=== PATIENT | female | born 1970 | race Caucasian/White ===

== ENCOUNTER 2022-06-01 17:34 | Emergency (ER) | payer MEDICAID, SELFPAY ==
[2022-06-01 17:45] VITALS: BP 130/87; PULSE 84; RESP 14; TEMP 36.8; O2SAT 98
--- NOTE | 2022-06-01 18:09 | ED.GENADUL_ITS ---
Discharge Plan Disposition Patient Disposition: HOME Condition: Stable Discharge Details Chief Complaint: RashLesion Clinical Impression: Hand, foot and mouth disease Primary Care Provider: Adriana Velazquez ED Provider: Dung Marley Home Meds and New Rx's Prescriptions: No Action venlafaxine [Effexor XR] 37.5 mg Capsule,Extended Release 24hr 37.5 mg PO DAILY venlafaxine 75 mg Capsule,Extended Release 24hr 75 mg PO DAILY aspirin 81 mg Tablet 81 mg PO DAILY lisinopril 5 mg Tablet 5 mg PO DAILY Discharge Instructions Instructions: Hand, Foot, and Mouth Disease (ED) Additional Instructions: Please follow-up with your primary care physician. Please return to the emergency department for any worsening symptoms. Medical Decision Making 52-year-old female presents with papules to palms and soles as well as white papules to bucca mucosa over the past day, afebrile nontoxic tolerating secretions, hemodynamically stable, of note lzfb-wjju-csi-mouth has been going around her children school. High clinical suspicion for coxsackie viral infection resulting in enpd-zrie-mzn-mouth disease. Low suspicion for measles given localized skin involvement no systemic illness. Unlikely drug reaction, and no evidence of Morgan-Riccardo's or TEN; reassurance, viscous lidocaine for irritation of bucca mucosa, Home care instructions and return precautions given HPI General Date/Time Provider Initiated Documentation: 06/01/22 17:55 . HPI Narrative: 52-year-old female presents with rash to palms soles and oral mucosa that she has noticed over the past day, white bumps on the inside of her mouth that are irritating and small bumps on her palms and soles. Denies fevers chills nausea vomiting denies trouble breathing or speaking. Of note mvcl-hjgy-tms-mouth has been going around her children school Related Data Home Medications Medication Instructions Recorded Confirmed aspirin 81 mg tablet 81 mg PO DAILY 06/01/22 06/01/22 lisinopril 5 mg tablet 5 mg PO DAILY 06/01/22 06/01/22 venlafaxine 37.5 mg 37.5 mg PO DAILY 06/01/22 06/01/22 capsule,extended release 24 hr (Effexor XR) venlafaxine 75 mg capsule,extended 75 mg PO DAILY 06/01/22 06/01/22 release 24 hr Allergies Allergy/AdvReac Type Severity Reaction Status Date / Time prednisone AdvReac Intermediate Unverified 06/01/22 17:54 General Stated Complaint: RashLesion ROSA: 4 Review of Systems Narrative: Review of Systems Constitutional: negative Eyes: negative ENT: negative Cardiovascular: negative Respiratory: negative Gastrointestinal: negative : negative Musculoskeletal: negative Skin: Rash on palms soles and oral mucosa Neurologic: negative Psych: negative PFSH All Active Problems (Updated 06/01/22 @ 18:14 by Dung Marley MD) Hand, foot and mouth disease (Acute) Social History Smoking risk assessment performed?: No Exam Narrative Exam Narrative: Physical Examination General: alert, awake, cooperative, resting comfortably, no acute distress HEENT: normocephalic, atraumatic; PERRL, EOM intact, conjunctiva normal; no nasal discharge; moist mucous membranes, white papules to buccal mucosa, tolerating secretions, normal voice normal lips and gingiva, no ocular involvement Neck: supple, trachea midline; full ROM Chest: normal to inspection Respiratory: normal respiratory effort, speaking in full sentences, clear to auscultation, no wheezing, rales or rhonchi Cardiac: regular rate, regular rhythm, S1S2 intact, no murmurs rubs or gallops GI: abdomen soft, non-tender, non-distended; no palpable mass or hepatosplenomegaly Skin: Scattered papules to palms of bilateral hands, white papules to buccal mucosa; no skin sloughing, bulla, petechia or purpura Neuro: AAOx3, normal speech, moving all extremities Extremities: See skin Psych: Appropriate mood and affect Course Vital Signs Vital signs: Vital Signs Temperature 36.8 C 06/01/22 17:45 Pulse 84 06/01/22 17:45 Respiratory Rate 14 06/01/22 17:45 Blood Pressure 130/87 06/01/22 17:45 Pulse Oximetry 98 06/01/22 17:45 Temperature 36.8 C 06/01/22 17:45 Temperature Source Temporal Artery Scan 06/01/22 17:45 Pulse 84 06/01/22 17:45 Respiratory Rate 14 06/01/22 17:45 Respiratory Effort Non-Labored 06/01/22 17:57 Blood Pressure 130/87 06/01/22 17:45 Blood Pressure Position Sitting 06/01/22 17:45 Pulse Oximetry 98 06/01/22 17:45 Oxygen Delivery Method Room Air 06/01/22 17:45 Oxygen Flow Rate 0 06/01/22 17:45
[2022-06-01] MEDS: Lidocaine 2% Viscous 15 ML CUP PO (18:15)
[2022-06-01 18:24] VITALS: BP 130/87; PULSE 84; RESP 14; TEMP 36.8; O2SAT 98
== END 2022-06-01 18:27 | disposition home or self-care (01) ==
PROVIDERS: Emergency Provider Emergency Medicine; PCP Internal Medicine
DX: B08.4 Enteroviral vesicular stomatitis with exanthem (principal)
CPT/HCPCS: 99283; 99284

== ENCOUNTER 2022-10-11 11:44 | Emergency (ER) | payer MEDICAID, SELFPAY ==
[2022-10-11 11:47] VITALS: BP 113/74; PULSE 92; RESP 18; TEMP 36.8; O2SAT 97
[2022-10-11 11:56] VITALS: RESP 18
[2022-10-11] MEDS: Ibuprofen 600 MG TAB PO (12:58)
--- NOTE | 2022-10-11 13:15 | ED.GENADUL_ITS ---
Discharge Plan Disposition Patient Disposition: Home Condition: Stable Discharge Details Clinical Impression: Acute otalgia, URI (upper respiratory infection) Primary Care Provider: Adriana Velazquez ED Provider: Bhupinder Salazar Home Meds and New Rx's Prescriptions: New amoxicillin 875 mg tablet 875 mg PO BID Qty: 20 0RF Continued venlafaxine [Effexor XR] 37.5 mg Capsule,Extended Release 24hr 37.5 mg PO DAILY venlafaxine 75 mg Capsule,Extended Release 24hr 75 mg PO DAILY aspirin 81 mg Tablet 81 mg PO DAILY lisinopril 5 mg Tablet 5 mg PO DAILY Discharge Instructions Instructions: Upper Respiratory Infection (ED) Additional Instructions: At this time your testing was negative for COVID, flu, and strep throat. Please continue to take vblg-krc-nufwvaq medications as needed for discomfort. I do recommend 600 mg of ibuprofen/Motrin every 6 hours as needed for pain. Stay well-hydrated and get plenty of rest. It is possible that you have early signs of your infection that are not obvious today. I have given you a prescription for antibiotic but it is recommended that you utilize maxc-mnc-cvnptjj pain medication for the next 24 to 48 hours and if your symptoms resolve you do not need the antibiotic but if you worsen feel free to start the antibiotic and take full course of medication. Follow-up with your primary care provider if not improving in the next week Referrals: Adriana Velazquez [Primary Care Provider] - 1 week Discharge Data Discharge Date/Time-TO BE ENTERED AT DEPARTURE: 10/11/22 13:24 Medical Decision Making Patient presenting to the emergency department for chief complaint of right ear pain. Patient reports that she has had upper respiratory symptoms for the past week but over the past couple days started having significant right ear pain. States subjective chills and fever, and some radiation of pain into right side of neck underneath the jawline. Exam shows clear lung sounds, no cardiac findings, no lymphadenopathy, mild erythema to the tonsils and posterior pharynx with slight exudate, right ear is bulging with clear effusion but no erythema no loss of landmarks. COVID antigen testing was performed and was negative. After my examination I also requested a strep test which also was negative and sent for culture. At this time I do not feel that patient has obvious otitis media but there is potential this could be early in her presentation. Will give pocket prescription for antibiotics in case she worsens but otherwise will recommend that she takes Motrin for the next 24 to 48 hours and monitor symptoms. After discussion of diagnosis and plan of care patient has no further needs, questions, or concerns and states clear understanding to return to the emergency department for any worsening symptoms. This documentation was generated using [employer] dictation system, please disregard any oddities of phrase or misspellings. Lab Data Lab results reviewed: Yes I reviewed the patient's lab results. HPI General Mode of arrival: ambulatory . Date/Time Provider Initiated Documentation: 10/11/22 12:10 . Limitations to Documentation: no limitations . Information obtained by: patient and RN notes reviewed . History of Present Illness 52 year old F presents to the emergency department with the chief complaint of Right ear pain, described as moderate, Quality is described as sharp, and is localized to the right (ear). Patient started experiencing this day(s) (2) and it has been constant. No relieving factors improve symptom(s), No exacerbating factors reported . Patient notes no other symptoms.. Patient did receive the following treatments prior to arrival, none Related Data Home Medications Medication Instructions Recorded Confirmed aspirin 81 mg tablet 81 mg PO DAILY 06/01/22 10/11/22 lisinopril 5 mg tablet 5 mg PO DAILY 06/01/22 10/11/22 venlafaxine 37.5 mg 37.5 mg PO DAILY 06/01/22 10/11/22 capsule,extended release 24 hr (Effexor XR) venlafaxine 75 mg capsule,extended 75 mg PO DAILY 06/01/22 10/11/22 release 24 hr amoxicillin 875 mg tablet 875 mg PO BID #20 tabs 10/11/22 Previous Rx's Medication Instructions Recorded amoxicillin 875 mg tablet 875 mg PO BID #20 tabs 10/11/22 Allergies Allergy/AdvReac Type Severity Reaction Status Date / Time prednisone AdvReac Intermediate Unverified 10/11/22 11:51 General Stated Complaint: GenMedical ROSA: 4 Review of Systems Constitutional Constitutional: Reports body ache(s), Reports chills, Denies fever(s), Reports headache(s) and Reports malaise Eyes Eyes: Denies eye discharge ENT Ears, Nose, Mouth, and Throat: Reports as per HPI, Denies ear discharge, Reports otalgia, Reports headache(s), Reports nasal congestion, Reports nasal discharge, Denies neck pain, Reports sore throat and Denies throat swelling Cardiovascular Cardiovascular: Denies chest pain and Denies dyspnea Respiratory Respiratory: Reports cough and Denies dyspnea Musculoskeletal Musculoskeletal: Denies joint swelling and Denies neck pain Integumentary/Breasts Skin/Breast: Denies rash Neurologic Neurologic: Reports headache(s) Allergic/Immunologic Allergic/Immunologic: Denies throat swelling PFSH All Active Problems (Updated 10/11/22 @ 13:18 by Bhupinder Salazar NP) Acute otalgia (Acute) URI (upper respiratory infection) (Acute) Social History Smoking/Tobacco Use Status: Current every day Tobacco Type: cigarettes Smoking risk assessment performed?: Yes Alcohol Intake: never Drug use: Never Substance use type: does not use Do you feel safe at home: Yes Do you feel safe in your relationship?: Yes Exam Const General: cooperative, comfortable and no acute distress Orientation: alert and awake HENWA Head: normal to inspection, normocephalic and atraumatic Ears: hearing grossly normal bilaterally, TM normal on the left and TM abnormal bulging on the right and wth effusion serous on the right; with no loss of landmarks General nose exam: external nose normal Face and sinus: no erythema Mouth: oral mucosae normal, no drooling, no muffled voice and no trismus Throat: posterior oropharynx normal Neck Neck: normal visual inspection, full ROM, no lymphadenopathy, no meningeal signs, trachea midline and supple Resp Effort & Inspection: normal respiratory effort, able to speak in complete sentences and cough Quality of cough: dry Auscultation: clear to auscultation bilaterally Cardio Rate: regular rate Rhythm: regular rhythm Heart Sounds: S1 normal, S2 normal, normal S1 and S2, no click, no gallops, no murmurs and no rubs Skin General skin exam: no rashes or lesions noted and dry skin (warm) Neuro General: patient alert, patient awake, patient oriented x3, gait normal and moves all extremities Cognition: normal cognition Speech: speech normal Course Vital Signs Vital signs: Vital Signs Temperature 36.8 C 10/11/22 11:47 Pulse 92 H 10/11/22 11:47 Respiratory Rate 18 10/11/22 11:47 Blood Pressure 113/74 10/11/22 11:47 Pulse Oximetry 97 10/11/22 11:47 Temperature 36.8 C 10/11/22 11:47 Temperature Source Temporal Artery Scan 10/11/22 11:47 Pulse 92 H 10/11/22 11:47 Respiratory Rate 18 10/11/22 11:56 Respiratory Effort Normal, Non-Labored 10/11/22 11:56 Respiratory Depth Normal 10/11/22 11:56 Respiratory Pattern Normal 10/11/22 11:56 Blood Pressure 113/74 10/11/22 11:47 Blood Pressure Position Sitting 10/11/22 11:47 Pulse Oximetry 97 10/11/22 11:47 Oxygen Delivery Method Room Air 10/11/22 11:47 Oxygen Flow Rate 0 10/11/22 11:47 Lab/Test Results Lab/Test Results: 10/11/22 13:00 Tonsil - Not Specified Group A Streptococcus Culture - Pending POC Strep Test-BLAYNE(Rapid) Start: 10/11/22 12:52 Freq: .Rapid Strep Test Status: Active Protocol: Document 10/11/22 13:06 PS (Rec: 10/11/22 13:06 PS [id number]) Strep test-BLAYNE(Rapid)-POC POC-Strep test-BLAYNE (Rapid) Negative POC-Strep test-BLAYNE (Rapid) Negative
== END 2022-10-11 13:24 | disposition home or self-care (01) ==
PROVIDERS: Emergency Provider Nurse Practitioner Family; PCP Internal Medicine
DX: J06.9 Acute upper respiratory infection, unspecified (principal); H92.01 Otalgia, right ear; F17.210 Nicotine dependence, cigarettes, uncomplicated; Z79.82 Long term (current) use of aspirin; Z20.822 Contact with and (suspected) exposure to COVID-19
CPT/HCPCS: 87880; 99282; 87081

== ENCOUNTER 2022-11-26 09:32 | Emergency (ER) | payer MEDICAID, SELFPAY ==
[2022-11-26] VITALS (36 sets, daily range): BP systolic 97–157; BP diastolic 56–91; PULSE 64–83; RESP 8–28; O2SAT 94–100
--- NOTE | 2022-11-26 09:30 | DI.CT_ITS ---
Exam(s) CT HEAD WO EXAM: CT HEAD WO CLINICAL HISTORY: Syncope. TECHNIQUE: Imaging Protocol: Axial computed tomography images with coronal and sagittal reformatted images were created and reviewed COMPARISON: No exams were available for comparison FINDINGS: There are no skull fractures. There is no fluid in the visualized paranasal sinuses. There is no evidence of intracranial hemorrhage, mass effect, or shift of midline structures. There are no extra-axial fluid collections. The ventricles are not enlarged or shifted and there is no blo od within the ventricular system nor within the basal cisterns. IMPRESSION: No acute intracranial findings on this noninfused CT scan of the brain. Called to ER 11/26/2022 11 14 a.m.. RADIATION DOSE DELIVERED: 643.84mGy.cm Total DLP DATA REPOSITORY: All CT scans at this facility are submitted to the National Radiology Data Registry (NRDR) Dose Index Registry (DIR) with the [employer] (ACR). RADIATION OPTIMIZATION: All CT scans at this facility use at least one of these dose optimization te chniques: automated exposure control; mA and/or kV adjustment per patient size (includes targeted exa ms where dose is matched to clinical indication); or iterative reconstruction.
--- NOTE | 2022-11-26 09:30 | RT.EKG_ITS ---
APPROVED REPORT Exam: Resting ECG Reason for Exam: Chest Pain Patient Location: E HR:67 bpm ECG Measurements Heart Rate 67 AXIS NH 158 P 77 QRSd 71 QRS 55 QT 384 T 50 QTc 407 Conclusion Sinus rhythm...normal P axis, V-rate 60- 99. Sinus. Normal axis. No STEMI. I have reviewed and interpreted ECG and agree with software generated interpretation.
--- OUTSIDE RECORDS SUMMARY | 2022-11-26 09:41 | XMS_ITS | Continuity of Care Document ---
Author Name Unknown Organization [facility] Address [address] [place] [address] Care Team Providers Care Central Sterile Technician Name Role Phone Adriana Velazquez Primary Care Physician Encounter [facility] Date(s): 11/20/22 - 11/20/[address] [address] Discharge Disposition: Home Allergies, Adverse Reactions, Alerts Substance Reaction Severity Status predniSONE Unknown Active Assessment and Plan Future Scheduled Tests Radiology* MG Mammo Screening Bilateral w/ Kaden 11/19/22 * CT Low Dose Lung Screening 02/11/22 Immunizations Given and Recorded Vaccine Date Status Refusal Reason zoster vaccine, inactivated 1 07/29/21 Recorded influenza virus vaccine, live 2 07/29/21 Recorded influenza virus vaccine, live 05/28/20 Recorded influenza virus vaccine, live 06/23/19 Recorded influenza virus vaccine, live 06/13/18 Recorded SARS-CoV-2 (COVID-19) mRNA BNT-162b2 vax 10/10/20 Recorded SARS-CoV-2 (COVID-19) mRNA BNT-162b2 vax 09/19/20 Recorded pneumococcal 23-polyvalent vaccine 3 09/12/19 Bob rded tetanus/diphth/pertuss (Tdap) adult/adol 05/04/19 Recorded tetanus/diphth/pertuss (Tdap) adult/adol 02/04/11 Recorded 1Result Comment: Tolerated well 2Result Comment: Tolerated well 3Result Comment: Educational information provided. Pt tolerated well Medications aspirin 81 mg oral delayed release tablet 1 tab, Oral, Daily, 0 Refill(s) Start Date: 02/10/22 Status: Ordered lisinopril 5 mg oral tablet 5 mg = 1 tab, Oral, Daily, # 90 tab, 3 Refill(s), Pharmacy: [facility][id number] Start Date: 03/04/22 Status: Ordered LORazepam 0.5 mg oral tablet 0.5 mg = 1 tab, Oral, Daily, PRN as needed for anxiety, # 28 tab, 0 Refill(s), Pharmacy: [facility] #[id number] Start Date: 11/03/22 Stop Date: 12/01/22 Status: Ordered venlafaxine 37.5 mg oral capsule, extended release 37.5 mg = 1 cap, Oral, Daily, # 90 cap, 3 Refill(s), Pharmacy: [id number] Start Date: 08/31/22 Status: Ordered venlafaxine 75 mg oral capsule, extended release 1 cap, Oral, Daily, 0 Refill(s) Start Date: 02/10/22 Status: Ordered Problem List Condition Confirmation Course Effective Dates Status H ealth Status Informant Adenocarcinoma of endometrium Confirmed 07/25/20 Active Depressive disorder Confirmed Active Family problems Confirmed 01/01/21 Active Generalized anxiety disorder Confirmed 07/24/20 Active Hyperlipidemia Confirmed 02/06/20 Active Hypertensive disorder Confirmed 06/28/18 Active Liver function tests abnormal Confirmed 06/28/18 Active Lumbar radiculopathy Confirmed 06/28/18 Active Palpitations Confirmed 06/28/18 Active Panic disorder Confirmed 07/24/20 Active Posttraumatic stress disorder Confirmed 07/24/20 Active Smoker Confirmed 06/28/18 Active Procedures Procedure Date Related Diagnosis Body Site Status Laparoscopic total abdominal hysterectomy and bilateral salpingo-oophorectomy 1 08/28/20 Complete d Colonoscopy 2 02/15/20 Completed Carpal tunnel release 08/22/13 Com pleted Procedure on back 08/22/07 Complet ed Procedure on ankle 08/22/99 Comple [place] Tubal ligation 08/22/92 Completed 1total laparoscopic/robotic hysterectomy, BSO, sentinel lymph node mapping and biopsy for dx of endometrial adenocarcinoma 2rectal polyp, internal hemorrhoids grade 1 Social History Social History Type Response Tobacco Current everyday tob acco user Tobacco Use:. 1ppd per day. 30 year(s). Sex Female Patient Care team information Care Team Personnel Name: Adriana Velazquez Position: Physician Member Role: Primary Care Physician Address: Address: [facility] [place] [phone] Care Team Related Persons Name: KYE JESUS Address: Home [address] [place] [phone] Name: SANTO VAELNTINO Address: [address] [phone]
--- OUTSIDE RECORDS SUMMARY | 2022-11-26 09:41 | XMS_ITS | Continuity of Care Document ---
Author Name Unknown Organization [facility] Address [address] [place] [address] Care Team Providers Care Hire Car Driver Name Role Phone Adriana Velazquez Primary Care Physician [phone] Encounter [facility] Date(s): 07/13/22 - 07/13/[address] [address] Discharge Disposition: Home or Self Care Attending Physician: Austin Dahl NP Admitting Physician: Austin Dahl NP Referring Physician: Austin Dahl SR. OPERATIONS MANAGER Allergies, Adverse Reactions, Alerts Substance Reaction Severity Status predniSONE Unknown Active Assessment and Plan Diagnostic Tests Pending * Generic Orderable [facility] 07/13/22 Future Scheduled Tests Radiology* CT Low Dose Lung Screening 02/11/22 Immunizations [...] Daily, # 90 tab, 3 Refill(s), Pharmacy: [facility] #[id number] Start Date: 03/04/22 Status: Ordered LORazepam 0.5 mg oral tablet 0.5 mg = 1 tab, Oral, Daily, PRN as needed for anxiety, # 28 tab, 0 Refill(s), Pharmacy: [facility] #[id number] Start Date: 07/09/22 Stop Date: 08/06/22 Status: Ordered venlafaxine 37.5 mg oral capsule, extended release 1 cap, Oral, Daily, 0 Refill(s) Start Date: 02/10/22 Status: Ordered venlafaxine 75 mg oral capsule, [...] adenocarcinoma 2rectal polyp, internal hemorrhoids grade 1 Results Laboratory List Name Date Automated Diff 07/13/22 CBC w/ Diff 07/13/22 Comprehensive Metabolic Panel (CMP) 06/24 09/13 HIV 1/2 Ag and Ab, 4th Generation [facility] Most recent to oldest [Reference Range]: 1 WBC [5.0-10.0 x10^3/mcL] 8.5 x10^3/mcL (07/13/22 9:30 AM) RBC [4.1-5.3 x10^6/mcL] 4.6 x10^6/mcL (07/13/22 9:30 AM) Neutro Auto [40.0-75.0 %] 59.6 % (07/13/22 9:30 AM) Lymph Auto [20.0-50.0 %] 32.6 % (07/13/22 9:30 AM) Williams Auto [2.0-15.0 %] 5.7 % (07/13/22 9:30 AM) Basophil Auto [0.0-1.0 %] 0.8 % (07/13/22 9:30 AM) BUN [7-18 mg/dL] 19 mg/dL *HI* (07/13/22 9:30 AM) Glucose Level [74-106 mg/dL] 93 mg/dL (07/13/22 9:30 AM) Potassium Level [3.5-5.1 mmol/L] 4.7 mmo l/L (07/13/22 9:30 AM) MCV [80.0-96.0] 93.1 (07/13/22 9:30 AM) AST [15-37 unit/L] 19 unit/L (07/13/22 9:30 AM) ALT [14-59 unit/L] 29 unit/L (07/13/22 9:30 AM) MCHC [31.0-35.0 g/dL] 34.0 g/dL (07/13/22 9:30 AM) Sodium Level [136-145 mmol/L] 137 mmol/L (07/13/22 9:30 AM) Hct [37.0-47.0 %] 43.2 % (07/13/22 9:30 AM) Calcium Level [8.5-10.1 mg/dL] 9.3 mg/dL (07/13/22 9:30 AM) Albumin Level [3.4-5.0 g/dL] 3.9 g/dL (07/13/22 9:30 AM) Protein Total [6.4-8.2 g/dL] 7.1 g/dL (07/13/22 9:30 AM) MCH [26.0-32.0 pg] 31.7 pg (07/13/22 9:30 AM) Neutro Absolute 5.0 x10^3/mcL *NA* (07/13/22 9:30 AM) Bilirubin Total [0.2-1.0 mg/dL] 0.2 mg/d L (07/13/22 9:30 AM) Hgb [12.0-16.0 g/dL] 14.7 g/dL (07/13/22 9:30 AM) Alk Phos [46-146 unit/L] 64 unit/L (07/13/22 9:30 AM) Platelets [130-450 x10^3/mcL] 342 x10^3/ mcL (07/13/22 9:30 AM) CO2 [21-32 mmol/L] 27 mmol/L (07/13/22 9:30 AM) eGFR Non-AA [>=60] 84 (07/13/22 9:30 AM) eGFR AA [>=60] 84 (07/13/22 9:30 AM) Chloride Level [98-107 mmol/L] 103 mmol/ L (07/13/22 9:30 AM) RDW-CV [11.7-17.0 %] 13.0 % (07/13/22 9:30 AM) Imm Gran Auto [0.0-0.9 %] 0.2 % (07/13/22 9:30 AM) Creatinine Level [0.55-1.02 mg/dL] 0.83 mg/dL (07/13/22 9:30 AM) HIV 1 and 2 Ab/p24 Ag, 4th Gen [facility] [Nega tive] Negative 1 *NA* (07/13/22 9:30 AM) Eos, Auto [1.0-6.0 %] 1.1 % (07/13/22 9:30 AM) 1Result Comment: If acute HIV-1 infection is suspected in a high risk patient, submit plasma specimen for HIV-1 RNA quantitation test. ENTP: ENTP Enterovirus Molecular detection [facility]: ENTP Fourth Generation assay performed on the [employer] XPT. Test performed [place] [address] Social History Social History Type Response Tobacco Current everyday tob acco user Tobacco Use:. 1ppd per day. 30 year(s). Sex Female Patient Care team information Personnel Name: Adriana Velazquez Address: Address: [facility] [id number] [place] [address]
--- NOTE | 2022-11-26 09:44 | DI.CT_ITS ---
Exam(s) CT THORAX ABD/PEL CTA EXAM: CT THORAX ABD/PEL CTA CLINICAL HISTORY: Chest Pain, Syncope. TECHNIQUE: Imaging Protocol: Axial computed tomography images with coronal and sagittal reformatted images were created and reviewed CONTRAST MATERIAL: Intravenous: Omnipaque 350 Contrast volume:100 ml Oral: None COMPARISON: No exams were available for comparison FINDINGS: CHEST: AORTA: The ascending thoracic aorta diameter is normal and there is no evidence of aortic dissection. Diameter of the aortic arch and descending thoracic aorta are also within normal limits. No eviden ce of dissection. No pericardial effusion. Upper normal heart size. Abdominal aorta exhibits some atherosclerotic disease distally at and below the inferior mesenteric a rtery takeoff point with some mild partially calcified peripheral plaque no significant aneurysmal di latation nor tight stenosis. Also no significant tight stenosis at the aortic bifurcation. Common i liac arteries are patent and nonaneurysmal. External iliac arteries appear unremarkable as do the co mmon femoral arteries and there is no evidence of aneurysm of the common femoral arteries. The proxi mal SFA is are patent. Both internal iliac arteries are patent and nonaneurysmal. LUNGS: Both lungs are clear. No infiltrates nor pleural effusions. No pulmonary edema. No pneumoth orax. No significant focal findings in the trachea and mainstem bronchi. There is no bronchiectasis .. MEDIASTINUM: There is no hilar nor mediastinal adenopathy. Visualized thyroid unremarkable. CARDIAC: Heart size is normal. There is no pericardial effusion. AORTA: As above.There is no evidence of aortic dissection. ABDOMEN: There is no evidence of abdominal aortic aneurysm nor dissection.No significant stenosis at the origi n of the celiac and superior mesenteric arteries nor renal arteries.Inferior mesenteric artery is pat ent. There is no ascites. LIVER: There are no focal hepatic lesions nor dilatation of intrahepatic ducts. GALLBLADDER/BILIARY: There is a density in the wall of the fundus of the gallbladder which measures a pproximately 1.0 x 0.7 cm. CBD is not dilated. PANCREAS: No evidence of pancreatic mass nor dilatation of the pancreatic duct. SPLEEN: Spleen is not enlarged. There are no intrasplenic lesions. ADRENALS: There are no significant adrenal masses. KIDNEYS: No cysts evident. No calculi nor hydronephrosis. No solid renal masses. ABDOMINAL AORTA: The abdominal aorta is not enlarged. LYMPH NODES: There is no retroperitoneal nor para-aortic adenopathy. No obvious mesenteric masses. ABDOMINAL WALL: No evidence of significant anterior abdominal wall hernia. GI: Abundant fecal material in the colon. No bowel obstruction. No free air. No abscess. PELVIS: LYMPH NODES: There is no intrapelvic nor inguinal adenopathy. GI: No evidence of appendicitis.No evidence of sigmoid diverticulitis. URINARY BLADDER: No calculi nor masses evident REPRODUCTIVE: Uterus surgically absent. No abnormal adnexal masses. No free fluid in the pelvis. OSSEOUS: No significant osseous lesions. No fractures. Chronic disc space narrowing at L5-S1 noted. IMPRESSION: 1. No evidence of aortic aneurysm nor aortic dissection. No pericardial effusion. Heart size upper normal. 2. No pulmonary findings. 3. Incidentally noted in the abdomen is a 1 cm density which is either in the tip of the gallbladder fundus or adjacent liver parenchyma-right hepatic lobe. Recommend follow-up gallbladder ultrasound. 4. No compression fractures in the spinal column. Chronic disc space narrowing L5-S1 noted. Called by myself to ER. RADIATION DOSE DELIVERED: 846.9mGy.cm Total DLP DATA REPOSITORY: All CT scans at this facility are submitted to the National Radiology Data Registry (NRDR) Dose Index Registry (DIR) with the [employer] [place] [employer] [employer] (ACR). RADIATION OPTIMIZATION: All CT scans at this facility use at least one of these dose optimization te chniques: automated exposure control; mA and/or kV adjustment per patient size (includes targeted exa ms where dose is matched to clinical indication); or iterative reconstruction.
--- NOTE | 2022-11-26 09:46 | ED.GENADUL_ITS ---
Discharge Plan Disposition Patient Disposition: Home Discharge Details Clinical Impression: Syncope, Chest pain Primary Care Provider: Adriana Velazquez ED Provider: Ariana Burger Home Meds and New Rx's Prescriptions: Continued amoxicillin 875 mg tablet 875 mg PO BID Qty: 20 0RF venlafaxine [Effexor XR] 37.5 mg Capsule,Extended Release 24hr 37.5 mg PO DAILY venlafaxine 75 mg Capsule,Extended Release 24hr 75 mg PO DAILY aspirin 81 mg Tablet 81 mg PO DAILY lisinopril 5 mg Tablet 5 mg PO DAILY Discharge Instructions Instructions: Chest Pain (ED), Syncope (ED) Additional Instructions: No evidence of acute heart attack, no pneumonia. Please follow-up with your primary care provider within the next 2 to 3 days. Your sodium was just a tad low. Normal is 136 your level was 135 Follow up with primary care provider in 3-5 days. Return to ED sooner if any worsening or concerns. Increase oral fluids. Please take Tylenol or Ibuprofen with food every 4-6 hours as needed for pain and swelling. Referrals: Adriana Velazquez [Primary Care Provider] - 3 days Medical Decision Making 52-year-old female presents to the ER with a chief complaint of sudden onset of chest pain and syncope just prior to arrival. Patient reports that she was presenting here for a counseling appointment got out of the car stood up stretched felt a sudden onset of left-sided chest pain and her reports she then collapsed and fell to the ground. He picked her up and put her in the car and she woke up approximately 30 seconds afterwards. She is still complaining of some left sided chest pain. EKG was reviewed by Dr. Andujar ER attending, no old EKG available for review. Please see official report. Cardiac work-up ordered including serial troponins, D-dimer CT head without contrast CTA thorax and abdomen to rule out dissection. CBC shows no leukocytosis D-dimer 402 sodium 135 which is slightly low, troponins are negative, urinalysis within normal limits. CT head within normal limits CT chest abdomen pelvis shows no aortic dissection. Discussed results with patient and family who verbalized understanding. Discussed return instructions. I did strongly encourage follow-up with PCP within the next 2 to 3 days. Patient was hemodynamically stable throughout her stay tolerating p.o. intake well alert and oriented. This text was generated using [employer] system, please disregard any oddities of phrase or misspellings. Medical Records Medical records reviewed: Yes I reviewed the patient's medical records. Imaging Data Radiologic Study: Imaging: CT Scan Radiologist's impression: IMPRESSION: 1. No evidence of aortic aneurysm nor aortic dissection. No pericardial effusion. Heart size upper normal. 2. No pulmonary findings. 3. Incidentally noted in the abdomen is a 1 cm density which is either in the tip of the gallbladder fundus or adjacent liver parenchyma-right hepatic lobe. Recommend follow-up gallbladder ultrasound. 4. No compression fractures in the spinal column. Chronic disc space narrowing L5-S1 noted. Lab Data Lab results reviewed: Yes I reviewed the patient's lab results. Labs: Laboratory Tests Range/Units 11/26/22 11/26/22 11/26/22 09:59 09:59 09:59 WBC (4.4-10.8) 10^3/uL 7.93 RBC (3.93-5.22) 10^6/uL 4.42 Hgb (11.2-15.7) g/dL 14.1 Hct (36.0-46.0) % 39.7 MCV (80-95) fL 90 MCH (27.0-33.0) pg 31.9 MCHC (32.0-36.0) % 35.5 RDW (11.7-14.6) % 12.9 Plt Count (130-400) 10^3/uL 305 MPV (8.0-11.0) fL 10.2 Immature Gran % 0.3 Neutrophils % 63.7 Lymphocytes % 29.3 Monocytes % 5.4 Eosinophils % 0.5 Basophils % 0.8 Nucleated RBC % (0.0-0.3) % 0.0 Absolute Neutrophils (1.2-6.7) 10^3/uL 5.06 Absolute Lymphocytes (1.2-3.4) 10^3/uL 2.32 Absolute Monocytes (0.1-0.8) 10^3/uL 0.43 Absolute Eosinophils (0.0-0.7) 10^3/uL 0.04 Absolute Basophils (0.0-0.2) 10^3/uL 0.06 D-Dimer (<500) ng/mlFEU 402 Sodium (136-145) mmol/L 135 L Potassium (3.5-5.1) mmol/L 4.1 Chloride (98-107) mmol/L 100 Carbon Dioxide (21.0-32.0) mmol/L 28.2 Anion Gap (3-11) mmol/L 6.8 BUN (7-18) mg/dL 15 Creatinine (0.55-1.02) mg/dL 0.8 Est GFR (CKD-EPI 2020) (mL/min/1.73m2) 87.50 Glucose (74-106) mg/dL 100 Calcium (8.5-10.1) mg/dL 10.0 Magnesium (1.8-2.4) mg/dL 2.0 Total Bilirubin (0.2-1.0) mg/dL 0.3 AST (15-37) U/L 26 ALT (14-59) U/L 42 Alkaline Phosphatase (46-116) U/L 62 Troponin I (<or=60) ng/L < 50 Total Protein (6.4-8.2) g/dL 7.5 Albumin (3.4-5.0) g/dL 3.9 Urine Color (Yellow) Urine Clarity (Clear) Urine pH (5-8) Ur Specific [place] (1.005-1.025) Urine Protein (Negative) mg/dL Urine Ketones (Negative) mg/dL Urine Blood (Negative) Urine Nitrite (Negative) Urine Bilirubin (Negative) Urine Urobilinogen (Up to 0.2) mg/dL Ur Leukocyte Esterase (Negative) Urine Glucose (Negative) mg/dL Range/Units 11/26/22 11/26/22 11:30 13:19 WBC (4.4-10.8) 10^3/uL RBC (3.93-5.22) 10^6/uL Hgb (11.2-15.7) g/dL Hct (36.0-46.0) % MCV (80-95) fL MCH (27.0-33.0) pg MCHC (32.0-36.0) % RDW (11.7-14.6) % Plt Count (130-400) 10^3/uL MPV (8.0-11.0) fL Immature Gran % Neutrophils % Lymphocytes % Monocytes % Eosinophils % Basophils % Nucleated RBC % (0.0-0.3) % Absolute Neutrophils (1.2-6.7) 10^3/uL Absolute Lymphocytes (1.2-3.4) 10^3/uL Absolute Monocytes (0.1-0.8) 10^3/uL Absolute Eosinophils (0.0-0.7) 10^3/uL Absolute Basophils (0.0-0.2) 10^3/uL D-Dimer (<500) ng/mlFEU Sodium (136-145) mmol/L Potassium (3.5-5.1) mmol/L Chloride (98-107) mmol/L Carbon Dioxide (21.0-32.0) mmol/L Anion Gap (3-11) mmol/L BUN (7-18) mg/dL Creatinine (0.55-1.02) mg/dL Est GFR (CKD-EPI 2020) (mL/min/1.73m2) Glucose (74-106) mg/dL Calcium (8.5-10.1) mg/dL Magnesium (1.8-2.4) mg/dL Total Bilirubin (0.2-1.0) mg/dL AST (15-37) U/L ALT (14-59) U/L Alkaline Phosphatase (46-116) U/L Troponin I (<or=60) ng/L < 50 Total Protein (6.4-8.2) g/dL Albumin (3.4-5.0) g/dL Urine Color (Yellow) Yellow Urine Clarity (Clear) Clear Urine pH (5-8) 5.5 Ur Specific [place] (1.005-1.025) <= 1.005 Urine Protein (Negative) mg/dL Negative Urine Ketones (Negative) mg/dL Negative Urine Blood (Negative) Negative Urine Nitrite (Negative) Negative Urine Bilirubin (Negative) Negative Urine Urobilinogen (Up to 0.2) mg/dL 0.2 Ur Leukocyte Esterase (Negative) Negative Urine Glucose (Negative) mg/dL Negative HPI General Mode of arrival: ambulatory . Date/Time Provider Initiated Documentation: 11/26/22 09:33 . Limitations to Documentation: no limitations . Information obtained by: patient, RN notes reviewed and old records reviewed . HPI Narrative: 52-year-old female presents to the ER with a chief complaint of sudden onset of chest pain and syncope just prior to arrival. Patient reports that she was presenting here for a counseling appointment got out of the car stood up stretched felt a sudden onset of left-sided chest pain and her reports she then collapsed and fell to the ground. He picked her up and put her in the car and she woke up approximately 30 seconds afterwards. She is still complaining of some left sided chest pain. Nonreproducible with palpation. She also reports feeling out of it and dizzy. She does take aspirin daily and is a daily smoker. She also has a history of hypertension. Related Data Home Medications Medication Instructions Recorded Confirmed aspirin 81 mg tablet 81 mg PO DAILY 06/01/22 10/11/22 lisinopril 5 mg tablet 5 mg PO DAILY 06/01/22 10/11/22 venlafaxine 37.5 mg 37.5 mg PO DAILY 06/01/22 10/11/22 capsule,extended release 24 hr (Effexor XR) venlafaxine 75 mg capsule,extended 75 mg PO DAILY 06/01/22 10/11/22 release 24 hr amoxicillin 875 mg tablet 875 mg PO BID #20 tabs 10/11/22 Previous Rx's Medication Instructions Recorded amoxicillin 875 mg tablet 875 mg PO BID #20 tabs 10/11/22 Allergies Allergy/AdvReac Type Severity Reaction Status Date / Time prednisone AdvReac Intermediate Unverified 10/11/22 11:51 General ROSA: 2 Review of Systems All systems reviewed & are unremarkable except as noted in HPI and below Constitutional Constitutional: Denies fever(s) ENT Ears, Nose, Mouth, and Throat: Reports dizziness Cardiovascular Cardiovascular: Reports chest pain and Reports syncope Neurologic Neurologic: Reports as per HPI, Reports dizziness and Reports syncope PFSH All Active Problems (Updated 11/26/22 @ 14:07 by Ariana Burger NP) Syncope (Chronic) Chest pain (Acute) Social History Smoking/Tobacco Use Status: Current every day Tobacco Type: cigarettes Smoking risk assessment performed?: Yes Alcohol Intake: never Drug use: Never Substance use type: does not use Do you feel safe at home: Yes Do you feel safe in your relationship?: Yes Exam Narrative Exam Narrative: Constitutional: Alert and oriented x3. Appears stated age. Normal body habitus. Head: Normocephalic, no trauma. Eyes: Pupils PERRL, Red reflex noted, EOM's intact. Eyelids symmetrical without lesions, discharge, or swelling. ENT: Bilateral TM's WNL, External ear normal to inspection, no mastoid TTP, swelling, or erythema, Nasal turbinates WNL, no nasal discharge. Normal dentition, Posterior pharynx WNL, no exudate. Chest: RRR, Normal S1, S2, distal pulses intact. Resp: Lungs clear to auscultation bilaterally, no wheezes, rales, or rhonchi. Abdomen: Soft, non-distended, Normoactive bowel sounds all 4 quads. Musculoskeletal: Normal gait, 5/5 strength to all four extremities. Skin: No suspicious rashes or lesions. Capillary refill less than 2 sec. Neurologic: Cranial nerves II-XII intact. Alert and oriented x 3. Motor: No deficits noted. Sensory: Intact bilaterally all 4 extremities. Reflexes: DTR's intact bilaterally.. Hematologic/Lymphatic: No ecchymosis, no lymphadenopathy.
[2022-11-26 10:10] LABS: Abs Immature Grans 0.02 10^3/uL (0.0-0.06); Absolute Basophil Count 0.06 10^3/uL (0.0-0.2); Absolute Eosinophil Count 0.04 10^3/uL (0.0-0.7); Absolute Lymphocyte Count 2.32 10^3/uL (1.2-3.4); Absolute Monocyte Count 0.43 10^3/uL (0.1-0.8); Absolute Neutrophil Count 5.06 10^3/uL (1.2-6.7); Basophils % 0.8; Eosinophils % 0.5; HCT 39.7 % (36.0-46.0); HGB 14.1 g/dL (11.2-15.7); Immature Grans % 0.3; Lymphocytes % 29.3; MCH 31.9 pg (27.0-33.0); MCHC 35.5 % (32.0-36.0); MCV 90 fL (80-95); MPV 10.2 fL (8.0-11.0); Monocytes % 5.4; Neutrophils % 63.7; Platelet Count 305 10^3/uL (130-400); RBC 4.42 10^6/uL (3.93-5.22); RDW 12.9 % (11.7-14.6); RDW-SD 42.8 fL; WBC 7.93 10^3/uL (4.4-10.8)
[2022-11-26 10:31] LABS: ALT 42 U/L (14-59); AST 26 U/L (15-37); Albumin 3.9 g/dL (3.4-5.0); Alkaline Phosphatase 62 U/L (46-116); Anion Gap 6.8 mmol/L (3-11); BUN 15 mg/dL (7-18); Bilirubin, Total 0.3 mg/dL (0.2-1.0); CO2 28.2 mmol/L (21.0-32.0); CREATININE 0.8 mg/dL (0.55-1.02); Chloride 100 mmol/L (98-107); Glucose 100 mg/dL (74-106); Potassium 4.1 mmol/L (3.5-5.1); Sodium 135 mmol/L (136-145); Total Protein 7.5 g/dL (6.4-8.2); Troponin I < 50 ng/L (<or=60)
[2022-11-26 10:45] LABS: D-Dimer 402 ng/mlFEU (<500)
[2022-11-26] MEDS: Omnipaque 350 MG/ML 500 ML BTL-Imaging package IJ (10:54)
[2022-11-26] MEDS: Normal Saline 1,000 ML 1000 ML IV (11:29)
[2022-11-26 12:38] LABS: Bilirubin Negative (Negative); Blood Negative (Negative); Clarity Clear (Clear); Glucose Negative (Negative); Ketones Negative (Negative); Leukocyte Esterase Negative (Negative); Nitrite Negative (Negative); Specific Gravity <= 1.005 (1.005-1.025); Urobilinogen 0.2 mg/dL (Up to 0.2); pH 5.5 (5-8)
[2022-11-26 13:51] LABS: Troponin I < 50 ng/L (<or=60)
== END 2022-11-26 14:26 | disposition home or self-care (01) ==
PROVIDERS: Emergency Provider Registered Nurse Emergency; PCP Internal Medicine
DX: R55 Syncope and collapse (principal); R07.9 Chest pain, unspecified; E87.1 Hypo-osmolality and hyponatremia
CPT/HCPCS: 36415; 71275; 80053; 93005; 96360; 99285; 70450; 74174; 81003; 83735; 84484; 85025; 85379; 93010; 99284

== ENCOUNTER 2022-11-29 18:59 | Emergency (ER) | payer MEDICAID, SELFPAY ==
[2022-11-29 19:02] VITALS: BP 130/88; PULSE 103; RESP 18; TEMP 37.1; O2SAT 100
[2022-11-29] MEDS: oxyCODONE 5 MG TAB PO (19:23)
[2022-11-29] MEDS: Acetaminophen 325 MG TAB 650 MG PO ×2 (19:23→22:40)
[2022-11-29] MEDS: Ibuprofen 600 MG TAB PO (19:23)
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
--- NOTE | 2022-11-29 22:53 | NUR.NOTE ---
Nursing Note:Cream applied to area of franz, hands dressed/wrapped, pt provided with instructions about follow up care.
== END 2022-11-29 22:50 | disposition home or self-care (01) ==
PROVIDERS: Emergency Provider Student in an Organized Health Care Education/Training Program; PCP Internal Medicine
DX: T23.201A Burn of second degree of right hand, unspecified site, initial encounter (principal); T20.20XA Burn of second degree of head, face, and neck, unspecified site, initial encounter; I10 Essential (primary) hypertension; F41.9 Anxiety disorder, unspecified; F17.200 Nicotine dependence, unspecified, uncomplicated; T23.202A Burn of second degree of left hand, unspecified site, initial encounter; Z23 Encounter for immunization; T31.0 Burns involving less than 10% of body surface
CPT/HCPCS: 90471; 99283

== ENCOUNTER 2024-04-07 14:52 | Outpatient (CLI) | payer OTHER, SELFPAY ==
[2024-04-07 14:27] LABS: ALT 32 U/L (14-59); AST 22 U/L (15-37); Alkaline Phosphatase 59 U/L (46-116); Anion Gap 10.7 mmol/L (3-11); BUN 15 mg/dL (7-18); Bilirubin, Total 0.34 mg/dL (0.2-1.0); CO2 26.3 mmol/L (21.0-32.0); CREATININE 0.8 mg/dL (0.55-1.02); Calcium 9.2 mg/dL (8.5-10.1); Calculated LDL 170 mg/dL (<100); Chloride 101 mmol/L (98-107); Cholesterol 259 mg/dL (<200); Estimated GFR 86.96 (mL/min/1.73m2); Glucose 85 mg/dL (74-106); HDL Cholesterol 74 mg/dL (40-60); Potassium 4.1 mmol/L (3.5-5.1); Sodium 138 mmol/L (136-145); Total Protein 7.6 g/dL (6.4-8.2); Triglyceride 79 mg/dL (<150)
== END 2024-04-07 14:53 | disposition home or self-care (01) ==
LOC: LBO 14:53
PROVIDERS: PCP Internal Medicine; Visit Provider Internal Medicine
DX: E78.5 Hyperlipidemia, unspecified (principal)
CPT/HCPCS: 36415; 80053; 80061

== ENCOUNTER 2024-06-24 12:56 | Emergency (ER) | payer OTHER, SELFPAY ==
[2024-06-24] VITALS (24 sets, daily range): BP systolic 117–169; BP diastolic 68–105; PULSE 66–86; RESP 11–20; TEMP 36.4–36.8; O2SAT 94–98
--- OUTSIDE RECORDS SUMMARY | 2024-06-24 13:00 | XMS_ITS | Encounter Summary ---
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 Name Role Phone Adriana Velazquez Primary Care Provider + Encounter Details Date Type Department Care Team (Latest Contact Info) Description 10/29/2023 Travel Social History Tobacco Use Types Packs/Day Years Used Date Smoking Tobacco: Every Day Cigarettes 0 Smokeless Tobacco: Never Alcohol Use Standard Drinks/Week Comments Not Currently 1 (1 standard drink = 0.6 oz pur e alcohol) Sex and Gender Information Value Date Recorded Sex Assigned at Not on file Gender Identity Not on file Sexual Orientation Not on file documented as of this encounter Plan of Treatment Not on file documented as of this encounter Visit Diagnoses Not on filedocumented in this encounter Care Teams Hydraulic Rubbish Compactor Mechanic Relationship Specialty Start Date End Date Adriana Velazquez PA [address] [place] [address] [place] [address] PCP - General Internal Medicine 08/06/20 documented as of this encounter
--- OUTSIDE RECORDS SUMMARY | 2024-06-24 13:00 | XMS_ITS | Encounter Summary ---
Author Organization [facility] Address [facility] [place] [address] Care Team Providers Care Chip Tester Name Role Phone Adriana Velazquez Primary Care Provider + Reason for Visit * Reason Comments Follow-up Encounter Details Date Type Department Care Team ([facility] Contact Info) Description 10/29/2023 2:40 PM EST Office Visit [place] [address] Ernesto Jackman MD [facility] [place] [address] Endometrial cancer Social History Tobacco Use Types Packs/Day Years Used Date Smoking Tobacco: Every Day Cigarettes 0 Smokeless Tobacco: Never Alcohol Use Standard Drinks/Week Comments Not Currently 1 (1 standard drink = 0.6 oz pur e alcohol) Sex and Gender Information Value Date Recorded Sex Assigned at Not on file Gender Identity Not on file Sexual Orientation Not on file documented as of this encounter Last Filed Vital Signs Vital Sign Reading Time Taken Comments Blood Pressure 127/90 10/29/2023 2:34 PM EST Pulse 84 10/29/2023 2:34 PM EST Temperature 36.8 ??C (98.2 ??F) 10/29/2023 2:34 PM ES T Respiratory Rate 12 10/29/2023 2:34 PM EST Oxygen Saturation 98% 10/29/2023 2:34 PM EST Inhaled Oxygen Concentration - - Weight 69.1 kg (152 lb 6.4 oz) 10/29/2023 2:34 P M EST Height - - Body Mass Index 28.8 11/20/2021 11:28 AM EDT documented in this encounter Progress Notes * Ernesto Jackman MD - 10/29/2023 2:40 PM EST Division [place] [address] Gynecologic Oncology Clinic Follow Up Visit Oncologic History: - Primary: Endometrial - Histology: Grade 1 endometrioid - Stage: IA - Treatment: * RATLHBSO, SLN mapping and sampling (08/29/2020) Genetic/Molecular Testing [place]: Positive [place]: Positive MMR: Proficient Subjective: Juana Silva returns to the office today for cancer surveillance. Today, she feels well overall and offers no complaints. She reports a normal appetite without nausea, vomiting, or early satiety. She denies vaginal bleeding or discharge, pelvic pain or pressure, changes to her bowel or bladder habits. Review of Systems All other systems reviewed and are negative. Objective: BP 127/90 (Patient Position: Sitting) Pulse 84 Temp 36.8 ??C (98.2 ??F) (Tympanic) Resp 12 Wt 69.1 kg (152 lb 6.4 oz) SpO2 98% BMI 28.80 kg/m?? Physical Exam Constitutional: General: She is not in acute distress. Appearance: Normal appearance. Genitourinary: Vulva, bladder and urethral meatus normal. No lesions in the vagina. Vaginal cuff intact. Right Adnexa: absent. Left Adnexa: absent. Cervix is absent. Uterus is absent. HENT: Head: Normocephalic and atraumatic. Cardiovascular: Rate and Rhythm: Normal rate and regular rhythm. Heart sounds: Normal heart sounds. Pulmonary: Effort: Pulmonary effort is normal. Breath sounds: Normal breath sounds. Abdominal: General: There is no distension. Palpations: Abdomen is soft. There is no mass. Tenderness: There is no abdominal tenderness. There is no guarding or rebound. Hernia: No hernia is present. Neurological: General: No focal deficit present. Mental Status: She is alert and oriented to person, place, and time. Psychiatric: Mood and Affect: Mood normal. Behavior: Behavior normal. Vitals reviewed. Exam conducted with a line cleaner present. Performance status: ECOG- (0) Fully active, able to carry on all predisease performance without restriction. Assessment/Plan: Juana Silva is a 53 y.o. diagnosed with Stage IA, grade 1 endometrial adenocarcinoma in August 2020 who was triaged to active surveillance. On exam, she is clinically without evidence of disease. She will follow up in 1 year. Ernesto Jackman MD * Rhina Martell LNA - 10/29/2023 2:40 PM EST Examination chaperoned by DANA Fowler. documented in this encounter Plan of Treatment Not on file documented as of this encounter Visit Diagnoses Diagnosis Endometrial cancer Malignant neoplasm of corpus uteri, except isthmus documented in this encounter Care Teams Chip Tester Relationship Specialty Start Date End Date Adriana Velazquez PA [address] [place] [address] [place] [address] PCP - General Internal Medicine 08/06/20 documented as of this encounter
--- OUTSIDE RECORDS SUMMARY | 2024-06-24 13:00 | XMS_ITS | Continuity of Care Document ---
Author Organization [facility] Address [address] [place] [address] Care Team Providers Care Guest Services Agent Name Role Phone Adriana Velazquez Primary Care Physician [phone] Encounter [facility] Date(s): 03/08/24 - 03/08/[address] [address] Discharge Disposition: Home or Self Care Attending Physician: Adriana Velazquez Admitting Physician: Adriana Velazquez Allergies, Adverse Reactions, Alerts Substance Reaction Severity Status predniSONE Unknown Active Assessment and Plan Future Appointments Future Scheduled Tests Laboratory* CBC w/ Diff 06/16/23 * Comprehensive Metabolic Panel 03/08/24 * Comprehensive Metabolic Panel 06/16/23 * Lipid Panel 03/08/24 * Lipid Panel 06/16/23 Radiology* MG Mammo Screening Bilateral w/ Kaden 02/16/24 * CT Low Dose Lung Screening 03/08/24 * CT Low Dose Lung Screening 06/16/23 Immunizations Given and Recorded Vaccine Date Status [...] 3 09/12/19 Bob rded tetanus/diphth/pertuss (Tdap) adult/adol 9/12/19 Recorded tetanus/diphth/pertuss (Tdap) adult/adol 02/04/11 Recorded 1Result Comment: Tolerated well 2Result Comment: Tolerated well 3Result Comment: Educational information provided. Pt tolerated well Medications aspirin 81 mg oral delayed release tablet 1 tab, Oral, Daily, 0 Refill(s) Start Date: 02/10/22 Status: Ordered lisinopril 5 mg oral tablet 5 mg = 1 tab, Oral, Daily, # 90 tab, 3 Refill(s), Pharmacy: [id number], 156.5, cm, 03/08/24 15:43:00 EDT, Height, 66.65, kg, 03/08/24 15:51:00 EDT, Weight Dosing Start Date: 03/08/24 Stop Date: 03/03/25 Status: Ordered LORazepam 0.5 mg oral tablet 0.5 mg = 1 tab, Oral, Daily, PRN as needed for anxiety, # 28 tab, 0 Refill(s), Pharmacy: [id number], 156.5, cm, 03/08/24 15:43:00 EDT, Height, 66.65, kg, 03/08/24 15:51:00 EDT, Weight Dosing Start Date: 03/08/24 Stop Date: 04/05/24 Status: Ordered venlafaxine 37.5 mg oral capsule, extended release 37.5 mg = 1 cap, Oral, Daily, # 90 cap, 3 Refill(s), Pharmacy: [id number], 156.5, cm, 03/08/24 15:43:00 EDT, Height, 66.65, kg, 03/08/24 15:51:00 EDT, Weight Dosing Start Date: 03/08/24 Status: Ordered venlafaxine 75 mg oral capsule, extended release 75 mg = 1 cap, Oral, Daily, # 90 cap, 3 Refill(s), Pharmacy: [id number], 156.5, cm, 03/08/24 15:43:00 EDT, Height, 66.65, kg, 03/08/24 15:51:00 EDT, Weight Dosing Start Date: 03/08/24 Status: Ordered Problem List Condition Confirmation Course [...] grade 1 Results Laboratory List Name Date Drug Screen Urine (Drug Screen Urine w/ Opiate Conf) 03/08/24 Most recent to oldest [Reference Range]: 1 U Amph Scrn [Negative] Negative 1 (03/08/24 3:57 PM) U Benzodia Scrn [Negative] Positive *ABN* (03/08/24 3:57 PM) U Cocaine Scrn [Negative] Negative (03/08/24 3:57 PM) U Nury Scrn [Negative] Negative (03/08/24 3:57 PM) U Opiate Scrn [Negative] Negative (03/08/24 3:57 PM) U Oxy Scrn [Negative] Negative (03/08/24 3:57 PM) U PCP Scrn [Negative] Negative (03/08/24 3:57 PM) U THC Scr [Negative] Negative (03/08/24 3:57 PM) U Methadone Scr [Negative] Negative (03/08/24 3:57 PM) U Buprenorph Scr [Negative] Negative (03/08/24 3:57 PM) U mAMP Scr [Negative] Negative (03/08/24 3:57 PM) U TCA Scr [Negative] Negative (03/08/24 3:57 PM) 1Interpretive Data: These are unconfirmed screening results, to be used only for medical (i.e. treatment) purposes. These screening results must not be used for non-medical purposes (e.g. employment or legal testing). New method started 02/26/11 Test Name Reference Range (Cut-off) THC Neg (50 ng/mL) PCP Neg (25 ng/mL) ZACK Neg (150 ng/mL) MET Neg (500 ng/mL OPI Neg (100 ng/mL) AMP Neg (500 ng/mL BZO Neg (150 ng/mL) TCA Neg (300 ng/mL) MTD Neg (200 ng/mL) BAR Neg (200 ng/mL) OXY Neg (100 ng/mL) PPX Neg (300 ng/mL) BUP Neg (10 ng/mL) Social History Social History Type Response Tobacco Current everyday tob acco user Tobacco Use:. Sex Female Patient Care team information Care Team Personnel Name: Adriana Velazquez Position: Physician Member Role: Primary Care Physician Address: Address: Pending Sale To [facility] [address] [address]- Care Team Related Persons Name: SANTO VALENTINO Address: [address] [id number]
--- OUTSIDE RECORDS SUMMARY | 2024-06-24 13:00 | XMS_ITS | Encounter Summary ---
Author Organization [facility] [place] [address] Care Team Providers Care Production Control Manager Name Role Phone Adriana Velazquez Primary Care Provider + Reason for Visit * Reason Comments Established 6mth Encounter Details Date Type Department Care Team ([facility] Contact Info) Description 04/09/2021 3:00 PM EDT Office Visit [place] [address] Popeye Leigh MD [facility] [place]EC[place] [address] Endometrial cancer Social History Tobacco Use Types [...] Sign Reading Time Taken Comments Blood Pressure 124/87 04/09/2021 3:11 PM EDT Pulse 71 04/09/2021 3:11 PM EDT Temperature 37.1 ??C (98.8 ??F) 04/09/2021 3:11 PM ED T Respiratory Rate 12 04/09/2021 3:11 PM EDT Oxygen Saturation 98% 04/09/2021 3:11 PM EDT Inhaled Oxygen Concentration - - Weight 68 kg (149 lb 14.6 oz) 04/09/2021 3:11 PM EDT Height 155 cm (5' 1.02) 04/09/2021 3:11 PM EDT Body Mass Index 28.3 04/09/2021 3:11 PM EDT documented in this encounter Progress Notes * Popeye Leigh MD - 04/09/2021 3:00 PM EDT Division [place] [address] Gynecologic Oncology-Clinic Note Reason for visit: Surveillance exam, history of low risk endometrial cancer. Patient Active Problem List Diagnosis Code ??? Endometrial cancer C54.1 ??? 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 Cigarette smoker F17.210 ??? Hypokalemia E87.6 ??? Essential hypertension I10 Prior to Admission medications Medication Sig Start Date End Date Taking? Authorizing Provider fluticasone propionate (FLONASE) 50 mcg/actuation [place], Suspension SHAKE LIQUID AND USE 1 SPRAY INEACH NOSTRIL TWICE DAILY 08/28/20 Yes PROVIDER, HISTORICAL HYDROmorphone (Dilaudid) 2 mg Tablet Take 1 tablet by mouth every 3 hours as needed for Pain. 08/30/20 Yes Anastasiia Matias MD ibuprofen (Advil;Motrin) 800 mg Tablet Take 1 tablet by mouth every 6 hours as needed for Pain. 08/29/20 Yes Roosevelt Mandujano MD acetaminophen (Tylenol) 500 mg Tablet Take 2 tablets by mouth every 6 hours as needed for Pain. 08/29/20 Yes Roosevelt Mandujano MD hydroCHLOROthiazide (Hydrodiuril) 25 mg Tablet Take 25 mg by mouth every morning. Yes PROVIDER, HISTORICAL rosuvastatin (Crestor) 20 mg Tablet Take 20 mg by mouth daily. Yes PROVIDER, HISTORICAL potassium citrate SR (Urocit) 10 mEq (1,080 mg) Tablet Sustained Release Take 10 mEq by mouth daily. Yes PROVIDER, HISTORICAL venlafaxine (EFFEXOR) 37.5 mg Tablet Take 37.5 mg by mouth daily. Yes PROVIDER, HISTORICAL venlafaxine (EFFEXOR) 75 mg Tablet Take 75 mg by mouth daily. Yes PROVIDER, HISTORICAL aspirin EC 81 mg Tablet, Delayed Release (E.C.) Take 81 mg by mouth daily. Yes PROVIDER, HISTORICAL LORazepam (Ativan) 0.5 mg Tablet Take 0.5 mg by mouth as needed for Anxiety. Yes PROVIDER, HISTORICAL HYDROmorphone (Dilaudid) 2 mg Tablet Take 1 tablet by mouth every 4 hours as needed for Pain. Patient not taking: Reported on 09/20/2020 08/30/20 Popeye Leigh MD History of present illness: Juana is a 50 y.o. who is referred for management of grade 1 endometrial cancer. For definitive evaluation and management, as well as surgical staging, on 08/29/2020, she underwent a total laparoscopic/robotic hysterectomy, BSO, sentinel lymph node mapping and biopsy. Herpostoperative course was complicated by vulvitis/vaginitis, and we provided empiric oral fluconazole. Given her low risk disease, she was dispositioned to active surveillance, with no adjuvant therapy. Today, Juana said that she has recovered essentially completely from the surgery. She does have anarea of slight discomfort on her right proximal gracilis area. There is no associated paresthesias or weakness. She says it typically stays at a 1/10, occasionally elevates to 4/10. She is taking no t herapy for this, including no exercise, stretches, or pharmacotherapy. She says it does not bother her too much. She reports that her appetite, bowel, and bladder function are normal. She denies vaginal bleeding or discharge, denies lower extremity edema. She continues to smoke cigarettes. Other intercurrent events include neck pain, for which she presented to the emergency room. She wasgiven physical therapy, and says this is improving. Review of systems: 5 systems in total reviewed, otherwise negative. Vital signs: BP 124/87 (Patient Position: Sitting) Pulse 71 Temp 37.1 ??C (98.8 ??F) (Temporal) Resp 12 Ht 155 cm (5' 1.02) Wt 68 kg (149 lb 14.6 oz) SpO2 98% BMI 28.30 kg/m?? Physical examination: General: Well-groomed, well-dressed, no obvious distress. Some tobacco smoke odor noted. HEENT: Normal hair distribution, pupils are equal, extraocular movements intact, no icterus. The oropharynx is moist with good dentition, neck is supple without thyromegaly or lymphadenopathy. Heart: Regular rate, normal rhythm, no obvious murmurs detected. Lungs: Clear to auscultation bilaterally, without adventitious sounds Abdomen: Flat, soft, nontender, well approximated incision sites, without hernia, ascites, mass, ortenderness. There is no palpable inguinal lymphadenopathy. Pelvic exam: Normal external genitalia, no lesions of the vulva, perineal body, or perianal area. Speculum examination demonstrates a slightly atrophic vagina, surgically absent cervix. On bimanual examination, there is no obvious mass, nodularity, or tenderness. Rectovaginal exam confirms the above. (The pelvic examination does not reproduce/exacerbate her right proximal leg pain). Extremities: Symmetric, no edema. No palpable mass in the right gracilis area. Pathology: DIAGNOSIS A - Right pelvic node, sentinel lymph node, excision: - Two lymph nodes negative for malignancy (0/2). B - Left pelvic node, sentinel node, excision: - One lymph node negative for malignancy (0/1). C - Uterus, cervix, fallopian tubes and ovaries, hysterectomy and bilateral salpingo-oophorectomy: - Endometrial adenocarcinoma, endometrioid type, FIGO grade 1 arising in a background of complex atypical hyperplasia (see Synoptic Report and Discussion for additional details and staging). - Tumor hormone receptors: Estrogen receptor (ER): Positive Progesterone receptor (SC): Positive - Benign cervix with Nabothian cysts. - Adenomyosis. - Multiple uterine leiomyomas. - Benign bilateral fallopian tubes and ovaries. Electronically signed by: Desi Adams DO Verified: 09/05/2020 Pathologist Performed at: -[facility] [place] Dept. [place]ology, [place], [place] SYNOPTIC Specimen Parts: A-C Specimen Procedure: Total hysterectomy and bilateral salpingo-oophorectomy Tumor Tumor Site: Endometrium Histologic Type: Endometrioid carcinoma, NOS Histologic Grade: FIGO grade 1 Tumor Size: Cannot be determined - There are multiple discontinuous microscopic foci of invasion arising in CAH. The largest microscopic focus of invasion is 4 mm. Myometrial Invasion: Not identified Adenomyosis: Present, uninvolved by carcinoma Uterine Serosa Involvement: Not identified Lower Uterine Segment Involvement: Not identified Cervical Stromal Involvement: Not identified Other Tissue / Organ Involvement: Not applicable Lymphovascular Invasion: Not identified Lymph Nodes Lymph Node Status: All lymph nodes negative for tumor cells Number of Pelvic [place] Nodes Examined: 3 Pathologic Stage Classification (pTNM, AJCC 8th Edition) Primary Tumor (pT): pT1a Regional Lymph Nodes (pN): pN0 FIGO Stage FIGO Stage: IA Additional Findings Additional Findings: Atypical hyperplasia / endometrial intraepithelial neoplasia (EIN) Tumor Block(s): C22 CAP eCC September 2019 Annual Release DISCUSSION Block Antibody Result (Positive/Negative) MLH1 Positive, intact nuclear staining MSH2 Positive, intact nuclear staining MSH6 Positive, intact nuclear staining PMS2 Positive, intact nuclear staining Impression/plan: Juana is a very nice 50 y.o. with a history of a low risk endometrial cancer, FIGO stage IA, grade 1 endometrioid adenocarcinoma the endometrium. Due to the small tumor size, patient's age, she has minimal risk factors for recurrence. I estimated her recurrence risk is approximately 2-5%. She needed no adjuvant therapy. The patient was previously given a copy of her operative and pathology reports. Today, she is clinically free of recurrent disease, based upon the lack of any concerning symptoms or findings. She has discomfort in the right proximal gracilis area, and I suggested she consider stretching exercises or discussed this with her physical therapist, whom she sees currently for her neck pain. I will see her back in 6 months for her next plan visit. The surveillance plan for low risk endometrial adenocarcinoma is described and reviewed today with the patient, and is based upon current Society of Gynecologic Oncologists (SGO) Surveillance Guidelines: 1. Posttreatment surveillance and diagnosis of recurrence in women with gynecologic malignancies: Society of Gynecologic Oncologists recommendations (Lucy et al., Am J Obstet Gynecol. 2010; 204(6):466-78.) 2. An update on post-treatment surveillance and diagnosis of recurrence in women with gynecologic malignancies: Society of Gynecologic Oncology (SGO) recommendations. (Lucy et. Al., Gynecologic Oncology February 2017 Volume 146, Issue 1, Pages 3-10. 3. Choosing Wisely: Society of Gynecologic Oncologists: Five Things Physicians and Patients Should Question http://www.choosingwisely.org/societies/gwlklrz-lv-aqlmzxxjjhg-oncology/ In the interval between visits, she has been counseled to report any symptoms typical of recurrent disease, which were reviewed with her today, and she voices an understanding the above. Based upon these guidelines, the specific recommendations include the following: Year 1 - Patient to be seen every 6 months. (by a Gynecologic Oncologist) - At each visit: review symptoms, provide education of symptoms typical of recurrent endometrial cancer. - Perform a physical exam and a pelvic exam. - Unless symptoms and exam are concerning for recurrent cancer, routine studies such as Pap testing, laboratory testing, or imaging studies are NOT indicated. Years 2-5 - Patient to be seen every 12 months. (in years 2-5, she may alternate visits between a review scheduling coordinator and a gynecologic oncologist.) - At each visit: review symptoms, provide education of symptoms typical of recurrent endometrial cancer. - Perform a physical exam and a pelvic exam. - Unless symptoms and exam are concerning for recurrent cancer, routine studies such as Pap testing, laboratory testing, or imaging studies are NOT indicated. In accordance with current SGO surveillance guidelines, we will see her back in 6 months. She has been made aware that she may be seen by myself or my nurse practitioner. She voiced understanding of the above documented in this encounter Plan of Treatment Not on file documented as of this encounter Visit Diagnoses Diagnosis Endometrial cancer Malignant neoplasm of corpus uteri, except isthmus documented in this encounter Care Teams Production Control Manager Relationship Specialty Start Date End Date Adriana Velazquez PA [address] [place] [address] [place] [address] PCP - General Internal Medicine 08/06/20 documented as of this encounter
--- OUTSIDE RECORDS SUMMARY | 2024-06-24 13:00 | XMS_ITS | Encounter Summary ---
Author Organization [facility] [place] [address] Care Team Providers Care Solar Installation Crew Supervisor Name Role Phone Adriana Velazquez Primary Care Provider + Reason for Visit * Consultation (Routine) - Closed Specialty Diagnoses / Procedures Referred By Contdebbie t Referred To Contact Gastroenterology Diagnoses elevated LFTs Procedures Adriana Velazquez PA [address] [place] [address] [place] [address] [facility] [address] [address] Referral ID Status Reason Start Date Expiration Date Visits Re quested Visits Authorized [id number] Closed 08/29/2021 08/29/2022 1 1 Encounter Details Date Type Department Care Team ([facility] Contact Info) Description 11/20/2021 11:30 AM EDT Office [place] [address] Maria Elena Riley APRN [facility] [place] [address] Elevated liver enzymes Social History Tobacco Use Types Packs/Day Years [...] Sign Reading Time Taken Comments Blood Pressure 138/80 11/20/2021 11:28 AM EDT Pulse 69 11/20/2021 11:28 AM EDT Temperature - - Respiratory Rate - - Oxygen Saturation - - Inhaled Oxygen Concentration - - Weight 62.2 kg (137 lb 3.2 oz) 11/20/2021 11:28 AM EDT Height 154.9 cm (5' 1) 11/20/2021 11:28 AM EDT Body Mass Index 25.92 11/20/2021 11:28 AM EDT documented in this encounter Progress Notes * Maria Elena Riley APRN - 11/20/2021 11:30 AM EDT Images from the original note were not included. HEPATOLOGY NEW PATIENT CONSULTATION Juana Silva 1970 [employer] SPECIALIST: MARIA ELENA RILEY APRN PCP: ELAINE Perez Requesting Provider: REASON FOR CONSULTATION Elevated liver enzymes HISTORY OF PRESENT ILLNESS Juana Silva is a 51 y.o. year old female with history of endometrial cancer who presents for evaluation of elevated liver enzymes. She has had elevated liver enzymes fluctuating over the past year, with recent blodo work 07/2021 showing ALT of 297, AST in the 100s. She has had her liver enzymes checked a number of times over thepast year and they have fluctuated. She just did blood work last week at [facility] but I do not have those results. Back in December 2020 she was having a lot of symptoms including nerve pain and she states she had a mental breakdown. She had just had treatment for her endometrial cancer it was a hysterectomy and a few weeks into her recovery her son overdosed on narcotics. He was treated with Narcan multiple timesand subsequently sent to penitentiary. This has been very difficult as he also has children. She developed a number of symptoms afterwards including pain on the sides of her arm, nerve pain upper neck. The symptoms have improved slightly over the past year. She is still very tired and this has been going on for the past year She lost 60 lbs after being diagnosed with endometrial cancer in the past year. She lost 60 lbs over 4-5 months. Since May she has been maintaining her weight. Has been eating a lot of protein. She has been told since she was in her teens that her liver enzymes were elevated with annual bloodwork. Had COVID in early August. She does not do strenuous workouts. She has been hiking nearly every day but does not lift weights and does not regularly get sore. Her cholesterol is high. She has tried to start statins in the past and her muscles go crazy. She is on the third statin that she has tried in the past 1.5 years. Doesn't believe she was taking a statin in July 2021. For the past few days, she has been having some lower back pain, discomfort in her lower abdomen, bloating. She feels like she either had a urinary tract infection, kidney or bladder infection. Has pressure in her private areas. No pain with urination. Symptoms present for past weeks, and getting worse. No burning with urination. NO blood in urine. Urine has been very bright. WOndering if she has a UTI or a kidney infection She noticed a little discharge on her panty liner today. ROS: Constitutional: no fatigue, gets chilled often, gets hot flashes or chills. Eye: no visual changes ENT: no URI symptoms Cardio: no chest pain, palpitations Resp: no cough, no SOB GI: see HPI. No blood in stools, no nausea/vomitting : no dysuria Integumentary: no new rashes, no easy bruising Musculoskeletal: no new joint pains, swelling of ankles or legs Neuro: no new numbness, weakness in extremities PAST MEDICAL/SURGICAL HISTORY Past Medical History: Diagnosis Date ??? Cancer ??? Mental health problem MEDICATIONS Outpatient Medications Marked as Taking for the 11/20/21 encounter (Office Visit) with Maria Elena Riley APRN Medication Sig Dispense Refill ??? lisinopriL (Prinivil;Zestril) 5 mg Tablet 1 tablet daily. ??? venlafaxine (EFFEXOR) 37.5 mg Tablet Take 37.5 mg by mouth daily. ??? venlafaxine (EFFEXOR) 75 mg Tablet Take 75 mg by mouth daily. ??? aspirin EC 81 mg Tablet, Delayed Release (E.C.) Take 81 mg by mouth daily. Takes Glocosamine Evening [place] for menopausal symptoms. Has been taking that for the past year. Fish oil ALLERGIES Allergies Allergen Reactions ??? Prednisone Other (See Comments) Complete panic makes me feel crazy SOCIAL HISTORY Lives with . Has 2 grown children. Alcohol: basically none currently, maybe 1 drink per year. . For 11 years from 1793-7932 she would drink 3 times per week over 10 drinks. Cigaretees: 1 ppd FAMILY HISTORY Dad had cirrhosis from alcohol. Other members of dads' family had cirrhosis Mom's side of family very healthy. PHYSICAL EXAM Vitals: 11/20/21 1128 BP: 138/80 BP Location (NBP): Left arm Patient Position: Sitting BP Cuff Sizes: Adult (25-34 cm) Pulse: 69 Weight: 62.2 kg (137 lb 3.2 oz) Height: 154.9 cm (5' 1) Body mass index is 25.92 kg/m??. Gen: Well appearing, no apparent distress. Skin: no spider angiomata, no palmar erythema, no jaundice. HEENT: Sclerae anicteric, pupils equal, round, react to light. Pharynx unremarkable. Neck is supple, no adenopathy, no thyromegaly. Chest is clear. Heart: Regular rate and rhythm. Normal S1, S2, no murmurs. Abdomen: Normal bowel sounds; soft, non distended. No obvious hepatosplenomegaly. No evidence of ascites Extremities: No edema. Neuro: alert and oriented x3, no asterixis or tremor. Lab Results Component Value Date WBC 8.2 11/20/2021 HGB 14.0 11/20/2021 HCT 40.3 11/20/2021 MCV 91.6 11/20/2021 PLATELET 341 11/20/2021 No results for input(s): INR in the last 168 hours. Lab Results Component Value Date ALT 21 01/09/2021 AST 25 01/09/2021 ALKPHOS 55 01/09/2021 BILITOT 0.2 01/09/2021 Chemistry Component Value Date/Time NA 137 11/20/2021 1318 K 3.9 11/20/2021 1318 CL 104 11/20/2021 1318 CO2 23 11/20/2021 1318 BUN 24 (H) 11/20/2021 1318 CREATININE 0.67 (L) 11/20/2021 1318 Component Value Date/Time CALCIUM 9.5 11/20/2021 1318 ALKPHOS 70 11/20/2021 1318 AST 24 11/20/2021 1318 ALT 31 (H) 11/20/2021 1318 BILITOT <0.2 (L) 11/20/2021 1318 01/10/21: Ferritin: 122, Iron Sat 19%, AIron: 58 TSH: 1.32 CK: 319 AMA: <0.1 ASMA: negative Cerruloplasm: 38.4 TTg IgA: <1.2 BK: negative RA: negative 06/2020 Fibroscan Results: Median kPa: 3.5 kpa Mean IQR: 17% (goal is <30 %) Number of valid measurements: 10(at least 10 required) Number of invalid measurements: 0 Predicted fibrosis stage: F0 CAP (dB/m): 303 Estimated steatosis grade: 3/3 % hepatocytes affected: > 66 % ASSESSMENT/PLAN Juana Silva is a 51 y.o. female with history of low-grade endometrial cancer that was treated with hysterectomy in spring 2020 who presents for evaluation of elevated liver enzymes. Her liver enzymes have fluctuated over the past year from a very slight elevation to more significant elevation in July 2021 with ALT nearly 10 times upper limit of normal. She has had a thorough work-up thathas been negative for iron overload, autoimmune hepatitis, Dae's disease, PBC, and celiac disease. Her CK was elevated suggesting a muscle cause of her elevated AST and ALT, however her aldolase was negative and typically with muscle cause of elevated AST and ALT the AST is higher than ALT whichis not the case in this situation. Her ultrasound appears normal. She did lose a significant amountof weight (60 pounds) over a rapid. And sometimes this can cause an elevation in liver enzymes which could be part of the explanation of her elevated liver tests in July. She is also taking evening primrose as a supplement treat her menopausal symptoms and this could be contributing to her elevated liver enzymes. I rechecked her liver test today and they are nearly normal. Her ALT is only slightly elevated at 31. I will also check her viral hepatitis panel. Which thus far has returned as negative. We discussed that I would like to monitor her liver enzymes with repeat blood work every 2 months which she kala at [facility]. If her liver enzymes are elevated again or consistently elevated we might consider a liver biopsy in the future. I also checked a urinalysis given her symptoms concerning for urinary tract infection however this did not show any signs of infection. I advised her to follow-up with her primary care provider for her symptoms of pelvic fullness and discharge. Her FibroScan today did not show any fibrosis. It did show some steatosis which could be a result of nonalcoholic fatty liver disease. She is already lost significant weight which is the best treatment for NAFLD. Recommendations: -Follow-up with PCP for lower pelvic fullness and lower back pain. -Recheck liver enzymes every 2 months. Standing order sent to [facility] lab -If liver enzymes remain normal over next 6 months, further follow-up in hepatology is not required - Recommend stop evening primrose supplement. Maria Elena Riley APRN Section of Gastroenterology [place] [address] Copy: ELAINE Perez [address] [place] [address] / [place] [address] documented in this encounter Plan of Treatment Not on file documented as of this encounter Procedures Procedure Name Priority Date/Time Associated Diagnosis Comments HC UA W/OUT MICROSCOPIC Routine 11/20/2021 1:23 PM EDT Elevated liver enzymes HEMOGRAM Routine 11/20/2021 1:18 PM EDT Elevated liver enzymes DIFFERENTIAL, AUTOMATED Routine 11/20/2021 1:18 PM EDT Elevated liver enzymes HC HEPATITIS C ANTIBODY Routine 11/20/2021 1:18 PM EDT Elevated liver enzymes HC PCH SMOOTH MUSCLE AB, SERUM Routine 11/20/2021 1:18 PM EDT Elevated liver enzymes HC HEPATITIS B SURFACE AB Routine 11/20/2021 1:18 PM EDT Elevated liver enzymes HC HEPATITIS B SURFACE AG Routine 11/20/2021 1:18 PM EDT Elevated liver enzymes HC PROTHROMBIN TIME Routine 11/20/2021 1 :18 PM EDT Elevated liver enzymes HC CBC,PLT & AUTO DIFF Routine 1:18 PM EDT Elevated liver enzymes HC VENIPUNCTURE Routine 11/20/2021 1:18 PM EDT Elevated liver enzymes COMPREHENSIVE METABOLIC PANEL Routine 11/20/2021 1:18 PM EDT Elevated liver enzymes documented in this encounter Results * (ABNORMAL) Urinalysis without microscopic (11/20/2021 1:23 PM EDT) Glucose, Urine Dipstick Negative Negative mg/dL [facility] Protein, Urine Dipstick Negative Negative mg/dL [facility] Bilirubin, Urine Dipstick Negative Negative mg/dL [facility] Comment: Clinical correlation required for positive Urine Bilirubin results as false positive may occur with some drugs and drug related products. If a false positive is suspected a serum total bilirubin should be considered if clinically indicated. Urobilinogen, Urine Dipstick Normal Normal mg/dL [facility] pH, Urn (dipstick) 5.0 5.0 - 8.0 [facility] Blood, Urine Dipstick Negative Negative mg/dL [facility] Ketone, Urine Dipstick Negative Negative mg/dL [facility] Nitrite, Urine Dipstick Negative Negative [facility] Leukocytes, Urine Dipstick Negative Negative mcL [facility] Appearance, Urine Dipstick Cloudy(A) Clear [facility] Specific Otis Urine Automated >=1.030(A) 1.005 - 1.030 [facility] Color, Urine Dipstick Yellow Yellow [facility] Urine 11/20/2021 1:23 PM EDT 11/20/2021 1:43 PM EDT Narrative Resulting Agency Comment Spec In Lab Maria Elena A Jackson [employer]ACLE FUSION DEVELOPER URINE ORDERABLES Performing Organization Address City/[facility]/[place] [address] * Differential, Automated (11/20/2021 1:18 PM EDT) Neutrophil % 51.7 % [facility] Neutrophil Absolute 4.22 1.70 - 6.10 x10(3)/[facility] Lymph % 39.2 % [facility] Lymphocytes Abs 3.2 0.9 - 3.2 x10(3)/[facility] Monocyte % 6.1 % [facility] Monocyte Abs 0.5 0.3 - 0.9 x10(3)/[facility] Eos % 1.8 % [facility] Eosinophils Abs 0.2 0.0 - 0.4 x10(3)/[facility] Basophil % 1.0 % [facility] Baso Absolute 0.1 0.0 - 0.1 x10(3)/[facility] Immature Gran % 0.20 % [facility] Comment: Immature granulocytes(IG's)percentage and absolute count will include metamyelocytes, myelocytes, and promyelocytes. Blood smears from CBCs yielding IG's will be scanned manually for concordance. If this scan disagrees with the automated IG or if promyelocytes are noted, a manual differential will be performed. Immature Gran Absolute 0.02 0.00 - 0.04 x10(3)/[facility] Blood 11/20/2021 1:18 PM EDT 11/20/2021 1:44 PM EDT Narrative Resulting Agency Comment Spec In Lab Maria Elena Riley [employer] F[employer] DEVELOPER HEMATOLOGY ORDERAB LES Performing Organization Address City/[facility]/ZIP Co de Phone Number [facility] [place] [address] * Hemogram (11/20/2021 1:18 PM EDT) White Blood Cell 8.2 4.0 - 9.5 x10(3)/[facility] Red Blood Cell 4.40 4.00 - 5.21 x10(6)/[facility] Hemoglobin 14.0 11.7 - 15.5 g/dL [facility] Hematocrit 40.3 35.7 - 45.8 % [facility] Mean Cell Volume 91.6 82.6 - 94.4 fL [facility] Mean Cell Hemoglobin 31.8 27.1 - 32.0 pg [facility] Mean Cell Hemoglobin Concentration 34.7 31.7 - 35.0 g/dL [facility] Platelet 341 145 - 357 x10(3)/[facility] RDW Standard Deviation 43.1 37.0 - 46.0 [facility] RDW coefficient of variation 12.9 11.5 - 14.1 % [facility] Mean Platelet Volume 10.7 7.6 - 12.9 fL [facility] NRBC% auto 0.0 % [facility] NRBC Absolute 0.000 0.000 - 0.000 x10(3)/[facility] Blood 11/20/2021 1:18 PM EDT 11/20/2021 1:44 PM EDT Narrative Resulting Agency Comment Spec In Lab Maria Elena Riley APRN HEMATOLOGY ORDERAB LES [facility] [place] [address] * CK (11/20/2021 1:18 PM EDT) Creatine Kinase 86 0 - 160 unit/L [facility] Blood 11/20/2021 1:18 PM EDT 11/20/2021 1:44 PM EDT Narrative Resulting Agency Comment Spec In Lab Maria Elena Riley APRN CHEMISTRY ORDERABL ES Performing Organization Address [facility]/ZIP Co de Phone Number [facility] [place] [address] * Smooth Muscle Antibody (11/20/2021 1:18 PM EDT) Sm Muscle Ab (DECEMBER) Negative Negative [facility] Comment: Negative: No further testing will be performed ADDITIONAL INFORMATION This test was developed and its performance characteristics determined by [facility] in a manner consistent with CLIA requirements. This test has not been cleared or approved by the U.S. Food and Drug Administration. Test Performed by: [facility] [place] [address] [employer]: Blair Menjivar M.D. Ph.D.; CLIA# [id number] Blood 11/20/2021 1:18 PM EDT 11/20/2021 3:01 PM EDT Narrative Resulting Agency Comment Spec In Lab Maria Elena Riley APRN LAB SEND OUT ORDER MIKE Performing Organization Address [facility] Co de Phone Number [facility] [place] [address] * Hepatitis B Surface Antibody (11/20/2021 1:18 PM EDT) Hepatitis B Surface Antibody, Quantitative <3.5 IU/L [facility] Comment: HepB Surface Ab Quant: Unvaccinated: < 8.5 IU/L Vaccinated: > 11.5 IU/L Hepatitis B Surface Antibody Negative [facility] Comment: Patient is presumed to be not vaccinated or immune to HBV infection. Expected Results: Vaccinated: Positive Unvaccinated: Negative Blood 11/20/2021 1:18 PM EDT 11/20/2021 1:44 PM EDT Narrative Resulting Agency Comment Spec In Lab Maria Elena Riley ORACLE FUSION DEVELOPER CHEMISTRY ORDERABL ES Performing Organization Address [facility] Co de Phone Number [facility] [place] [address] * Hepatitis B Surface Antigen (11/20/2021 1:18 PM EDT) Hepatitis B Surface Antigen Negative Negative [facility] Blood 11/20/2021 1:18 PM EDT 11/20/2021 1:44 PM EDT Narrative Resulting Agency Comment Spec In Lab Maria Elena Riley ORACLE FUSION DEVELOPER CHEMISTRY ORDERABL ES Performing Organization Address [facility] Phone Number [facility] [place] [address] * Hepatitis C Antibody (11/20/2021 1:18 PM EDT) Hepatitis C Antibody Negative Negative [facility] Blood 11/20/2021 1:18 PM EDT 11/20/2021 1:44 PM EDT Narrative Resulting Agency Comment Spec In Lab Maria Elena Riley APRN CHEMISTRY ORDERABL ES Performing Organization Address [facility] de Phone Number [facility] [place] [address] * Prothrombin Time (11/20/2021 1:18 PM EDT) Prothrombin Time 12.0 9.4 - 12.5 sec [facility] International Normalization Ratio 1.1 [facility] Comment: An INR <2.0 indicates adequate procoagulant activity for hemostasis in most patients without underlying bleeding disorders, though the INR may not adequately reflect hemostatic capacity in patients with liver disease and synthetic impairment. The recommended target INR range for therapeutic anticoagulation is 2.0 ? 3.0 for most applications, though lower and higher ranges may be appropriate depending on clinical circumstances. Blood 11/20/2021 1:18 PM EDT 11/20/2021 1:44 PM EDT Narrative Resulting Agency Comment Spec In Lab Maria Elena Riley ORACLE FUSION DEVELOPER HEMATOLOGY ORDERAB LES [facility] [place] [address] * (ABNORMAL) Comprehensive metabolic panel (non-fasting) (11/20/2021 1:18 PM EDT) Glucose 83 65 - 199 mg/dL [facility] Comment:Diabetes: >=200 mg/d L plus symptoms Blood Urea Nitrogen 24(H) 8 - 18 mg/dL [facility] Creatinine 0.67(L) 0.70 - 1.20 mg/dL [facility] Sodium 137 135 - 145 mmol/L [facility] Potassium 3.9 3.5 - 5.0 mmol/L [facility] Comment: Please note: ??Patients with WBC >100,000 may have falsely elevated Potassium levels. ??For accurate Potassium quantification in these patients send serum separator tube (gold top) for subsequent determinations. ??Contact the Clinical Chemistry Laboratory if there are any questions. Chloride 104 98 - 107 mmol/L [facility] Carbon Dioxide 23 22 - 31 mmol/L [facility] Anion Gap 10 5 - 15 mmol/L [facility] Calcium 9.5 8.5 - 10.5 mg/dL [facility] Protein, Total 7.0 6.1 - 8.0 g/dL [facility] Albumin 4.3 3.2 - 5.2 g/dL [facility] Aspartate Aminotransferase 24 0 - 30 unit/L [facility] Alanine Aminotransferase 31(H) 0 - 30 unit/L [facility] Alkaline Phosphatase 70 35 - 105 unit/L [facility] Bilirubin, Total <0.2(L) 0.2 - 1.3 mg/dL [facility] Est Glomerular Filtration Rate 100 >=60 mL/min/1. 73 m?? [facility] Comment: This patient? s estimated glomerular filtration rate (eGFR) is between 100 mL/min/1.73 m2 (patients with less muscle mass) and 116 mL/min/1.73 m2 (patients with more muscle mass) as determined by the CKD-EPI equation. Assessment of eGFR is not appropriate when creatinine concentrations are rapidly changing. For clinical decisions where creatinine clearance will affect therapy, a 24-hour urine creatinine clearance may be advised. Assignment of CKD stage 1 - 5 for patients with an eGFR near the transition point between stages may be based on clinical assessment of muscle mass and symptoms in addition to eGFR. Blood 11/20/2021 1:18 PM EDT 11/20/2021 1:44 PM EDT Narrative Resulting Agency Comment Spec In Lab Maria Elena Riley APRN CHEMISTRY ORDERABL ES [facility] [place] [address] documented in this encounter Visit Diagnoses Diagnosis Elevated liver enzymes Nonspecific elevation of levels of transaminase or lactic acid dehydrogenase (LDH) documented in this encounter Care Teams Solar Installation Crew Supervisor Relationship Specialty Start Date End Date Adriana Velazquez PA [address] [place] [address] [place] [address] PCP - General Internal Medicine 08/06/20 documented as of this encounter
--- OUTSIDE RECORDS SUMMARY | 2024-06-24 13:00 | XMS_ITS | Encounter Summary ---
[place] [address] Care Team Providers Care Visual Training Aide Name Role Phone Adriana Velazquez Primary Care Provider + Encounter Details Date Type Department Care Team (Latest Contact Info) Description 10/28/2023 Travel Social History Tobacco Use Types Packs/Day [...] on filedocumented in this encounter Care Teams Visual Training Aide Relationship Specialty Start Date End Date Adriana Velazquez PA [address] [place] [address] [place] [address] PCP - General Internal Medicine 08/06/20 documented as of this encounter
--- OUTSIDE RECORDS SUMMARY | 2024-06-24 13:00 | XMS_ITS | Continuity of Care Document ---
Author Organization [facility] Address [address] [place] [address] Care Team Providers Care Diesel Truck Technician Name Role Phone Adriana Velazquez Primary Care Physician [phone] Encounter [place] Date(s): 04/18/24 - 04/18/[address] [address] Encounter Diagnosis Screening for breast cancer(Discharge Diagnosis) - 04/18/24 Discharge Disposition: Home or Self Care Attending Physician: Adriana Velazquez Admitting Physician: Adriana Velazquez Referring Physician: Adriana Velazquez Allergies, Adverse Reactions, Alerts Substance Criticality Severity Reaction Reaction Severity Status predniSONE Unable to assess criticality Unknown Active Assessment and Plan Future Appointments Future Scheduled Tests Laboratory* CBC w/ Diff 06/16/23 * Comprehensive Metabolic Panel 03/08/24 * Comprehensive Metabolic Panel 06/16/23 * Lipid Panel 03/08/24 * Lipid Panel 06/16/23 Radiology* CT Low Dose Lung Screening 03/08/24 * [...] Daily, # 90 tab, 3 Refill(s), Pharmacy: [facility], 156.5, cm, 03/08/24 15:43:00 EDT, Height, 66.65, kg, 03/08/24 15:51:00 EDT, Weight Dosing Start Date: 03/08/24 Stop Date: 03/03/25 Status: Ordered LORazepam 0.5 mg oral tablet 0.5 mg = 1 tab, Oral, BID, PRN as needed for anxiety, # 56 tab, 0 Refill(s), Pharmacy: [facility], 156.5, cm, 03/08/24 15:43:00 EDT, Height, 66.65, kg, 03/08/24 15:51:00 EDT, Weight Dosing Start Date: 03/30/24 Stop Date: 04/27/24 Status: Ordered venlafaxine 37.5 mg oral capsule, extended release 37.5 mg = 1 cap, Oral, Daily, # 90 cap, 3 Refill(s), Pharmacy: [facility], 156.5, cm, 03/08/24 15:43:00 EDT, Height, 66.65, kg, 03/08/24 15:51:00 EDT, Weight Dosing Start Date: 03/08/24 Status: Ordered venlafaxine 75 mg oral capsule, extended release 75 mg = 1 cap, Oral, Daily, # 90 cap, 3 Refill(s), Pharmacy: [facility], 156.5, cm, 03/08/24 15:43:00 EDT, [...] tob acco user Tobacco Use:. Sex Female Sex Representation Female (finding) Patient Care team information Care Team Personnel Name: Adriana Velazquez Position: Physician Member Role: Primary Care Physician Address: [facility] [address] Care Team Related Persons Name: KYE JESUS Name: SANTO VALENTINO Insurance Providers Guarantor name: SENIA VALENTINO Health Plan Information #: 1 Payer: [facility] Member Number: [id number] Policy Number: NA Health Plan Information #: 2 Payer: [facility] Member Number: [id number] Policy Number: NA
--- OUTSIDE RECORDS SUMMARY | 2024-06-24 13:00 | XMS_ITS | Continuity of Care Document ---
Author Organization [facility] Address [address] [place] [address] Care Team Providers Care Pulp Making Plant Operator Name Role Phone Adriana Velazquez Primary Care Physician Encounter [place] Date(s): 02/16/24 - 02/16/[address] [address] Discharge Disposition: Home Allergies, Adverse Reactions, Alerts Substance Reaction Severity Status predniSONE Unknown Active Assessment and Plan Future Appointments Future Scheduled Tests Laboratory* CBC w/ Diff 06/16/23 * Comprehensive Metabolic Panel 06/16/23 * Lipid Panel 06/16/23 Radiology* MG Mammo Screening Bilateral w/ Kaden 02/16/24 * CT Low Dose Lung Screening 06/16/23 [...] 1 tab, Oral, Daily, # 90 tab, 2 Refill(s), Pharmacy: [facility], 156.5, cm, 07/13/22 8:46:00 EST, Height Start Date: 12/07/23 Status: Ordered LORazepam 0.5 mg oral tablet 0.5 mg = 1 tab, Oral, Daily, PRN as needed for anxiety, # 28 tab, 0 Refill(s), Pharmacy: [facility], 156.5, cm, 07/13/22 8:46:00 EST, Height Start Date: 11/18/23 Stop Date: 12/16/23 Status: Ordered venlafaxine 37.5 mg oral capsule, extended release 37.5 mg = 1 cap, Oral, Daily, # 90 cap, 0 Refill(s), Pharmacy: [facility], 156.5, cm, 07/13/22 8:46:00 EST, Height Start Date: 02/16/24 Status: Ordered venlafaxine 75 mg oral capsule, extended release 75 mg = 1 cap, Oral, Daily, # 90 cap, 0 Refill(s), Pharmacy: [facility], 156.5, cm, 07/13/22 8:46:00 EST, Height Start Date: 02/16/24 Status: Ordered Problem List Condition Confirmation Course [...] Member Role: Primary Care Physician Address: Address: [facility] [place] [address]- Care Team Related Persons Name: KYE JESUS Address: Alternate [address] [facility] [id number] Address: Home [address] [place], [place] [id number] Address: Mailing [address] [place], [place] [id number] Name: KYE JESUS Address: Alternate [address] [facility] [id number] Address: Home [address] [place], [place] [id number] Address: [address]ailing [address] [place], [place] [id number] Name: SANTO VALENTINO Address: Home [address] [place] [phone]
--- OUTSIDE RECORDS SUMMARY | 2024-06-24 13:00 | XMS_ITS | Encounter Summary ---
Author Organization [facility] [place] [address] Care Team Providers Care Guard Captain Name Role Phone Adriana Velazquez Primary Care Provider + Reason for Visit * Reason Comments Medication Refill Encounter Details Date Type Department Care Team (Late Contact Info) Description 02/14/2021 Refill [facility] [place] [address] Stu Bull MD [facility] [address] Social History Tobacco Use Types Packs/Day Years [...] on filedocumented in this encounter Care Teams Guard Captain Relationship Specialty Start Date End Date Adriana Velazquez PA [address] [place] [address] [place] [address] PCP - General Internal Medicine 08/06/20 documented as of this encounter
--- OUTSIDE RECORDS SUMMARY | 2024-06-24 13:00 | XMS_ITS | Encounter Summary ---
Author Organization [facility] [place] [address] Care Team Providers Care Tube Draw Helper Name Role Phone Adriana Velazquez Primary Care Provider + Encounter Details Date Type Department Care Team (Late Contact Info) Description 02/14/2021 Telephone [facility] [place] [phone] Kathe Ghotra RN Social History Tobacco Use Types Packs/Day Years Used Date Smoking Tobacco: Every Day Cigarettes 0 Smokeless Tobacco: Never Alcohol Use Standard Drinks/Week Comments Not Currently 1 (1 standard drink = 0.6 oz pur e alcohol) Sex and Gender Information Value Date Recorded Sex Assigned at Not on file Gender Identity Not on file Sexual Orientation Not on file documented as of this encounter Miscellaneous Notes * Telephone Encounter - Kathe Ghotra RN - 02/14/2021 8:07 AM EDT Outgoing call placed to pt regarding rx refill request for Meloxicam 15mg. Per Dr. Bull's office note on 01/28/21, he prescribed a trial rx of Meloxicam and if it was beneficial, the pt's PCP was to start prescribing. Per pt, she is in contact with her PCP on obtaining the prescription and she will call us if she has trouble getting it from them. documented in this encounter Plan of Treatment Not on file documented as of this encounter Visit Diagnoses Not on filedocumented in this encounter Care Teams Tube Draw Helper Relationship Specialty Start Date End Date Adriana Velazquez PA [address] [place] [address] [place] [address] PCP - General Internal Medicine 08/06/20 documented as of this encounter
--- OUTSIDE RECORDS SUMMARY | 2024-06-24 13:00 | XMS_ITS | Clinical Summary ---
Author Organization [facility] Address [facility] [place] [address] Care Team Providers Care Credit Risk Manager Name Role Phone Adriana Velazquez Primary Care Provider + Allergies Active Allergy Reactions Criticality Noted Date Comments Prednisone Other (See Comments) 08/05/2020 Complete panic makes me feel crazy Medications Medication Sig Dispensed Refills Start Date End Date Status venlafaxine (EFFEXOR) 37.5 mg Tablet Take 37.5 mg by mouth daily. Active venlafaxine (EFFEXOR) 75 mg Tablet Take 75 mg by mouth daily. Active aspirin EC 81 mg Tablet, Delayed Release (E.C.) Take 81 mg by mouth daily. Active lisinopriL (Prinivil;Zestril) 5 mg Tablet 1 tablet daily. 01/27/2021 Active Active Problems Problem Noted Date Diagnosed Date Endometrial cancer 08/06/2020 Cancer Staging:Clinical stage from 08/29/2020:FIGO Stage IA(cT1a, cN0(sn), cM0) - Signed by Popeye Leigh MD on 09/24/2020 Major depressive disorder in partial remission 1 10/07/2019 Cigarette smoker 08/06/2020 Hypokalemia 08/06/2020 Essential hypertension 08/06/2020 Social History Tobacco Use Types Packs/Day Years Used Date Smoking Tobacco: Every Day Cigarettes 0 Smokeless Tobacco: Never Tobacco Cessation:Ready to Q uit: Yes Alcohol Use Standard Drinks/Week Comments Not Currently 1 (1 standard drink = 0.6 oz pur e alcohol) Sex and Gender Information Value Date Recorded Sex Assigned at Not on file Gender Identity Not on file Sexual Orientation Not on file Last Filed Vital Signs Vital Sign Reading [...] oz) 10/29/2023 2:34 P M EST Height 154.9 cm (5' 1) 11/20/2021 11:28 AM EDT Body Mass Index 28.8 11/20/2021 11:28 AM EDT Plan of Treatment Health Maintenance Due Date Last Done Comments CT Colonography 1968 Colonoscopy 1968 Colorectal Cancer Screening 1968 FIT DNA 1968 FIT 1968 Sigmoidoscopy (10 year) with FIT yearly 1968 Sigmoidoscopy 1968 Pneumococcal Vaccine: At-Ris k 5-64yrs (1 of 2 - PCV) 1974 HIV screen 1986 Lipid Screening 1986 Hepatitis B vaccine (0-59 yrs) (1) 1987 Tetanus/Diphtheria/Pertussis Vaccines (1 - Tdap) 1987 HPV test 1998 PAP Smear 1998 Breast Cancer Share Decision Needed 2008 Breast Cancer screening 2008 Zoster vaccine (1 of 2) 2018 Advance Directive 2023 Covid-19 Vaccine (3 - 2022-2 4 season) 2024 10/10/2020, 09/19/2020 Influenza (Flu) vaccine (1 o f 1 - Influenza standard series) 04/23/2024 Diabetes Screening (HgbA1C o r Glucose) 11/20/2024 11/20/2021, 01/09/2021, 08/06/2020, Additional history exists Hepatitis C Screening Completed 11/20/2021 Procedures Procedure Name Priority Date/Time Associated Diagnosis Comments HC HEPATITIS C ANTIBODY Routine 11/20/2021 1:18 PM EDT Elevated liver enzymes COMPREHENSIVE METABOLIC PANEL Routine 11/20/2021 1:18 PM EDT Elevated liver enzymes from Last 3 Months or Most Recently Relevant to Health Maintenance Results * Hepatitis C Antibody (11/20/2021 1:18 PM EDT) Pathologist [facility] Hepatitis C Antibody Negative Negative [facility] Blood 11/20/2021 1:18 PM EDT 11/20/2021 1:44 PM EDT Narrative Resulting Agency Comment Spec In Lab Maria Elena Rodriguez APRN CHEMISTRY ORDERABL ES [facility] [place] [address] * (ABNORMAL) Comprehensive metabolic panel (non-fasting) (11/20/2021 1:18 PM EDT) [facility] Glucose 83 65 - 199 mg/dL [facility] Comment:Diabetes: >=200 mg/d L plus symptoms Blood Urea Nitrogen 24(H) 8 - 18 mg/dL [facility] Creatinine 0.67(L) 0.70 - 1.20 mg/dL [facility] Sodium 137 135 - 145 mmol/L [facility] Potassium 3.9 3.5 - 5.0 mmol/L [facility] Comment: Please note: ??Patients with WBC >100,000 may have falsely elevated Potassium levels. ??For accurate Potassium quantification in these patients send serum separator tube (gold top) for subsequent determinations. ??Contact the Clinical Chemistry Laboratory if there are any questions. Chloride 104 98 - 107 mmol/L [facility] Carbon Dioxide 23 22 - 31 mmol/L [facility] Anion Gap 10 5 - 15 mmol/L [facility] Calcium 9.5 8.5 - 10.5 mg/dL [facility] Protein, Total 7.0 6.1 - 8.0 g/dL [facility] Albumin 4.3 3.2 - 5.2 g/dL [facility] Aspartate Aminotransferase 24 0 - 30 unit/L [facility] Alanine Aminotransferase 31(H) 0 - 30 unit/L [facility] Alkaline Phosphatase 70 35 - 105 unit/L [facility] Bilirubin, Total <0.2(L) 0.2 - 1.3 mg/dL [facility] Est Glomerular Filtration Rate 100 >=60 mL/min/1. 73 m?? [facility] Comment: This patient? s estimated [...] Agency Comment Spec In Lab Maria Elena Rodriguez APRN CHEMISTRY ORDERABL ES [facility] [place] [address] from Last 3 Months or Most Recently Relevant to Health Maintenance Care Teams Credit Risk Manager Relationship Specialty Start Date End Date Adriana Velazquez PA [address] [place] [address] [place] [address] PCP - General Internal Medicine 08/06/20
--- OUTSIDE RECORDS SUMMARY | 2024-06-24 13:00 | XMS_ITS | Continuity of Care Document ---
Author Organization [facility] Address [address] [place] [address] Care Team Providers Care Oxyacetylene Cutter Name Role Phone Adriana Velazquez Primary Care Physician [facility] Date[facility] 01/20/23 - 01/20/[address] [address] Encounter Diagnosis Screening for breast cancer(Discharge Diagnosis) - 01/20/23 Discharge Disposition: Home or Self Care Attending Physician: Adriana Velazquez Admitting Physician: Adriana Velazquez Referring Physician: Adriana Velazquez Allergies, Adverse Reactions, Alerts Substance Reaction Severity Status predniSONE Unknown Active Assessment and Plan Future Scheduled Tests Radiology* CT Low Dose [...] 1 tab, Oral, Daily, # 90 tab, 0 Refill(s), Pharmacy: [facility] Start Date: 12/01/22 Status: Ordered LORazepam 0.5 mg oral tablet 0.5 mg = 1 tab, Oral, Daily, PRN as needed for anxiety, # 28 tab, 0 Refill(s), Pharmacy: [facility] Start Date: 11/03/22 Stop Date: 12/01/22 Status: Ordered venlafaxine 37.5 mg oral capsule, extended release 37.5 mg = 1 cap, Oral, Daily, # 90 cap, 3 Refill(s), Pharmacy: [facility] Start Date: 11/27/22 Status: Ordered venlafaxine 75 mg oral capsule, extended release 75 mg = 1 cap, Oral, Daily, # 90 cap, 3 Refill(s), Pharmacy: [facility] Start Date: 11/27/22 Status: Ordered Problem List Condition Confirmation Course [...] Member Role: Primary Care Physician Address: Address: [facility] Primary Care [address] [address]- Care Team Related Persons Name: KYE JESUS Address: Home [address] [place] [phone] Name: SANTO VALENTINO Address: Home [address] [place] [phone]
--- OUTSIDE RECORDS SUMMARY | 2024-06-24 13:00 | XMS_ITS | Continuity of Care Document ---
Author Organization [facility] Address [address] [place] [address] Care Team Providers Care Police Manager Name Role Phone Adriana Velazquez Primary Care Physician Encounter [place] Date(s): 06/16/23 - 06/16/[address] [address] Discharge Disposition: Home or Self Care Attending Physician: Adriana Velazquez Admitting Physician: Adriana Velazquez Allergies, Adverse Reactions, Alerts Substance Reaction Severity Status predniSONE Unknown Active Assessment and Plan Future Appointments Future Scheduled Tests Laboratory* CBC w/ Diff 06/16/23 * Comprehensive Metabolic Panel 06/16/23 * Lipid Panel 06/16/23 Radiology* CT Low Dose Lung Screening 06/16/23 Immunizations [...] Daily, # 90 tab, 2 Refill(s), Pharmacy: [facility] Start Date: 03/01/23 Status: Ordered LORazepam 0.5 mg oral tablet 0.5 mg = 1 tab, Oral, Daily, PRN as needed for anxiety, # 28 tab, 0 Refill(s), Pharmacy: [facility] Start Date: 05/10/23 Stop Date: 06/07/23 Status: Ordered venlafaxine 37.5 mg oral capsule, extended release 37.5 mg = 1 cap, Oral, Daily, # 90 cap, 3 Refill(s), Pharmacy: [facility] Start Date: 11/27/22 Status: Ordered venlafaxine 75 mg oral capsule, extended release 75 mg = 1 cap, Oral, Daily, # 90 cap, 3 Refill(s), Pharmacy: [facility] Start Date: 11/27/22 Status: Ordered Problem [...] Drug Screen Urine (Drug Screen Urine w/ Reflex) 06/16/23 Most recent to oldest [Reference Range]: 1 U Amph Scrn [Negative] Negative 1 (06/16/23 2:48 PM) U Benzodia Scrn [Negative] Negative (06/16/23 2:48 PM) U Cocaine Scrn [Negative] Negative (06/16/23 2:48 PM) U Nury Scrn [Negative] Negative (06/16/23 2:48 PM) U Opiate Scrn [Negative] Negative (06/16/23 2:48 PM) U Oxy Scrn [Negative] Negative (06/16/23 2:48 PM) U PCP Scrn [Negative] Negative (06/16/23 2:48 PM) U THC Scr [Negative] Negative (06/16/23 2:48 PM) U Methadone Scr [Negative] Negative (06/16/23 2:48 PM) U Buprenorph Scr [Negative] Negative (06/16/23 2:48 PM) U mAMP Scr [Negative] Negative (06/16/23 2:48 PM) U TCA Scr [Negative] Negative (06/16/23 2:48 PM) 1Interpretive Data: These are unconfirmed screening [...] Member Role: Primary Care Physician Address: Address: [facility] Primary Care [address] Care Team Related Persons Name: KYE JESUS Address: Home [address] [place], [place] [id number] Address: [address]ailing [address] [place], [place] [phone] Name: KYE JESUS Address: Home [address] [place], [place] [phone] Address: Mailing [address] [place], [place] [phone] Name: SANTO VALENTINO Address: Home [address] [place] [phone]
--- OUTSIDE RECORDS SUMMARY | 2024-06-24 13:01 | XMS_ITS | Encounter Summary ---
Author Organization [facility] Address [facility] [place] [address] Care Team Providers Care Meat Wrapper Name Role Phone Claudia Strong MD Primary Care Provider [phone] Encounter Details Date Type Department Care Team (Late st Contact Info) Description 04/08/2015 Notes Only [place] [phone] Nahomi Valencia, RN Social History Tobacco Use Types Packs/Day Years Used Date Smoking Tobacco: Never Assessed Sex and Gender Information Value Date Recorded Sex Assigned at Not on file Gender Identity Not on file Sexual Orientation Not on file documented as of this encounter Progress Notes * Nahomi Valencia, CHAU - 04/08/2015 2:08 PM EDT Received call for Patient who had completed online donor questionnaire to donate to her friend. Shedoes not know her ABO. 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 Her is very supportive of her wanted todsonate. PMH is unremarkable. Patient only hospitalized for labor and delivery. Last physical was 4 months ago. Pap and norma up to date. patient states her PCP says she is borderline hypertensive. Patient states she takes her BP at homeand is Not. Her medications list reads that she is on Hydrchlorothiazide 12.5mg po qd , which patients denies taking. 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 patient is 61 inches and 180 pounds with a BMI of 34. Plan: I have asked Patient to have her records faxed to us, with review by Dr. Abdi. I have sent her a slip to have her ABO done locally. Patient understands and agrees with plan. I am available for any questions or concerns. , documented in this encounter Plan of Treatment Not on file documented as of this encounter Visit Diagnoses Not on filedocumented in this encounter Care Teams Meat Wrapper Relationship Specialty Start Date End Date Claudia Strong MD [facility] [address] [place] [address] PCP - General 07/15/10 05/19/18 documented as of this encounter
--- OUTSIDE RECORDS SUMMARY | 2024-06-24 13:01 | XMS_ITS | Encounter Summary ---
Author Organization [facility] [place] [address] Care Team Providers Care Hvac Refrigeration Technician Name Role Phone Adriana Velazquez Primary Care Provider + Encounter Details Date Type Department Care Team (Late st Contact Info) Description 08/30/2020 Orders Only Obstetrics [place] [address] Anastasiia Matias MD [facility] DR OBSTETRICS & [place] [address] Social History Tobacco Use Types Packs/Day Years [...] on filedocumented in this encounter Care Teams Hvac Refrigeration Technician Relationship Specialty Start Date End Date Adriana Velazquez PA [address] [place] [address] [place] [address] PCP - General Internal Medicine 08/06/20 documented as of this encounter
--- OUTSIDE RECORDS SUMMARY | 2024-06-24 13:01 | XMS_ITS | Encounter Summary ---
[place] [address] Care Team Providers Care Inside Meter Tester Name Role Phone Claudia Strong MD Primary Care Provider [phone] Reason for Visit * Reason Comments Other Encounter Details Date Type Department Care Team ([facility] Contact Info) Description 04/08/2015 Telephone [place] [phone] Nahomi Valencia, RN Social History Tobacco Use Types Packs/Day Years Used Date Smoking Tobacco: Never Assessed Sex and Gender Information Value Date Recorded Sex Assigned at Not on file Gender Identity Not on file Sexual Orientation Not on file documented as of this encounter Miscellaneous Notes * Telephone Encounter - Nahomi Valencia RN - 04/08/2015 2:22 PM EDT . documented in this encounter Plan of Treatment Not on file documented as of this encounter Visit Diagnoses Not on filedocumented in this encounter Care Teams Inside Meter Tester Relationship Specialty Start Date End Date Claudia Strong MD [facility] [address] [place] [address] PCP - General 07/15/10 05/19/18 documented as of this encounter
--- OUTSIDE RECORDS SUMMARY | 2024-06-24 13:01 | XMS_ITS | Encounter Summary ---
[place] [address] Care Team Providers Care Pelletizer Operator Name Role Phone Adriana Velazquez Primary Care Provider + Reason for Visit * Reason Onset Date Comments Letter/Form 10/14/2020 Request for Cert ification under the ADA - Forms Encounter Details Date Type Department Care Team (Late Contact Info) Description 10/14/2020 Telephone [place] [phone] Cassandra Torres V RN Letter/Form (Request for Certification under the ADA - Forms) Social History Tobacco Use Types Packs/Day Years [...] encounter Miscellaneous Notes * Telephone Encounter - Cassandra Torres RN - 10/14/2020 3:54 PM EST Certification of Qualifying Disability Forms received by fax from Juana Silva. THV with Dr Leigh on 09/24/2020. Plan to return to clinic in 6 months. TC to Juana - She reported that the Forms were sent to the wrong Provider. She has sent them to her PCP to fill out. Not needed from Dr Leigh. * Telephone Encounter - Cassandra Torres RN - 10/14/2020 3:51 PM EST ----- Message from Yulissa Castellon sent at 10/11/2020 4:09 PM EST ----- Regarding: FMLA Paperwork Caller's name: Juana Silva Call back #: [phone] Patient's provider/team: Dr Leigh Reason for call: Regarding FMLA paperwork documented in this encounter Plan of Treatment Not on file documented as of this encounter Visit Diagnoses Not on filedocumented in this encounter Care Teams Pelletizer Operator Relationship Specialty Start Date End Date Adriana Velazquez PA [address] [place] [address] [place] [address] PCP - General Internal Medicine 08/06/20 documented as of this encounter
--- OUTSIDE RECORDS SUMMARY | 2024-06-24 13:01 | XMS_ITS | Encounter Summary ---
[place] [address] Care Team Providers Care Tire Rebuilder Name Role Phone Adriana Velazquez Primary Care Provider + Encounter Details Date Type Department Care Team (Late Contact Info) Description 09/03/2020 Telephone [place] [phone] Viktoria Wong, RN Social History Tobacco Use Types Packs/Day [...] on filedocumented in this encounter Care Teams Tire Rebuilder Relationship Specialty Start Date End Date Adriana Velazquez PA [address] [place] [address] [place] [address] PCP - General Internal Medicine 08/06/20 documented as of this encounter
--- OUTSIDE RECORDS SUMMARY | 2024-06-24 13:01 | XMS_ITS | Encounter Summary ---
Author Organization [facility] [place] [address] Care Team Providers Care Benefits Specialist Name Role Phone Adriana Velazquez Primary Care Provider + Reason for Visit * - Closed Specialty Diagnoses / Procedures Referred By Jose welch Referred To Contact Procedures Film Library- Storage Only MR Spine Adriana Velazquez PA [address] [place] [address] Referral ID Status Reason Start Date Expiration Date Visits Re quested Visits Authorized [id number] Closed 12/27/2020 12/27/2021 1 1 Encounter Details Date Type Department Care Team ([facility] Contact Info) Description 12/23/2020 Ancillary Procedure Radiology Library at [facility] [address] Adriana Velazquez PA [address] [place] [address] [place] [address] Social History Tobacco Use Types Packs/Day Years [...] Procedure Name Priority Date/Time Associated Diagnosis Comments FILM LIBRARY STORAGE ONLY MR SPINE Routine 12/23/2020 12:00 AM EDT documented in this encounter Results * Film Library- Storage Only MR Spine (12/23/2020 12:00 AM EDT) Narrative AMBAR - 12/27/2020 12:39 PM EDT This exam is auto-finalizing. It's purpose is for storage only. Adriana HENRY IMYanni FILM LIBRARY ORDERABLES Performing Organization Address City/State/[facility] Co de Phone Number [place], [place] documented in this encounter Visit Diagnoses Not on filedocumented in this encounter Care Teams Benefits Specialist Relationship Specialty Start Date End Date Adriana Velazquez PA [address] [place] [address] [place] [address] PCP - General Internal Medicine 08/06/20 documented as of this encounter
--- OUTSIDE RECORDS SUMMARY | 2024-06-24 13:01 | XMS_ITS | Encounter Summary ---
Author Organization [facility] [place] [address] Care Team Providers Care Middle School Tutor Name Role Phone Adriana Velazquez Primary Care Provider + Reason for Visit * Reason Onset Date Comments Medication Refill 08/30/2020 Encounter Details Date Type Department Care Team (Late Contact Info) Description 08/30/2020 Refill [place] [address] Popeye Leigh MD [facility] [place] [address] Endometrial cancer Social History Tobacco Use Types [...] isthmus documented in this encounter Care Teams Middle School Tutor Relationship Specialty Start Date End Date Adriana Velazquez PA [address] [place] [address] [place] [address] PCP - General Internal Medicine 08/06/20 documented as of this encounter
--- OUTSIDE RECORDS SUMMARY | 2024-06-24 13:01 | XMS_ITS | Encounter Summary ---
Author Organization [facility] Address [facility] [place] [address] Care Team Providers Care Siding Installer Name Role Phone Unknown Primary Care Provider Unavailabl e Encounter Details Date Type Department Care Team (Late Contact Info) Description 09/01/2010 Interpretation Only Radiology [address] [place] [address] [place] [address] Unknown None Social History Tobacco Use Types Packs/Day Years Used Date Smoking Tobacco: Never Assessed Sex and Gender Information Value Date Recorded Sex Assigned at Not on file Gender Identity Not on file Sexual Orientation Not on file documented as of this encounter Plan of Treatment Not on file documented as of this encounter Procedures Procedure Name Priority Date/Time Associated Diagnosis Comments XR FLUORO NO RAD <1HR - RADIOLOGY USE Routine 09/01/2010 2:43 PM EST documented in this encounter Results * XR Fluoro <1Hr - Radiology Use (09/01/2010 2:43 PM EST) Anatomical Region Laterality Modality N/A Radiographic Ronel ging 09/01/2010 2:43 PM EST Narrative 09/01/2010 2:43 PM EST APD Historical Result Principal Boilerhouse Mechanic: ??LAVON ??B FLUOROSCOPIC ASSISTANCE: A total of 4.9 seconds of fluoroscopic assistance was provided to Dr Gonzalez during the performance of the surgical procedure. ??Two images recorded the event. ??There are no radiologists in attendance during service provision. Lavon Valverde MD, FACR [facility]/sd [id number] CC: Procedure Note Unknown - 02/20/2019 APD Historical Result Principal Boilerhouse Mechanic: LAVON Dennison FLUOROSCOPIC ASSISTANCE: A total of 4.9 seconds of fluoroscopic assistance was provided to Alessandra during the performance of the surgical procedure. Two images recorded the event.There are no radiologists in attendance during service provision. Lavon Valverde MD, FACR [facility]/sd [id number] CC: Unknown IMG FLUORO ORDERABLE S documented in this encounter Visit Diagnoses Not on filedocumented in this encounter Care Teams Siding Installer Relationship Specialty Start Date End Date Unknown None PCP - General 05/23/18 08/05/20 documented as of this encounter
--- OUTSIDE RECORDS SUMMARY | 2024-06-24 13:01 | XMS_ITS | Encounter Summary ---
Author Organization [facility] [address] Care Team Providers Care Store Team Member Name Role Phone Adriana Velazquez Primary Care Provider + Encounter Details Date Type Department Care Team (Latest Contact Info) Description 08/06/2020 12:30 PM EST [place] [id number] Endometrial cancer; Cigarette smoker; Hypokalemia Social History Tobacco Use Types Packs/Day Years [...] Procedure Name Priority Date/Time Associated Diagnosis Comments HEMOGRAM Routine 08/06/2020 12:41 PM EST Endometrial cancer Cigarette smoker Hypokalemia DIFFERENTIAL, AUTOMATED Routine 08/06/2020 12:41 PM EST Endometrial cancer Cigarette smoker Hypokalemia HC CBC,PLT & AUTO DIFF Routine 08/06/2020 12:41 PM EST Endometrial cancer Cigarette smoker Hypokalemia documented in this encounter Results * (ABNORMAL) Differential, Automated (08/06/2020 12:41 PM EST) Neutrophil % 58.7 % [facility] Neutrophil Absolute 6.84(H) 1.70 - 6.10 x10(3)/[facility] Lymph % 31.8 % [facility] Lymphocytes Abs 3.7(H) 0.9 - 3.2 x10(3)/[facility] Monocyte % 6.6 % [facility] Monocyte Abs 0.8 0.3 - 0.9 x10(3)/[facility] Eos % 1.5 % [facility] Eosinophils Abs 0.2 0.0 - 0.4 x10(3)/[facility] Basophil % 1.1 % [facility] Baso Absolute 0.1 0.0 - 0.1 x10(3)/[facility] Immature Gran % 0.30 % [facility] Comment: Immature granulocytes(IG's)percentage and absolute count will include metamyelocytes, myelocytes, and promyelocytes. Blood smears from CBCs yielding IG's will be scanned manually for concordance. If this scan disagrees with the automated IG or if promyelocytes are noted, a manual differential will be performed. Immature Gran Absolute 0.04 0.00 - 0.04 x10(3)/[facility] LABOR[facility] Blood specimen (specimen) 08/06/2020 12:41 PM EST 08/06/2020 12:53 PM EST Narrative Resulting Agency Comment Spec In Lab Popeye Leigh MD HEMATOLOGY ORDERABLE S [facility] [place] [address] * (ABNORMAL) Hemogram (08/06/2020 12:41 PM EST) White Blood Cell 11.7(H) 4.0 - 9.5 x10(3)/[facility] Red Blood Cell 4.50 4.00 - 5.21 x10(6)/[facility] Hemoglobin 13.9 11.7 - 15.5 gm/dL [facility] Hematocrit 40.7 35.7 - 45.8 % [facility] Mean Cell Volume 90.4 82.6 - 94.4 fL [facility] Mean Cell Hemoglobin 30.9 27.1 - 32.0 pg [facility] Mean Cell Hemoglobin Concentration 34.2 31.7 - 35.0 gm/dL [facility] Platelet 384(H) 145 - 357 x10(3)/mc L [facility] RDW Standard Deviation 42.3 37.0 - 46.0 fL [facility] RDW coefficient of variation 12.9 11.5 - 14.1 % [facility] Mean Platelet Volume 10.8 7.6 - 12.9 fL [facility] NRBC% auto 0.0 % [facility] NRBC Absolute 0.000 0.000 - 0.000 x10(3)/mc L [facility] Blood specimen (specimen) 08/06/2020 12:41 PM EST 08/06/2020 12:53 PM EST Narrative Resulting Agency Comment Spec In Lab Popeye Leigh MD HEMATOLOGY ORDERABLE S Performing Organization Address City/State/[facility] Co de Phone Number [facility] [place] [address] documented in this encounter Visit Diagnoses Diagnosis Endometrial cancer Malignant neoplasm of corpus uteri, except isthmus Cigarette smoker Tobacco use disorder Hypokalemia Hypopotassemia documented in this encounter Care Teams Store Team Member Relationship Specialty Start Date End Date Adriana Velazquez PA [address] [place] [address] [place] [address] PCP - General Internal Medicine 08/06/20 documented as of this encounter
--- OUTSIDE RECORDS SUMMARY | 2024-06-24 13:01 | XMS_ITS | Encounter Summary ---
Author Organization [facility] Address [facility] [place] [address] Care Team Providers Care Diesel Engine I Pipe Fitter Name Role Phone Claudia Strong MD Primary Care Provider [phone] Encounter Details Date Type Department Care Team (Late st Contact Info) Description 05/17/2015 Notes Only Solid [place] [phone] Nahomi Valencia, RN Social History Tobacco Use Types Packs/Day Years Used Date Smoking Tobacco: Never Assessed Sex and Gender Information Value Date Recorded Sex Assigned at Not on file Gender Identity Not on file Sexual Orientation Not on file documented as of this encounter Progress Notes * Nahomi Valencia RN - 05/17/2015 12:03 PM EDT 2nd attempt to reach Patient with her ABO. She is not commpatible with intended recipient. I will discuss Exchange program with her. I am available for any questions or concerns. documented in this encounter Plan of Treatment Not on file documented as of this encounter Visit Diagnoses Not on filedocumented in this encounter Care Teams Diesel Engine I Pipe Fitter Relationship Specialty Start Date End Date Claudia Strong MD [facility] [address] [place] [address] PCP - General 07/15/10 05/19/18 documented as of this encounter
--- OUTSIDE RECORDS SUMMARY | 2024-06-24 13:01 | XMS_ITS | Encounter Summary ---
Author Organization [facility] Address [facility] [place] [address] Care Team Providers Care Plan Coordinator Name Role Phone Adriana Velazquez Primary Care Provider + Reason for Visit * Reason Comments Establish Care Malignant Neoplasm o f endometrium * Consultation (Routine) - Closed Specialty Diagnoses / Procedures Referred By Jose welch Referred To Contact Gynecology Oncology Diagnoses Malignant neoplasm of endometrium ENDOMETRIAL ADENOCARCINOMA Pradip Fontenot MD [address] [place] [address] [facility] Motorcycle Deliverer [address] [place] [phone] Referral ID Status Reason Start Date Expiration Date V isits Requested Visits Authorized [id number] Closed Consult, Test & Treat Connection Center PCP Updated and/or Approved 07/22/2020 07/22/2021 6 6 Encounter Details Date Type Department Care Team ([facility] Contact Info) Description 08/06/2020 11:00 AM EST Office Visit [place]ne[place] [address] Popeye Leigh MD [facility] [place] [address] Endometrial cancer; Cigarette smoker; Hypokalemia Social History [...] Sign Reading Time Taken Comments Blood Pressure 149/85 08/06/2020 11:05 AM EST Pulse 89 08/06/2020 11:05 AM EST Temperature 37.3 ??C (99.1 ??F) 08/06/2020 11:[address] Respiratory Rate 24 08/06/2020 11:05 AM EST Oxygen Saturation 100% 08/06/2020 11:05 AM EST Inhaled Oxygen Concentration - - Weight 83.6 kg (184 lb 4.9 oz) 08/06/2020 11:05 AM EST Height 155 cm (5' 1.02) 08/06/2020 11:05 AM EST Body Mass Index 34.8 08/06/2020 11:05 AM EST documented in this encounter Progress Notes * Popeye Leigh MD - 08/06/2020 11:00 AM EST Division [place] [address] Gynecologic Oncology Clinic New Patient Visit Reason for visit: New uterine endometrial cancer, referred by: Pradip Fontenot MD [address] [place] [id number] Problem List Patient Active Problem List Diagnosis Code ??? Endometrial cancer C54.1 ??? 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 Cigarette smoker F17.210 History of present illness: Juana Silva is a very nice 50 y.o. white female, 3, para 2. Who is referred for management of a grade 1 endometrial cancer. I reviewed the records, interviewed the patient, performed an exam, and my recommendations are outlined below. Juana has a history of chronic major depression. She has had symptoms of menometrorrhagia for 1 year, never was amenorrheic. Previously she had 28-day regular cycles without intermenstrual bleeding,but has experienced the latter for the last 4 months. She was referred for evaluation. She underwent a pelvic ultrasound, underwent an endometrial biopsy on 07/08/2020, which showed a FIGO grade 1 endometrial cancer. Today, she is received no other therapy such as progestin, etc. Currently she reports that her appetite is fair, noting 1 month of nausea. She voices some shocklike symptoms, electrical in nature, traveling throughout her body, and wonders if she has widely disseminated cancer. She has darker bowel movements but is on iron supplement at this time, denies hematochezia or melena. She has chronic urinary frequency, denies dysuria or hematuria. She continues to have some light vaginal bleeding, but denies lower extremity edema. She endorses chronic pelvic pain with light electric-like sensations shooting throughout her pelvis. She feels that her lymph nodes in her pelvis are enlarged and is worried about metastatic disease. Gynecologic history: Menarche was approximately age 11, menopause approximately age not yet. Number of pregnancies: 3, Spontaneous vaginal deliveries: 2 c-sections: 0. Oral contraceptive/ control pill use: 3 years. Menopausal hormone therapy use: Not applicable. Other contraceptive history: BTL Her Paps have been regularly obtained. Last Pap was in 2016. Result: Normal by her report Dysplasia history: None. Denies a history of STIs, endometriosis, although she did have a diagnostic laparoscopy for chronicpelvic pain which excluded endometriosis. Cancer screening 1. Mammography: 2019. 2. Colonoscopy: 4-5 months ago. Family history: Maternal grandmother had breast cancer greater than age 50. Her knowledge of the rest of the familyhistory is negative, but otherwise there are no other family members with a history of breast, ovarian, uterine/endometrial, colon, thyroid, pancreatic, gastric, renal/ureteral cancers, or melanoma. Past medical history 1. Chronic major depressive disorder, maintained on venlafaxine 75 mg / 37.5 mg combination every morning.. 2. Mild hypertension, on HCTZ. Hypercholesterolemia, on atorvastatin for 4-5 months.. 3. Anxiety, takes lorazepam as needed, typically 5 doses per month.. 4. Recent hypokalemia with HCTZ therapy, now on replacement. Past surgical history 1. BTL 2. Diagnostic laparoscopy for pelvic pain. Endometriosis was excluded by her report. 3. Right ankle surgery, unknown type, no hardware. 4. Disc surgery, right lumbar area. 5. Right carpal tunnel release. Social history: Lives in [place], [place], in a house, with her , Gatito. There are no other children or adults at home. 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 She completed 09/0312 grade education and a few college courses. Tobacco history: Smoker since age 14, no definite cessation plan. Provided smoking cessation materials and encouragement today. Alcohol history: History of alcohol abuse, abstinent since age 30 Other drugs: History of prescription drug abuse, unknown type, abstinent since age 30 Herbal/alternative therapies: Denies. Performance status: Karnofsky Scale -100; ECOG= 0; typically goes for hikes up to 6 miles every weekend. Medications Prior to Admission medications Medication Sig Start Date End Date Taking? Authorizing Provider rosuvastatin (Crestor) 20 mg Tablet Take 20 [...] as needed for Anxiety. Yes PROVIDER, HISTORICAL hydrochlorothiazide (HYDRODIURIL) 12.5 mg tablet 11/05/09 Yes Allergies Allergies Allergen Reactions ??? Prednisone Other (See Comments) Complete panic makes me feel crazy Vital signs: There were no vitals taken for this visit. Physical examination General: She is alert and oriented, well-groomed and dressed, no obvious distress. She ambulates easily to the examination table. HEENT: Head exam was generally normal. There was no scleral icterus or corneal arcus. Mucus membranes were moist. Neck was supple and without jugular venous distension, thyromegaly, or carotid bruits. Carotids were easily palpable bilaterally. There was no adenopathy. Lungs: Clear to auscultation bilaterally, without adventitious sounds. Heart: Regular rate, normal rhythm, no obvious murmurs detected.. Abdomen: Slightly obese, soft, nontender, surgical scars consistent with history. There is no obvious organomegaly, masses, ascites, tenderness, or inguinal lymphadenopathy.. Pelvic examination: Normal external genitalia with a gaping introitus, speculum exam demonstrates awell rugated vaginal mucosa, normal-appearing parous cervix, heavy physiologic discharge in the vaginal vault but no blood. On bimanual exam, the uterus is midline, top normal size, fully mobile and smooth, nontender. Rectovaginal exam was not performed today. Extremities: No edema. Laboratory/pathology/imaging studies: As discussed above, in the history of present illness. Impression/plan: Juana is a 50 y.o. woman with a biopsy revealing endometrial adenocarcinoma, FIGOgrade 1. The pathology was reviewed here at [facility] [place]. Based on these findings, a decision was made to proceed with surgery for definitive treatment, specifically: Laparoscopic/robotic hysterectomy, bilateral salpingo- oophorectomy, with laparoscopic sentinel lymph node mapping, sentinel lymph node biopsy and possible laparoscopic pelvic/para-aortic lymphadenectomy, as indicated, based upon intraoperative findings. Her performance status is adequate for surgery. I reviewed the natural course of endometrial cancer with the patient and the role that surgery plays in determining the stage/grade of the cancer and it's subsequent treatment after surgery, if indicated by the stage/grade and other prognostic factors. I informed her that in many endometrial cancercases, they are diagnosed early and that the intent of therapy is curative. I reviewed the surgical approach, need for general anesthesia, and the expected postoperative recovery. The patient was informed that patient's undergoing this procedure typically are safe to go homethe day after surgery. Additionally, I discussed the risks of the procedure including, but not limited to: infection, bleeding, chronic leg swelling (lymphedema), DVT/PE, , damage to pelvic or abdominal structures such as the bowel, bladder, ureters, blood vessels, nerves, and the possibility of needing to convert to an open surgery. All of her questions were answered to her satisfaction andshe verbalized understanding of the plan of care. Surgical consent was obtained, bowel preparation reviewed and surgery will be scheduled in the near future. She did desire a copy of the consent form. Additional studies/tests/consults ordered before surgery: Labs: CBC, CMP Imaging: None Other: CHG soap and cleansing instructions provided. Surgery date: 08/29/2020 Incision planned/discussed: LS-robotic [place]-op Prophylaxis: Cefazolin, 2 gm; metronidazole 500 mg; SCD's/ Rx's given today: none Thank you for sending Juana to see me today. I will keep you informed of our progress in her care. * Emilia Samuels LNA - 08/06/2020 11:00 AM EST Examination chaperoned by DANA MARTINEZ. documented in this encounter Plan of Treatment Not on file documented as of this encounter Procedures Procedure Name Priority Date/Time Associated Diagnosis Comments HC VENIPUNCTURE Routine 08/06/2020 12:41 PM EST Endometrial cancer Cigarette smoker Hypokalemia documented in this encounter Results * (ABNORMAL) Comprehensive metabolic panel (non-fasting) (08/06/2020 12:41 PM EST) Glucose 91 65 - 199 mg/dL [facility] Comment:Diabetes: >=200 mg/d L plus symptoms Blood Urea Nitrogen 17 8 - 18 mg/dL [facility] Creatinine 0.81 0.70 - 1.20 mg/dL [facility] Sodium 137 135 - 145 mmol/L [facility] Potassium 3.8 3.5 - 5.0 mmol/L [facility] Comment: Please note: ??Patients with WBC >100,000 may have falsely elevated Potassium levels. ??For accurate Potassium quantification in these patients send serum separator tube (gold top) for subsequent determinations. ??Contact the Clinical Chemistry Laboratory if there are any questions. Chloride 101 98 - 107 mmol/L [facility] Carbon Dioxide 26 22 - 31 mmol/L [facility] Anion Gap 10 5 - 15 mmol/L [facility] Calcium 9.7 8.5 - 10.5 mg/dL [facility] Protein, Total 7.2 6.1 - 8.0 gm/dL [facility] Albumin 4.5 3.2 - 5.2 gm/dL [facility] Aspartate Aminotransferase 29 0 - 30 unit/L [facility] Alanine Aminotransferase 40(H) 0 - 30 unit/L [facility] Alkaline Phosphatase 64 35 - 105 unit/L [facility] Bilirubin, Total <0.2(L) 0.2 - 1.3 mg/dL [facility] Comment:rechecked-ds Est Glomerular Filtration Rate 84 >=60 mL/min/1. 73 m?? [facility] Comment: This patient? s estimated glomerular filtration rate (eGFR) is between 84 mL/min/1.73 m2 (patients with less muscle mass) and 97 mL/min/1.73 m2 (patients with more muscle mass) as determined by the CKD-EPI equation. Assessment of eGFR is not appropriate when creatinine concentrations are rapidly changing. For clinical decisions where creatinine clearance will affect therapy, a 24-hour urine creatinine clearance may be advised. Assignment of CKD stage 1 ? 5 for patients with an eGFR near the transition point between stages may be based on clinical assessment of muscle mass and symptoms in addition to eGFR. Blood specimen (specimen) 08/06/2020 12:41 PM EST 08/06/2020 12:53 PM EST Narrative Resulting Agency Comment Spec In Lab Popeye Leigh MD CHEMISTRY ORDERABLES Performing Organization Address City/State/[facility] Co de Phone Number [facility] [place] [address] documented in this encounter Visit Diagnoses Diagnosis Endometrial cancer Malignant neoplasm of corpus uteri, except isthmus Cigarette smoker Tobacco use disorder Hypokalemia Hypopotassemia documented in this encounter Care Teams Plan Coordinator Relationship Specialty Start Date End Date Adriana Velazquez PA [address] [place] [address] [place] [address] PCP - General Internal Medicine 08/06/20 documented as of this encounter
--- OUTSIDE RECORDS SUMMARY | 2024-06-24 13:01 | XMS_ITS | Encounter Summary ---
[place] [address] Care Team Providers Care Engine Emission Technician Name Role Phone Adriana Velazquez Primary Care Provider + Reason for Referral * Consultation (Routine) - Closed Specialty Diagnoses / Procedures Referred By Contac t Referred To Contact Neurosurgery Diagnoses Neck pain Black Merrill MD [facility] [place] [address] [facility] [address] [place] [id number] Referral ID Status Reason Start Date Expiration Date V isits Requested Visits Authorized [id number] Closed Consult, Test & Treat 01/09/2021 01/09/2022 1 1 Reason for Visit * Reason Comments Neck Pain Spasms Encounter Details Date Type Department Care Team (Late Contact Info) Description 01/09/2021 4:37 PM EDT - 01/09/2021 10:22 PM EDT [place] [address] To Keita MD [facility] [place] [address] Neck pain Discharge Disposition: Home Social History Tobacco Use Types Packs/Day Years [...] Sign Reading Time Taken Comments Blood Pressure 132/84 01/09/2021 8:39 PM EDT Pulse 82 01/09/2021 5:01 PM EDT Temperature 37 ??C (98.6 ??F) 01/09/2021 5:01 PM EDT Respiratory Rate 20 01/09/2021 8:39 PM EDT Oxygen Saturation 94% 01/09/2021 8:39 PM EDT Inhaled Oxygen Concentration - - Weight 77.1 kg (170 lb) 01/09/2021 5:01 PM EDT Height 154.9 cm (5' 1) 01/09/2021 5:01 PM EDT Body Mass Index 32.12 01/09/2021 5:01 PM EDT documented in this encounter Discharge Instructions * Discharge Instructions* Black Merrill MD - 01/09/2021 10:12 PM EDT You were seen in the emergency department for concerns of a neck pain. The MRI that was obtained here showed a C2-C3 facet joint inflammation. You are given a referral to neurosurgery who should contact you to schedule an appointment. You should keep your upcoming appointment with the spine and pain center. You given a short course of Valium which you should take as needed for muscle spasms. Continue to use ibuprofen as directed on the packaging. Contact your primary care physician to let them know that you were in the emergency department arrange appropriate follow-up. If you experience any change or increase in your symptoms including any new or worsening numbness, weakness, loss of bowelor bladder control, new or worsening numbness in the area between your legs, urinary retention, or any other concerns please not hesitate to seek immediate medical attention. documented in this encounter Medications at Time of Discharge Medication Sig Dispensed Refills Start Date End Date venlafaxine (EFFEXOR) 37.5 mg Tablet Take 37.5 mg by mouth daily. venlafaxine (EFFEXOR) 75 mg Tablet Take 75 mg by mouth daily. aspirin EC 81 mg Tablet, Delayed Release (E.C.) Take 81 mg by mouth daily. diazePAM (Valium) 5 mg Tablet Take 1 tablet by mouth every 6 hours as needed for Muscle spasms (spasm). 14 tablet 01/09/2021 04/09/2021 fluticasone propionate (FLONASE) 50 mcg/actuation [place], Suspension SHAKE LIQUID AND USE 1 SPRAY IN EACH NOSTRIL TWICE DAILY 08/28/2020 01/28/2021 HYDROmorphone (Dilaudid) 2 mg TabletIndications:Endom etrial cancer Take 1 tablet by mouth every 4 hours as needed for Pain. 10 tablet 08/30/2020 01/28/2021 HYDROmorphone (Dilaudid) 2 mg Tablet Take 1 tablet by mouth every 3 hours as needed for Pain. 7 tablet 08/30/2020 01/28/2021 ibuprofen (Advil;Motrin) 800 mg Tablet Take 1 tablet by mouth every 6 hours as needed for Pain. 30 tablet 12 08/29/2020 04/09/2021 acetaminophen (Tylenol) 500 mg Tablet Take 2 tablets by mouth every 6 hours as needed for Pain. 30 tablet 1 08/29/2020 01/28/2021 hydroCHLOROthiazide (Hydrodiuril) 25 mg Tablet Take 25 mg by mouth every morning. 01/28/2021 rosuvastatin (Crestor) 20 mg Tablet Take 20 mg by mouth daily. 01/28/2021 potassium citrate SR (Urocit) 10 mEq (1,080 mg) Tablet Sustained Release Take 10 mEq by mouth daily. 01/28/2021 LORazepam (Ativan) 0.5 mg Tablet Take 0.5 mg by mouth as needed for Anxiety. 04/09/2021 documented as of this encounter ED Notes * Meryl Kerns RN - 01/09/2021 10:15 PM EDT Patient and the mother were arguing. Patient pulled the BP cuff while it was going stating I'm leaving. Doctor said patient is going to go. Discharge paper given but patient refused to take it. * Meryl Kerns RN - 01/09/2021 8:14 PM EDT Patient is back from MRI. * To Keita MD - 01/09/2021 7:48 PM EDT Brief Attending Note I cared for the patient with the resident physician. Please see Dr. Merrill's note, associated with the encounter, for more details. HPI: Juana Silva is a 50 y.o. who presents to the ED with history of endometrial cancer presenting with worsening neck pain radiating to bilateral shoulders and associated with electric shock type sensation in the spine. She had an MRI for this a third which was essentially unremarkable in terms ofcord compression. Her symptoms have worsened dramatically since that time. She is also complaining of some saddle anesthesia. ROS: Pertinent positives and negatives are included in the history of present illness, otherwise 10 systems are reviewed and negative Allergies: Allergies Allergen Reactions ??? Prednisone Other (See Comments) Complete panic makes me feel crazy Past Medical, Past Surgical, Family/Social History: reviewed in chart. Patient Vitals for the past 8 hrs: BP Temp Temp src Pulse Resp SpO2 Height Weight 01/09/21 1800 150/89 -- -- -- 18 96 % -- -- 01/09/21 1701 (!) 148/92 37 ??C (98.6 ??F) Oral 82 18 98 % 154.9 cm (5' 1) 77.1 kg (170 lb) 01/09/21 1519 (!) 148/102 37.3 ??C (99.1 ??F) Temporal 96 16 98 % -- -- Gen: well appearing, NAD HENT: atraumatic, OP clear significant tenderness in the lateral neck Pulm: CTA zafar, no respiratory distress Card: RRR Abd: soft, nt Skin: warm and dry Neuro: speech fluent, no obvious deficit MS: No obvious deformity Psych: Normal mood Assessment: 50 y.o. female presenting with history of cancer worsening name with Lhermitte sign. She did have a essentially negative MRI of the cervical spine but with her ongoing symptoms, history of cancer, as well as this question of saddle anesthesia, we will obtain a full spine MRI with and without contrast to evaluate for other areas of cord issue. To Keita MD 01/09/211953 * Meryl Kerns RN - 01/09/2021 6:30 PM EDT Patient transported to MRI. * Black Merrill MD - 01/09/2021 5:11 PM EDT Juana Silva is an 50 y.o. female who presents to the ED with: Chief Complaint Patient presents with ??? Neck Pain ??? Spasms I saw this patient 01/10/2021 at ~ 2:58 AM HPI Juana Silva is a 50 y.o. female with a PMH significant for hypertension, endometrial cancer withrecent full hysterectomy who presents to the Emergency Department with worsening neck pain, numbness, and weakness. Patient states that in June 2020 she was diagnosed with endometrial cancer and underwent a full hysterectomy. The patient states that she has not been on any chemotherapy or required any radiation treatments afterwards as had been no evidence of metastasis. Patient states however prior to this diagnosis that she developed neck pain. Patient states that this has progressively worsened since that time. Patient states that she received an MRI roughly 1 month ago of her cervicalspine that demonstrated evidence of cervical spine stenosis. Patient states that since that MRI hersymptoms of gotten progressively worse particular in the past 3 days. The patient states that she now has bilateral upper shoulder numbness, increased weakness of her upper and lower extremities, andsaddle anesthesia. Patient's states that she has not had any loss of bowel or bladder control, recent fevers or recent injury to the area. Patient states that today she had several episodes where shefelt severe radiculopathy in her bilateral upper extremities as well as in her bilateral toes. Patient states that she has been having several episodes which she describes as severe muscle spasms which are debilitating and has caused her to take a medical leave from work. Patient describes electric shocks down her bilateral arms and up into her head. Patient denies any recent weight loss, nightsweats and states that she does have a follow-up ointment with the pain and spine Center in the middle of January but states that her symptoms have progressed to such an extent that she cannot wait thatlong. Social History Socioeconomic History ??? Marital status: Spouse name: None ??? Number of children: None ??? Years of education: None ??? Highest education level: None Occupational History ??? None Tobacco Use ??? Smoking status: Current Every Day Smoker Packs/day: 1.00 Years: 0.00 Pack years: 0.00 Types: Cigarettes ??? Smokeless tobacco: Never Used Vaping Use ??? Vaping Use: Never used Substance and Sexual Activity ??? Alcohol use: Not Currently Alcohol/week: 1.0 standard drink Types: 1 Glasses of wine per week ??? Drug use: Not Currently ??? Sexual activity: None Other Topics Concern ??? None Social History Narrative ??? None Social Determinants of Health Financial Resource Strain: ??? Difficulty of Paying Living Expenses: Food Insecurity: ??? Worried About Running Out of Food in the Last Year: ??? Ran Out of Food in the Last Year: Transportation Needs: ??? Lack of Transportation (Medical): ??? Lack of Transportation (Non-Medical): Physical Activity: ??? Days of Exercise per Week: ??? Minutes of Exercise per Session: Review of Systems: Review of Systems Constitutional: Negative for chills, fatigue and fever. HENT: Negative for trouble swallowing and voice change. Eyes: Negative for photophobia and visual disturbance. Respiratory: Negative for cough, chest tightness and shortness of breath. Cardiovascular: Negative for chest pain and palpitations. Gastrointestinal: Negative for abdominal pain, diarrhea, nausea and vomiting. Genitourinary: Negative for dysuria and flank pain. Musculoskeletal: Positive for neck pain and neck stiffness. Skin: Negative for rash and wound. Neurological: Positive for numbness. Negative for dizziness, seizures, syncope, facial asymmetry and headaches. Psychiatric/Behavioral: Negative for confusion and decreased concentration. Vital Signs: Patient Vitals for the past 24 hrs: BP Temp Temp src Pulse Resp SpO2 Height Weight 01/09/21 2039 132/84 -- -- -- 20 94 % -- -- 01/09/21 1800 150/89 -- -- -- 18 96 % -- -- 01/09/21 1701 (!) 148/92 37 ??C (98.6 ??F) Oral 82 18 98 % 154.9 cm (5' 1) 77.1 kg (170 lb) 01/09/21 1519 (!) 148/102 37.3 ??C (99.1 ??F) Temporal 96 16 98 % -- -- I have reviewed the vital signs, which demonstrates Physical Exam: Physical Exam Constitutional: General: She is not in acute distress. Appearance: Normal appearance. She is not ill-appearing. HENT: Head: Normocephalic and atraumatic. Eyes: Conjunctiva/sclera: Conjunctivae normal. Pupils: Pupils are equal, round, and reactive to light. Cardiovascular: Rate and Rhythm: Normal rate and regular rhythm. Pulmonary: Effort: Pulmonary effort is normal. No respiratory distress. Breath sounds: Normal breath sounds. Abdominal: General: Abdomen is flat. Tenderness: There is no abdominal tenderness. Musculoskeletal: General: No swelling or tenderness. Cervical back: Normal range of motion and neck supple. Skin: General: Skin is warm and dry. Capillary Refill: Capillary refill takes less than 2 seconds. Neurological: General: No focal deficit present. Mental Status: She is alert and oriented to person, place, and time. Comments: Cranial nerves II through XII tested and found to be intact with the session of weak bilateral shoulder raise and the patient refused to rotate her head laterally in order to assess cranialnerve XI. Patient described a decrease in station her bilateral shoulders down to her bilateral forearms. Patient had 4-5 strength bilateral tricep extension, bicep flexion, and hip extension. Psychiatric: Mood and Affect: Mood normal. Behavior: Behavior normal. ED Course: - Patient was evaluated and discussed with Dr. Keita - Medications, allergies and past medical history reviewed - Nursing notes and vital signs reviewed - Medications and fluid administered: Medications ketorolac (Toradol) (15 mg/mL) injection 15 mg (15 mg Intravenous Given 01/09/211817) diazePAM (Valium) (5 mg/mL) injection syringe 5 mg (5 mg Intravenous Given 01/09/211817) gadoterate meglumine (Dotarem) (0.5 mMol/mL) injection solution 0-100 mL (16 mLs Intravenous Given 01/09/211915) - I have reviewed the labs, which are significant for: Recent Results (from the past 24 hour(s)) Basic Metabolic Panel (non-fasting) Result Value Ref Range Glucose Lvl 86 65 - 199 mg/dL BUN 17 8 - 18 mg/dL Creatinine 0.74 0.70 - 1.20 mg/dL Sodium 139 135 - 145 mmol/L Potassium 3.7 3.5 - 5.0 mmol/L Chloride 103 98 - 107 mmol/L CO2 24 22 - 31 mmol/L Anion Gap 12 5 - 15 mmol/L Calcium 9.9 8.5 - 10.5 mg/dL Estimated GFR 93 >=60 mL/min/1.73 m?? Hepatic Function Panel Result Value Ref Range Total Protein 6.8 6.1 - 8.0 gm/dL Albumin 4.2 3.2 - 5.2 gm/dL AST 25 0 - 30 unit/L ALT 21 0 - 30 unit/L Alk Phos 55 35 - 105 unit/L Total Bilirubin 0.2 0.2 - 1.3 mg/dL Bili, Direct 0.1 0.0 - 0.3 mg/dL Hemogram Result Value Ref Range WBC 8.4 4.0 - 9.5 x10(3)/mcL RBC 4.53 4.00 - 5.21 x10(6)/mcL Hemoglobin 14.5 11.7 - 15.5 gm/dL Hematocrit 42.4 35.7 - 45.8 % MCV 93.6 82.6 - 94.4 fL MCH 32.0 27.1 - 32.0 pg MCHC 34.2 31.7 - 35.0 gm/dL Platelets 398 (H) 145 - 357 x10(3)/mcL RDWSD 45.8 37.0 - 46.0 fL RDWCV 13.4 11.5 - 14.1 % MPV 10.9 7.6 - 12.9 fL nRBC % Auto 0.0 % nRBC Abs Auto 0.000 0.000 - 0.000 x10(3)/mcL Differential, Automated Result Value Ref Range Neutrophils % 50.6 % Neutr Abs (ANC) 4.24 1 - 6 x10(3)/mcL Lymphocytes % 35.8 % Lymphocytes Abs 3.0 0.9 - 3.2 x10(3)/mcL Monocytes % 10.1 % Monocyte Abs 0.8 0.3 - 0.9 x10(3)/mcL Eosinophils % 2.7 % Eosinophils Abs 0.2 0.0 - 0.4 x10(3)/mcL Basophils % 0.7 % Basophils Abs 0.1 0.0 - 0.1 x10(3)/mcL Immature Gran % 0.10 % Gilda Gran Abs 0.01 0.00 - 0.04 x10(3)/mcL Gold Tube HOLD Result Value Ref Range Gold Hold Sample in lab. - I have reviewed the imaging, which is significant for: MRI Total Spine wwo Contrast Final Result 1. Edema and enhancement associated with the right C2-C3 facet joint. Imaging findings may reflect inflammatory change, though infection cannot be excluded. No joint effusion or evidence for soft tissue abscess. 2. No cord compression or abnormal intradural enhancement. No evidence for no suspicious osseous lesion. 3. Small right foraminal disc protrusion may contact the right L5 nerve root. Thank you for letting us participate in the care of this patient. If you are a health care provider and have any questions regarding this report, please contact the number below. For patients who have questions please contact the health care transport nurse that requested your imaging first. Assessment and Plan: MDM: Juana Silva is a 50 y.o. female with a PMH significant for hypertension, endometrial cancer withrecent full hysterectomy who presents to the Emergency Department with worsening neck pain, numbness, and weakness. Patient presented hemodynamically stable no signs of acute distress. The patient presents with complaints of worsening bilateral upper extremity numbness, bilateral upper and lower extremity weakness and saddle anesthesia. Patient had an MRI fairly recently however the patient states that her symptoms have significantly progressed since that time. Patient states that her symptoms are now at the point where she can no longer function has had to take a medical leavefrom work. The onset of saddle anesthesia is also concerning for a obstructive process. There is noevidence from the patient's previous work-up of endometrial metastasis and it would be somewhat unusual for this to metastasized to her spine however this will need to be evaluated. The patient was given 15 mg of Toradol, 5 mg Valium for symptom control. A MRI with and without contrast of her total spine was ordered due to her progressive and new neurological symptoms. This showed edema and has been associated with a right C2-C3 facet joint but no evidence for cord compressionor abnormal intradural enhancement, there is no evidence for any suspicious osseous lesions. Is also a small right foraminal disc protrusion. On reexamination the patient was laying on her stomach with her neck in full flex to 1 side withoutany acute distress. Findings were discussed with with the patient as well as recommendation for steroid burst. Patient states that she is allergic to steroids and thus cannot tolerate them. The patient was given a referral to neurosurgery to discuss the findings on her MRI as well as potential treatment plans. Patient was given a short prescription for Valium which she should take as needed for her muscle spasms. Patient was also directed to continue to use ibuprofen for pain control.The patient is also going to follow-up with her spine and pain referral that her PCP had arranged fo r her. The patient was discharged home and will follow up with her primary care physician, the neurosurgery referral and the pain and spine center referral. Patient was told that if she experiences any new or worsening symptoms including any new or worsening numbness, weakness, numbness in the area of herlegs, bowel or bladder dysfunction, urinary retention, or any other concerns to hesitate to seek immediate medical attention. Return precautions were verbally discussed with the patient. The patient expressed understanding that they could come back to the ED at any time and agreed to the follow-up plan. Plan: - Discharge home - Follow up with PCP, neurosurgery, pain and spine clinic - Return precautions were discussed with the pt Black Merrill MD EM Resident, PGY-2 01/10/21 2:58 AM Black Merrill MD Resident 01/10/21 0313 Associated attestation - To Keita MD - 01/10/2021 1:11 PM EDT ED ATTENDING ATTESTATION The patient was seen in conjunction with the resident physician. I have independently performed thekey portions of the history and physical exam. I have personally reviewed nursing notes, vital signs, and diagnostic studies including labs, imaging studies and EKGs. I have discussed the details of the case with the resident and agree with the assessment and plan as described in the resident's note, unless stated otherwise in my separate note. Did this case involve critical care? No * López Leslie PA - 01/09/2021 3:18 PM EDT 50 y/o F with hx of depression and endometrial cancer presents with severe neck pain. No trauma to her neck. Says she has been dealing with neck pain all year. Since June she has had electrical shocks going through her skull. She has had severe spasms. She had an MRI of her cervical spine on 12/23 and was found to have cervical spine stenosis. Pain is getting worse by the day. Now she is dealing with severe spasms in her neck. Says she has lost strength in her arms. Electric tingles go into skull and now range of motion of neck is less. Says she could not get out of bed due to the pain. Themore she feels the electric tingling the more tense her neck gets. She has not taken anything for the pain. Says she cannot take tylenol because she has a liver issue. Ibuprofen will do nothing for her. Says symptoms have worsened since her MRI on December 23. López Leslie PA 01/09/21 1525 documented in this encounter Miscellaneous Notes * ED Triage - Ravi Marx RN - 01/09/2021 3:20 PM EDT Pt with chronic pain and electric shocks through my body presents with worsening electric tingles, spasms, arm weakness and loss of range of motion. I take nothing for pain, I can't take tylenol because there's something wrong with my liver. PMH CA Pt A+Ox4, respirations even and unlabored, PWD, VSS, NAD. documented in this encounter Plan of Treatment Scheduled Referrals Name Type Priority Associated Diagnoses Order Schedule Referral to Neurosurgery Outpatient Referral Routine Neck pain Ordered: 01/09/2021 documented as of this encounter Procedures Procedure Name Priority Date/Time Associated Diagnosis Comments MRI TOTAL SPINE WITH/WO CONTRAST STAT 01/09/2021 7:16 PM EDT HEMOGRAM STAT 01/09/2021 6:31 PM EDT DIFFERENTIAL, AUTOMATED STAT 01/09/2021 6:31 PM EDT GOLD TUBE HOLD STAT 01/09/2021 6:31 PM EDT HC CBC,PLT & AUTO DIFF STAT 01/09/2021 6:31 PM EDT HEPATIC FUNCTION PANEL STAT 01/09/2021 6:31 PM EDT BASIC METABOLIC PANEL STAT 01/09/2021 6:31 PM EDT documented in this encounter Results * MRI Total Spine wwo Contrast (01/09/2021 7:16 PM EDT) Anatomical Region Laterality Modality C-spine, T-spine, L-spine Magnet ic Resonance Impressions 01/09/2021 7:59 PM EDT 1. ??Edema and enhancement associated with the right C2-C3 facet joint. Imaging findings may reflect inflammatory change, though infection cannot be excluded. No joint effusion or evidence for soft tissue abscess. 2. ??No cord compression or abnormal intradural enhancement. No evidence for no suspicious osseous lesion. 3. ??Small right foraminal disc protrusion may contact the right L5 nerve root. Thank you for letting us participate in the care of this patient. ??If you are a health care provider and have any questions regarding this report, please contact the number below. ??For patients who have questions please contact the health care transport nurse that requested your imaging first. ? Electronically signed by: NICOLETTE Davis [facility] ([phone]), at 01/09/2021 7:59 PM Narrative 01/09/2021 7:59 PM EDT EXAMINATION: MRI TOTAL SPINE WWO CONTRAST CLINICAL HISTORY: Myelopathy, acute or progressive Worsening bilateral upper extremity numbness, weakness and new onset saddle anesthesia, history of endometrial cancer. TECHNIQUE: MRI of the cervical, thoracic and lumbar spine was performed before and after the intravenous administration of 16 cc Dotarem. COMPARISON: MRI cervical spine 12/23/2020 FINDINGS: Spinal alignment is maintained. No suspicious osseous lesion. The cervical prevertebral and thoracic and lumbar paraspinal soft tissues are unremarkable. Edema and enhancement of the right C3-C4 facet joint in the surrounding soft tissues. Degenerative changes C5-6 and C6-7 contribute to mild spinal canal narrowing. No cervical cord compression or signal alteration. Small disc extrusion and T7-8 which indents the ventral thecal sac contributes mild canal narrowing. Small disc protrusions at T6-7 and T7-8 without canal stenosis. No cord compression. No lumbar canal stenosis. Small right foraminal disc protrusion at L5-S1 may contact the exiting right L5 nerve root. Disc bulge and facet arthropathy contribute to mild left neural foraminal narrowing at L4-5 Within limits of the examination the cord is normal in signal and caliber. No abnormal intradural enhancement. Procedure Note Valencia Gant MD - 01/09/2021 EXAMINATION: MRI TOTAL SPINE WWO CONTRAST CLINICAL HISTORY: Myelopathy, acute or progressive Worsening bilateral upper extremity numbness, weakness and new onsetsaddle anesthesia, history of endometrial cancer. TECHNIQUE: MRI of the cervical, thoracic and lumbar spine was performed before andafter the intravenous administration of 16 cc Dotarem. COMPARISON: MRI cervical spine 12/23/2020 FINDINGS: Spinal alignment is maintained. No suspicious osseous lesion. Thecervical prevertebral and thoracic and lumbar paraspinal soft tissues areunremarkable. Edema and enhancement of the right C3-C4 facet joint in the surroundingsoft tissues. Degenerative changes C5-6 and C6-7 contribute to mild spinal canalnarrowing. No cervical cord compression or signal alteration. Small disc extrusion andT7-8 which indents the ventral thecal sac contributes mild canal narrowing.Small disc protrusions at T6-7 and T7-8 without canal stenosis. No cordcompression. No lumbar canal stenosis. Small right foraminal disc protrusion at L5-S1may contact the exiting right L5 nerve root. Disc bulge and facetarthropathy contribute to mild left neural foraminal narrowing at L4-5 Within limits of the examination the cord is normal in signal and caliber.No abnormal intradural enhancement. IMPRESSION 1. Edema and enhancement associated with the right C2-C3 facet joint.Imaging findings may reflect inflammatory change, though infection cannot beexcluded. No joint effusion or evidence for soft tissue abscess. 2. No cord compression or abnormal intradural enhancement. No evidencefor no suspicious osseous lesion. 3. Small right foraminal disc protrusion may contact the right L5 nerveroot. Thank you for letting us participate in the care of this patient. If youare a health care provider and have any questions regarding this report,please contact the number below. For patients who have questions please contactthe health care transport nurse that requested your imaging first. To Keita MD IMG MRI ORDERABLES * Gold Tube HOLD (01/09/2021 6:31 PM EDT) Pathologist [facility] Gold Hold Sample in lab. [facility] Blood Venous Draw / Unknown 01/09/2021 6:31 PM EDT 01/09/2021 6:37 PM EDT Black Merrill MD CHEMISTRY ORDERABLE S [facility] [place] [address] * Differential, Automated (01/09/2021 6:31 PM EDT) Neutrophil % 50.6 % [facility] Neutrophil Absolute 4.24 1.70 - 6.10 x10(3)/mcL [facility] Lymph % 35.8 % [facility] Lymphocytes Abs 3.0 0.9 - 3.2 x10(3)/[facility] Monocyte % 10.1 % [facility] Monocyte Abs 0.8 0.3 - 0.9 x10(3)/[facility] Eos % 2.7 % [facility] Eosinophils Abs 0.2 0.0 - 0.4 x10(3)/[facility] Basophil % 0.7 % [facility] Baso Absolute 0.1 0.0 - 0.1 x10(3)/[facility] Immature Gran % 0.10 % [facility] Comment: Immature granulocytes(IG's)percentage and absolute count will include metamyelocytes, myelocytes, and promyelocytes. Blood smears from CBCs yielding IG's will be scanned manually for concordance. If this scan disagrees with the automated IG or if promyelocytes are noted, a manual differential will be performed. Immature Gran Absolute 0.01 0.00 - 0.04 x10(3)/[facility] Blood 01/09/2021 6:31 PM EDT 01/09/2021 6:37 PM EDT Narrative Resulting Agency Comment Spec In Lab Black Merrill MD HEMATOLOGY ORDERABL ES [facility] [place] [address] * (ABNORMAL) Hemogram (01/09/2021 6:31 PM EDT) White Blood Cell 8.4 4.0 - 9.5 x10(3)/[facility] Red Blood Cell 4.53 4.00 - 5.21 x10(6)/[facility] Hemoglobin 14.5 11.7 - 15.5 gm/dL [facility] Hematocrit 42.4 35.7 - 45.8 % [facility] Mean Cell Volume 93.6 82.6 - 94.[address] [facility] Mean Cell Hemoglobin 32.0 27.1 - 32.[address] [facility] Mean Cell Hemoglobin Concentration 34.2 31.7 - 35.0 gm/dL [facility] Platelet 398(H) 145 - 357 x10(3)/mc L [facility] RDW Standard Deviation 45.8 37.0 - 46.[address] [facility] RDW coefficient of variation 13.4 11.5 - 14.1 % [facility] Mean Platelet Volume 10.9 7.6 - 12.[address] [facility] NRBC% auto 0.0 % [facility] NRBC Absolute 0.000 0.000 - 0.000 x10(3)/mc L [facility] Blood 01/09/2021 6:31 PM EDT 01/09/2021 6:37 PM EDT Narrative Resulting Agency Comment Spec In Lab Black Merrill MD HEMATOLOGY ORDERABL ES [facility] [place] [address] * Hepatic Function Panel (01/09/2021 6:31 PM EDT) Protein, Total 6.8 6.1 - 8.0 gm/dL [facility] Albumin 4.2 3.2 - 5.2 gm/dL [facility] Aspartate Aminotransferase 25 0 - 30 unit/L [facility] Alanine Aminotransferase 21 0 - 30 unit/L [facility] Alkaline Phosphatase 55 35 - 105 unit/L [facility] Bilirubin, Total 0.2 0.2 - 1.3 mg/dL [facility] Bilirubin, Direct 0.1 0.0 - 0.3 mg/dL [facility] Blood 01/09/2021 6:31 PM EDT 01/09/2021 6:37 PM EDT Narrative Resulting Agency Comment Spec In Lab To Keita MD CHEMISTRY ORDERABL ES [facility] [place] [address] * Basic Metabolic Panel (non-fasting) (01/09/2021 6:31 PM EDT) Glucose 86 65 - 199 mg/dL [facility] Comment:Diabetes: >=200 mg/d L plus symptoms Blood Urea Nitrogen 17 8 - 18 mg/dL [facility] Creatinine 0.74 0.70 - 1.20 mg/dL [facility] Sodium 139 135 - 145 mmol/L [facility] Potassium 3.7 3.5 - 5.0 mmol/L [facility] Comment: Please note: ??Patients with WBC >100,000 may have falsely elevated Potassium levels. ??For accurate Potassium quantification in these patients send serum separator tube (gold top) for subsequent determinations. ??Contact the Clinical Chemistry Laboratory if there are any questions. Chloride 103 98 - 107 mmol/L [facility] Carbon Dioxide 24 22 - 31 mmol/L [facility] Anion Gap 12 5 - 15 mmol/L [facility] Calcium 9.9 8.5 - 10.5 mg/dL [facility] Est Glomerular Filtration Rate 93 >=60 mL/min/1. 73 m?? [facility] Comment: This patient? s estimated glomerular filtration rate (eGFR) is between 93 mL/min/1.73 m2 (patients with less muscle mass) and 108 mL/min/1.73 m2 (patients with more muscle mass) [...] and symptoms in addition to eGFR. Blood 01/09/2021 6:31 PM EDT 01/09/2021 6:37 PM EDT Narrative Resulting Agency Comment Spec In Lab To Keita MD CHEMISTRY ORDERABL ES [facility] [place] [address] documented in this encounter Visit Diagnoses Diagnosis Neck pain Cervicalgia documented in this encounter Administered Medications Inactive Administered Medications - up to 3 most recent administrations Medication Order MAR Action Action Date Dose Rate Site diazePAM (Valium) (5 mg/mL) injection syringe 5 mg 5 mg, Intravenous, ONCE, 1 dose, On Karen 01/09/21 at 1806, Please note size of syringe compared to ordered dose., Routine Given 01/09/2021 6:18 PM EDT 5 mg gadoterate meglumine (Dotarem) (0.5 mMol/mL) injection solution 0-100 mL 0-100 mL, Intravenous, ONCE PRN, 1 dose, Starting on Karen 01/09/21 at 1916, Until Karen 01/09/21 at 1916, Per Protocol, Radiology Contrast, Routine Given 01/09/2021 7:16 PM EDT 16 mLs ketorolac (Toradol) (15 mg/mL) injection 15 mg 15 mg, Intravenous, ONCE, 1 dose, On Karen 01/09/21 at 1806, Routine Given 01/09/2021 6:18 PM EDT 15 mg documented in this encounter Active and Recently Administered Medications Times are shown in EDT. Scheduled Medication Order 01/07/2021 01/08/2021 01/09/2021 diazePAM (Valium) (5 mg/mL) injection syringe 5 mg (COMPLETED) 5 mg, Intravenous, ONCE, 1 dose, On Karen 01/09/21 at 1806, Please note size of syringe compared to ordered dose., Routine 1817 (Given - Provid er: Meryl Kerns RN) ketorolac (Toradol) (15 mg/mL) injection 15 mg (COMPLETED) 15 mg, Intravenous, ONCE, 1 dose, On Karen 01/09/21 at 1806, Routine 1817 (Given - Provid er: Diolisis O Luis F, RN) PRN Medication Order 01/07/2021 01/08/2021 01/09/2021 gadoterate meglumine (Dotarem) (0.5 mMol/mL) injection solution 0-100 mL (COMPLETED) 0-100 mL, Intravenous, ONCE PRN, 1 dose, Starting on Karen 01/09/21 at 1916, Until Karen 01/09/21 at 1916, Per Protocol, Radiology Contrast, Routine 191 (Given - Provid er: Pietro Melendez) documented in this encounter Care Teams Engine Emission Technician Relationship Specialty Start Date End Date Adriana Velazquez PA [address] [place] [address] [place] [address] PCP - General Internal Medicine 08/06/20 documented as of this encounter
--- OUTSIDE RECORDS SUMMARY | 2024-06-24 13:01 | XMS_ITS | Encounter Summary ---
[facility] [place] [address] Care Team Providers Care Employee Counselor Name Role Phone Claudia Strong MD Primary Care Provider [phone] Encounter Details Date Type Department Care Team (Late st Contact Info) Description 04/25/2015 Notes Only [place] [id number] Nahomi Valencia, RN Social History Tobacco Use Types Packs/Day Years Used Date Smoking Tobacco: Never Assessed Sex and Gender Information Value Date Recorded Sex Assigned at Not on file Gender Identity Not on file Sexual Orientation Not on file documented as of this encounter Progress Notes * Nahomi Valencia RN - 04/25/2015 10:58 AM EDT Called patient who has lost medical insurance and Wishes to donate has asked her PCP to send records for review. Patient states her PCP did NOT think she should donate as she has elevated BP and LFT's. Patient denies both. Patient had her ABO done yesterday [facility]. Plan. Will await records to review with Dr. Abdi documented in this encounter Plan of Treatment Not on file documented as of this encounter Visit Diagnoses Not on filedocumented in this encounter Care Teams Employee Counselor Relationship Specialty Start Date End Date Claudia Strong MD [facility] [address] [place], [place] [address] PCP - General 07/15/10 05/19/18 documented as of this encounter
--- OUTSIDE RECORDS SUMMARY | 2024-06-24 13:01 | XMS_ITS | Encounter Summary ---
Author Organization [facility] [place] [address] Care Team Providers Care Boarding House Cook Name Role Phone Unknown Primary Care Provider Unavailabl e Reason for Visit * - Closed Specialty Diagnoses / Procedures Referred By Jose t Referred To Contact Procedures Film Library- Storage Only DX Spine Adriana Velazquez PA [address] [place] [id number] Referral ID Status Reason Start Date Expiration Date Visits Re quested Visits Authorized [id number] Closed 12/27/2020 12/27/2021 1 1 Encounter Details Date Type Department Care Team ([facility] Contact Info) Description 07/24/2020 Ancillary Procedure Radiology Library at [facility] [place] [address] Adriana Velazquez PA [address] [place] [address] [place], [place] [id number] Social History Tobacco Use Types Packs/Day Years [...] Associated Diagnosis Comments FILM LIBRARY STORAGE ONLY DX SPINE Routine 07/24/2020 12:00 AM EST documented in this encounter Results * Film Library- Storage Only DX Spine (07/24/2020 12:00 AM EST) Narrative [facility] - 12/27/2020 12:40 PM EDT This exam is auto-finalizing. It's purpose is for storage only. Adriana HENRY IMG FILM LIBRARY ORDERABLES [facility] Maria [place], [place] documented in this encounter Visit Diagnoses Not on filedocumented in this encounter Care Teams Boarding House Cook Relationship Specialty Start Date End Date Unknown None PCP - General 05/23/18 08/05/20 documented as of this encounter
--- OUTSIDE RECORDS SUMMARY | 2024-06-24 13:01 | XMS_ITS | Encounter Summary ---
Author Organization [facility] Address [facility] [place] [address] Care Team Providers Care Tube Sizer Operator Name Role Phone Adriana Velazquez Primary Care Provider + Reason for Visit * Auth/Cert Specialty Diagnoses / Procedures Referred By Contac t Referred To Contact Diagnoses Endometrial cancer ENDOMETRIAL CANCER Procedures PRO LAPAROSCOPY W TOT HYSTERECTUTERUS <=250 GRAM W TUBE/OVARY PRO LAP, PELVIC LYMPHADENECTOMY/BX PRO INTRAOP SENTINEL LYMPH ID W/DYE INJECTION LAPAROSCOPY,TOTAL HYST, UTERUS<250GM, REM TUBE &/OR OVARY, ROBOTIC ASSIST (WRVU 15) LAPAROSCOPY,W\BILATERAL TOTAL PELVIC LYMPHADENECTOMY, PERIAORTIC LYMPH NODE SAMPLING, ROBOTIC (WRVU 15.6) INTRAOPERATIVE ID (MAPPING) SENTINEL LYMPH NODE,INCLUDES INJECTION (WRVU 2.5) MODIFIER ROBOT,DAVINCI XI Referral ID Status Reason Start Date Expiration Date Visits Re quested Visits Authorized [id number] 1 1 Encounter Details Date Type Department Care Team (Late Contact Info) Description 08/29/2020 10:27 AM EST - 08/29/2020 1:35 PM EST Surgery [place] [id number] Popeye Chávez MD [facility] [place] [address] ROBOTIC LAPAROSCOPY,TOTAL HYST, UTERUS<250GM, REM TUBE &/OR OVARY (WRVU 15) Social History Tobacco Use Types Packs/Day Years [...] Sign Reading Time Taken Comments Blood Pressure 125/72 08/29/2020 1:30 PM EST Pulse 84 08/29/2020 9:43 AM EST Temperature 36.1 ??C (97 ??F) 08/29/2020 1:30 PM EST Respiratory Rate 20 08/29/2020 1:30 PM EST Oxygen Saturation 96% 08/29/2020 1:30 PM EST Inhaled Oxygen Concentration - - Weight 83.6 kg (184 lb 4.9 oz) 08/29/2020 9:43 A M EST Height 155 cm (5' 1.02) 08/29/2020 9:43 AM EST Body Mass Index 34.8 08/29/2020 9:43 AM EST documented in this encounter Discharge Instructions * Patient Instructions* Vicky Mata PA - 08/29/2020 9:31 AM EST Images from the original note were not included. PATIENT DISCHARGE INSTRUCTIONS Gynecologic Oncology phone number: [phone]. After hours and on weekends please call hospital television operator at [phone] and ask for Gynecologic Oncologist plastic and reconstructive surgeon. Call your doctor if you develop: --A fever over 101 degrees --Severe pain --Increasing pain, redness, or discharge at any of your incisions --Heavy vaginal bleeding-soaking through a pad an hour --It is normal to have continuous or intermittent light spotting from the vagina for up to 6 weeks following hysterectomy -Follow-up with Dr. Chávez will be on 09/18/20 at 3:00PM. This appointment may change in date/time/format as the situation with COVID-19 evolves. Our office or Dr. Chávez will call you if a change is necessary. Activity level: No grunting/groaning/straining for 6 weeks. No sexual intercourse, no tampons, nothing in the vagina for 8 weeks. Diet: You may resume your regular diet. Be sure you drink plenty of fluids. Bowel Regimen: Please use pradeep-colace (senna-S or docusate-senna) 1-2 tablets twice daily for the entire time that you are taking narcotic pain medication to keep your bowel movements soft and regular. You may consider using this post- operatively even if you are not using narcotic pain medication. You can increase this to up to 8 tablets a day (and may take 6-12 hours for effect). If you are constipated or have not had a bowel movement in 2 days, you may add in polyethylene glycol (Miralax) 17g(one capful) 1-2 times daily (may take 1-2 days for effect). If this is ineffective you may add Milk of Magnesia 30mL (2 Tablespoons) daily (may take 30minutes - 6 hours to work). The next step is to use Magnesium Citrate 1 bottle (295mL)- this usually produces a bowel movement in 30 minutes-3 hours. Please call if you have not had a bowel movement in 3-4 days. Driving: Do not drive until you are off of all narcotic medications and you are not feeling pain; usually about 2 weeks. Shower/Bath: Showering is fine. Short baths are okay but you should avoid having any abdominal incision submerged for more than 10-15 minutes for the next 2 weeks. Wound Care: Your incisions are closed with dissolvable stitches and surgical glue. The glue will dissolve on its own over time - do not pick at or rub the glue. The stitches do not need to be removed- they will dissolve on their own. Pain Control: For your post-operative pain please use ibuprofen, acetaminophen, heating pad, and narcotic pain medication (oxycodone) for your pain management. Your goal is to be able to take severalshort walks every day (increase the duration each day) and to be able to sleep at night. If you areunable to do these things using the ibuprofen and acetaminophen and heating pad then you will need to use the narcotic pain medication (oxycodone) for breakthrough pain. You should be able to use less oxycodone every couple days and require no breakthrough narcotic pain medication in about 1-4 days. 1. Please use ibuprofen (Advil/Motrin) 600mg every 6 hours around the clock (with food) for the next 5-7 days. After that, use as needed. 2. Please use acetaminophen (Tylenol) 650mg every 6 hours as needed (or 1000mg every 8 hours as needed). Do not exceed 3000mg of acetaminophen from any source in 24 hours. 3. Please use oxycodone every 4-6 hours as needed for pain that ???breaks through?? the ibuprofen and acetaminophen. -Some of our patients have found this non medical website helpful after hysterectomy: [email or web address] Please take your medication exactly as prescribed. Read all instructions that come with your medication. ?? Using narcotic pain medication (such as oxycodone, hydromorphone (Dilaudid), morphine, fentanyl,or tramadol) may cause addiction. While addiction is more common in people with a personal or family history of addiction, it can occur in anyone. ?? Taking more than the prescribed amount of medication or using with alcohol or other drugs can cause you to stop breathing resulting in coma, brain damage, or . ?? Opioids (oxycodone, hydromorphone/Dilaudid, morphine, fentanyl, tramadol) can slow reaction time, cause drowsiness, or cloud judgement. It is unsafe for you to drive or operate heavy machinery while taking this medication. ?? Opioids (oxycodone, hydromorphone/Dilaudid, morphine, fentanyl, tramadol) are at risk of being diverted by anyone with access to your home. Opioids should be stored in a safe and secure place, such as a locked cabinet or safe. Unused opioids (oxycodone, hydromorphone/Dilaudid, morphine, fentanyl, tramadol) should be disposedof according to the label or patient information. If there are no specific instructions, medications may be returned to a take-back location or mixed with a small amount of water and an undesirable waste substance such as coffee grounds or cat litter. documented in this encounter Medications at Time of Discharge Medication Sig Dispensed Refills Start Date End Date venlafaxine (EFFEXOR) 37.5 mg Tablet Take 37.5 mg by mouth daily. venlafaxine (EFFEXOR) 75 mg Tablet Take 75 mg by mouth daily. aspirin EC 81 mg Tablet, Delayed Release (E.C.) Take 81 mg by mouth daily. potassium chloride ER (K-Dur/Klor-Con) 10 mEq Tablet Sustained Release TAKE 1 TABLET BY MOUTH EVERY DAY 08/25/2020 09/20/2020 fluticasone propionate (FLONASE) 50 mcg/actuation [place], Suspension SHAKE LIQUID AND USE 1 SPRAY IN EACH NOSTRIL TWICE DAILY 08/28/2020 01/28/2021 ibuprofen (Advil;Motrin) 800 mg Tablet Take 1 tablet by mouth every 6 hours as needed for Pain. 30 tablet 12 08/29/2020 04/09/2021 acetaminophen (Tylenol) 500 mg Tablet Take 2 tablets by mouth every 6 hours as needed for Pain. 30 tablet 1 08/29/2020 01/28/2021 HYDROmorphone (Dilaudid) 2 mg Tablet Take 1 tablet by mouth every 4 hours as needed for Pain. 7 tablet 08/29/2020 08/30/2020 hydroCHLOROthiazide (Hydrodiuril) 25 mg Tablet Take 25 mg by mouth every morning. 01/28/2021 rosuvastatin (Crestor) 20 mg Tablet Take 20 mg by mouth daily. 01/28/2021 potassium citrate SR (Urocit) 10 mEq (1,080 mg) Tablet Sustained Release Take 10 mEq by mouth daily. 01/28/2021 LORazepam (Ativan) 0.5 mg Tablet Take 0.5 mg by mouth as needed for Anxiety. 04/09/2021 documented as of this encounter Progress Notes * Eddie Azevedo RN - 08/29/2020 6:00 PM EST Patient alert and oriented, vital signs stable. Pain is 4/10; MD was at bedside again and spoke with patient and her about pain regimen and expectations. Dilaudid prescription sent to pharmacy. PIV removed and intact. Reviewed discharge instructions; patient and verbalized understanding. Copy of instruction sheet with contact numbers for questions/concerns with the procedure performed. Pain assessment documented. Patient waiting for to come back from pharmacy with prescription so they can go home. 18:30 Patient out of the unit * Tatiana Hernandez RN - 08/29/2020 3:45 PM EST Pt is complaining of 8/10 pain and O. Weale here to assess patient * Tatiana Hernandez RN - 08/29/2020 3:41 PM EST Voiding trial done as ordered, however pt stated that she had to void after intilling 100cc NS, so this telegraphic typewriter installer stopped and discontinued cespedes cath and walked patient to the bathroom. Pt nikki ambulation well documented in this encounter H&P Notes * Popeye Chávez MD - 08/29/2020 10:06 AM EST Inpatient MAINTENANCE COORDINATOR - Admission Interval Note I have reviewed the pre-procedure H&P completed by Dr. Chávez on 08/06/20. Subjective: Patient seen in same day area. Consent in chart. No changes since preop visit. No new meds/allergies or hospital/ER visits. Has taken Oxycodone without issue in the past. Uses [employer] in [facility]. Objective: Last value Range last 8 hrs Temperature Temp: 36.7 ??C (98.1 ??F) Temp: [36.7 ??C (98.1 ??F)] Heart Rate Heart Rate: 84 Heart Rate: [84] Blood Pressure BP: (Abnormal) 150/91 BP: (150-165)/(91-100) Respiratory Rate Resp: 18 Resp: [18] SpO2 SpO2: 98 % SpO2: [98 %] Assessment/Plan: Ok to proceed with surgery. - Consent signed on 08/06/[address] Chávez. - 2 gm ancef and 500 mg Flagyl - Hibiclens washing performed last night and this AM - SCDs for VTE ppx - Moderate risk ORT. Opioid consent signed. - Planning for same day d/c Roosevelt Cespedes MD 08/29/2020 I saw and evaluated the patient with Dr. Cespedes, and I confirmed the history and physical findings as outlined, participated in the critical aspects of the patient's care, formulated the treatment plan, and I agree with the note as written. documented in this encounter Miscellaneous Notes * Op Note - Popeye Chávez MD - 08/29/2020 1:10 PM EST [facility] Operative Note Patient Name: Juana Silva : [id number] MR#: [id number] Case Date: 08/29/2020 Surgeon: Surgeon(s) and Role: * Popeye Chávez MD - Primary * Roosevelt Cespedes MD - Resident Registered Nurse [employer]: Shi Post RN Anesthesia: General endotracheal. Preoperative Diagnosis: 1. Grade 1 endometrial adenocarcinoma. Postoperative Diagnosis: 1. Grade 1 endometrial adenocarcinoma, final pathology pending. Procedures 1. Total laparoscopic/robotic hysterectomy with bilateral salpingo-oophorectomy, uterine weight < 250 grams. 2. Intraoperative injection/identification of sentinel lymph nodes with injection of indocyanine green. 3. Laparoscopic retroperitoneal lymph node sampling, bilateral. Specimens removed during surgery: 1. Uterus, cervix, fallopian tubes, and ovaries. 2. Bilateral pelvic sentinel lymph node(s). Drains: Cespedes catheter. Estimated Blood Loss: 10 mL. IV Fluid: 1400 mL of crystalloid. Urine Output: 50 mL. Indication for surgery: This is a 50 y.o. woman who was referred by: Pradip Fontenot MD [address] [place] [address] for a new diagnosis of grade 1 endometrial cancer. She was counseled on the diagnosis, surgical plan and goals, alternatives and risks. She wished to proceed with surgery, and written consent was obtained. Findings 1. Exam under anesthesia: Normal sized uterus, cervix, and ovaries with no evidence of vaginal or cervical metastasis. 2. Laparoscopy: Normal upper abdomen. No evidence of extrauterine disease, carcinomatosis, or ascites. The ovaries were grossly normal. After the hysterectomy, the uterus was opened off the field andwas found to contain a flat 1 x 2 cm tumor involving the fundus. 3. Concord lymph node mapping: A left and right sentinel lymph node was identified and excised, and sent for SLN protocol. 4. Frozen section: none 4. Residual disease: No gross residual disease. Procedure in Detail: The patient was identified and consent was reaffirmed. She was taken to the operating room and placed in low lithotomy position with stirrups after induction of anesthesia. An exam was conducted and the findings are discussed above. An antiseptic preparation of the abdomen, perineum, and vagina was performed and the patient was sterilely draped. A Cespedes catheter was inserted into the bladder. A surgical pause was performed, correctly identifying the intended procedures, antibiotic & DVT prophylaxis, etc. for this patient. 25mg of indocyanine green powder was diluted in 20 mL of aqueous sterile water for injection. A speculum was placed in the vagina, and the cervix was grasped with a tenaculum. Four ml of the ICG solution was injected into the cervix at the 3- and 9-o'clock positions, with 1 ml 1-2 cm deep into the stroma and 1 cc submucosally. After sounding of the uterus and dilation of the cervix, a Veneer Measurer device was inserted into the uterus for manipulation. An 8-mm transverse incision was made 5 cm above the umbilicus, through which a 8-mm da Kristie trocarwas then inserted under direct visualization, verifying atraumatic entry. Additional 8-mm robotic trocars and a 12-mm right upper quadrant assistant baseball coach port were placed in the usual locations without difficulty, under direct visualization. The patient was placed in steep Trendelenburg position. Pelvicwashings were not obtained. Using sharp and electrosurgical dissection, the retroperitoneal spaces including the para-rectal and paravaginal spaces were opened to identify the ureters and expose the lymphatic basins. Using near-infrared illumination, sentinel lymph nodes were identified on the left and right sides. These wereexcised, labeled and sent separately for sentinel lymph node pathology protocol. The adnexa were skeletonized and the ovarian vessels were desiccated and divided bilaterally after.The adnexa were then skeletonized around the cornua. The round ligaments were desiccated and divided bilaterally. A bladder flap was developed to a point over the upper vagina with sharp and electrosurgical dissection. The uterine vessels were then skeletonized, desiccated and divided bilaterally, as were the uterosacral ligaments. The hysterectomy was completed by making a circumferential colpotomy incision over the vaginal cup with monopolar scissor energy, and then the specimen was withdrawnthrough the vagina and then opened off the field. The specimen findings are discussed above. A complete pelvic and para-aortic lymphadenectomy was not performed due to finding no large or deeply invasive tumor/lower uterine segment/cervical involvement, and/or high-grade tumor, or because the sentinel lymph node protocol was successful, as described above. After the specimens were removed and irrigation performed, the vaginal cuff was closed in the usualfashion with 0-Vicryl sutures secured at each angle, and a 2- 0 V-Loc 180 suture used to run the center of the cuff. The robot was undocked. The port sites were closed with 4-0 Vicryl sutures. Dermaflex sealant was applied to each site. The patient was returned to a supine position as anesthesia was discontinued. She was then extubated and taken to the PACU in stable condition, and accompanied by the anesthesiologist and surgeons. Dr. Popeye Chávez, the attending physician, was present for the entire procedure. Counts: Sharp and sponge counts were correct x two. Complications: none. Antibiotics: 2 gm (s) cefazolin; 500 mg metronidazole; at induction of anesthesia. DVT Prophylaxis: ICD's continuously applied to the lower extremities. Surgical Closure: Primary Closure - skin incision is completely closed without any wires, liana, drains or other devices Infection Bundle used? Yes Infection present at time of surgery?: No Chlorhexidine wipes in Same Day prior to surgery: Yes Expected bowel surgery? No. Fingerstick glucose checked in Same Day: Yes Chlorhexidine-alcohol skin prep: Yes Pre-op IV antibiotics: Cefazolin + Metronidazole Vaginal prep: Yes. Povidone-iodine Open case? No. Attestation: Case Date: 08/29/2020 I was present and I participated during the entire procedure (does not need to include opening and closing). POPEYE CHÁVEZ MD 08/29/2020 documented in this encounter Plan of Treatment Not on file documented as of this encounter Procedures Procedure Name Priority Date/Time Associated Diagnosis Comments SPECIMEN TO PATHOLOGY Routine 08/29/2020 1:03 PM EST SPECIMEN TO PATHOLOGY Routine 08/29/2020 12:23 PM EST SPECIMEN TO PATHOLOGY Routine 08/29/2020 12:19 PM EST SURGICAL PATHOLOGY REPORT Routine 08/29/2020 12:18 PM EST MODIFIER ROBOT,TACOINCI XI 08/29/2020 11:23 AM EST ENDOMETRIAL CANCER Intraop Concord Lymph Id W/Dye Injection ([id number]) 08/29/2020 11:23 AM EST ENDOMETRIAL CANCER Lap, Pelvic Lymphadenectomy/Bx ([id number]) 08/29/2020 11:23 AM EST ENDOMETRIAL CANCER Laparoscopy W Tot Hysterectuterus <=250 Gram W Tube/Ovary ([id number]) 08/29/2020 11:23 AM EST ENDOMETRIAL CANCER POCT GLUCOSE Routine 08/29/2020 9:49 AM EST documented in this encounter Results * Specimen to Pathology (08/29/2020 1:03 PM EST) AP Specimen 08/29/2020 1:03 PM EST 08/29/2020 1:03 PM EST Narrative [facility] - 08/29/2020 1:03 PM EST Specimen requisition ordered. ??Separate Pathology report to follow Popeye Chávez MD PATHOLOGY/CYTOLOGY O MARY Performing Organization Address [facility] Co de Phone Number [facility] [place] [address] * Specimen to Pathology (08/29/2020 12:23 PM EST) AP Specimen 08/29/2020 12:2 3 PM EST 08/29/2020 12:23 PM EST Narrative [facility] - 08/29/2020 12:23 PM EST Specimen requisition ordered. ??Separate Pathology report to follow Popeye Chávez MD PATHOLOGY/CYTOLOGY O RDSTEVE Performing Organization Address [facility]/ZIP Co de Phone Number [facility] [place] [address] * Specimen to Pathology (08/29/2020 12:19 PM EST) AP Specimen 08/29/2020 12:1 9 PM EST 08/29/2020 12:19 PM EST Narrative [facility] - 08/29/2020 12:19 PM EST Specimen requisition ordered. ??Separate Pathology report to follow Popeye Chávez MD PATHOLOGY/CYTOLOGY O MARY [facility] [place] [address] * Surgical Pathology Report (08/29/2020 12:18 PM EST) Final Diagnosis [id number] ? Location: [facility]; [facility]; The signing pathologist has (i) examined the relevant preparation(s) for the specimen(s) and (ii) rendered or confirmed the diagnosis(es). . ?Surgical Pathology DIAGNOSIS A - Right pelvic node, sentinel lymph node, excision: ??- Two lymph nodes negative for malignancy (0/2). B - Left pelvic node, sentinel node, excision: ??- One lymph node negative for malignancy (0/1). C - Uterus, cervix, fallopian tubes and ovaries, hysterectomy and bilateral ?salpingo-oophorectom y: ??- Endometrial adenocarcinoma, endometrioid type, FIGO grade 1 arising in ?a background of complex atypical hyperplasia (see Synoptic Report and ?Discussion for additional details and staging). ?- Tumor hormone receptors: ?Estrogen receptor (ER): Positive ?Progesterone receptor (GA): Positive ??- Benign cervix with Nabothian cysts. ??- Adenomyosis. ??- Multiple uterine leiomyomas. ??- Benign bilateral fallopian tubes and ovaries. Electronically signed by: ??Desi Adams DO Verified: ??09/05/2020 ?Pathologist Performed at: ??-[facility] Dept. of Pathology, [place], [place] SYNOPTIC Specimen Parts: ??A-C Specimen ? Procedure: ??Total hysterectomy and bilateral salpingo-oophorectomy Tumor ? Tumor Site: ??Endometrium ? Histologic Type: ??Endometrioid carcinoma, NOS ? Histologic Grade: ??FIGO grade 1 ? Tumor Size: ??Cannot be determined - There are multiple discontinuous ?microscopic foci of invasion arising in CAH. The largest microscopic focus ?of invasion is 4 mm. ? Myometrial Invasion: ??Not identified ? Adenomyosis: ??Present, uninvolved by carcinoma ? Uterine Serosa Involvement: ??Not identified ? Lower Uterine Segment Involvement: ??Not identified ? Cervical Stromal Involvement: ??Not identified ? Other Tissue / Organ Involvement: ??Not applicable ? Lymphovascular Invasion: ??Not identified Lymph Nodes ? Lymph Node Status: ??All lymph nodes negative for tumor cells ? Number of Pelvic Concord Nodes Examined: ??3 Pathologic Stage Classification (pTNM, AJCC 8th Edition) ? Primary Tumor (pT): ??pT1a ? Regional Lymph Nodes (pN): ??pN0 FIGO Stage ? FIGO Stage: ??IA Additional Findings ? Additional Findings: ??Atypical hyperplasia / endometrial intraepithelial ?neoplasia (EIN) Tumor Block(s): ??C22 . SYNOPTIC CAP eCC September 2019 Annual Release DISCUSSION Block ? Antibody ? Result (Positive/Negative) C22 ?MLH1 ?Positive, intact nuclear staining ? MSH2 ?Positive, intact nuclear staining ? MSH6 ?Positive, intact nuclear staining ? PMS2 ?Positive, intact nuclear staining Interpretation: Immunostains for MLH1, MSH2, MSH6, and PMS2 reveal intact nuclear staining in tumor cells. ??In a very small percentage of tumors, there may still be an underlying hereditary defect in these DNA mismatch repair genes despite intact nuclear expression of the protein in tumor cells ?? . Genetic counseling and/or additional workup is indicated in patients with a family history that meets current criteria for HNPCC screening. Immunohistochemical assay was performed on paraffin-embedded tissue sections fixed in 10% neutral buffered formalin for 6-72 hours using the polymer system technique with appropriate controls. The assay was performed according to the club former's ??instructions ??using anti-MLH-1 (ES05), anti-MSH-2 ([id number]), anti- MSH-6 (44), and anti-PMS-2 ([id number]) antibodies. ADDITIONAL STUDIES IHC Concord Lymph Node Protocol For Endometrial Carcinoma: Formalin-fixed, paraffin-embedded tissue sections are studied using the B-SA system technique with appropriate positive and negative controls. Block ?Antibody ?Result (Degree of immunoreactivity) A1-2 Level 1 ?CKAE1/3 ?Negative A1-2 Level 2 ?CKAE1/3 ?Negative B1-2 Level 1 ?CKAE1/3 ?Negative B1-2 Level 2 ?CKAE1/3 ?Negative The sentinel lymph node protocol as outlined in the [facility] study (referenced below) was followed for each of the lymph node tissue blocks that lacked metastatic tumor on routine H&E sections. Maya EDMOND, Chantale RA, et al. Pathologic Ultrastaging Improves Micrometastasis Detection in Concord Lymph Nodes During Endometrial Cancer Staging. ?Int J Gynecol Cancer 2013;23: 964-970. IHC studies provide the pathologist with adjunctive diagnostic information. Antibody specificity has been verified by testing antibodies on a series of in-house tissues with known immunohistochemical performance characteristics. The clinical interpretation of any antibody positive staining or its absence is evaluated within the context of clinical presentation, morphology, ??histopathological criteria and other diagnostic tests. SPECIMEN(S) SUBMITTED A - Right pelvic node, sentinel lymph node, biopsy (1) B - Left pelvic node, sentinel node, biopsy (1) C - Uterus, cervix, bilateral tubes and ovaries, excision (1) CLINICAL INFORMATION Endometrial cancer . SPECIMEN PROCESSING A - Labeled/Fixative: Right pelvic node, sentinel lymph node, fresh. Quantity/Size: Single, 2.2 x 1.6 x 0.8 cm. Tissue Description: Yellow lobular adipose tissue with 2 distinct firm talbert lymph nodes ranging from 0.7-0.8 cm in greatest dimension Sections/Processing: The lymph nodes are entirely submitted Animal Shelter Worker sections in 2 cassettes as follows: ?A1: ??Trisected lymph node ?A2: ??Serially sectioned B - Labeled/Fixative: Left pelvic node, sentinel lymph node, fresh. Quantity/Size: Single, 2.1 x 1.6 x 1.0 cm. Tissue Description: Adipose tissue with a single 1.65 x 0.9 x 0.5 cm firm talbert lymph node Sections/Processing: The lymph node is entirely submitted Animal Shelter Worker sections in 2 cassettes as follows: ?B1-B2: ??Serially sectioned lymph node C - Labeled/Fixative: Uterus, cervix, bilateral tubes and ovaries, fresh. Quantity: Single Size: Cornu to cornu: 5.0 cm Anterior to posterior: 4.5 cm Dome to Cervix: 8.0 cm Weight (overall): 138 g Tissue Description: Opened, total hysterectomy. UTERUS Endometrium: The endometrial cavity is 3.7 x 3.5 cm, with an endometrium averaging 0.1-0.2 cm thick. There are patchy areas of ill-defined pale talbert induration directly underlying and involving the endometrium up to 1.5 cm in greatest dimension, however a distinct endometrial lesion is not grossly identified. Myometrium: Averaging 2.0 cm thick, with 3 intramural firm, white, whorled nodules ranging from 0.5 x 0.7 cm in greatest dimension. Serosa: Glistening and pink-talbert. CERVIX Diameter: 3.2 cm. The anterior cervical margin is inked blue and the posterior cervical margin is inked black Os: 2.1 cm, slit-like RIGHT OVARY ?? Size: 2.5 x 2.0 x 1.3 cm. ?? Outer Surface: Talbert-yellow, cerebriform. ?? Cut Surface: Heterogenous with a single peripheral 0.6 cm smooth-lined. Right Fallopian Tube: 3.5 x 0.5 x 0.5 cm, fimbriated, with a discontiguous lumen and a tubal ligation band. LEFT OVARY ?? Size: 3.4 x 2.5 x 2.5 cm. ?? Outer Surface: Talbert-yellow, cerebriform. ?? Cut Surface: Heterogenous with multiple peripheral smooth-lined cysts up to 1.9 cm in greatest dimension. Left Fallopian Tube: 4.2 x 0.5 x 0.5 cm, fimbriated, with a discontiguous lumen and a tubal ligation band. Sections/Processing: Animal Shelter Worker sections in 46 cassettes as follows: ?C1: ??Animal Shelter Worker right ovary with cyst ?C2-C4: ??Entirely submitted right fallopian tube; fimbria longitudinally sectioned ?C5-C6: ??Animal Shelter Worker left ovary with cysts ?C7-C8: ??Entirely submitted as fallopian tube; fimbria longitudinally sectioned ?C9: ??Anterior cervix ?C10: ??Posterior cervix ?C11-C13: ??Longitudinal anterior lower uterine segment, cervical aspect to red ?C14-C17: ??Longitudinal posterior lower uterine segment, cervical aspect inked red . SPECIMEN PROCESSING ?C18-C31: ??Full-thickness anterior endomyometrium, entirely submitted from superior ? to inferior (C21 without serosa) ?C32-C46: ??Full-thickness posterior endomyometrium, entirely submitted from ? superior to inferior ??levi 09/05/2020 9:05 AM EST [facility] SENTINEL LYMPH NODE / Unknown 08/29/2020 12:18 PM EST 08/29/2020 12:18 PM EST SENTINEL LYMPH NODE / Unknown 08/29/2020 12:18 PM EST 08/29/2020 12:18 PM EST Uterine Corpus 08/29/2020 12 :18 PM EST 08/29/2020 12:18 PM EST Popeye Chávez MD PATHOLOGY/CYTOLOGY O MARY [facility] [place] [address] * POCT Glucose (08/29/2020 9:49 AM EST) Glucose, POC 107 65 - 199 mg/dL [facility] Comment: Supplemental ranges: <140 mg/dL before meals <180 mg/dL all other times of the day Blood specimen (specimen) 08/29/2020 9:49 AM EST 08/29/2020 9:49 AM EST Popeye Chávez MD POINT OF CARE TEST O MARY Performing Organization Address City/[facility]/ZIP Co de Phone Number [facility] [place] [address] documented in this encounter Visit Diagnoses Not on filedocumented in this encounter Administered Medications Inactive Administered Medications - up to 3 most recent administrations Medication Order MAR Action Action Date Dose Rate Site acetaminophen (Tylenol) tablet 650 mg 650 mg, Oral, EVERY 6 HOURS PRN, Starting on Karen 08/29/20 at 1324, Until Karen 08/29/20 at 2030, Pain, If multiple pain medications ordered, use acetaminophen first. Maximum dose of acetaminophen is 4000 mg from all sources in 24 hours. When ordered for pain, acetaminophen should be given even when other ordered pain medications are indicated., Routine Given 08/29/2020 2:41 PM EST 650 mg fentaNYL (pf) (50 mcg/mL) multi-dose injection 12.5-25 mcg 12.5-25 mcg, Intravenous, EVERY 5 MIN PRN, Starting on Karen 08/29/20 at 1336, Until Karen 08/29/20 at 2030, Pain, Give 12.5 mcg every 5 minutes PRN for mild to moderate pain (1-5) Give 25 mcg every 5 minutes PRN for moderate to severe pain (6-10). Hold for respiratory rate less than 10 per minute. Maximum dose 250 mcg over one hour. If ordered with hydromorphone or morphine, give hydromorphone or morphine first and use fentanyl for breakthrough pain., Routine Given 08/29/2020 2:22 PM EST 25 mcg Given 08/29/2020 2:07 PM EST 25 mcg Given 08/29/2020 1:59 PM EST 25 mcg HYDROmorphone (Dilaudid) tablet 2-4 mg 2-4 mg, Oral, EVERY 3 HOURS PRN, Starting on Karen 08/29/20 at 1559, Until Karen 08/29/20 at 2030, Pain, 2mg to start, can repeat in 30-60min, Routine Given 08/29/2020 4:12 PM EST 4 mg indocyanine green (Ic-Green) injection ONCE PRN, Starting on Karen 08/29/20 at 1202, Until Karen 08/29/20 at 2030, Intra-Operative (Intra-Procedure), Routine Given 08/29/2020 12:02 PM EST 5 mg 19- Surgical Site lidocaine-EPINEPHrine (pf) (1.5% - 1:200,000) injection ONCE PRN, Starting on Karen 08/29/20 at 1210, Until Karen 08/29/20 at 2030, Intra-Operative (Intra-Procedure), Routine Given 08/29/2020 12:10 PM EST 20 mLs oxyCODONE (Roxicodone) tablet 5-10 mg 5-10 mg, Oral, EVERY 3 HOURS PRN, Starting on Karen 08/29/20 at 1324, Until Karen 08/29/20 at 1600, Pain, - If multiple pain medications ordered, use acetaminophen first. - If pain not relieved by acetaminophen first, administer oxycodone. - Initial dose 5 mg. - If pain control not adequate in 60 minutes, give additional 5 mg., Routine Given 08/29/2020 2:41 PM EST 10 mg documented in this encounter Active and Recently Administered Medications Times are shown in EST. Scheduled Medication Order 08/27/2020 08/28/2020 08/29/2020 ceFAZolin (Ancef) 2 g in dextrose 5% 100 mL infusion (COMPLETED)(Linked Group 1) 2 g, Intravenous, ONCE, 1 dose, On Karen 08/29/20 at 1015, Administer over 30 Minutes, Certified Medical Transcriptionist to OR Infuse over 30 minutes., Day of Surgery (Day of Procedure), Indication for (Active or Suspected): Prophylaxis 1133 (Given - Provid er: Melinda De La Rosa) ketorolac (Toradol) (30 mg/mL) injection 30 mg 30 mg, Intravenous, EVERY 8 HOURS SCHEDULED, 15 doses, First dose on Karen 08/29/20 at 1345, Last dose on Wed09/03/20 at 0600, Routine 1345 (Due) metroNIDAZOLE (Flagyl) 500 mg in sodium chloride 0.9% 100 mL infusion (COMPLETED)(Linked Group 1) 500 mg, Intravenous, ONCE, 1 dose, On Karen 08/29/20 at 1015, Administer over 30 Minutes, Certified Medical Transcriptionist to OR Infuse over 30 minutes., Day of Surgery (Day of Procedure), Indication for (Active or Suspected): Prophylaxis 1135 (Given - Provid er: Melinda De La Rosa) Continuous Medication Order 08/27/2020 08/28/2020 08/29/2020 lactated ringers infusion 1,000 mL, at 100 mL/hr, Intravenous, CONTINUOUS, Starting on Karen 08/29/20 at 1345, Until Karen 08/29/20 at 2030 1345 (Due) PRN Medication Order 08/27/2020 08/28/2020 08/29/2020 acetaminophen (Tylenol) tablet 650 mg 650 mg, Oral, EVERY 6 HOURS PRN, Starting on Karen 08/29/20 at 1324, Until Karen 08/29/20 at 2030, Pain, If multiple pain medications ordered, use acetaminophen first. Maximum dose of acetaminophen is 4000 mg from all sources in 24 hours. When ordered for pain, acetaminophen should be given even when other ordered pain medications are indicated., Routine 1441 (Given - Provid er: Tatiana Hernandez RN) fentaNYL (pf) (50 mcg/mL) multi-dose injection 12.5-25 mcg 12.5-25 mcg, Intravenous, EVERY 5 MIN PRN, Starting on Karen 08/29/20 at 1336, Until Karen 08/29/20 at 2030, Pain, Give 12.5 mcg every 5 minutes PRN for mild to moderate pain (1-5) Give 25 mcg every 5 minutes PRN for moderate to severe pain (6-10). Hold for respiratory rate less than 10 per minute. Maximum dose 250 mcg over one hour. If ordered with hydromorphone or morphine, give hydromorphone or morphine first and use fentanyl for breakthrough pain., Routine 1359 (Given - Provid er: Tatiana Hernandez RN)1407 (Given - Provider: Tatiana Hernandez RN)1422 (Given - Provider: Tatiana Hernandez RN) HYDROmorphone (Dilaudid) tablet 2-4 mg 2-4 mg, Oral, EVERY 3 HOURS PRN, Starting on Karen 21 at 1559, Until Karen 121 at 2030, Pain, 2mg to start, can repeat in 30-60min, Routine 1612 (Given - Provid er: Tatiana Hernandez RN) indocyanine green (Ic-Green) injection (CANCELED) ONCE PRN, Starting on Karen 08/29/20 at 1202, Until Karen 1 at 2030, Intra-Operative (Intra-Procedure), Routine 1202 (Given - Provid er: Popeye Chávez MD - Comment: injected into cervix) lidocaine-EPINEPHrine (pf) (1.5% - 1:200,000) injection (CANCELED) ONCE PRN, Starting on Karen 08/29/20 at 1210, Until Karen 121 at 2030, Intra-Operative (Intra-Procedure), Routine 1210 (Given - Provid er: Popeye Chávez MD) oxyCODONE (Roxicodone) tablet 5-10 mg (CANCELED) 5-10 mg, Oral, EVERY 3 HOURS PRN, Starting on Karen 21 at 1324, Until Karen 121 at 1600, Pain, - If multiple pain medications ordered, use acetaminophen first. - If pain not relieved by acetaminophen first, administer oxycodone. - Initial dose 5 mg. - If pain control not adequate in 60 minutes, give additional 5 mg., Routine 1441 (Given - Provid er: Tatiana Hernandez RN) Linked Groups Order Group 1: ceFAZolin (Ancef) 2 g in dextrose 5% 100 mL infusion (COMPLETED)Jump to med 2 g, Intravenous, ONCE, 1 dose, On Karen 08/29/20 at 1015, Administer over 30 Minutes, Certified Medical Transcriptionist to OR Infuse over 30 minutes., Day of Surgery (Day of Procedure), Indication for (Active or Suspected): Prophylaxis And metroNIDAZOLE (Flagyl) 500 mg in sodium chloride 0.9% 100 mL infusion (COMPLETED)Jump to med 500 mg, Intravenous, ONCE, 1 dose, On Karen 08/29/20 at 1015, Administer over 30 Minutes, Certified Medical Transcriptionist to OR Infuse over 30 minutes., Day of Surgery (Day of Procedure), Indication for (Active or Suspected): Prophylaxis documented in this encounter Care Teams Tube Sizer Operator Relationship Specialty Start Date End Date Adriana Velazquez PA [address] [place] [id number] PCP - General Internal Medicine 08/06/20 documented as of this encounter
--- OUTSIDE RECORDS SUMMARY | 2024-06-24 13:01 | XMS_ITS | Encounter Summary ---
[place] [address] Care Team Providers Care Pediatrics Physician Name Role Phone Adriana Velazquez Primary Care Provider + Reason for Visit * Reason Onset Date Comments Follow-up 09/03/2020 Encounter Details Date Type Department Care Team ([facility] Contact Info) Description 09/03/2020 Telephone [place] [id number] Viktoria Wong, RN Follow-up Social History Tobacco Use Types Packs/Day Years [...] encounter Miscellaneous Notes * Telephone Encounter - Viktoria Wong, RN - 09/03/2020 4:53 PM EST Patient called back to inform that per Dr. Leigh she can either be seen here or go to her PCP/urgentcare to be assessed. Patient agrees to call her PCP. Then received an angry message from asking for a call back. Called back and spoke to whom I inform that patient was given an option to see PCP or here and she chose PCP. Per PCP and coat baster stated that it's Dr. Leigh'sresponsibility to prescribe meds. Consulted with Dr. Leigh and he agreed to send rx for fluconazole 150 mg po 1x dose and to call if symptom is not better. Called back that Rx was sent to the pharmacy. documented in this encounter Plan of Treatment Not on file documented as of this encounter Visit Diagnoses Not on filedocumented in this encounter Care Teams Pediatrics Physician Relationship Specialty Start Date End Date Adriana Velazquez PA [address] [place] [address] [place] [address] PCP - General Internal Medicine 08/06/20 documented as of this encounter
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
--- OUTSIDE RECORDS SUMMARY | 2024-06-24 13:01 | XMS_ITS | Encounter Summary ---
[place] [address] Care Team Providers Care Journalism Teacher Name Role Phone Adriana Velazquez Primary Care Provider + Reason for Visit * Reason Onset Date Comments Abdominal Pain 08/30/2020 Encounter Details Date Type Department Care Team ([facility] Contact Info) Description 08/30/2020 Telephone [place] [phone] Viktoria Wong, RN Abdominal Pain Social History Tobacco Use Types Packs/Day Years [...] Telephone Encounter - Viktoria Wong, RN - 08/30/2020 2:51 PM EST Spoke with patient who is c/o abdominal pain and a lot gas, She's been taking the dilaudid every 4-5 hours for pain and tylenol/motrin in between. Now she's anxious that she's going to run out of dilaudid and it's going to be the weekend soon, so she's requesting for a refill. She's unable to sleepwell at night because of the pain. Advised to ambulate to expel the gas, apply warm compress in theabd, and take the dilaudid in the morning, midday and before bed; take tylenol/ motrin in between. Also advised to take miralax With stool softener so she can have a good BM and pass the gas. She agrees with this. Will ask Dr. Leigh if he can refill the dilaudid and will call her back. documented in this encounter Plan of Treatment Not on file documented as of this encounter Visit Diagnoses Not on filedocumented in this encounter Care Teams Journalism Teacher Relationship Specialty Start Date End Date Adriana Velazquez PA [address] [place] [address] [place] [address] PCP - General Internal Medicine 08/06/20 documented as of this encounter
--- OUTSIDE RECORDS SUMMARY | 2024-06-24 13:01 | XMS_ITS | Encounter Summary ---
Author Organization [facility] Address [facility] [place] [address] Care Team Providers Care Tattoo Technician Name Role Phone Adriana Velazquez Primary [...] Expiration Date Visits Re quested Visits Authorized [id number] 1 1 Encounter Details Date Type Department Care Team (Latest Contact Info) Description 08/29/2020 8:54 AM [facility] - 08/29/2020 6:30 PM [facility] Hospital [place] [phone] Popeye Chávez MD [facility] [place] [address] Endometrial cancer; Cigarette smoker; Hypokalemia Discharge Disposition: Home Social History Tobacco Use [...] Sign Reading Time Taken Comments Blood Pressure 114/73 08/29/2020 3:00 PM EST Pulse 84 08/29/2020 9:43 AM EST Temperature 36.1 ??C (97 ??F) 08/29/2020 1:30 PM EST Respiratory Rate 16 08/29/2020 3:45 PM EST Oxygen Saturation 99% 08/29/2020 3:00 PM EST Inhaled Oxygen Concentration - - [...] PATIENT DISCHARGE INSTRUCTIONS Gynecologic Oncology phone number: [phone]. After hours and on weekends please call hospital clicker operator at [phone] and ask for Gynecologic Oncologist tanner rotary drum continuous process. Call your doctor if you develop: --A [...] 08/25/2020 09/20/2020 fluticasone propionate (FLONASE) 50 mcg/actuation [place], Suspension SHAKE LIQUID AND USE 1 SPRAY [...] void after intilling 100cc NS, so this screen writer stopped and discontinued cespedes cath and walked patient to the bathroom. Pt nikki ambulation well documented in this encounter H&P Notes * Popeye Chávez MD - 08/29/2020 10:06 AM EST Inpatient [facility] - Admission Interval Note I have reviewed the pre-procedure H&P completed by Dr. Chávez on 08/06/20. Subjective: Patient seen in same day area. Consent in chart. No changes since preop visit. No new meds/allergies or hospital/ER visits. Has taken Oxycodone without issue in the past. Uses [facility] in [facility]. Objective: Last value Range last 8 hrs [...] Chávez MD - 08/29/2020 1:10 PM EST [facility] Operative Note Patient Name: Juana Silva : [id number] MR#: [id number] Case Date: 08/29/2020 Surgeon: Surgeon(s) and Role: * Popeye Chávez MD - Primary * Roosevelt Cespedes MD - Resident Registered Nurse Heel Lining Paster: Shi Post RN Anesthesia: General endotracheal. Preoperative [...] who was referred by: Pradip Fontenot MD [address] [place] [address] for a new diagnosis of grade 1 [...] 2 cm tumor involving the fundus. 3. [place] lymph node mapping: A left and right [...] uterus and dilation of the cervix, a Rigging Engineer device was inserted into the uterus for manipulation. An 8-mm transverse incision was made 5 cm above the umbilicus, through which a 8-mm da Kristie trocarwas then inserted under direct visualization, verifying atraumatic entry. Additional 8-mm robotic trocars and a 12-mm right upper quadrant greenhouse assistant port were placed in the usual locations [...] REPORT Routine 08/29/2020 12:18 PM EST MODIFIER ROBOT,DAVINCI XI 08/29/2020 11:23 AM EST ENDOMETRIAL CANCER Intraop [place] Lymph Id W/Dye Injection ([id number]) 08/29/2020 11:23 AM EST ENDOMETRIAL CANCER Lap, Pelvic Lymphadenectomy/Bx ([id number]) 08/29/2020 11:23 AM EST ENDOMETRIAL CANCER Laparoscopy W Tot Hysterectuterus <=250 Gram W Tube/Ovary ([id number]) 08/29/2020 11:23 AM EST ENDOMETRIAL CANCER POCT GLUCOSE Routine 08/29/2020 9:49 AM EST documented in this encounter Results * Specimen to Pathology (08/29/2020 1:03 PM EST) AP Specimen 08/29/2020 1:03 PM EST 08/29/2020 1:03 PM EST Narrative [facility] - 08/29/2020 1:03 PM EST Specimen requisition ordered. ??Separate Pathology report to follow Popeye Chávez MD PATHOLOGY/CYTOLOGY O MARY Performing Organization Address [facility] Co de Phone Number [facility] [place] [address] * Specimen to Pathology (08/29/2020 12:23 PM EST) AP Specimen 08/29/2020 12:2 3 PM EST 08/29/2020 12:23 PM EST Narrative [facility] - 08/29/2020 12:23 PM EST Specimen requisition ordered. ??Separate Pathology report to follow Popeye Chávez MD PATHOLOGY/CYTOLOGY O RDERASHELLEY Performing Organization Address [facility]/ZIP Co de Phone Number [facility] [place] [address] * Specimen to Pathology (08/29/2020 12:19 PM EST) AP Specimen 08/29/2020 12:1 9 PM EST 08/29/2020 12:19 PM EST Narrative [facility] - 08/29/2020 12:19 PM EST Specimen requisition ordered. ??Separate Pathology report to follow Popeye Chávez MD PATHOLOGY/CYTOLOGY Geni HERNANDEZ [facility] [place] [address] * Surgical Pathology Report (08/29/2020 12:18 PM EST) Final Diagnosis [id number] ? Location: [facility]; [facility]; The signing pathologist has (i) examined [...] receptors: ?Estrogen receptor (ER): Positive ?Progesterone receptor (ND): Positive ??- Benign cervix with Nabothian cysts. ??- Adenomyosis. ??- Multiple uterine leiomyomas. ??- Benign bilateral fallopian tubes and ovaries. Electronically signed by: ??Desi Adams DO Verified: ??09/05/2020 ?Pathologist Performed at: ??-[facility] Dept. of Pathology, [place], [place] [employer] Specimen Parts: ??A-C Specimen ? [...] for tumor cells ? Number of Pelvic [place] Nodes Examined: ??3 Pathologic Stage Classification (pTNM, [...] The assay was performed according to the supervisor electronics processing's ??instructions ??using anti-MLH-1 ([id number]), anti-MSH-2 ([id number]), anti- MSH-6 (44), and anti-PMS-2 (MRQ-28) antibodies. ADDITIONAL STUDIES IHC [place] Lymph Node Protocol For Endometrial Carcinoma: Formalin-fixed, paraffin-embedded tissue sections are studied using the B-SA system technique with appropriate positive and negative controls. Block ?Antibody ?Result (Degree of immunoreactivity) A1-2 Level 1 ?CKAE1/3 ?Negative A1-2 Level 2 ?CKAE1/3 ?Negative B1-2 Level 1 ?CKAE1/3 ?Negative B1-2 Level 2 ?CKAE1/3 ?Negative The sentinel lymph node protocol as outlined in the [facility] study (referenced below) was followed for each of the lymph node tissue blocks that lacked metastatic tumor on routine H&E sections. Maya EDMOND, Chantale RA, et al. Pathologic Ultrastaging Improves Micrometastasis Detection in [place] Lymph Nodes During Endometrial Cancer Staging. ?Int [...] lobular adipose tissue with 2 distinct firm doran lymph nodes ranging from 0.7-0.8 cm in greatest dimension Sections/Processing: The lymph nodes are entirely submitted Voice And Data Technician sections in 2 cassettes as follows: ?A1: ??Trisected lymph node ?A2: ??Serially sectioned B - Labeled/Fixative: Left pelvic node, sentinel lymph node, fresh. Quantity/Size: Single, 2.1 x 1.6 x 1.0 cm. Tissue Description: Adipose tissue with a single 1.65 x 0.9 x 0.5 cm firm doran lymph node Sections/Processing: The lymph node is entirely submitted Voice And Data Technician sections in 2 cassettes as follows: ?B1-B2: [...] There are patchy areas of ill-defined pale doran induration directly underlying and involving the endometrium up to 1.5 cm in greatest dimension, however a distinct endometrial lesion is not grossly identified. Myometrium: Averaging 2.0 cm thick, with 3 intramural firm, white, whorled nodules ranging from 0.5 x 0.7 cm in greatest dimension. Serosa: Glistening and pink-doran. CERVIX Diameter: 3.2 cm. The anterior cervical margin is inked blue and the posterior cervical margin is inked black Os: 2.1 cm, slit-like RIGHT OVARY ?? Size: 2.5 x 2.0 x 1.3 cm. ?? Outer Surface: Doran-yellow, cerebriform. ?? Cut Surface: Heterogenous with a single peripheral 0.6 cm smooth-lined. Right Fallopian Tube: 3.5 x 0.5 x 0.5 cm, fimbriated, with a discontiguous lumen and a tubal ligation band. LEFT OVARY ?? Size: 3.4 x 2.5 x 2.5 cm. ?? Outer Surface: Doran-yellow, cerebriform. ?? Cut Surface: Heterogenous with multiple peripheral smooth-lined cysts up to 1.9 cm in greatest dimension. Left Fallopian Tube: 4.2 x 0.5 x 0.5 cm, fimbriated, with a discontiguous lumen and a tubal ligation band. Sections/Processing: Voice And Data Technician sections in 46 cassettes as follows: ?C1: ??Voice And Data Technician right ovary with cyst ?C2-C4: ??Entirely submitted right fallopian tube; fimbria longitudinally sectioned ?C5-C6: ??Voice And Data Technician left ovary with cysts ?C7-C8: ??Entirely submitted [...] to inferior ??levi 09/05/2020 9:05 AM EST [facility] SENTINEL LYMPH NODE / Unknown 08/29/2020 12:18 PM EST 08/29/2020 12:18 PM EST SENTINEL LYMPH NODE / Unknown 08/29/2020 12:18 PM EST 08/29/2020 12:18 PM EST Uterine Corpus 08/29/2020 12 :18 PM EST 08/29/2020 12:18 PM EST Popeye Chávez MD PATHOLOGY/CYTOLOGY O MARY Performing Organization Address [facility]/ZIP Co de Phone Number [facility] [place] [address] * POCT Glucose (08/29/2020 9:49 AM EST) Glucose, POC 107 65 - 199 mg/dL [facility] Comment: Supplemental ranges: <140 mg/dL before meals <180 mg/dL all other times of the day Blood specimen (specimen) 08/29/2020 9:49 AM EST 08/29/2020 9:49 AM EST Popeye Chávez MD POINT OF CARE TEST O MARY Performing Organization Address [facility]/ZIP Co de Phone Number [facility] [place] [address] documented in this encounter Visit Diagnoses Diagnosis Endometrial cancer- Primary Malignant neoplasm of corpus uteri, except isthmus Endometrial cancer Malignant neoplasm of corpus uteri, except isthmus Cigarette smoker Tobacco use disorder Hypokalemia Hypopotassemia documented in this encounter Administered Medications Inactive [...] Given 08/29/2020 4:12 PM EST 4 mg oxyCODONE (Roxicodone) tablet 5-10 mg 5-10 mg, [...] 08/29/20 at 1015, Administer over 30 Minutes, Case Maker to OR Infuse over 30 minutes., Day [...] 08/29/20 at 1015, Administer over 30 Minutes, Case Maker to OR Infuse over 30 minutes., Day [...] Karen 08/29/20 at 2030, Intra-Operative (Intra-Procedure), Routine 1202 (Given - Provid er: Popeye Chávez MD - Comment: injected into cervix) lidocaine-EPINEPHrine (pf) (1.5% - 1:200,000) injection (CANCELED) ONCE PRN, Starting on Karen 08/29/20 at 1210, Until Karen 08/29/20 at 2030, Intra-Operative (Intra-Procedure), Routine 1210 (Given [...] 08/29/20 at 1015, Administer over 30 Minutes, Case Maker to OR Infuse over 30 minutes., Day of Surgery (Day of Procedure), Indication for (Active or Suspected): Prophylaxis And metroNIDAZOLE (Flagyl) 500 mg in sodium chloride 0.9% 100 mL infusion (COMPLETED)Jump to med 500 mg, Intravenous, ONCE, 1 dose, On Karen 08/29/20 at 1015, Administer over 30 Minutes, Case Maker to OR Infuse over 30 minutes., Day of Surgery (Day of Procedure), Indication for (Active or Suspected): Prophylaxis documented in this encounter Care Teams Tattoo Technician Relationship Specialty Start Date End Date Adriana Velazquez PA [address] [place] [address] [place] [address] PCP - General Internal Medicine 08/06/20 documented as of this encounter
--- OUTSIDE RECORDS SUMMARY | 2024-06-24 13:01 | XMS_ITS | Encounter Summary ---
Author Organization [facility] [place] [address] Care Team Providers Care Preparing Box Tender Name Role Phone Unknown Primary Care Provider Unavailabl e Encounter Details Date Type Department Care Team (Late st Contact Info) Description 07/31/2020 Ancillary Procedure Radiology Library at [facility] [place] [phone] Stu Bull MD [facility] [place] [address] Social History Tobacco Use Types Packs/Day Years [...] Associated Diagnosis Comments FILM LIBRARY STORAGE ONLY CT ABDOMEN AND PELVIS Routine 07/31/2020 12:00 AM EST documented in this encounter Results * Film Library- Storage Only CT Abdomen & Pelvis (07/31/2020 12:00 AM EST) Narrative RAD - 01/10/2021 10:14 AM EDT This exam is auto-finalizing. It's purpose is for storage only. Stu Bull MD G FILM LIBRARY ORD ERABLES [place], [place] documented in this encounter Visit Diagnoses Not on filedocumented in this encounter Care Teams Preparing Box Tender Relationship Specialty Start Date End Date Unknown None PCP - General 05/23/18 08/05/20 documented as of this encounter
--- OUTSIDE RECORDS SUMMARY | 2024-06-24 13:01 | XMS_ITS | Referral Summary ---
Author Organization [facility] Address [address] [place] [address] Care Team Providers Care Spring Inspector Name Role Phone Adriana Velazquez Primary Care Provider + Allergies No known active allergies Medications Medication Sig Dispensed Refills Start Date End Date Status venlafaxine (EFFEXOR-XR) 75 mg XR capsule Take by mouth. 02/10/2022 Active venlafaxine (EFFEXOR-XR) 37.5 mg XR capsule Take by mouth daily. 11/28/2022 Active lisinopriL (PRINIVIL) 5 mg tablet Take 5 mg by mouth. 03/04/2022 Active aspirin 81 mg EC tablet Take by mouth. 02/10/2022 Active ascorbic acid (VITAMIN C ORAL) Take by mouth. Active B-complex with vitamin C (VITAMIN B COMPLEX-C ORAL) Take by mouth. Active acetaminophen (TYLENOL) 160 mg/5 mL suspension Take 320 mg by mouth every 6 hours as needed. 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 Social History Tobacco Use Types Packs/Day Years Used Date Smoking Tobacco: Never Assessed Interpersonal Safety Answer Date Record ed Physically Hurt Never 03/24/2020 Verbally Threaten Not on file 03/24/2020 Sex and Gender Information Value Date Recorded Sex Assigned at Not on file Gender Identity Female 12/01/2022 8:30 EDT Sexual Orientation Not on file Last Filed Vital Signs Vital Sign Reading Time Taken Comments Blood Pressure 126/78 01/07/2023 1438 EDT Pulse 97 01/07/2023 1438 EDT Temperature 35.9 ??C (96.6 ??F) 01/07/2023 1438 EDT Respiratory Rate - - Oxygen Saturation 91% 01/07/2023 1438 EDT Inhaled Oxygen Concentration - - Weight 61.2 kg (135 lb) 01/07/2023 1438 EDT pt r eported Height 154.9 cm (5' 0.98) 01/07/2023 1438 EDT Body Mass Index 25.52 01/07/2023 1438 EDT Plan of Treatment Not on file Care Teams Spring Inspector Relationship Specialty Start Date End Date Adriana Velazquez PA [address] [place] [phone] PCP - General Internal Medicine - Primary Care 12/01/22
--- OUTSIDE RECORDS SUMMARY | 2024-06-24 13:01 | XMS_ITS | Encounter Summary ---
Author Organization [facility] [place] [address] Care Team Providers Care Hog Handler Name Role Phone Adriana Velazquez Primary Care Provider + Encounter Details Date Type Department Care Team (Late Contact Info) Description 09/24/2020 9:20 AM EST TH Visit (TeleHealth) Gyne[place] [phone] Popeye Leigh MD [facility] [place] [address] Endometrial cancer Social History Tobacco Use Types [...] Sign Reading Time Taken Comments Blood Pressure - - Pulse - - Temperature - - Respiratory Rate - - Oxygen Saturation - - Inhaled Oxygen Concentration - - Weight 83.9 kg (185 lb) 09/20/2020 2:29 PM EST Height 155 cm (5' 1.02) 09/20/2020 2:29 PM EST Body Mass Index 34.93 09/20/2020 2:29 PM EST documented in this encounter Progress Notes * Mariann Bruce CCMA - 09/24/2020 9:20 AM EST ____ Patient not reached _X__Patient reached and the following information was reviewed/obtained per protocol. _X__Confirmed patient name and date of _X__Confirmed tele med appt (Virtual visit) is downloaded and functioning _X__Confirmed location of patient- TeleVisit is taking place in [place]_X_ [place]__[place]__ [place]__ If not on [facility], working on signing up for my Confirmed has completed any pre-visit questionnaires If has not received required previsit questionnaires, send via [facility] _X__Reviewed medications, allergies, pharmacy, pain/depression, education _X__Documented height/weight/LMP Other information or concerns: * Popeye Leigh MD - 09/24/2020 9:20 AM EST Division [place] [address] Gynecologic Oncology-Clinic Note Reason for visit: Postoperative discussion, endometrial cancer. Patient Active Problem List Diagnosis Code ??? Endometrial cancer C54.1 ??? 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 Cigarette smoker F17.210 ??? Hypokalemia E87.6 ??? Essential hypertension I10 Prior to Admission medications Medication Sig Start Date End Date Taking? Authorizing Provider fluticasone propionate (FLONASE) 50 mcg/actuation [place], Suspension SHAKE LIQUID AND USE 1 SPRAY [...] vulvitis/vaginitis, and we provided empiric oral fluconazole. Today, Juana said that she has recovered essentially completely from the surgery. She has been physically active, going hiking, etc. She reports good appetite, reports normal bowel and bladder function, all of which have returned to baseline. She has some mild achiness in her inner thighs, some altered sense of touch in the groin areas, but said that she performed a lot of housework and her legsache afterward. She asks about whether she could injure herself by overdoing it. She is reassured that she cannot. She has had no vaginal bleeding or discharge, denies lower extremity edema. We have previously discussed her favorable pathology report, which is outlined below, indicating noneed for adjuvant therapy. Review of systems: 5 systems in total reviewed, otherwise negative. Vital signs: Ht 155 cm (5' 1.02) Wt 83.9 kg (185 lb) BMI 34.93 kg/m?? Physical examination: This is a video visit, and she appears alert and oriented. We did have some difficulty with the sound, so we converted to a telephone visit partway through. The incision sites were not viewed. Pathology: DIAGNOSIS A - Right pelvic node, [...] receptors: Estrogen receptor (ER): Positive Progesterone receptor (DC): Positive - Benign cervix with Nabothian cysts. - Adenomyosis. - Multiple uterine leiomyomas. - Benign bilateral fallopian tubes and ovaries. Electronically signed by: Desi Adams DO Verified: 09/05/2020 Pathologist Performed at: -[facility] Dept. of Pathology, [place], [place] Specimen Parts: A-C Specimen Procedure: [...] negative for tumor cells Number of Pelvic [place] Nodes Examined: 3 Pathologic Stage Classification (pTNM, AJCC 8th Edition) Primary Tumor (pT): pT1a Regional Lymph Nodes (pN): pN0 FIGO Stage FIGO Stage: IA Additional Findings Additional Findings: Atypical hyperplasia / endometrial intraepithelial neoplasia (EIN) Tumor Block(s): 2 [facility] September 2019 Annual Release DISCUSSION Block Antibody Result (Positive/Negative) MLH1 Positive, intact nuclear staining MSH2 Positive, intact nuclear staining MSH6 Positive, intact nuclear staining PMS2 Positive, intact nuclear staining Impression/plan: Satisfactory postoperative exam, following total laparoscopic/robotic hysterectomy, bilateral salpingo-oophorectomy, with sentinel lymph node mapping/biopsies. Final pathology is as described above. She has FIGO stage IA, grade 1 endometrioid adenocarcinoma the endometrium. Due to the small tumor size, patient's age, she has minimal risk factors for recurrence. I estimated her recurrence risk isapproximately 2-5%. She needs no adjuvant therapy. The patient was also given a copy of her operative and pathology reports. The surveillance plan for low risk endometrial adenocarcinoma is described and reviewed today with the patient, and is based upon current Society of Gynecologic Oncologists (SGO) Surveillance Guidelines: 1. Posttreatment surveillance and diagnosis of recurrence in women with gynecologic malignancies: Society of Gynecologic Oncologists recommendations (Lucy et al., Am J Obstet Gynecol. 2011 [place]; 204(6):466-78.) 2. An update on post-treatment surveillance and diagnosis of recurrence in women with gynecologic malignancies: Society of Gynecologic Oncology (SGO) recommendations. (el Ayala. Al., Gynecologic Oncology February 2017 Volume 146, Issue 1, Pages 3-10. 3. Choosing Wisely: Society of Gynecologic Oncologists: Five Things Physicians and Patients Should Question http://www.choosingwisely.org/societies/hdlymsv-tn-tihxoavkevo-oncology/ In the interval between visits, she has [...] 2-5, she may alternate visits between a manager sterile processing and a gynecologic oncologist.) - At each [...] isthmus documented in this encounter Care Teams Hog Handler Relationship Specialty Start Date End Date Adriana Velazquez PA [address] [place] [address] [place] [address] PCP - General Internal Medicine 08/06/20 documented as of this encounter
--- OUTSIDE RECORDS SUMMARY | 2024-06-24 13:01 | XMS_ITS | Encounter Summary ---
[place] [address] Care Team Providers Care Professional Skateboarder Name Role Phone Adriana Velazquez Primary Care Provider + Reason for Visit * Reason Onset Date Comments Other 08/30/2020 Encounter Details Date Type Department Care Team ([facility] Contact Info) Description 08/30/2020 Telephone [place] [phone] Viktoria Wong RN Other Social History Tobacco Use Types Packs/Day Years [...] Miscellaneous Notes * Telephone Encounter - Viktoria Wong RN - 08/30/2020 2:23 PM EST LM to call back. documented in this encounter Plan of Treatment Not on file documented as of this encounter Visit Diagnoses Not on filedocumented in this encounter Care Teams Professional Skateboarder Relationship Specialty Start Date End Date Adriana Velazquez PA [address] [place] [address] [place] [address] PCP - General Internal Medicine 08/06/20 documented as of this encounter
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
--- OUTSIDE RECORDS SUMMARY | 2024-06-24 13:01 | XMS_ITS | Encounter Summary ---
[place] [address] Care Team Providers Care Street Light Repairer Helper Name Role Phone Claudia Strong MD Primary Care Provider [phone] Encounter Details Date Type Department Care Team (Late Contact Info) Description 04/03/2015 Telephone [place] [address] Nahomi Valencia RN Social History Tobacco Use Types Packs/Day Years Used Date Smoking Tobacco: Never Assessed Sex and Gender Information Value Date Recorded Sex Assigned at Not on file Gender Identity Not on file Sexual Orientation Not on file documented as of this encounter Miscellaneous Notes * Telephone Encounter - Vidal Mejia Alma - 04/03/2015 10:26 AM EDT Accepted Name: Juana Silva SSN: [id number] Email: [email or web address] Gender: F : 1970 Address: [address] Address City: [place] Address State: [place] Address Zip: [address] Phone: [phone] Donate To: Lilian Pearson Why Donate: Because I care about this individual and want to help them Why Donate Details: Relationship To Recipient: friend Height Feet: 61 Height Inches: 61 Weight: 180 BMI: 0.20 Age: 44 Blood Sugar Problems: No Blood Sugar Problems While : No Blood Sugar Problems While Details: High Blood Pressure: No High Blood Pressure Medication: No High Blood Pressure : No Heart Problems: No Heart Problems Details: Kidney Stones: No Kidney Stones Details: Kidney Infections: No Kidney Infections Details: Cancer: No Cancer Details: [employer] Beliefs: No Infectious Disease: No Blood Type: I don't know Allergies: None. Surgeries: labor Physical: 5 months ago Pap Smear: last year Mammogram: last May PSA: Colonoscopy: Not yet. Smoker: Current Smoker Alcohol Frequency: Never Alcoholic Drinks Per Day: 0 Six Or More Drinks: Never Smokes Per Day: 10 Alcohol Hospitalization: No Drug Abuse: No Mental Illness: No documented in this encounter Plan of Treatment Not on file documented as of this encounter Visit Diagnoses Not on filedocumented in this encounter Care Teams Street Light Repairer Helper Relationship Specialty Start Date End Date Claudia Strong MD [facility] [address] [place] [address] PCP - General 07/15/10 05/19/18 documented as of this encounter
--- OUTSIDE RECORDS SUMMARY | 2024-06-24 13:01 | XMS_ITS | Encounter Summary ---
[place] [address] Care Team Providers Care Chairman Of The Board Name Role Phone Adriana Velazquez Primary Care Provider + Reason for Visit * Reason Onset Date Comments Questions 09/03/2020 Encounter Details Date Type Department Care Team ([facility] Contact Info) Description 09/03/2020 Telephone [place] [id number] Viktoria Wong RN Questions Social History Tobacco Use Types Packs/Day Years [...] Telephone Encounter - Viktoria Wong RN - 09/03/2020 10:43 AM EST LM to call back regarding her symptoms. documented in this encounter Plan of Treatment Not on file documented as of this encounter Visit Diagnoses Not on filedocumented in this encounter Care Teams Chairman Of The Board Relationship Specialty Start Date End Date Adriana Velazquez PA [address] [place] [address] [place] [address] PCP - General Internal Medicine 08/06/20 documented as of this encounter
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
--- OUTSIDE RECORDS SUMMARY | 2024-06-24 13:01 | XMS_ITS | Encounter Summary ---
Author Organization [facility] [place] [address] Care Team Providers Care Train Control Technician Name Role Phone Unknown Primary Care Provider Unavailabl e Encounter Details Date Type Department Care Team (Late st Contact Info) Description 06/24/2020 Ancillary Procedure Radiology Library at [facility] [place] [address] Stu Bull MD [facility] [place] [address] Social History Tobacco Use Types Packs/Day Years [...] Associated Diagnosis Comments FILM LIBRARY STORAGE ONLY ULTRASOUND STUDY Routine 06/24/2020 12:00 AM EST documented in this encounter Results * Film Library- Storage Only Ultrasound Study (06/24/2020 12:00 AM EST) Narrative RAD - 01/10/2021 10:15 AM EDT This exam is auto-finalizing. It's purpose is for storage only. Stu Bull MD IMG FILM LIBRARY ORD ERABLES [place], [place] documented in this encounter Visit Diagnoses Not on filedocumented in this encounter Care Teams Train Control Technician Relationship Specialty Start Date End Date Unknown None PCP - General 05/23/18 08/05/20 documented as of this encounter
--- OUTSIDE RECORDS SUMMARY | 2024-06-24 13:01 | XMS_ITS | Encounter Summary ---
[facility] [place] [address] Care Team Providers Care Jewelry Sales Coordinator Name Role Phone Adriana Velazquez Primary Care Provider + Encounter Details Date Type Department Care Team (Late Contact Info) Description 10/17/2020 Notes Only Obstetrics [place] [phone] Mariann Bruce CCMA Social History Tobacco Use Types Packs/Day Years [...] as of this encounter Progress Notes * Mariann Bruce CCMA - 10/17/2020 4:04 PM EST Return to work note faxed to Abran @ [employer] today. States patient may return to work as of 10/10/20 - copy in scan documents. documented in this encounter Plan of Treatment Not on file documented as of this encounter Visit Diagnoses Not on filedocumented in this encounter Care Teams Jewelry Sales Coordinator Relationship Specialty Start Date End Date Adriana Velazquez PA [address] [place] [address] [place] [address] PCP - General Internal Medicine 08/06/20 documented as of this encounter
--- OUTSIDE RECORDS SUMMARY | 2024-06-24 13:01 | XMS_ITS | Encounter Summary ---
Author Organization [facility] [place] [address] Care Team Providers Care Human Geography Faculty Member Name Role Phone Adriana Velazquez Primary [...] Expiration Date Visits Re quested Visits Authorized [id number] 1 1 Encounter Details Date Type Department Care Team (Late Contact Info) Description 08/29/2020 11:21 AM EST Anesthesia Event [place] [address] Claudia Álvarez MD [facility] [place] [address] Melinda De La Rosa Anesthesia Record Procedure Summary Procedure Name Responsible Anesthesiologist Anesthesia Start Time Anesthesia Stop Time ROBOTIC LAPAROSCOPY,TOTAL HYST, UTERUS<250GM, REM TUBE &/OR OVARY (WRVU 15) (Uterus) Claudia Álvarez MD 08/29/20 1121 08/29/20 1334 Events Date Time Event Comment 08/29/2020 0945 1121 Start 1124 AN Verify 1124 An Start Data 1129 An Induction 1132 An Intubation 1132 Anesthesia Ready 1158 Quick Note insufflation 1323 Extubation/LMA Out 1327 an stop data 1334 Recovery or ICU Handoff Ana ent care was transferred to the destination unit staff after review of the patient's medical history, current anesthetic/surgical status and plan, according to the Provider Handoff Checklist. 1334 Stop Meds Name Total Midazolam 2 mg fentaNYL 50 mcg IV Lidocaine 60 mg Propofol 200 mg Rocuronium 80 mg ePHEDrine 10 mg Ondansetron 8 mg Dexamethasone 8 mg Neostigmine 4 mg Glycopyrrolate 0.6 mg Propofol INF 532.95 mg ceFAZolin (Ancef) 2 g in dextrose 5% 100 mL infusion 2 g metroNIDAZOLE (Flagyl) 500 mg in sodium chloride 0.9% 100 mL infusion 500 mg ketorolac (Toradol) (30 mg/mL) injection 30 mg Lactated Ringers 1,100 mL Lactated Ringers 300 mL * Agents Name O2 Air N2O Sevoflurane (et) * Blood No blood administrations on file. Lines, Drains, and Airways Type Details Placement Removal (RETIRED) Peripheral IV Line - Single Lumen 08/29/20; 1001; basilic vein (medial side of arm), left; [id number] catheter system; 20 gauge; Theron RN; distraction, intradermal injection, tolerated well; 0; no longer indicated, removed inadvertently, catheter/device intact; 08/29/20; 1730 08/29/20 1001 by Lindsey Crump RN 08/29/20 173 by Eddie Azevedo, RN ETT Mask Ventilation: Ea sy (1); ETT Type: Cuffed, Oral; ETT Size: 7 mm; Mac Blade: 3; Notes: Asleep, Pre-O2, Stylette; Attempts: 1; Laryngoscopy Grade: 1; ETT Placement Verified By: Auscultation, Capnometry, Visual; Secured at Teeth: 23 cm; Inserted by: Estrella FINCH; Removal Date: 08/29/20; Removal Time: 1323 08/29/20 1137 by Melinda De La Rosa 08/29/20 1323 by Melinda De La Rosa (RETIRED) Peripheral IV Line - Single Lumen 08/29/20; 1140; metacarpal vein (top of hand), right; [id number]-hcl-okqmwa catheter system; 18 gauge; no longer indicated, removed inadvertently, catheter/device intact; 08/29/20; 1825 08/29/20 1140 by Melinda De La Rosa 08/29/20 1825 by Eddie Azevedo RN Urethral Catheter 08/29/20; 1150; Surg carlos a longer than 2 hours; indwelling double lumen catheter; hydrophilic coated, latex; 16; inserted at this facility; 1; 10; 10; none; drainage bag to dependent drainage; LDA not present upon assessment (removed by CHAU Simpson); 08/29/20; 1625 08/29/20 1150 by Clifford Fairbanks RN 08/29/20 1625 by Eddie Azevedo RN Incision 08/29/20; 1154; abdo men; laparoscopic puncture; 04/20/22 (LDA cleanup utility RA#[id number]); 1715 (LDA cleanup utility RA#[id number]) 08/29/20 1154 by Clifford Fairbanks RN 04/20/22 1715 by Janet Adams documented in this encounter Social History Tobacco Use Types Packs/Day Years Used Date Smoking Tobacco: Every Day Cigarettes 0 Smokeless Tobacco: Never Alcohol Use Standard Drinks/Week Comments Not Currently 1 (1 standard drink = 0.6 oz pur e alcohol) Sex and Gender Information Value Date Recorded Sex Assigned at Not on file Gender Identity Not on file Sexual Orientation Not on file documented as of this encounter OR Notes * Anesthesia Postprocedure Evaluation - Claudia Álvarez MD - 08/29/2020 1:50 PM EST Department of Anesthesiology Post-procedure Note Patient: Juana Silva Procedure Summary Date: 08/29/20 Room / Location: [facility] Anesthesia Start: 1121 Anesthesia Stop: 1334 Procedures: LAPAROSCOPY,TOTAL HYST, UTERUS<250GM, REM TUBE &/OR OVARY, ROBOTIC ASSIST (WRVU 15) (N/A Uterus) LAPAROSCOPY,W\BILATERAL TOTAL PELVIC LYMPHADENECTOMY, PERIAORTIC LYMPH NODE SAMPLING, ROBOTIC (WRVU15.6) (N/A Uterus) INTRAOPERATIVE ID (MAPPING) SENTINEL LYMPH NODE,INCLUDES INJECTION (WRVU 2.5) (N/A ) MODIFIER ROBOTDHEERAJI XI (N/A ) Diagnosis: (ENDOMETRIAL CANCER) Surgeon: Popeye Leigh MD Responsible Provider: Claudia Álvarez MD Anesthesia Type: general ASA Status: 2 All Anesthesia Providers: Anesthesiologist: Claudia Álvarez MD Student Nurse Radio Mechanic Helper: Melinda De La Rosa Vitals Value Taken Time BP 125/72 08/29/20 1330 Temp Pulse Resp SpO2 100 % 08/29/20 1349 Pain Level Vitals shown include unvalidated device data. Patient Location: PACU/[facility] Level of Consciousness: Conscious but Sleepy Pain Management: Satisfactory Analgesia PONV: None Cardiovascular Status: At Baseline and Hemodynamically Stable Respiratory Status: Stable Respiratory Status and Supplemental O2 (NC or FM) Postoperative Fluid Status: Intravascular EUvolemia Possible Anesthetic Complications: NONE apparent at time of evaluation Final Primary Anesthesia Type: General (The anesthetic type performed was the same as planned.) Comments: Claudia Álvarez MD * Anesthesia Preprocedure Evaluation - Claudia Álvarez MD - 08/28/2020 10:51 PM EST Pre-Anesthesia Evaluation for: Juana Silva a 50 y.o. female. Procedure(s): LAPAROSCOPY,TOTAL HYST, UTERUS<250GM, REM TUBE &/OR OVARY, ROBOTIC ASSIST (WRVU 15) LAPAROSCOPY,W\BILATERAL TOTAL PELVIC LYMPHADENECTOMY, PERIAORTIC LYMPH NODE SAMPLING, ROBOTIC (WRVU15.6) INTRAOPERATIVE ID (MAPPING) SENTINEL LYMPH NODE,INCLUDES INJECTION (WRVU 2.5) MODIFIER ROBOT,DAVINCI XI Patient Active Problem List Diagnosis ??? Endometrial cancer ??? Major depressive disorder in partial remission ??? Cigarette smoker ??? Hypokalemia ??? Essential hypertension Past Medical History: Diagnosis Date ??? Cancer ??? Mental health problem No past surgical history on file. Social History Tobacco Use ??? Smoking status: Current Every Day Smoker Packs/day: 1.00 Years: 0.00 Pack years: 0.00 Types: Cigarettes ??? Smokeless tobacco: Never Used Substance Use Topics ??? Alcohol use: Not Currently Alcohol/week: 1.0 standard drinks Types: 1 Glasses of wine per week Social History Substance and Sexual Activity Drug Use Not Currently Allergies Allergen Reactions ??? Prednisone Other (See Comments) Complete panic makes me feel crazy Medications: MAR and/or home medications have been reviewed. Physical Exam: No data found. There is no height or weight on file to calculate BMI. Airway Assessment: Mallampati: I Cardiovascular Assessment: Rhythm: regular Pulmonary Assessment: unlabored breathing Dental Assessment: - normal exam Misc Assessment: Anesthesia Plan: ASA 2 general, with a(n) intravenous induction Ms. Silva is a 50 year old, 83.6 kg patient presenting for laparoscopic hysterectomy. PMHx: Patient Active Problem List: Endometrial cancer Major depressive disorder in partial remission on Effexor Cigarette smoker - current every day smoker History of hypokalemia - now on K+ supplementation (3.8 currently) Essential hypertension on HCTZ Last 3 wbc, hgb, hct plt 08/06/20 1241 WBC 11.7* HGB 13.9 HCT 40.7 PLATELET 384* Last 3 Lytes 08/06/20 1241 NA 137 K 3.8 CL 101 CO2 26 BUN 17 CREATININE 0.81 Last 3 Coags No results for input(s): PT, INR, PTT in the last 168 hours. No previous airway records available. Denies personal or family history of problems with anesthesia. Plan: GETA with adequate PIV access. Highly anxious Region - Other Informed Consent: Anesthetic plan and risks discussed with patient and spouse. Use of blood products discussed with patient and spouse who consented to blood products. Plan discussed with attending and APPLICATION PACKAGING CONSULTANT. PAT Clinic Note documented in this encounter Plan of Treatment Not on file documented as of this encounter Visit Diagnoses Not on filedocumented in this encounter Administered Medications Inactive Administered Medications - up to 3 most recent administrations Medication Order MAR Action Action Date Dose Rate Site ceFAZolin (Ancef) 2 g in dextrose 5% 100 mL infusion 2 g, Intravenous, ONCE, 1 dose, On Karen 08/29/20 at 1015, Administer over 30 Minutes, Park Services Specialist to OR Infuse over 30 minutes., Day of Surgery (Day of Procedure), Indication for (Active or Suspected): Prophylaxis Given 08/29/2020 11:33 AM EST 2 g dexamethasone (Decadron) injection PRN, Starting on Karen 08/29/20 at 1135, Until Karen 08/29/20 at 1334, Anesthesia Intra-op, Routine Given 08/29/2020 11:35 AM EST 8 mg ePHEDrine (pf) (5 mg/mL) multi-dose injection PRN, Starting on Karen 08/29/20 at 1200, Until Karen 08/29/20 at 1334, Anesthesia Intra-op, Routine Given 08/29/2020 12:00 PM EST 10 mg fentaNYL (pf) (50 mcg/mL) multi-dose injection PRN, Starting on Karen 08/29/20 at 1150, Until Karen 08/29/20 at 1334, Anesthesia Intra-op, Routine Given 08/29/2020 11:50 AM EST 50 mcg glycopyrrolate (Robinul) (0.2 mg/mL) multi-dose injection PRN, Starting on Karen 08/29/20 at 1307, Until Karen 08/29/20 at 1334, Anesthesia Intra-op, Routine Given 08/29/2020 1:07 PM EST 0.6 mg ketorolac (Toradol) (30 mg/mL) injection PRN, Starting on Karen 08/29/20 at 1311, Until Karen 08/29/20 at 1334, Anesthesia Intra-op, Routine Given 08/29/2020 1:11 PM EST 30 mg lactated ringers infusion CONTINUOUS PRN, Starting on Karen 08/29/20 at 1121, Until Karen 08/29/20 at 1334, Anesthesia Intra-op New Bag 08/29/2020 12:42 PM EST New Bag 08/29/2020 11:21 AM EST lactated ringers infusion CONTINUOUS PRN, Starting on Karen 08/29/20 at 1137, Until Karen 08/29/20 at 1334, Anesthesia Intra-op New Bag 08/29/2020 11:37 AM EST lidocaine (pf) (Xylocaine) (20 mg/mL) 2% injection syringe PRN, Starting on Karen 08/29/20 at 1129, Until Karen 08/29/20 at 1334, Anesthesia Intra-op, Routine Given 08/29/2020 11:29 AM EST 60 mg metroNIDAZOLE (Flagyl) 500 mg in sodium chloride 0.9% 100 mL infusion 500 mg, Intravenous, ONCE, 1 dose, On Karen 08/29/20 at 1015, Administer over 30 Minutes, Park Services Specialist to OR Infuse over 30 minutes., Day of Surgery (Day of Procedure), Indication for (Active or Suspected): Prophylaxis Given 08/29/2020 11:35 AM EST 500 mg midazolam (pf) (Versed) (1 mg/mL) multi-dose injection PRN, Starting on Karen 08/29/20 at 1121, Until Karen 08/29/20 at 1334, Anesthesia Intra-op, Routine Given 08/29/2020 11:21 AM EST 2 mg neostigmine (Bloxiver) (1 mg/mL) injection PRN, Starting on Karen 08/29/20 at 1309, Until Karen 08/29/20 at 1334, Anesthesia Intra-op, Routine Given 08/29/2020 1:09 PM EST 4 mg ondansetron (pf) (Zofran) (2 mg/mL) injection PRN, Starting on Karen 08/29/20 at 1135, Until Karen 08/29/20 at 1334, Anesthesia Intra-op, Routine Given 08/29/2020 1:14 PM EST 4 mg Given 08/29/2020 11:35 AM EST 4 mg propofoL (Diprivan) 10 mg/mL bolus injection (Anesthesia) PRN, Starting on Karen 08/29/20 at 1129, Until Karen 08/29/20 at 1334, Anesthesia Intra-op Given 08/29/2020 11:29 AM EST 200 mg propofoL (Diprivan) infusion CONTINUOUS PRN, Starting on Karen 08/29/20 at 1134, Until Karen 08/29/20 at 1334, Anesthesia Intra-op, Routine New Bag 08/29/2020 11:34 AM EST 75 mcg/kg/min 37.6 mL/hr rocuronium (Zemuron) (10 mg/mL) multi-dose injection PRN, Starting on Karen 08/29/20 at 1129, Until Karen 08/29/20 at 1334, Anesthesia Intra-op, Routine Given 08/29/2020 11:29 AM EST 80 mg documented in this encounter Care Teams Human Geography Faculty Member Relationship Specialty Start Date End Date Adriana Velazquez PA [address] [place] [address] [place] [address] PCP - General Internal Medicine 08/06/20 documented as of this encounter
--- OUTSIDE RECORDS SUMMARY | 2024-06-24 13:01 | XMS_ITS | Encounter Summary ---
Author Organization [facility] [place] [address] Care Team Providers Care Supervisor Nuclear Medicine Name Role Phone Adriana Velazquez Primary Care Provider + Encounter Details Date Type Department Care Team (Late st Contact Info) Description 08/06/2020 12:00 PM EST Clinical Support Same Day at [facility] [place] [phone] Social History Tobacco Use Types Packs/Day Years [...] as of this encounter Progress Notes * Gio Ramos RN - 08/06/2020 12:00 PM EST PAT questionnaire reviewed with patient while in Pre Admission testing. Pre- operative instruction booklet reviewed. Patient verbalizes a good understanding of all information reviewed. Patient has had general anesthesia previously at [facility] without a problem. PLAN: Testing: Blood work Procedure date: 08/29 documented in this encounter Plan of Treatment Not on file documented as of this encounter Visit Diagnoses Not on filedocumented in this encounter Care Teams Supervisor Nuclear Medicine Relationship Specialty Start Date End Date Adriana Velazquez PA [address] [place] [address] [place] [address] PCP - General Internal Medicine 08/06/20 documented as of this encounter
--- OUTSIDE RECORDS SUMMARY | 2024-06-24 13:01 | XMS_ITS | Encounter Summary ---
Author Organization [facility] [place] [address] Care Team Providers Care Baby Counselor Name Role Phone Unknown Primary Care Provider Unavailabl e Encounter Details Date Type Department Care Team (Late Contact Info) Description 06/27/2020 Ancillary Procedure Radiology Library at [facility] [place] [phone] Pradip Fontenot MD [address] [place] [id number] Social History Tobacco Use Types Packs/Day Years [...] FILM LIBRARY STORAGE ONLY ULTRASOUND STUDY Routine 06/27/2020 12:00 AM EST documented in this encounter Results * Film Library- Storage Only Ultrasound Study (06/27/2020 12:00 AM EST) Narrative [facility] - 07/22/2020 10:39 AM EST This exam is auto-finalizing. It's purpose is for storage only. Pradip Fontenot MD IMG FILM LIBRARY OR DERABLES [place], [place] documented in this encounter Visit Diagnoses Not on filedocumented in this encounter Care Teams Baby Counselor Relationship Specialty Start Date End Date Unknown None PCP - General 05/23/18 08/05/20 documented as of this encounter
--- OUTSIDE RECORDS SUMMARY | 2024-06-24 13:01 | XMS_ITS | Encounter Summary ---
Author Organization [facility] [place] [address] Care Team Providers Care Freight Air Brake Fitter Name Role Phone Adriana Velazquez Primary Care Provider + Encounter Details Date Type Department Care Team (Late st Contact Info) Description 09/06/2020 Telephone [place] [phone] Popeye Leigh MD [facility] [place] [address] Social History Tobacco Use Types Packs/Day Years [...] encounter Miscellaneous Notes * Telephone Encounter - Popeye Leigh MD - 09/06/2020 12:41 PM EST I spoke with Juana today. She says her vulvar irritation has improved approximately 75%, and wonders if in fact it was an actual yeast infection. She reports normal bowel bladder function. She takes Tylenol occasionally, but is encouraged to use ibuprofen for the duration of her discomfort. She is walking around, voices no concerns about her incision sites. 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 I will discuss this further at her planned postoperative visit. documented in this encounter Plan of Treatment Not on file documented as of this encounter Visit Diagnoses Not on filedocumented in this encounter Care Teams Freight Air Brake Fitter Relationship Specialty Start Date End Date Adriana Velazquez PA [address] [place] [address] [place] [address] PCP - General Internal Medicine 08/06/20 documented as of this encounter
--- OUTSIDE RECORDS SUMMARY | 2024-06-24 13:01 | XMS_ITS | Encounter Summary ---
[place] [address] Care Team Providers Care Cotton Jammer Name Role Phone Adriana Velazquez Primary Care Provider + Reason for Visit * Reason Comments Neck Pain Occipital Pain Right Arm Pain Right Shoulder Pain * Consultation (Routine) - Closed Specialty Diagnoses / Procedures Referred By Jose welch Referred To Contact [facility] Diagnoses neck pain/mri @[facility] [place]/ tried home physical therapy Adriana Velazquez PA [address] [place] [id number] [facility] [place] [place] [address] Referral ID Status Reason Start Date Expiration Date Visits Re quested Visits Authorized [id number] Closed 01/06/2021 01/06/2022 1 1 Encounter Details Date Type Department Care Team ([facility] Contact Info) Description 01/28/2021 9:00 AM EDT Office Visit [place] [address] Stu Bull MD [facility] [place] [address] Chronic pain syndrome; Cervical facet syndrome Social History Tobacco Use Types Packs/Day Years [...] Sign Reading Time Taken Comments Blood Pressure 136/91 01/28/2021 9:01 AM EDT Pulse 72 01/28/2021 9:01 AM EDT Temperature 36.8 ??C (98.2 ??F) 01/28/2021 9:01 AM ED T Respiratory Rate - - Oxygen Saturation 98% 01/28/2021 9:01 AM EDT Inhaled Oxygen Concentration - - Weight 77.1 kg (170 lb) 01/28/2021 9:01 AM EDT Height 154.9 cm (5' 1) 01/28/2021 9:01 AM EDT Body Mass Index 32.12 01/28/2021 9:01 AM EDT documented in this encounter Progress Notes * Stu Bull MD - 01/28/2021 9:00 AM EDT [facility] Initial Consultation Note Date of visit: 01/28/21 : 1970 Consulting Physician: Adriana Velazquez PA [address] [place] [address] [place] [address] Reason for consultation: Neck pain Chief Complaint Patient presents with ??? Neck Pain ??? Occipital Pain ??? Right Arm Pain ??? Right Shoulder Pain History of Present Illness: Juana Silva is a 50 y.o. 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 The patient reports that her neck pain problems started insidiously in 2019. Pain worsened approximately 8 months to a year ago. Patient underwent MRI of cervical spine she presented to the emergency room on 01/09/2021 with increased neck pain and an MRI of entire spine was done at that point. MRI showed some edema and enhancement at the right C2-C3 facet joint which was felt to be inflammatory in nature and any infections were ruled out with a normal white blood cell count in theED. Patient denies any fevers chills or other signs of infection. She trialed chiropractic therapy with last session 4 weeks ago which was not beneficial. Patient is scheduled to start physical therapy at [place], [place]. She has done breathing exercises/relaxation techniques, neck massage and heat therapy. Patient also follows up with orthopedics for right lateral epicondylitis and underwent a steroid injection 2 months ago which was beneficial. Patient has also been referred to neurosurgery. Pain location: Right neck pain radiating to right shoulder blade, right arm- predominant neck pain Quality and timing of pain: aching and burningwhen active Pain rating: intensity Averages 5 on a 0-10 scale. Aggravating factors include: exercise Relieving factors include: lying down Denies red flags including: bowel or bladder symptoms, fever, chills, saddle anesthesia, profound motor loss, history of immune compromise, weight loss. Current pain treatments include: Ativan 0.5 mg as needed, uses 2 to 3 tablets/month Ibuprofen as needed Aspirin 81 Gabapentin Venlafaxine Pain medications are being prescribed by primary care team. Previous pain treatments included: Juana Silva has not been seen at a pain clinic in the past. Medications: yes PT: no Psychology: no Acupuncture: no critical care educator: yes TENS Unit: no Injections: no Surgery: no Diagnostic Tests: MRI TOTAL SPINE WWO CONTRAST 01/09/21 ?? CLINICAL HISTORY: Myelopathy, acute or progressive Worsening bilateral upper extremity numbness, weakness and new onset saddle anesthesia, history of endometrial cancer. ? TECHNIQUE: MRI of the cervical, thoracic and lumbar spine was performed before and after the intravenous administration of 16 cc Dotarem. ?? COMPARISON: MRI cervical spine 12/23/2020 ?? FINDINGS: Spinal alignment is maintained. No suspicious osseous lesion. The cervical prevertebral and thoracic and lumbar paraspinal soft tissues are unremarkable. ?? Edema and enhancement of the right C3-C4 [...] mild left neural foraminal narrowing at L4-5 ?? Within limits of the examination the cord is normal in signal and caliber. No abnormal intradural enhancement. ?? IMPRESSION 1. Edema and enhancement associated with the right C2-C3 facet joint. Imaging findings may reflect inflammatory change, though infection cannot be excluded. No joint effusion or evidence for soft tissue abscess. 2. No cord compression or abnormal intradural enhancement. No evidence for no suspicious osseous lesion. 3. Small right foraminal disc protrusion may contact the right L5 nerve root. Review of [place] Prescription Monitoring Program (BALLISTIC TECHNICIAN): Today I have also reviewed the patient's history of controlled substance use. Review of Pain Questionnaire: Please see the [facility] [place] health questionnaire, which the patient completed and reviewed with me in detail. Review of Electronic Chart: Today I have also reviewed available medical information in the patient's medical record at [facility] including relevant provider notes, laboratory work, and imaging. Past Medical History: Patient Active Problem List Diagnosis Code ??? Endometrial cancer C54.1 ??? 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 Cigarette smoker F17.210 ??? Hypokalemia E87.6 ??? Essential hypertension I10 Past Medical History: Diagnosis Date ??? Cancer ??? Mental health problem Past Surgical History: Past Surgical History: Procedure Laterality Date ??? PRO INTRAOP SENTINEL LYMPH ID W/DYE INJECTION N/A 08/29/2020 INTRAOPERATIVE ID (MAPPING) SENTINEL LYMPH NODE,INCLUDES INJECTION (WRVU 2.5) performed by Popeye Leigh MD at [facility] MAIN OR ??? PRO LAP, PELVIC LYMPHADENECTOMY/BX N/A 08/29/2020 LAPAROSCOPY,W\BILATERAL TOTAL PELVIC LYMPHADENECTOMY, PERIAORTIC LYMPH NODE SAMPLING, ROBOTIC (WRVU15.6) performed by Popeye Leigh MD at [facility] MAIN OR ? ? PRO LAPAROSCOPY W TOT HYSTERECTUTERUS <=250 GRAM W TUBE/OVARY N/A 08/29/2020 LAPAROSCOPY,TOTAL HYST, UTERUS<250GM, REM TUBE &/OR OVARY, ROBOTIC ASSIST (WRVU 15) performed by Popeye Leigh MD at [facility] MAIN OR Medications: Current Outpatient Medications: ??? lisinopriL (Prinivil;Zestril) 5 mg Tablet, 1 tablet daily., Disp: , Rfl: ??? diazePAM (Valium) 5 mg Tablet, Take 1 tablet by mouth every 6 hours as needed for Muscle spasms(spasm). (Patient taking differently: Take 5 mg by mouth as needed for Muscle spasms (spasm).), Disp: 14 tablet, Rfl: 0 ??? ibuprofen (Advil;Motrin) 800 mg Tablet, Take 1 tablet by mouth every 6 hours as needed for Pain. (Patient taking differently: Take 800 mg by mouth every 6 hours.), Disp: 30 tablet, Rfl: 12 ??? venlafaxine (EFFEXOR) 37.5 mg Tablet, Take 37.5 mg by mouth daily., Disp: , Rfl: ??? venlafaxine (EFFEXOR) 75 mg Tablet, Take 75 mg by mouth daily., Disp: , Rfl: ??? aspirin EC 81 mg Tablet, Delayed Release (E.C.), Take 81 mg by mouth daily., Disp: , Rfl: ??? LORazepam (Ativan) 0.5 mg Tablet, Take 0.5 mg by mouth as needed for Anxiety., Disp: , Rfl: ??? diclofenac (Voltaren) 1 % Gel, Apply 2 g topically 4 times daily as needed., Disp: 1 Tube, Rfl:0 ??? meloxicam (MOBIC) 15 mg Tablet, Take 1 tablet by mouth daily., Disp: 20 tablet, Rfl: 0 Allergies: Allergies Allergen Reactions ??? Prednisone Other (See Comments) Complete panic makes me feel crazy Social History: Social History Socioeconomic History ??? Marital status: Spouse name: Not on file ??? Number of children: Not on file ??? Years of education: Not on file ??? Highest education level: Not on file Occupational History ??? Not on file Tobacco Use ??? Smoking status: Current Every Day Smoker Packs/day: 1.00 Years: 0.00 Pack years: 0.00 Types: Cigarettes ??? Smokeless tobacco: Never Used Vaping Use ??? Vaping Use: Never used Substance and Sexual Activity ??? Alcohol use: Not Currently Alcohol/week: 1.0 standard drink Types: 1 Glasses of wine per week ??? Drug use: Not Currently ??? Sexual activity: Not on file Other Topics Concern ??? Not on file Social History Narrative ??? Not on file Social Determinants of Health Financial Resource Strain: ??? Difficulty of Paying Living Expenses: Food Insecurity: ??? Worried About Running Out of Food in the Last Year: ??? Ran Out of Food in the Last Year: Transportation Needs: ??? Lack of Transportation (Medical): ??? Lack of Transportation (Non-Medical): Physical Activity: ??? Days of Exercise per Week: ??? 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 HENT: No recent hearing changes. No difficulty swallowing. Eyes: No recent vision changes. Respiratory: No cough or shortness of breath. Cardiovascular: No chest pain or syncope. GI: No diarrhea, nausea, vomiting, or constipation. : No dysuria, hesitancy, or urgency. No incontinence. Musculoskeletal: No muscle weakness. Neck pain Skin: No rashes or lesions. Neurologic: No numbness/tingling. No difficulty with balance. Psychiatric: Mood ok. No SI/HI. Sleep is good. Heme/Lymph/Imm: No easy bleeding or brusing. PHYSICAL EXAM: General: Patient is seated comfortably in NAD, well-groomed. HEENT: Head atraumatic, EOMI. Respiratory: Breathing comfortably on RA. Cardiovascular: 2+ peripheral pulses, no swelling Abdominal: non-distended, non-tender to palpation Skin: No appreciable rashes or skin breakdown Psych: Appropriate affect, A&Ox3 , answers questions appropriately Musculoskeletal: Right cervical paraspinal tenderness with positive facet loading tests Bilateral Spurling's test negative Right cervical paraspinal, trapezius and levator scapulae taut tender muscle bands Neurologic: toy assembly supervisor - grossly intact Reflexes - 2+ and symmetric in bilateral biceps, triceps, brachioradiali, patellae, and Achilles. Motor - 5/5 in all planes of motion in all four extremities. Sensation - Intact to light touch throughout all four extremities Gait/Station: Transitions from exam room chair to table without difficulty. Screening tools: DIRE Score for opioid management is calculated as follows: Diagnosis = 2 Intractability = 1 Risk: Psych = 2 Chem Hlth = 2 Reliability = 2 Social = 2 Efficacy = 2 Total DIRE Score = 13 (14 or higher predicts good candidate for ongoing opioid management; 13 or lower predicts poor candidate for opioid management) Assessment: Juana Silva is a 50 y.o. 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 Based on today's examination presentation, cervical radiculopathy is less likely. MRI d emonstrates multilevel neural foraminal stenosis with no evidence of central disc protrusion or spinal canal stenosis. MRI demonstrates mild right C6-7 neural foraminal stenosis. #2 chronic right lateral epicondylitis. Continue management as per orthopedics. #3 allergy to prednisone documented in chart. Patient reports bothersome mood problems with prednisone. #4 chronic pain syndrome Plan: Diagnosis reviewed, treatment option addressed, and risk/benefits discussed. Self-care instructionsgiven. I am recommending a multidisciplinary treatment plan to help this patient better manage her pain. 1. Physical Therapy: Patient is scheduled to start physical therapy at [facility]. Based on response to conventional physical therapy, can consider [facility] therapy in future. I gave her the book Treat your own neck by López Naidu, PT. This is a book designed to teach patients proper home exercise. These exercises are designed to reduce pain and improve function. Thisbook has numerous pictures and is written in laymen's terms. She was happy to receive this book andstates that she will use it to develop a good home exercise program for her neck. She will let me kn ow if she has any questions. 2. Clinical Health Psychologist to address issues of relaxation, behavioral change, coping style, and other factors important to improvement: Can consider active pain care service in future 3. Self Care Recommendations: Encouraged patient to be compliant to exercises taught by physical therapy 4. Diagnostic Studies: None at this point 5. Medication Management: -Start a trial of topical Voltaren gel -Start a trial of meloxicam 15 mg as needed for current pain flareup. Educated patient not to use any other NSAIDs such as ibuprofen or naproxen on days she uses meloxicam. Patient verbalized understanding. If this medication is beneficial, can be continued by primary care team. 6. Further procedures recommended: None at this point -Based on response to physical therapy, can consider right cervical MBB/RFA versus trigger point injections. -Recommend caution with any steroid injection given patient's behavioral side effects to prednisone. 7. Referrals: None at this point. Continue follow-up with orthopedics. 8. Release of information: Previous records reviewed 9. Follow up: As needed in future based on response to physical therapy. Total time spent was 60 minutes, and more than 50% of face to face time was spent in counseling and/or coordination of care regarding principles of multidisciplinary care, medication management, and treatment options as discussed above. Stu Bull MD [facility] Manual Training Teacher of Anesthesiology [facility] [address] [phone] / [facility] Please note that this note was completed with the assistance of voice recognition software. As result unintentional product info specialist errors and/or typographical mistakes are possible. If you notice errors please bring them to my attention. If any area requires explanation or clarification please do not hesitate to contact me. CC: Adriana Velazquez PA [address] [place] [address] [place] [address] documented in this encounter Plan of Treatment Not on file documented as of this encounter Visit Diagnoses Diagnosis Chronic pain syndrome Cervical facet syndrome Other symptoms referable to back documented in this encounter Care Teams Cotton Jammer Relationship Specialty Start Date End Date Adriana Velazquez PA [address] [place] [address] [place] [address] PCP - General Internal Medicine 08/06/20 documented as of this encounter
--- OUTSIDE RECORDS SUMMARY | 2024-06-24 13:01 | XMS_ITS | Encounter Summary ---
Author Organization [place] [address] Care Team Providers Care Oral And Maxillofacial Surgery Name Role Phone Unknown Primary Care Provider Unavailabl e Encounter Details Date Type Department Care Team (Late st Contact Info) Description 07/23/2020 External Results [place] [address] Provider, Scanning Social History Tobacco Use Types Packs/Day Years Used Date Smoking Tobacco: Never Assessed Sex and Gender Information Value Date Recorded Sex Assigned at Not on file Gender Identity Not on file Sexual Orientation Not on file documented as of this encounter Plan of Treatment Not on file documented as of this encounter Procedures Procedure Name Priority Date/Time Associated Diagnosis Comments SURGICAL PATHOLOGY SCAN Routine 07/23/2020 documented in this encounter Results * Scan Doc: Surgical Pathology (07/23/2020) Historical Provider MD CELESTIN MGR SCAN EX T ORDR/RSLT documented in this encounter Visit Diagnoses Not on filedocumented in this encounter Care Teams Oral And Maxillofacial Surgery Relationship Specialty Start Date End Date Unknown None PCP - General 05/23/18 08/05/20 documented as of this encounter
--- OUTSIDE RECORDS SUMMARY | 2024-06-24 13:01 | XMS_ITS | Encounter Summary ---
[place] [address] Care Team Providers Care Puff Ironer Name Role Phone Claudia Strong MD Primary Care Provider Encounter Details Date Type Department Care Team (Late st Contact Info) Description 04/04/2015 Notes Only [place] [phone] Nahomi Valencia, RN Social History Tobacco Use [...] on filedocumented in this encounter Care Teams Puff Ironer Relationship Specialty Start Date End Date Claudia Strong MD [facility] [address] [place] [address] PCP - General 07/15/10 05/19/18 documented as of this encounter
--- OUTSIDE RECORDS SUMMARY | 2024-06-24 13:01 | XMS_ITS | Encounter Summary ---
Author Organization [facility] [place] [address] Care Team Providers Care Boat Rigger Name Role Phone Unknown Primary Care Provider Unavailabl e Encounter Details Date Type Department Care Team (Latest Contact Info) Description 07/23/2020 2:56 PM EST - 07/23/2020 11:59 PM EST Hospital [place] [phone] Discharge Disposition: Home Social History Tobacco Use Types Packs/Day Years Used Date Smoking Tobacco: Never Assessed Sex and Gender Information Value Date Recorded Sex Assigned at Not on file Gender Identity Not on file Sexual Orientation Not on file documented as of this encounter Medications at Time of Discharge Medication Sig Dispensed Refills Start Date End Date CIS Free Text Med - Effexor 11/05/2009 08/05/2020 multivitamin (THERAGRAN) tablet 0 08/05/2020 hydrochlorothiazide (HYDRODIURIL) 12.5 mg tablet 11/05/2009 08/06/2020 documented as of this encounter Plan of Treatment Not on file documented as of this encounter Procedures Procedure Name Priority Date/Time Associated Diagnosis Comments SURGICAL PATHOLOGY REPORT Routine 07/23/2020 2:57 PM EST documented in this encounter Results * Surgical Pathology Report (07/23/2020 2:57 PM EST) Final Diagnosis [id number] ? Location: [facility] The signing pathologist has (i) examined the relevant preparation(s) for the specimen(s) and (ii) rendered or confirmed the diagnosis(es). . ?Surgical Pathology DIAGNOSIS CONSULTATION CASE Outside slide(s) labeled [id number], collection date 07/08/2020. Endometrial biopsy: Endometrial adenocarcinoma, endometrioid type, FIGO grade 1. Electronically signed by: ??Desi Adams DO Verified: ??07/24/2020 ?Pathologist Performed at: ??-[facility] Dept. of Pathology, [place], [place] SPECIMEN(S) SUBMITTED CONSULTATION CASE A - 3 slide(s) labeled [id number], collection date 07/08/2020. [id number] Report to: [facility] Surgical Pathology Department [facility], [facility], [address]nd Floor [address] [place] [address] ??[id number] CLINICAL INFORMATION with irregular periods SPECIMEN PROCESSING [facility] ([facility]) pathology slide(s) are reviewed. ??Refer to Diagnosis and Specimen Submitted for specific case information. For the full text of the [facility] report(s) please refer to Non- Documentation Pathology in the electronic health record (eDH). 07/24/2020 8:46 AM EST [facility] Consult Case 07/23/2020 2:57 PM EST 07/23/2020 2:57 PM EST Popeye Leigh MD PATHOLOGY/CYTOLOGY O [facility] [place] [address] documented in this encounter Visit Diagnoses Not on filedocumented in this encounter Care Teams Boat Rigger Relationship Specialty Start Date End Date Unknown None PCP - General 05/23/18 08/05/20 documented as of this encounter
--- OUTSIDE RECORDS SUMMARY | 2024-06-24 13:01 | XMS_ITS | Encounter Summary ---
[place] [address] Care Team Providers Care Pattern Stamper Name Role Phone Adriana Velazquez Primary Care Provider + Reason for Visit * Reason Onset Date Comments Other 09/03/2020 Encounter Details Date Type Department Care Team ([facility] Contact Info) Description 09/03/2020 Telephone [place] [phone] Viktoria Wong RN Other Social History Tobacco [...] Encounter - Viktoria Wong RN - 09/03/2020 10:49 AM EST Patient called c/o itchy, red and swelling in her vagina which started a tiny bit yesterday. She states, I think I have yeast infection. Will let Dr. Leigh aware and will call her back. documented in this encounter Plan of Treatment Not on file documented as of this encounter Visit Diagnoses Not on filedocumented in this encounter Care Teams Pattern Stamper Relationship Specialty Start Date End Date Adriana Velazquez PA [address] [place] [address] [place] [address] PCP - General Internal Medicine 08/06/20 documented as of this encounter
--- OUTSIDE RECORDS SUMMARY | 2024-06-24 13:01 | XMS_ITS | Encounter Summary ---
[place] [address] Care Team Providers Care Ruby Rails Developer Name Role Phone Adriana Velazquez Primary Care Provider + Reason for Visit * Reason Onset Date Comments Follow-up 08/30/2020 Encounter Details Date Type Department Care Team ([facility] Contact Info) Description 08/30/2020 Telephone [place] [phone] Viktoria Wong RN Follow-up Social History Tobacco Use Types [...] Encounter - Viktoria Wong RN - 08/30/2020 4:00 PM EST Called to inform that per Dr. Leigh 10 more dilaudid will be refilled and that if her pain is worse,she should go to the nearest ER over the weekend. She states that's plenty, It should help me a lot. documented in this encounter Plan of Treatment Not on file documented as of this encounter Visit Diagnoses Not on filedocumented in this encounter Care Teams Ruby Rails Developer Relationship Specialty Start Date End Date Yawicz, Adriana C, PA [address] [place] [address] [place] [address] PCP - General Internal Medicine 08/06/20 documented as of this encounter
--- OUTSIDE RECORDS SUMMARY | 2024-06-24 13:01 | XMS_ITS ---
[place] [address] Care Team Providers Care Manager Corporate Marketing Name Role Phone Adriana Velazquez Primary Care Provider + Transplant Episode Kidney Potential Donor [facility] ([place], [place]) - [facility] Evaluation began on 04/04/2015 Marked as Not a Candidate on 05/17/2015 Reason: Unable to Contact Patient Kidney CoordinatorNahomi Valencia RN Phone: N/A Fax: N/A Email: N/A Care Team Name Role Phone Fax Email Nahomi Valencia RN Kidney Coordinator N/A N/A N /A Events Pre-Donation Referred: 04/03/2015 Evaluation began: 04/04/2015
--- OUTSIDE RECORDS SUMMARY | 2024-06-24 13:01 | XMS_ITS | Encounter Summary ---
[place] [address] Care Team Providers Care Head Loader Name Role Phone Adriana Velazquez Primary Care Provider + Reason for Visit * Reason Onset Date Comments Other 09/18/2020 Return to Work [place] Encounter Details Date Type Department Care Team (Late Contact Info) Description 09/18/2020 Telephone [place] [phone] Viktoria Wong RN Other (Return to Work Note ) Social History Tobacco Use Types Packs/Day [...] Telephone Encounter - Cassandra Torres RN - 09/19/2020 2:29 PM EST Patient requested that her Return to Work Note be mailed to her home address. Return to Work Note mailed to patient's home address as requested. * Telephone Encounter - Viktoria Wong RN - 09/18/2020 1:02 PM EST Called back patient who's s/p surgery on 08/29. She requests for a return to work note. Informed thatusually recovery is up to 6 weeks from surgery. She's doing well. She wants to know if she can go hiking in the mountains. Informed that no pushing, pulling and lifting more than 10 lbs for 6 weeks, so advised to maybe just do some walking but not hiking on rugged terrain until after 6 weeks-10/10/20. She cancelled her f/u today d/t family emergency and would like to reschedule after today. Will let our planner scheduler aware. documented in this encounter Plan of Treatment Not on file documented as of this encounter Visit Diagnoses Not on filedocumented in this encounter Care Teams Head Loader Relationship Specialty Start Date End Date Adriana Velazquez PA [address] [place] [address] [place] [address] PCP - General Internal Medicine 08/06/20 documented as of this encounter
--- OUTSIDE RECORDS SUMMARY | 2024-06-24 13:01 | XMS_ITS | Clinical Summary ---
Author Organization [facility] Address [address] [place] [address] Care Team Providers Care [employer] Name Role Phone Adriana Velazquez Primary Care [...] 25.52 01/07/2023 1438 EDT Plan of Treatment Health Maintenance Due Date Last Done Comments Hepatitis C Screen 1970 Hepatitis B Vaccine (1 of 3 - 19+ 3-dose series) 05/25 COVID-19 Vaccine (2022- season) 2023 Care Teams [employer] Relationship Specialty Start Date End Date Adriana Velazquez PA [address] [place] [address] [place] [phone] PCP - General Internal Medicine - Primary Care 12/01/22
--- OUTSIDE RECORDS SUMMARY | 2024-06-24 13:01 | XMS_ITS | Encounter Summary ---
Author Organization Formerly [facility] [place] [address] Care Team Providers Care Teacher Instrumental Name Role Phone Claudia Strong MD Primary Care Provider [phone] Reason for Visit * Reason Comments Depression Medication Problem Encounter Details Date Type Department Care Team (Late st Contact Info) Description 03/25/2017 7:40 PM EDT - 03/25/2017 11:41 PM EDT [place] [address] Lilian Dickerson MD [facility] [address] [place] [address] Severe episode of recurrent major depressive disorder, without psychotic features; Single current episode of major depressive disorder, unspecified depression episode severity Discharge Disposition: Home Social History Tobacco Use Types Packs/Day Years Used Date Smoking Tobacco: Never Assessed Sex and Gender Information Value Date Recorded Sex Assigned at Not on file Gender Identity Not on file Sexual Orientation Not on file documented as of this encounter Last Filed Vital Signs Vital Sign Reading Time Taken Comments Blood Pressure 154/117 03/25/2017 11:31 PM EDT Pulse 84 03/25/2017 11:31 PM EDT Temperature 36.5 ??C (97.7 ??F) 03/25/2017 11:31 PM E DT Respiratory Rate 18 03/25/2017 11:31 PM EDT Oxygen Saturation 97% 03/25/2017 11:31 PM EDT Inhaled Oxygen Concentration - - Weight 81.6 kg (180 lb) 03/25/2017 7:39 PM EDT Height 154.9 cm (5' 1) 03/25/2017 7:39 PM EDT Body Mass Index 34.01 03/25/2017 7:39 PM EDT documented in this encounter Discharge Instructions * Discharge Instructions* Jag Dunn M - 03/25/2017 11:34 PM EDT You were evaluated in the ED tonight for acute worsening of your underlying depression. We had our psychiatric doctors evaluate you, and while they agree that you would benefit from inpatient treatment, they cannot keep you here against your will. Please follow up with your pcp or a psychiatrist. You can feel better and these are people that canhelp. If you have feelings of wanting to hurt or kill yourself or anyone else. Please seek help, and you are always welcome to come back to the ED. [facility] Recovering From Depression: Care Instructions Your Care Instructions Taking good care of yourself is important as you recover from depression. In time, your symptoms will fade as your treatment takes hold. Do not give up. Instead, focus your energy on getting better. Your mood will improve. It just takes some time. Focus on things that can help you feel better, such as being with friends and family, eating well, and getting enough rest. But take things slowly. Donot do too much too soon. You will begin to feel better gradually. Follow-up care is a jones part of your treatment and safety. Be sure to make and go to all appointments, and call your doctor if you are having problems. It's also a good idea to know your test resultsand keep a list of the medicines you take. How can you care for yourself at home? Be realistic ?? If you have a large task to do, break it up into smaller steps you can handle, and just do what you can. ?? You may want to put off important decisions until your depression has lifted. If you have plans that will have a major impact on your life, such as marriage, divorce, or a job change, try to wait a bit. Talk it over with friends and loved ones who can help you look at the overall picture first. ?? Reaching out to people for help is important. Do not isolate yourself. Let your family and friends help you. Find someone you can trust and confide in, and talk to that person. ?? Be patient, and be kind to yourself. Remember that depression is not your fault and is not something you can overcome with willpower alone. Treatment is necessary for depression, just like for anyother illness. Feeling better takes time, and your mood will improve little by little. Stay active ?? Stay busy and get outside. Take a walk, or try some other light exercise. ?? Talk with your doctor about an exercise program. Exercise can help with mild depression. ?? Go to a movie or concert. Take part in a amish activity or other social gathering. Go to a ballgame. ?? Ask a friend to have dinner with you. Take care of yourself ?? Eat a balanced diet with plenty of fresh fruits and vegetables, whole grains, and lean protein. If you have lost your appetite, eat small snacks rather than large meals. ?? Avoid drinking alcohol or using illegal drugs. Do not take medicines that have not been prescribed for you. They may interfere with medicines you may be taking for depression, or they may make your depression worse. ?? Take your medicines exactly as they are prescribed. You may start to feel better within 1 to 3 weeks of taking antidepressant medicine. But it can take as many as 6 to 8 weeks to see more improvement. If you have questions or concerns about your medicines, or if you do not notice any improvementby 3 weeks, talk to your doctor. ?? If you have any side effects from your medicine, tell your doctor. Antidepressants can make you feel tired, dizzy, or nervous. Some people have dry mouth, constipation, headaches, sexual problems,or diarrhea. Many of these side effects are mild and will go away on their own after you have been taking the medicine for a few weeks. Some may last longer. Talk to your doctor if side effects are bothering you too much. You might be able to try a different medicine. ?? Get enough sleep. If you have problems sleeping: ?? Go to bed at the same time every night, and get up at the same time every morning. ?? Keep your bedroom dark and quiet. ?? Do not exercise after 5:00 p.m. ?? Avoid drinks with caffeine after 5:00 p.m. ?? Avoid sleeping pills unless they are prescribed by the doctor treating your depression. Sleepingpills may make you groggy during the day, and they may interact with other medicine you are taking. ?? If you have any other illnesses, such as diabetes, heart disease, or high blood pressure, make sure to continue with your treatment. Tell your doctor about all of the medicines you take, includingthose with or without a prescription. ?? Keep the numbers for these national suicide hotlines: 8-121-898-TALK ( ) and 3-111-ELGADEZ ( ). If you or someone you know talks about suicide or feeling hopeless, get help right away. When should you call for help? Call 911 anytime you think you may need emergency care. For example, call if: ?? You feel like hurting yourself or someone else. ?? Someone you know has depression and is about to attempt or is attempting suicide. Call your doctor now or seek immediate medical care if: ?? You hear voices. ?? Someone you know has depression and: ?? Starts to give away his or her possessions. ?? Uses illegal drugs or drinks alcohol heavily. ?? Talks or writes about , including writing suicide notes or talking about guns, knives, or pills. ?? Starts to spend a lot of time alone. ?? Acts very aggressively or suddenly appears calm. Watch closely for changes in your health, and be sure to contact your doctor if: ?? You do not get better as expected. Where can you learn more? Visit our health information library at [email or web address]. You can also view health information on [employer]Noise, your personal patient account. Log in or sign uptoday. Enter N529 in the search box to learn more about Recovering From Depression: Care Instructions. Current as of: March 17, 2016 Content Version: 11.3 ?? [id number] [employer]. Care instructions adapted under license by [facility]. If you have questions about a medical condition or this instruction, always ask your healthcare professional. [employer] disclaims any warranty or liability for your use of this information. documented in this encounter Medications at Time of Discharge Medication Sig Dispensed Refills Start Date End Date CIS Free Text Med - Effexor 11/05/2009 08/05/2020 multivitamin (THERAGRAN) tablet 0 08/05/2020 hydrochlorothiazide (HYDRODIURIL) 12.5 mg tablet 11/05/2009 08/06/2020 documented as of this encounter ED Notes * Cara Perez RN - 03/25/2017 10:40 PM EDT Patient stated I want to go home. ED resident to room to discuss plan with patient. Psych still discussing with family. * Jag Dunn - 03/25/2017 9:10 PM EDT ED Resident Note Juana Silva is an 46 y.o. female who presents to the ED with: Chief Complaint Patient presents with ??? Depression ??? Medication Problem I saw this patient 03/25/2017 at 9:10 PM HPI Juana Silva is a 46 y.o. female with a history of depression who presents to the Emergency Department with 1 week history of markedly worsening depressive symptoms. Per family she has made severalcomments like i want to do myself in, would like to and don't want to be in my own body. She has a history of SA by etoh intoxication and drug overdose 15 years ago. Paul she was brought in by paul because she drank 2 bottles of wine and ingested an unknown amount of valium (though likely 15-20mg). She does not admit to specific suicide attempt or plan. She denies any HI, hallucination, voices or delusions. She is treated for depression with effexor that is prescribed by pcp and has been on a stable dose for years and years and anxiety treated with valium. She has had a prior history of drug and etoh abuse and had been sober for 17 years prior to this week. She has significant emotional distress with respect to her daughter and granddaughters. Allergies no known allergies No current facility-administered medications for this encounter. Current Outpatient Prescriptions: ??? CIS Free Text Med - Effexor, , Disp: , Rfl: ??? multivitamin (THERAGRAN) tablet, , Disp: , Rfl: ??? hydrochlorothiazide (HYDRODIURIL) 12.5 mg tablet, , Disp: , Rfl: No past medical history on file. Review of Systems: Review of Systems Constitutional: Negative for chills, fatigue, fever and unexpected weight change. HENT: Negative for congestion, rhinorrhea, tinnitus and trouble swallowing. Eyes: Negative for visual disturbance. Respiratory: Negative for cough and shortness of breath. Cardiovascular: Negative for chest pain and leg swelling. Gastrointestinal: Negative for abdominal pain, constipation, diarrhea, nausea and vomiting. Genitourinary: Negative for dysuria and hematuria. Musculoskeletal: Negative for arthralgias and myalgias. Skin: Negative for rash. Neurological: Negative for dizziness, weakness, light-headedness, numbness and headaches. Physical Exam: Patient Vitals for the past 24 hrs: BP Temp Temp src Pulse Resp SpO2 Height Weight 03/25/17 1939 (!) 156/102 36.8 ??C (98.2 ??F) Oral 106 20 99 % 154.9 cm (5' 1) 81.6 kg (180 lb) Physical Exam Constitutional: She is oriented to person, place, and time. She appears well- developed and well-nourished. No distress. HENT: Mouth/Throat: Oropharynx is clear and moist. Eyes: EOM are normal. Bilateral horizontal nystagmus Neck: Normal range of motion. Cardiovascular: Normal rate, regular rhythm and normal heart sounds. Pulmonary/Chest: Effort normal and breath sounds normal. No respiratory distress. She has no wheezes. She has no rales. Abdominal: Soft. Bowel sounds are normal. She exhibits no distension and no mass. There is no tenderness. There is no rebound and no guarding. Musculoskeletal: Normal range of motion. Neurological: She is alert and oriented to person, place, and time. Skin: Skin is warm and dry. She is not diaphoretic. Psychiatric: She has a normal mood and affect. ED Course and MDM - Patient seen under the supervision of Dr. Dickerson - Medications, allergies and past medical history reviewed Assessment: 46 y.o. female with MDD ED Course Jag Dunn Documentation Value Comment Time Ethanol Lvl: 329 (Reviewed) 08/03 2207 Anion Gap: (!) 17 (Reviewed) 03/25 2207 TSH: 1.06 (Reviewed) 03/25 2207 WBC: (!) 12.4 (Reviewed) 03/25 2207 She comes in for evaluation of possible suicide ideation, overdose and MDD. Psychiatry was consulted and agreed with worsening major depressive episode and would warrant inpatient treatment. However, they determined that she was not acutely a threat to herself or others and therefore did not warrant involuntary admission. She was not visibly intoxicated and BAL was below legal limits. We discussed at length possible treatment options with patient and family. She steadfastly refused admission or psychiatric help at this time. She was discharged home in care of her . Return precautions were verbally discussed with the patient and written in discharge instructions including worsening feeling of helplessness, suicidality, or other concerns. The patient expressed understanding that she could come back to the ED at any time and agreed to the follow-up plan. Plan: - d/c home - Follow up with pcp or psychiatrist - Return precautions Jag Dunn MD Resident 03/26/17 0016 Associated attestation - Lilian Dickerson MD - 04/05/2017 12:42 PM EDT ED ATTENDING ATTESTATION NOTE The patient was seen in conjunction with the resident physician. I have independently performed thekey portions of the history and physical exam. I have reviewed the nursing notes, vital signs, and all diagnostic studies personally including labs, imaging studies and EKGs. I have discussed the details of the case with the resident and agree with the assessment and plan as described in the resident note above unless noted otherwise below. l * Birgit Mccollum LNA - 03/25/2017 8:41 PM EDT Pt gave urine sample * Kate Salmeron RN - 03/25/2017 7:47 PM EDT Pt changed in psych gown, pts personal shorts still on, pockets checked and nothing in pockets, ptspersonal crocks (footwear) remain on, nothing in crocks, pts shirt behind garage door. Pt requesting to be by herself right now, and son in family waiting room. documented in this encounter Miscellaneous Notes * Consult Note - Kwaku Choe MD - 03/25/2017 9:08 PM EDT EMERGENCY DEPARTMENT PSYCHIATRIC EVALUATION CPT CODE 31486; TOM CODE 5000 The patient was seen at 9:08PM (time). Time Spent: 90 minutes Referral Source: ED Dr. Dunn Additional Attendee(s) (identify by relationship to pt.): , step-son Information source: Patient. Family. Relationship to patient: . Chief Complaint: 46 y.o. Female presents to [facility] Emergency Department with worsening mood History of Presenting Illness (location, quality, severity, duration, timing, context, modifying factors, and associated signs & symptoms): 46yo woman w/ hx of major depression p/w worsening mood and suicidal ideation. Her family brought her in due to concerning statements she had been making over the last week about not wanting to be alive. To me, she endorses anhedonia, depressed mood, hypersomnia, low energy, guilt, and suicidal ideation without intent or plan. I just haven't the will to live. She says she is worn out after havingto cope with a number of family problems over the last few years. 3 of my children are heroin addicts and DCF has been involved with my grandchildren. She says that currently things are better with her family (her son and daughter are in suboxone programs and all have their children back with them), however, she continues to feel that every day the ball is going to drop. She says that it's generational: the cycle of bullshit will just continue. She does admit to drinking 2 bottles of wine today after 17 years of sobriety. She says that she realizes this was a mistake and that she needs to work on her coping skills. She denies taking any of her prescribed lorazepam today, though admits to taking two 0.5mg tablets yesterday (her prescription is for one-two 0.5mg tabs per day as needed). However, she adamantly denies any intent to act on any of her suicidal thoughts. She says that she is currently engaged in outpatient treatment (next appointment with her counselor on Friday 03/30 andhas an appointment with her spiritual counselor on Thursday 03/29) and does not want inpatient treatment at this time. Her is very concerned about her symptoms and says that I don't feel safe with her at home. He believed she was overusing her lorazepam (of note her utox was negative for benzodiazepines). He says that she has been stuck in excessively negative thoughts which are irrational. He says she agreed to coming here to seek inpatient treatment earlier today and says that she is playing gamesby refusing admission at this point. Past Psychiatric History: Prior diagnoses: depression, PTSD, OCD (in remission), anxiety Past hospitalization and location: denies Suicide attempts: 1 attempt by overdose 15 years ago; she did not receive treatment at that time Past psychiatric medications (include dose, length of use, response, reason for stopping): has beenon Effexor 112.5mg daily for ~20 years with good effect; has been on lorazepam 0.5-1mg daily prn for acute anxiety for the last year Substance Use History/Treatment: hx of significant alcohol use disorder: was sober for 17 years before having 2 bottles of wine today; tobacco - 1 PPD; denies illicits Problem List: There is no problem list on file for this patient. Past Medical/Surgical History: No past medical history on file. No past surgical history on file. Current Medications: No current facility-administered medications on file prior to encounter. Current Outpatient Prescriptions on File Prior to Encounter Medication Sig Dispense Refill ??? CIS Free Text Med - Effexor ??? multivitamin (THERAGRAN) tablet ??? hydrochlorothiazide (HYDRODIURIL) 12.5 mg tablet Allergies: Allergies no known allergies Family Psychiatric/Medical History: (mental illness, substance use, suicide) Father - alcohol abuse Mother - mental issues Social History: Lives with . 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 PSYCHIATRIC / MENTAL STATUS EXAMINATION Musculoskeletal System: No atrophy or abnormal movements appreciated. Gait and station are within normal limits. (See also: MSE: Behavior) 46yo woman appearing stated age, in hospital garb, lying on bed, appropriate grooming. Calm and cooperative with interview, with appropriate eye contact. Speech with decreased rate, normal volume andrhythm. Fluent language, non- profane. Mood described as depressed. Affect constricted; mood congruent. Linear thinking with logical thoughts. Intact associations. Endorses passive SI; no intent or plan. Denies HI. Oriented x4. Attention and concentration good by interview. Cognition and memory grossly intact. Fund of knowledge age appropriate. Insight and judgment fair. Pertinent Diagnostic Testing: Recent Results (from the past 24 hour(s)) FATIMAH Request Result Value Ref Range FATIMAH Conf Requested Yes FATIMAH Requested See Comment FATIMAH Screen w/ Confirmation Result Value Ref Range U Barbiturates Screen None Detected None Detected U Benzodiazepines Screen None Detected None Detected U Cocaine Screen None Detected None Detected U Methadone Metabolites Screen None Detected None Detected U Opiate Screen None Detected None Detected U Cannabinoid Screen None Detected None Detected U Oxycodone Screen None Detected None Detected U Buprenorphine Screen None Detected None Detected U Fentanyl Screen None Detected None Detected U Tricyclics Screen None Detected None Detected U Ethanol Screen Positive (A) None Detected U Amphetamines Screen None Detected None Detected U Adulterants Screen None Detected None Detected Urine Hold Result Value Ref Range Urine Hold Sample in lab. POCT urine Result Value Ref Range POC Urine HCG Negative Negative - Negative POC Control Internal Controls Acceptable Ethanol Level Result Value Ref Range Ethanol Lvl 329 mg/L TSH Result Value Ref Range TSH 1.06 0.27 - 4.20 mlU/ML Basic Metabolic Panel (non-fasting) Result Value Ref Range Glucose Lvl 89 65 - 199 mg/dL BUN 11 8 - 18 mg/dL Creatinine 0.69 (L) 0.70 - 1.20 mg/dL Sodium 140 135 - 145 mmol/L Potassium 4.0 3.5 - 5.0 mmol/L Chloride 101 98 - 107 mmol/L CO2 22 22 - 31 mmol/L Anion Gap 17 (H) 5 - 15 mmol/L Calcium 9.3 8.5 - 10.5 mg/dL Estimated GFR >60 >=60 Salicylate Result Value Ref Range Salicylate Lvl <20 mg/L Acetaminophen level Result Value Ref Range Acetamin Lvl <5 10 - 30 mg/L Hemogram Result Value Ref Range WBC 12.4 (H) 4.0 - 9.5 x10(3)/mcL RBC 4.69 4.00 - 5.21 x10(6)/mcL Hemoglobin 14.7 11.7 - 15.5 gm/dL Hematocrit 41.4 35.7 - 45.8 % MCV 88.3 82.6 - 94.4 fL MCH 31.3 27.1 - 32.0 pg MCHC 35.5 (H) 31.7 - 35.0 gm/dL Platelets 438 (H) 145 - 357 x10(3)/mcL RDWSD 43.1 37.0 - 46.0 fL RDWCV 13.4 11.5 - 14.1 % MPV 10.0 7.6 - 12.9 fL nRBC % Auto 0.0 % nRBC Abs Auto 0.000 0.000 - 0.000 x10(3)/mcL Differential, Automated Result Value Ref Range Neutrophils % 63.8 % Neutr Abs (ANC) 7.93 (H) 1.70 - 6.10 x10(3)/mcL Lymphocytes % 29.1 % Lymphocytes Abs 3.6 (H) 0.9 - 3.2 x10(3)/mcL Monocytes % 4.7 % Monocyte Abs 0.6 0.3 - 0.9 x10(3)/mcL Eosinophils % 1.0 % Eosinophils Abs 0.1 0.0 - 0.4 x10(3)/mcL Basophils % 1.0 % Basophils Abs 0.1 0.0 - 0.1 x10(3)/mcL Immature Gran % 0.40 % Gilda Gran Abs 0.05 (H) 0.00 - 0.04 x10(3)/mcL Blue Tube HOLD Result Value Ref Range Blue Hold Sample in lab. Assessment: 46yo woman w/ hx of depression, p/w worsening mood and passive suicidal ideation. Though she has worsening depressive symptoms (meeting the criteria for major depressive disorder) and could benefit from an inpatient admission, she is declinging admission. She is adamantly denying any safety concerns, and strongly prefers now to continue with her outpatient treatment plan. Despite concern from family, involuntary admission is not warranted at this time. We advised for discharge home with safety planning and with plan for her to follow-up with her already scheduled appointments. I reiterated the need to remove any potentially dangerous objects from this patient's access, including guns, knives, prescription and over the counter medications, or ropes, to reduce the availability of potential lethal means of suicide. We discussed the safety plan of calling the crisis line of their local [facility] mental health agency or taking the patient directly to the emergency room for an assessment should her behaviors or comments suggest she is having suicidal plans or intentions. Diagnosis: major depressive disorder, recurrent Plan/Recommendations: - discharge home with safety plan as above - close follow-up with her outpatient providers Kwaku Choe MD 03/26/2017 * ED Triage - Birgit Justice RN - 03/25/2017 7:43 PM EDT Patient presents to the ED with for worsening depression which has been ongoing but worse since Wednesday. I don't want to be in my body. Patient's states she took probably more than prescribed of her Ativan and drank the better part of a bottle of wine. Patient is awake and cooperative, but poor eye contact, quiet voice and tearful. PWD, RRR even and unlabored. Patient in wheelchair with family. Will continue to monitor. documented in this encounter Plan of Treatment Not on file documented as of this encounter Procedures Procedure Name Priority Date/Time Associated Diagnosis Comments HEMOGRAM STAT 03/25/2017 9:16 PM EDT DIFFERENTIAL, AUTOMATED STAT 03/25/2017 9:16 PM EDT BLUE TUBE HOLD STAT 03/25/2017 9:16 PM EDT CBC (WITH DIFF) STAT 03/25/2017 9:16 PM EDT TSH STAT 03/25/2017 9:16 PM EDT ETHANOL LEVEL STAT 03/25/2017 9:16 PM EDT ACETAMINOPHEN LEVEL STAT 03/25/2017 9 :16 PM EDT SALICYLATE STAT 03/25/2017 9:16 PM EDT BASIC METABOLIC PANEL STAT 03/25/2017 9:16 PM EDT POCT URINE STAT 03/25/2017 9:02 PM EDT RAPID DRUG SCREEN, URINE STAT 03/25/2017 9:01 PM EDT RAPID DRUG SCREEN W/ CONFIRMATION, URINE STAT 03/25/2017 9:01 PM EDT URINE HOLD STAT 03/25/2017 9:01 PM EDT documented in this encounter Results * Blue Tube HOLD (03/25/2017 9:16 PM EDT) [facility] Blue Hold Sample in lab. [facility] Blood specimen (specimen) Venous Draw / Unknown 03/25/2017 9:16 PM EDT 03/25/2017 9:21 PM EDT Shaka Lawson MD HEMATOLOGY ORDERABLE S [facility] [place] [address] * (ABNORMAL) Differential, Automated (03/25/2017 9:16 PM EDT) [facility] Neutrophil % 63.8 % [facility] Neutrophil Absolute 7.93(H) 1.70 - 6.10 x10(3)/mc L [facility] Lymph % 29.1 % [facility] Lymphocytes Abs 3.6(H) 0.9 - 3.2 x10(3)/mc L [facility] Monocyte % 4.7 % [facility] Monocyte Abs 0.6 0.3 - 0.9 x10(3)/mc L [facility] Eos % 1.0 % [facility] Eosinophils Abs 0.1 0.0 - 0.4 x10(3)/[facility] Basophil % 1.0 % [facility] Baso Absolute 0.1 0.0 - 0.1 x10(3)/[facility] Immature Gran % 0.40 % [facility] Comment: Immature granulocytes(IG's)percentage and absolute count will include metamyelocytes, myelocytes, and promyelocytes. Blood smears from CBCs yielding IG's will be scanned manually for concordance. If this scan disagrees with the automated IG or if promyelocytes are noted, a manual differential will be performed. Immature Gran Absolute 0.05(H) 0.00 - 0.04 x10(3)/[facility] Blood specimen (specimen) 03/25/2017 9:16 PM EDT 03/25/2017 9:20 PM EDT Narrative Resulting Agency Comment Spec In Lab Shaka Lawson MD HEMATOLOGY ORDERABLE S [facility] [place] [address] * (ABNORMAL) Hemogram (03/25/2017 9:16 PM EDT) White Blood Cell 12.4(H) 4.0 - 9.5 x10(3)/[facility] Red Blood Cell 4.69 4.00 - 5.21 x10(6)/[facility] Hemoglobin 14.7 11.7 - 15.5 gm/dL [facility] Hematocrit 41.4 35.7 - 45.8 % [facility] Mean Cell Volume 88.3 82.6 - 94.4 fL [facility] Mean Cell Hemoglobin 31.3 27.1 - 32.0 pg [facility] Mean Cell Hemoglobin Concentration 35.5(H) 31.7 - 35.0 gm/dL [facility] Platelet 438(H) 145 - 357 x10(3)/[facility] RDW Standard Deviation 43.1 37.0 - 46.0 [facility] RDW coefficient of variation 13.4 11.5 - 14.1 % [facility] Mean Platelet Volume 10.0 7.6 - 12.9 [facility] NRBC% auto 0.0 % [facility] NRBC Absolute 0.000 0.000 - 0.000 x10(3)/mc L [facility] Blood specimen (specimen) 03/25/2017 9:16 PM EDT 03/25/2017 9:20 PM EDT Narrative Resulting Agency Comment Spec In Lab Shaka Lawson MD HEMATOLOGY ORDERABLE S Performing Organization Address [facility] Co de Phone Number [facility] [place] [address] * Acetaminophen level (03/25/2017 9:16 PM EDT) Acetamin Lvl <5 10 - 30 mg/L [facility] Comment: Levels >150 mg/L at 4 hours post ingestion or >75 mg/L at 8 hours post ingestion are often an indication for N-Acetylcysteine. Blood specimen (specimen) 03/25/2017 9:16 PM EDT 03/25/2017 9:20 PM EDT Narrative Resulting Agency Comment Spec In Lab Shaka Lawson MD CHEMISTRY ORDERABLES Performing Organization Address [facility] Co de Phone Number [facility] [place] [address] * Salicylate (03/25/2017 9:16 PM EDT) Salicylate <20 mg/L [facility] Comment: Therapeutic Range: ??< 200 mg/L Arthritic Therapy: ??150-300 mg/L Toxic: ?> 350 mg/L ??Concentrations > 500 mg/L may be an indication for alkalinization of urine. Concentrations > 800 mg/L are often an indication for hemodialysis. Blood specimen (specimen) 03/25/2017 9:16 PM EDT 03/25/2017 9:20 PM EDT Narrative Resulting Agency Comment Spec In Lab Shaka Lawson MD CHEMISTRY ORDERABLES [facility] [place] [address] * (ABNORMAL) Basic Metabolic Panel (non-fasting) (03/25/2017 9:16 PM EDT) Glucose 89 65 - 199 mg/dL [facility] Comment:Diabetes: >=200 mg/d L plus symptoms Blood Urea Nitrogen 11 8 - 18 mg/dL [facility] Creatinine 0.69(L) 0.70 - 1.20 mg/dL [facility] Comment: Please note that the pediatric reference intervals supplied above were not validated at [facility]. Results from pediatric patients should be interpreted in conjunction to the patient's age, height and muscle mass. Sodium 140 135 - 145 mmol/L [facility] Potassium 4.0 3.5 - 5.0 mmol/L [facility] Comment: Please note: ??Patients with WBC >100,000 may have falsely elevated Potassium levels. ??For accurate Potassium quantification in these patients send serum separator tube (gold top) for subsequent determinations. ??Contact the Clinical Chemistry Laboratory if there are any questions. Chloride 101 98 - 107 mmol/L [facility] Carbon Dioxide 22 22 - 31 mmol/L [facility] Anion Gap 17(H) 5 - 15 mmol/L [facility] Calcium 9.3 8.5 - 10.5 mg/dL [facility] Est Glomerular Filtration Rate >60 >=60 [facility] Comment: This estimated GFR (eGFR) value was calculated using the MDRD equation which has been validated on patients between the ages of 18 and 70. The MDRD should not be used to assess kidney function in patients < 18 years of age or in patients with extremes of body mass, or in patients with acute kidney failure. This value should be multiplied by 1.2 for patients. For further information please copy and paste the following links into your internet browser. [email or web address] [email or web address] Blood specimen (specimen) 03/25/2017 9:16 PM EDT 03/25/2017 9:20 PM EDT Narrative Resulting Agency Comment Spec In Lab Shaka Lawson MD CHEMISTRY ORDERABLES Performing Organization Address City/[facility]/ZIP Co de Phone Number [facility] [place] [address] * TSH (03/25/2017 9:16 PM EDT) Thyroid Stimulating Hormone 1.06 0.27 - 4.20 mlU/ML [facility] Blood specimen (specimen) 03/25/2017 9:16 PM EDT 03/25/2017 9:20 PM EDT Narrative Resulting Agency Comment Spec In Lab Shaka Lawson MD CHEMISTRY ORDERABLES Performing Organization Address [facility] Co de Phone Number [facility] [place] [address] * Ethanol Level (03/25/2017 9:16 PM EDT) Ethanol 329 mg/L [facility] Comment: Greater than 800 mg/L (0.08%) should be considered intoxicated. 3400 to 4500 mg/L (0.34 - 0.45%) is considered severe intoxication. Greater than 5500 mg/L (0.55%) is usually fatal. Blood specimen (specimen) 03/25/2017 9:16 PM EDT 03/25/2017 9:20 PM EDT Narrative Resulting Agency Comment Spec In Lab Shaka Lawson MD CHEMISTRY ORDERABLES Performing Organization Address [facility] Co de Phone Number [facility] [place] [address] * POCT urine (03/25/2017 9:02 PM EDT) POC Urine HCG Negative Negative - Negative POC Control Internal Controls Acceptable 03/25/2017 9:02 PM EDT Shaka Lawson MD POINT OF CARE TEST O RDERABLES * Urine Hold (03/25/2017 9:01 PM EDT) Hold, Urine Sample in lab. [facility] Urine specimen (specimen) Urine / Unknown 03/25/2017 9:01 PM EDT 03/25/2017 9:09 PM EDT Shaka Lawson MD URINE ORDERABLES [facility] [place] [address] * (ABNORMAL) FATMIAH Screen w/ Confirmation (03/25/2017 9:01 PM EDT) Pathologist [facility] Barbiturates Screen, Urine None Detected None Detected [facility] Comment: The barbiturate screen detects barbiturates at concentrations >200 ng/mL. Note: Not all barbiturates cross-react equally with antibody used in this screen. A ? Presumptive Positive? result indicates that the screening result was positive but has not yet been confirmed by a highly-specific method. As with any screen, occasional false positive results from cross-reacting substances may occur. Not for Medico-Legal Purposes. Benzodiazepines Screen, Urine None Detected None Detected [facility] Comment: The benzodiazepines screen detects benzodiazepines at concentrations >100 ng/mL. Not all benzodiazepines cross-react equally with antibody used in this screen. Due to the low dosage of clonazepam, false negatives may be obtained due to low concentration of clonazepam metabolites. A ? Presumptive Positive? result indicates that the screening result was positive but has not yet been confirmed by a highly-specific method. As with any screen, occasional false positive results from cross-reacting substances may occur. Not for Medico-Legal Purposes. Cocaine Screen, Urine None Detected None Detected [facility] Comment: The cocaine metabolites screen detects benzoylecgonine (Cocaine Metabolite) at concentrations >150 ng/mL. A ? Presumptive Positive? result indicates that the screening result was positive but has not yet been confirmed by a highly-specific method. As with any screen, occasional false positive results from cross-reacting substances may occur. Not for Medico-Legal Purposes. Methadone Metabolites Screen, Urine None Detected None Detected [facility] Comment: The methadone metabolite screen detects EDDP (major methadone metabolite) at concentrations >100 ng/mL. A ? Presumptive Positive? result indicates that the screening result was positive but has not yet been confirmed by a highly-specific method. As with any screen, occasional false positive results from cross-reacting substances may occur. Not for Medico-Legal Purposes. Opiate Screen, Urine None Detected None Detected [facility] Comment: The opiates screen detects opiates at concentrations >300 ng/mL. Please note that oxycodone, oxymorphone, fentanyl, tramadol, and other synthetic opioids are not detected by the opiate screen. A ? Presumptive Positive? result indicates that the screening result was positive but has not yet been confirmed by a highly-specific method. As with any screen, occasional false positive results from cross-reacting substances may occur. Not for Medico-Legal Purposes. Cannabinoid Screen, Urine None Detected None Detected [facility] Comment: The marijuana metabolites screen detects the THC metabolite (00-kkf-8-carboxy-delta 9-THC) at concentrations >20 ng/mL. A ? Presumptive Positive? result indicates that the screening result was positive but has not yet been confirmed by a highly-specific method. As with any screen, occasional false positive results from cross-reacting substances may occur. Not for Medico-Legal Purposes. Oxycodone Screen, Urine None Detected None Detected [facility] Comment: The oxycodone screen detects oxycodone and oxymorphone at concentrations >100 ng/mL. A ? Presumptive Positive? result indicates that the screening result was positive but has not yet been confirmed by a highly-specific method. As with any screen, occasional false positive results from cross-reacting substances may occur. Not for Medico-Legal Purposes. Buprenorphine Screen, Urine None Detected None Detected [facility] Comment: The buprenorphine screen detects buprenorphine at concentrations >5 ng/mL. A ? Presumptive Positive? result indicates that the screening result was positive but has not yet been confirmed by a highly-specific method. As with any screen, occasional false positive results from cross-reacting substances may occur. Not for Medico-Legal Purposes. Fentanyl Screen, Urine None Detected None Detected [facility] Comment: The fentanyl screen detects fentanyl at concentrations >2 ng/mL. A ? Presumptive Positive? result indicates that the screening result was positive but has not yet been confirmed by a highly-specific method. As with any screen, occasional false positive results from cross-reacting substances may occur. Not for Medico-Legal Purposes. Tricyclics Screen, Urine None Detected None Detected [facility] Comment: The tricyclics screen detects tricyclic antidepressants at concentrations >150 ng/mL. Not all tricyclics cross-react equally with the antibody used in this screen. A ? Presumptive Positive? result indicates that the screening result was positive but has not yet been confirmed by a highly-specific method. As with any screen, occasional false positive results from cross-reacting substances may occur. Not for Medico-Legal Purposes. Ethanol Screen, Urine Positive(A) None Detected [facility] Comment:This urine ethanol a ssay detects ethanol at concentrations >/= 100 mg/L. Amphetamines Screen, Urine None Detected None Detected [facility] Comment: The amphetamine screen detects d-amphetamine and d-methamphetamine at concentrations >300 ng/mL. A ? Presumptive Positive? result indicates that the screening result was positive but has not yet been confirmed by a highly-specific method. As with any screen, occasional false positive results from cross-reacting substances may occur. Not for Medico-Legal Purposes. Adulterants Screen, Urine None Detected None Detected [facility] Comment: No adulteration or dilution of this urine sample was detected. All urine samples submitted for urine drugs of abuse analysis are tested for creatinine concentration, pH, and for the presence of oxidants, nitrites, and chromate. Urine specimen (specimen) 03/25/2017 9:01 PM EDT 03/25/2017 9:09 PM EDT Narrative Resulting Agency Comment Spec In Lab Shaka Lawson MD CHEMISTRY ORDERABLES Performing Organization Address City/[facility]/ZIP Co de Phone Number [facility] [place] [address] * FATIMAH Request (03/25/2017 9:01 PM EDT) FATIMAH Conf Requested Yes [facility] FATIMAH Requested See Comment [facility] Comment:Refer to the FATIMAH Scr een w/ Confirmation order for results. Urine specimen (specimen) 03/25/2017 9:01 PM EDT 03/25/2017 9:09 PM EDT Shaka Lawson MD URINE ORDERABLES Performing Organization Address [facility] Co de Phone Number [facility] [place] [address] documented in this encounter Visit Diagnoses Diagnosis Severe episode of recurrent major depressive disorder, without psychotic features Single current episode of major depressive disorder, unspecified depression episode severity documented in this encounter Care Teams Teacher Instrumental Relationship Specialty Start Date End Date Claudia Strong MD [facility] [address] [place] [address] PCP - General 07/15/10 05/19/18 documented as of this encounter
--- OUTSIDE RECORDS SUMMARY | 2024-06-24 13:01 | XMS_ITS | Encounter Summary ---
Author Organization [facility] [place] [address] Care Team Providers Care Puzzle Assembler Name Role Phone Adriana Velazquez Primary Care Provider + Encounter Details Date Type Department Care Team (Late st Contact Info) Description 09/03/2020 Orders Only [place] [address] Popeye Leigh MD [facility] [address] [place] [address] Vaginal itching Social History Tobacco Use Types Packs/Day Years [...] as of this encounter Visit Diagnoses Diagnosis Vaginal itching Pruritus of genital organs documented in this encounter Care Teams Puzzle Assembler Relationship Specialty Start Date End Date Adriana Velazquez PA [address] [place] [address] [place] [address] PCP - General Internal Medicine 08/06/20 documented as of this encounter
--- OUTSIDE RECORDS SUMMARY | 2024-06-24 13:01 | XMS_ITS | Encounter Summary ---
[place] [address] Care Team Providers Care Dental Scheduler Name Role Phone Claudia Strong MD Primary Care Provider [phone] Encounter Details Date Type Department Care Team (Late st Contact Info) Description 05/14/2015 Notes Only [place] [address] Nahomi Valencia, RN Social History Tobacco Use Types Packs/Day Years Used Date Smoking Tobacco: Never Assessed Sex and Gender Information Value Date Recorded Sex Assigned at Not on file Gender Identity Not on file Sexual Orientation Not on file documented as of this encounter Progress Notes * Nahomi Valencia RN - 05/14/2015 9:51 AM EDT Called Patient with ABO ( A ). She is not compatible With her intended recipient. ( O ) documented in this encounter Plan of Treatment Not on file documented as of this encounter Visit Diagnoses Not on filedocumented in this encounter Care Teams Dental Scheduler Relationship Specialty Start Date End Date Claudia Strong MD [facility] [address] [place] [address] PCP - General 07/15/10 05/19/18 documented as of this encounter
--- OUTSIDE RECORDS SUMMARY | 2024-06-24 13:02 | XMS_ITS | Encounter Summary ---
Author Organization [facility] Address [address] [place] [address] Care Team Providers Care Seconds Handler Name Role Phone Claudia Strong MD Primary Care Provider Unavailable Unknown, Provider MD Primary Care Provider Unava ilable Encounter Details Date Type Department Care Team (Late st Contact Info) Description 05/18/2002 Results Only [facility] [place] [facility] [address] [place] [address] Claudia Strong MD Social History Tobacco Use Types Packs/Day Years Used Date Smoking Tobacco: Never Assessed Sex and Gender Information Value Date Recorded Sex Assigned at Not on file Gender Identity Female 12/01/2022 8:30 EDT Sexual Orientation Not on file documented as of this encounter Plan of Treatment Not on file documented as of this encounter Procedures Procedure Name Priority Date/Time Associated Diagnosis Comments CYTOPATHOLOGY Routine 05/18/2002 0:00 EDT documented in this encounter Results * CYTOPATHOLOGY (05/18/2002 0:00 EDT) Pathology Report: CYTOPATHOLOGY REPORT Reports generated via electronic interface contain original data; however they are lacking the format of the original report. Caution should be taken when reading/interpreti ng unformatted reports. Name: ? CHELSYSENIA COLE ? Accession #: ? [id number] : ? 1970 (Age: 31) ??F ?Collect Date: ? 05/18/2002 Location: ? [facility] ? Receive Date: ? 05/22/2002 Provider: ?CLAUDIA STRONG MD Copy to: ? Specimen/Source: ?ThinPrep Pap Test, Cervix/Endocervix Last Menstrual Period: ? 04/27/02 ? SPECIMEN ADEQUACY ? Satisfactory for Evaluation - transformation zone component absent GENERAL CATEGORIZATION ? Negative for Intraepithelial Lesion or Malignancy INTERPRETATION ? Shift in willy present suggestive of bacterial vaginosis. ? Document reviewed and electronically signed by: ? Pretty Pinedo, [facility](ASCP) ? Report Date: ??05/26/2002 11:13 End of Report BEB[facility] GILLIAM 05/18/2002 05/22/2002 Claudia Strong MD PATHOLOGY ORDER MIKE [facility] [address] [place] [address] documented in this encounter Visit Diagnoses Not on filedocumented in this encounter Care Teams Seconds Handler Relationship Specialty Start Date End Date Claudia Strong MD PCP - General 09/26/09 11/30/22 Unknown, MD Mirza PCP - General 09/25/09 09/25/09 documented as of this encounter
--- OUTSIDE RECORDS SUMMARY | 2024-06-24 13:02 | XMS_ITS | Encounter Summary ---
Author Organization [facility] Address [address] [place] [address] Care Team Providers Care Cork Slabs Sawyer Name Role Phone Adriana Velazquez Primary Care Provider + Reason for Visit * Reason Onset Date Comments Confirmation 12/09/2022 Encounter Details Date Type Department Care Team (Late st Contact Info) Description 12/09/2022 Telephone [facility] Acute Care Surgery - [address] [phone] Trauma Surgery, Ep5 Acs MD Confirmation Social History Tobacco Use Types Packs/Day Years [...] encounter Miscellaneous Notes * Telephone Encounter - Graciela Andrade - 12/09/2022 1625 EDT Calling to confirm follow up appt 12/10 @ 4 pm - Trauma Directions not needed documented in this encounter Plan of Treatment Not on file documented as of this encounter Visit Diagnoses Not on filedocumented in this encounter Care Teams Cork Slabs Sawyer Relationship Specialty Start Date End Date Adriana Velazquez PA [address] [place] [address] [place] [id number] PCP - General Internal Medicine - Primary Care 12/01/22 documented as of this encounter
--- OUTSIDE RECORDS SUMMARY | 2024-06-24 13:02 | XMS_ITS | Encounter Summary ---
Author Organization [facility] Address [address] [place] [address] Care Team Providers Care Personal Chef Name Role Phone Claudia Strong MD Primary Care Provider Unavailable Unknown, Provider MD Primary Care Provider Unava ilable Encounter Details Date Type Department Care Team (Late st Contact Info) Description 08/09/2006 Results Only [facility] [place] conversion [address] [place] [address] Claudia Strong MD Social History Tobacco Use [...] Priority Date/Time Associated Diagnosis Comments CYTOPATHOLOGY Routine 08/09/2006 0:00 EST documented in this encounter Results * CYTOPATHOLOGY (08/09/2006 0:00 EST) Pathology Report: CYTOPATHOLOGY REPORT Reports generated via electronic interface contain original data; however they are lacking the format of the original report. Caution should be taken when reading/interpreti ng unformatted reports. Name: ? SENIA SILVA ? Accession #: ? [id number] : ? 1970 (Age: 36) ??F ?Collect Date: ? 08/09/2006 Location: ? [facility] ? Receive Date: ? 08/12/2006 Provider: ?CLAUDIA STRONG MD Copy to: ? Specimen/Source: ?ThinPrep Pap Test, Cervix/Endocervix, processed on [employer] ThinPrep Imaging System, with manual evaluation Last Menstrual Period: ? 07/17/06 ? SPECIMEN ADEQUACY ? Satisfactory for Evaluation - transformation zone component present GENERAL CATEGORIZATION ? Negative for Intraepithelial Lesion or Malignancy ? Document reviewed and electronically signed by: ? ADWOA Arzola(ASCP) ? Report Date: ??08/20/2006 09:29 End of Report BEBETO GILLIAM 08/09/2006 08/12/2006 Claudia Strong MD PATHOLOGY ORDER MIKE Performing Organization Address City/State/[facility] Co de Phone Number [facility] [address] [place] [address] documented in this encounter Visit Diagnoses Not on filedocumented in this encounter Care Teams Personal Chef Relationship Specialty Start Date End Date Claudia Strong MD PCP - General 09/26/09 11/30/22 Unknown, MD Mirza PCP - General 09/25/09 09/25/09 documented as of this encounter
--- OUTSIDE RECORDS SUMMARY | 2024-06-24 13:02 | XMS_ITS | Encounter Summary ---
Author Organization [facility] Address [address] [place] [address] Care Team Providers Care Substation Superintendent Name Role Phone Claudia Strong MD Primary Care Provider Unavailable Adriana Velazquez Primary Care Provider + Encounter Details Date Type Department Care Team (Late st Contact Info) Description 07/19/2020 Lab Requisition [facility] Pathology & Laboratory Medicine - [address] [address] Outr Resulting Lab, Provider Social History Tobacco Use Types Packs/Day Years [...] Procedure Name Priority Date/Time Associated Diagnosis Comments CA 125 Routine 07/19/2020 12:26 EST documented in this encounter Results * CA 125 (07/19/2020 12:26 EST) CA 125 13 <30 U/mL 07/22/2020 10:08 EST [facility] Comment: NOTE: Serum CA 125 concentration should not be interpreted as absolute evidence for the presence or absence of malignant disease. Assayed on Siemens [employer]IA [employer] XPT using chemiluminescent technology. ??Values obtained by using different assay methods cannot be used interchangeably. Blood VENOUS BLOOD / Unknown 07/19/2020 12:26 EST 07/19/2020 22:00 EST Provider Outr Resulting Lab CHEMISTRY & BLOOD GAS ORDERABLES [facility] [address] [place] [address] documented in this encounter Visit Diagnoses Not on filedocumented in this encounter Care Teams Substation Superintendent Relationship Specialty Start Date End Date Claudia Strong MD PCP - General 09/26/09 11/30/22 Adriana Velazquez PA [address] [place] [phone] PCP - General Internal Medicine - Primary Care 12/01/22 documented as of this encounter
--- OUTSIDE RECORDS SUMMARY | 2024-06-24 13:02 | XMS_ITS | Encounter Summary ---
Author Organization [facility] Address [address] [place] [address] Care Team Providers Care Polymerization Kettle Operator Name Role Phone Claudia Strong MD Primary Care Provider Unavailable Adriana Velazquez Primary Care Provider + Encounter Details Date Type Department Care Team (Late st Contact Info) Description 07/13/2022 Lab Requisition [facility] Pathology & Laboratory Medicine - [address] [address] Outr Resulting Lab, Provider Social History Tobacco [...] Procedure Name Priority Date/Time Associated Diagnosis Comments HIV 1/2 ANTIGEN AND ANTIBODY, 4TH GENERATION Routine 07/13/2022 9:30 EST documented in this encounter Results * HIV 1/2 ANTIGEN AND ANTIBODY, 4TH GENERATION (07/13/2022 9:30 EST) HIV 1 and 2 Antibody/p24 Antigen, 4th Generation Negative Negative 07/14/2022 9:42 EST [facility] Comment:If acute HIV-1 infec tion is suspected in a high risk patient, submit plasma specimen for HIV-1 RNA quantitation test. Blood VENOUS BLOOD / Unknown 07/13/2022 9:30 EST 07/13/2022 20:47 EST Narrative [facility] - 07/14/2022 9:42 EST Fourth Generation assay performed on the Siemens Centaur XPT. Provider Outr Resulting Lab IMMUNOLOGY A ND SEROLOGY ORDERABLES Performing Organization Address City/State/[facility] Co de Phone Number [facility] [address] [place] [address] documented in this encounter Visit Diagnoses Not on filedocumented in this encounter Care Teams Polymerization Kettle Operator Relationship Specialty Start Date End Date Claudia Strong MD PCP - General 09/26/09 11/30/22 Adriana Velazquez PA [address] [place] [phone] PCP - General Internal Medicine - Primary Care 12/01/22 documented as of this encounter
--- OUTSIDE RECORDS SUMMARY | 2024-06-24 13:02 | XMS_ITS | Encounter Summary ---
Author Organization [facility] Address [address] [place] [address] Care Team Providers Care Senior Loan Processor Name Role Phone Claudia Strong MD Primary Care Provider Unavailable Adriana Velazquez Primary Care Provider + Encounter Details Date Type Department Care Team (Late st Contact Info) Description 02/16/2020 Lab Requisition [facility] Pathology & Laboratory Medicine - [address] [address] Timoteo Radford MD [address] [place] [phone] Encounter for screening for malignant neoplasm of colon Social History Tobacco Use Types Packs/Day Years Used Date Smoking Tobacco: Never Assessed Sex and Gender Information Value Date Recorded Sex Assigned at Not on file Gender Identity Female 12/01/2022 8:30 EDT Sexual Orientation Not on file documented as of this encounter Plan of Treatment Not on file documented as of this encounter Procedures Procedure Name Priority Date/Time Associated Diagnosis Comments SURGICAL PATHOLOGY Today 02/16/2020 10 :28 EDT documented in this encounter Results * SURGICAL PATHOLOGY (02/16/2020 10:28 EDT) Final Diagnosis A. RECTUM, POLYP, BIOPSY: - Hyperplastic polyp. 02/19/2020 11:18 EDT [facility] at 1118 Attestation By the signature below, the attending physician certifies that they have 1) personally conducted a gross and/or microscopic examination of the described specimen(s), and/or personally interpreted the results of laboratory testing of the described specimen(s), and 2) personally rendered or confirmed the above diagnosis. 02/19/2020 11:18 EDT [facility] at 1118 Clinical History Preoperative DX: Screening Postoperative DX: Rectal polyp, internal hemorrhoids 02/19/2020 11:18 EDT [facility] Gross Description A. Received in formalin labelled with proper patient identification (initials R, R) and A. Rectal polyp are two firm doran tissues (0.4 x 0.3 x 0.3 cm and 0.1 x 0.1 x 0.1 cm). Entirely submitted in A1. Declan Cleaning 02/17/2020 10:31 02/19/2020 11:18 EDT [facility] Scanned Images 02/19/2020 11:18 T [facility] Tissue SPECIMEN FROM RECTUM / Unknown 02/16/2020 10:28 EDT 02/16/2020 22:05 EDT Timoteo Radford MD PATHOLOGY JAI H[facility]PER [facility] Organization Address City/State/ZIP Co de Phone Number [facility] [address] [place] [address] documented in this encounter Visit Diagnoses Diagnosis Encounter for screening for malignant neoplasm of colon Special screening for malignant neoplasms, colon documented in this encounter Care Teams Senior Loan Processor Relationship Specialty Start Date End Date Claudia Strong MD PCP - General 09/26/09 11/30/22 Adriana Velazquez PA [address] [place] [address] [place] [phone] PCP - General Internal Medicine - Primary Care 12/01/22 documented as of this encounter
--- OUTSIDE RECORDS SUMMARY | 2024-06-24 13:02 | XMS_ITS | Encounter Summary ---
Author Organization [facility] Address [address] [place] [address] Care Team Providers Care Security Manager Name Role Phone Claudia Storng MD Primary Care Provider Unavailable Unknown, Provider MD Primary Care Provider Unava ilable Encounter Details Date Type Department Care Team (Late st Contact Info) Description 12/22/1999 Results Only [facility] conversion [address] [place] [address] Claudia Strong MD Social History Tobacco Use [...] Priority Date/Time Associated Diagnosis Comments CYTOPATHOLOGY Routine 12/22/1999 9:15 EDT documented in this encounter Results * CYTOPATHOLOGY (12/22/1999 9:15 EDT) Pathology Report: CYTOPATHOLOGY REPORT Reports generated via electronic interface contain original data; however they are lacking the format of the original report. Caution should be taken when reading/interpreti ng unformatted reports. Name: ? SENIA SILVA ? Accession #: ? [id number] : ? 1970 (Age: 29) ??F ?Collect Date: ? 12/22/1999 Location: ?Receive Date: ? 12/22/1999 Provider: ?CLAUDIA STRONG MD Copy to: ?CLAUDIABIRGIT STRONG MD ? Specimen/Source: ?Met[employer]itter ThinPrep Last Menstrual Period: ? GYNECOLOGIC ??CYTOPATHOLOGY ??REPORT Name: SENIA ALDANA ? [facility] : 1970 ?? 29Y F ?Client ID: ?? SS#: [id number] ? Clinician: CLAUDIA STRONG MD ?? Location: [facility] ??Copy to: ?? Specimen: ?Metal Fitter ThinPrep ? Source: Vagina/ Cervix/ Endocervix ?Collected: 12/16/99 ? Received: 12/22/1999 ?LMP: 2 Weeks Ago ?Hormone Therapy: No ? : No ? Radiation Therapy: No ?? Post : No ?Chemotherapy: No ?IUD: No ? Prev Abnormal Pap: No ?? Clinical Hx: ?(Blank quiroga indicate information not provided on requisition) SPECIMEN ADEQUACY: ? Satisfactory For Evaluation ?? GENERAL CATEGORIZATION: ? WITHIN NORMAL LIMITS ? Reviewed And Electronically Signed By: ? Fawn Gee, CT(ASCP) ? Report Date: ?? 12/25/1999 [employer] Archived Tests - Final Diagnosis Text Field: Clinical History : ? Document reviewed and electronically signed by: ? Conversion ? Report Date: ??12/25/1999 00:00 End of Report BEBETO GILLIAM 12/22/1999 9:15 EDT 12/22/1999 9:16 EDT Claudia Andreea Strong MD PATHOLOGY ORDER MIKE BEBETO GILLIAM [address] [place] [address] documented in this encounter Visit Diagnoses Not on filedocumented in this encounter Care Teams Security Manager Relationship Specialty Start Date End Date Claudia Strong MD PCP - General 09/26/09 11/30/22 Unknown, Provider, PCP - General 09/25/09 09/25/09 documented as of this encounter
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
--- OUTSIDE RECORDS SUMMARY | 2024-06-24 13:02 | XMS_ITS | Encounter Summary ---
Author Organization [facility] Address [address] [place] [address] Care Team Providers Care Help Desk Intern Name Role Phone Claudia Strong MD Primary Care Provider Unavailable Unknown, Provider MD Primary Care Provider Unava ilable Encounter Details Date Type Department Care Team (Late st Contact Info) Description 10/06/2007 Results Only [facility] conversion [address] [place] [address] Claudia Strong MD Social History Tobacco Use [...] Priority Date/Time Associated Diagnosis Comments CYTOPATHOLOGY Routine 10/06/2007 0:00 EST documented in this encounter Results * CYTOPATHOLOGY (10/06/2007 0:00 EST) Pathology Report: CYTOPATHOLOGY REPORT Reports generated via electronic interface contain original data; however they are lacking the format of the original report. Caution should be taken when reading/interpreti ng unformatted reports. Name: ? SENIA SILVA ? Accession #: ? [id number] : ? 1970 (Age: 37) ??F ?Collect Date: ? 10/06/2007 Location: ? [facility] ? Receive Date: ? 10/10/2007 Provider: ?CLAUDIA STRONG MD Copy to: ? Specimen/Source: ?ThinPrep Pap Test, Source Not Provided, processed on [employer] ThinPrep Imaging System, with manual evaluation Last Menstrual Period: ? SPECIMEN ADEQUACY ? Satisfactory for Evaluation - transformation zone component present GENERAL CATEGORIZATION ? Negative for Intraepithelial Lesion or Malignancy ? Document reviewed and electronically signed by: ? Domonique Katz, SCT(ASCP) ? Report Date: ??10/12/2007 14:52 End of Report BEBETO GILLIAM 10/06/2007 10/10/2007 Claudia Strong MD PATHOLOGY ORDER MIKE [facility] [address] [place] [address] documented in this encounter Visit Diagnoses Not on filedocumented in this encounter Care Teams Help Desk Intern Relationship Specialty Start Date End Date Claudia Strong MD PCP - General 09/26/09 11/30/22 Unknown, MD Mirza PCP - General 09/25/09 09/25/09 documented as of this encounter
--- OUTSIDE RECORDS SUMMARY | 2024-06-24 13:02 | XMS_ITS | Encounter Summary ---
Author Organization [facility] Address [address] [place] [address] Care Team Providers Care Network Communications Engineer Name Role Phone Claudia Strong MD Primary Care Provider Unavailable Adriana Velazquez Primary Care Provider + Encounter Details Date Type Department Care Team (Late st Contact Info) Description 09/11/2020 Lab Requisition [facility] Pathology & Laboratory Medicine - [address] [address] Pradip Fontenot MD [address] [place] [phone] Irregular menstruation, unspecified Social History Tobacco Use Types Packs/Day Years [...] Procedure Name Priority Date/Time Associated Diagnosis Comments ANATOMIC PATHOLOGY - DOWNTIME Today 07/08/2020 15:00 EST Irregular menstruation, unspecified documented in this encounter Results * ANATOMIC PATHOLOGY - DOWNTIME (07/08/2020 15:00 EST) Final Diagnosis See scanned downtime report. 09/11/2020 7:59 EST [facility] Attestation Report electronically released by Guille Oconnor on 09/11/20 . 09/11/2020 7:59 EST [facility] Resident/Lionel w: Kiara Marinelli DO 09/11/2020 7:59 EST [facility] Performing Lab [facility] 09/11/2020 7:59 EST [facility] Scanned Images 09/11/2020 7:59 EST [facility] Tissue ENTIRE ENDOMETRIUM / Unknown 07/08/2020 15:00 EST 09/11/2020 7:59 EST Pradip Fontenot MD PATHOLOGY JAI HOPPER [facility] [address] [place] [address] documented in this encounter Visit Diagnoses Diagnosis Irregular menstruation, unspecified documented in this encounter Care Teams Network Communications Engineer Relationship Specialty Start Date End Date Claudia Strong MD PCP - General 09/26/09 11/30/22 Adriana Velazquez PA [address] [place] [phone] PCP - General Internal Medicine - Primary Care 12/01/22 documented as of this encounter
--- OUTSIDE RECORDS SUMMARY | 2024-06-24 13:02 | XMS_ITS | Encounter Summary ---
Author Organization [facility] Address [address] [place] [address] Care Team Providers Care Assistant General Manager Name Role Phone Claudia Strong MD Primary Care Provider Unavailable Adriana Velazquez Primary Care Provider + Encounter Details Date Type Department Care Team (Late st Contact Info) Description 07/17/2020 Lab Requisition [facility] Pathology & Laboratory Medicine - [address] [address] Outr Resulting Lab, Provider Social History Tobacco [...] as of this encounter Plan of Treatment Scheduled Orders Name Type Priority Associated Diagnoses Orde r Schedule SURGICAL PATHOLOGY Pathology Routine Ordere d: 07/17/2020 documented as of this encounter Visit Diagnoses Not on filedocumented in this encounter Care Teams Assistant General Manager Relationship Specialty Start Date End Date Claudia Strong MD PCP - General 09/26/09 11/30/22 Adriana Velazquez PA [address] [place] [address] [place] [phone] PCP - General Internal Medicine - Primary Care 12/01/22 documented as of this encounter
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
--- OUTSIDE RECORDS SUMMARY | 2024-06-24 13:02 | XMS_ITS | Encounter Summary ---
Author Organization [facility] Address [address] [place] [address] Care Team Providers Care Appointment Clerk Name Role Phone Unavailable Primary Care Provider Unavailabl e Encounter Details Date Type Department Care Team (Late st Contact Info) Description 11/29/2008 Before PRISM Converted Visit (Maple) [facility] - Maple conversion [address] [place] [address] Claudia Strong MD Social History Tobacco Use [...] Priority Date/Time Associated Diagnosis Comments CYTOPATHOLOGY Routine 11/29/2008 0:00 EDT documented in this encounter Results * CYTOPATHOLOGY (11/29/2008 0:00 EDT) Pathology Report: CYTOPATHOLOGY REPORT ? Reports generated via electronic interface contain original data; ? however they are lacking the format of the original report. ? Caution should be taken when reading/interpreti ng unformatted reports. ? Name: ? SENIA SILVA ? Accession #: ? [id number] ? : ? 1970 (Age: 38) ??F ?Collect Date: ? 11/29/2008 ? Location: ? [facility] ? Receive Date: ? 12/03/2008 ? Provider: ?CLAUDIA STRONG MD ? Copy to: ? Specimen/Source: ?Pap Test, Cervix/Endocervix, ThinPrep Imaging System ? with manual evaluation ? Last Menstrual Period: ? 03/20/09 ? Other: ? HPVA - HPV testing requested if ASC-US on the current ThinPrep Pap test. ? SPECIMEN ADEQUACY ? Satisfactory for Evaluation ? - transformation zone component present ? GENERAL CATEGORIZATION ? Negative for Intraepithelial Lesion or Malignancy ? INTERPRETATION ? Reactive cellular changes associated with inflammation present (includes ?? repair). ? Document reviewed and electronically signed by: ? Bertrand B. Ambaye, MD ? Report Date: ??12/06/2008 14:45 ? End of Report ? [facility] 11/29/2008 12/03/2008 Claudia Andreea Strong MD PATHOLOGY ORDER MIKE [facility] [address] [place] [address] documented in this encounter Visit Diagnoses Not on filedocumented in this encounter
--- OUTSIDE RECORDS SUMMARY | 2024-06-24 13:02 | XMS_ITS | Encounter Summary ---
Author Organization [facility] Address [address] [place] [address] Care Team Providers Care Flux Tube Attendant Name Role Phone Claudia Strong MD Primary Care Provider Unavailable Adriana Velazquez Primary Care Provider + Encounter Details Date Type Department Care Team (Late st Contact Info) Description 02/13/2020 Lab Requisition [facility] Pathology & Laboratory Medicine - [address] [address] Outr Resulting Lab, Provider Social History Tobacco [...] Procedure Name Priority Date/Time Associated Diagnosis Comments DO NOT ORDER STANDALONE - BROAD COVID TEST Today 02/13/2020 9:06 EDT COVID-19 TESTING Routine 02/13/2020 9:06 EDT documented in this encounter Results * DO NOT ORDER STANDALONE - BROAD COVID TEST (02/13/2020 9:06 EDT) COVID-19 rt-PCR Result NEGATIVE Negative 02/14/2020 23:27 EDT [facility] Comment: 2019-novel Coronavirus (2019-nCoV) not detected by the qRT-PCR assay. Consider testing for other respiratory viruses or re-collecting for 2019-nCoV testing. Note: Optimum timing for peak viral levels during infections caused by 2019-nCoV have not been determined. Collection of multiple specimens from the same patient may be necessary to detect the virus. Limitations Positive results are indicative of active infection with SARS-CoV-2 but do not rule out bacterial infection or co-infection with other viruses. The agent detected may not be the definite cause of disease. In addition, detection of viral RNA may not indicate the presence of infectious virus or that SARS-CoV-2 is the causative agent for clinical symptoms. Negative results do not preclude SARS-CoV-2 infection and should not be used as the sole basis for patient management decisions. Negative results must be combined with clinical observations, patient history, and epidemiological information. False negative results may also occur if amplification inhibitors are present in the specimen or if inadequate numbers of organisms are present in the specimen. Optimum specimen types and timing for peak viral levels during infections caused by SARS-CoV-2 have not been fully determined. Collection of multiple specimens (types and time points) from the same patient may be necessary to detect the virus. The test was validated for use with upper respiratory specimens obtained via nasopharyngeal or oropharyngeal swabs in VTM, UTM, M4, M5, M6, saline, and MTM media. The performance of this test has not been established for other specimens. Specimens collected using other FDA recommended Specimen Collection Materials listed in the FDA COVID-19 [employer] communication (November 16, 2019) are processed with the caveat that they were not all validated for use with this test and the result must be interpreted in this context. Furthermore, a false negative results may occur if a specimen is improperly collected, transported or handled. If the virus mutates in the RT-PCR target region, SARS-CoV-2 may not be detected or may be detected less predictably. Inhibitors or other types of interference may produce a false negative result. An interference study evaluating the effect of common cold medications was not performed. This test is not FDA-cleared but its performance characteristics were established by our CLIA-certified, CAP-accredited, high complexity laboratory in accordance with CLIA regulations, [employer] (CAP) guidelines (Nov 09, 2019), and FDA guidance (Oct 21, 2019). This test is only for use under the Food and Drug Administration's Emergency Use Authorization. Swab ENTIRE NASOPHARYNX / Unknown 02/13/2020 9:06 EDT 02/13/2020 21:53 EDT Provider Outr Resulting Lab MICROBIOLOGY - GENERAL ORDERABLES [facility] [place], [place] * COVID-19 TESTING (02/13/2020 9:06 EDT) COVID-19 rt-PCR Result NEGATIVE Negative 02/15/2020 6:40 EDT [facility] Comment: 2019-novel Coronavirus (2019-nCoV) not detected by the qRT-PCR assay. Consider testing for other respiratory viruses or re-collecting for 2019-nCoV testing. Note: Optimum timing for peak viral levels during infections caused by 2019-nCoV have not been determined. Collection of multiple specimens from the same patient may be necessary to detect the virus. Limitations Positive results are indicative of active infection with SARS-CoV-2 but do not rule out bacterial infection or co-infection with other viruses. The agent detected may not be the definite cause of disease. In addition, detection of viral RNA may not indicate the presence of infectious virus or that SARS-CoV-2 is the causative agent for clinical symptoms. Negative results do not preclude SARS-CoV-2 infection and should not be used as the sole basis for patient management decisions. Negative results must be combined with clinical observations, patient history, and epidemiological information. False negative results may also occur if amplification inhibitors are present in the specimen or if inadequate numbers of organisms are present in the specimen. Optimum specimen types and timing for peak viral levels during infections caused by SARS-CoV-2 have not been fully determined. Collection of multiple specimens (types and time points) from the same patient may be necessary to detect the virus. The test was validated for use with upper respiratory specimens obtained via nasopharyngeal or oropharyngeal swabs in VTM, UTM, M4, M5, M6, saline, and MTM media. The performance of this test has not been established for other specimens. Specimens collected using other FDA recommended Specimen Collection Materials listed in the FDA COVID-19 [employer] communication (November 16, 2019) are processed with the caveat that they were not all validated for use with this test and the result must be interpreted in this context. Furthermore, a false negative results may occur if a specimen is improperly collected, transported or handled. If the virus mutates in the RT-PCR target region, SARS-CoV-2 may not be detected or may be detected less predictably. Inhibitors or other types of interference may produce a false negative result. An interference study evaluating the effect of common cold medications was not performed. This test is not FDA-cleared but its performance characteristics were established by our CLIA-certified, CAP-accredited, high complexity laboratory in accordance with CLIA regulations, [employer] (CAP) guidelines (Nov 09, 2019), and FDA guidance (Oct 21, 2019). This test is only for use under the Food and Drug Administration's Emergency Use Authorization. Performing Lab [facility] 02/15/2020 6:[address] [facility] Swab 02/13/2020 9:06 EDT 02/13/2020 21:53 EDT Provider Outr Resulting Lab MICROBIOLOGY - GENERAL ORDERABLES [facility] [address] [place] [address] [facility] [place], [place] documented in this encounter Visit Diagnoses Not on filedocumented in this encounter Care Teams Flux Tube Attendant Relationship Specialty Start Date End Date Claudia Strong MD PCP - General 09/26/09 11/30/22 Adriana Velazquez PA [address] [place] [phone] PCP - General Internal Medicine - Primary Care 12/01/22 documented as of this encounter
--- OUTSIDE RECORDS SUMMARY | 2024-06-24 13:02 | XMS_ITS | Encounter Summary ---
Author Organization [facility] Address [address] [place] [address] Care Team Providers Care Stave Log Cut Off Saw Operator Name Role Phone Claudia Strong MD Primary Care Provider Unavailable Encounter Details Date Type Department Care Team (Late st Contact Info) Description 09/04/2013 Results Only [facility] Services - [facility] ([address] [phone] Claudia Strong MD Social History Tobacco Use [...] Procedure Name Priority Date/Time Associated Diagnosis Comments PAP TEST- RESULT ONLY Routine 09/04/2013 0:00 EST documented in this encounter Results * PAP TEST- RESULT ONLY (09/04/2013 0:00 EST) Pathology Report: CYTOPATHOLOGY REPORT Reports generated via electronic interface contain original data; however they are lacking the format of the original report. Caution should be taken when reading/interpreti ng unformatted reports. Name: ? SENIA SILVA ? Accession #: ? [id number] ? : ? 1970 (Age: 43) ??F ?Collect Date: ? 09/04/2013 ? Location: ? [facility] ? Receive Date: ? 09/11/2013 ? Provider: CLAUDIA STRONG MD Copy to: ? Final Report SPECIMEN ADEQUACY ? Satisfactory for Evaluation - transformation zone component present GENERAL CATEGORIZATION ? Negative for Intraepithelial Lesion or Malignancy ?? Last Menstrual Period: 3 weeks ago Specimen/Source: ??Pap Test, Cervix, ThinPrep Imaging System with manual evaluation Document reviewed and electronically signed by: ? Jaqueline Juarez, [place](ASCP) ? Report ??Date: 09/12/2013 09:24 HPV with Pap Test ? Date Ordered: ? 09/12/2013 ? Status: ?? Signed Out ?Date Complete: ? 09/14/2013 ? By: ??System Interface ? Date Reported: ? 09/14/2013 ? Interpretation RESULT: Negative for HPV. No E6 or E7 mRNA is detected from HPV types 16,18,31,33,35, 39,45,51,52,56,58, 59,66, and 68 by tax clerk mediated amplification. Comments Document reviewed and electronically signed by: ? System Interface ? Report date: 09/14/2013 By the signature above, the attending physician certifies that he/she has personally conducted a gross and/or microscopic examination of the described specimens and rendered or confirmed the above diagnosis. End of Report [facility] 09/04/2013 09/11/2013 Claudia Strong MD PATHOLOGY ORDER [facility] [address] [place] [address] documented in this encounter Visit Diagnoses Not on filedocumented in this encounter Care Teams Stave Log Cut Off Saw Operator Relationship Specialty Start Date End Date Claudia Strong MD PCP - General 09/26/09 11/30/22 documented as of this encounter
--- OUTSIDE RECORDS SUMMARY | 2024-06-24 13:02 | XMS_ITS | Encounter Summary ---
Author Organization [facility] Address [address] [place] [address] Care Team Providers Care Cuffing Machine Operator Name Role Phone Claudia Strong MD Primary Care Provider Unavailable Encounter Details Date Type Department Care Team (Late st Contact Info) Description 12/15/2016 Results Only [facility]- [facility] [phone] Claudia Strong MD Social History Tobacco Use [...] Diagnosis Comments PAP TEST- RESULT ONLY Routine 12/15/2016 0:00 EDT documented in this encounter Results * PAP TEST- RESULT ONLY (12/15/2016 0:00 EDT) Pathology Report: CYTOPATHOLOGY REPORT Reports generated via electronic interface contain original data; however they are lacking the format of the original report. Caution should be taken when reading/interpreti ng unformatted reports. Name: ? SENIA SILVA ? Accession #: ? [id number] ? : ? 1970 (Age: 46) ??F ?Collect Date: ? 12/15/2016 ? Location: ? [facility] ? Receive Date: ? 12/16/2016 ? Provider: CLAUDIA STRONG MD Copy to: ? Final Report SPECIMEN ADEQUACY ? Satisfactory for Evaluation - transformation zone component present GENERAL CATEGORIZATION ? Other, see interpretation INTERPRETATION ? Endometrial cells present in a woman equal to or greater than age 45. Negative for Intraepithelial Lesion. EDUCATIONAL NOTES/RECOMMENDATI ONS ? ASCCP management guidelines advises using histologic endometrial assessment only in postmenopausal women. Benign appearing endometrial cells on Pap tests are usually a normal finding in women with regular menstrual cycles, especially if the Pap test was collected during the first half of the menstrual cycle. There is data showing that endometrial cells on Pap tests may be associated with endometrial/uterin e abnormalities in post menopausal women or in perimenopausal women with abnormal bleeding. There is limited data on the significance of benign endometrial cells in post menopausal women on HRT. ??Clinical correlation is recommended. Note: ??The Pap test is not an accurate test for the screening of endometrial lesions and should not be used as a follow up in patients with clinical suspicion of endometrial pathology. Last Menstrual Period: 2 weeks ago Other: Ventilated Rib Fitter Clinical/Treatment Hx - None Specimen/Source: ??Pap Test, Cervix, ThinPrep Imaging System with manual evaluation Document reviewed and electronically signed by: ? GOPAL VIERA MD ? Report ??Date: 12/28/2016 16:47 HPV with Pap Test ? Date Ordered: ? 12/28/2016 ? Status: ?? Signed Out ?Date Complete: ? 12/30/2016 ? By: ??System Interface ? Date Reported: ? 12/30/2016 ? Interpretation RESULT: Negative for HPV. No E6 or E7 mRNA is detected from HPV types 16,18,31,33,35, 39,45,51,52,56,58, 59,66, and 68 by traveling construction superintendent mediated amplification. Comments Document reviewed and electronically signed by: ? System Interface ? Report date: 12/30/2016 By the signature above, the attending physician certifies that he/she has personally conducted a gross and/or microscopic examination of the described specimens and rendered or confirmed the above diagnosis. End of Report [facility] 12/15/2016 12/16/2016 Claudia Strong MD PATHOLOGY ORDER MIKE [facility] [address] [place] [address] documented in this encounter Visit Diagnoses Not on filedocumented in this encounter Care Teams Cuffing Machine Operator Relationship Specialty Start Date End Date Claudia Strong MD PCP - General 09/26/09 11/30/22 documented as of this encounter
--- OUTSIDE RECORDS SUMMARY | 2024-06-24 13:02 | XMS_ITS | Encounter Summary ---
Author Organization [facility] Address [address] [place] [address] Care Team Providers Care Pathology Transcriptionist Name Role Phone Claudia Strong MD Primary Care Provider Unavailable Encounter Details Date Type Department Care Team (Latest Contact Info) Description 09/26/2009 10:09 EST - 09/26/2009 23:59 EST Hospital Encounter [facility] - [address] [id number] Unknown, Provider, Rex Siddiqui MD PhD [facility], Dasha Nelson MD [address] [facility],[address] [place] [address] Discharge Disposition: Auto Discharge Social History Tobacco Use Types Packs/Day Years Used Date Smoking Tobacco: Never Assessed Sex and Gender Information Value Date Recorded Sex Assigned at Not on file Gender Identity Female 12/01/2022 8:30 EDT Sexual Orientation Not on file documented as of this encounter Discharge Disposition Disposition Code Departure Means Destination Auto Discharge Home documented in this encounter Consult Notes * Dasha Nelson MD - 09/26/2009 0000 EST DIVISION OF REPRODUCTIVE ENDOCRINOLOGY AND INFERTILITY CONSULTATION - 09/26/2009 CHIEF COMPLAINT: Juana Silva is seen in consultation today as requested by Claudia Strong for evaluation and treatment of infertility. HISTORY OF PRESENT ILLNESS: Juana is a 39-year-old 3, para 2 female who underwent a Falopering bilateral tubal ligation in 1992 at age 23. Prior to that she had had spontaneous vaginal deliveries and 1 therapeutic . Her children are now ages 23 and 20 and she is remarried to Gatito Silva. Gatito additionally has 2 children ages 23 and 20. They have been together for 10 years and have been for 4 years and they now desire to attempt conception. The patient does not have insurance coverage for IVF; however, she has insurance coverage for tubal reversal and she strongly desires this. She describes regular cycles lasting approximately 30 days with no recent changes. Her gynecologic history is benign with no history of STIs. PAST MEDICAL HISTORY: Significant for hypertension, for which she takes hydrochlorothiazide; and also depression, for which she takes Effexor. MEDICATIONS: Effexor 37.5 mg daily. Hydrochlorothiazide 25 mg daily. ALLERGIES: No known drug allergies. SURGERIES: 1. Bilateral tubal ligation. 2. D & C. 3. Laparoscopy. 4. Ankle surgery. FAMILY HISTORY: Noncontributory. SOCIAL HISTORY: The patient does not smoke. She is a [employer]-again [employer], as is her . REVIEW OF SYSTEMS: A 14-point review of systems is otherwise noncontributory. OBJECTIVE: Height 5 feet, 1 inch. Weight 160. Blood pressure 148/98. In general the patient is an overweight female in no acute distress. Heart rate regular rate and rhythm, no murmurs. Lungs clear to auscultation bilaterally. Abdomen is soft, nontender, nondistended. Gynecologic exam is deferred as the patient's Pap smear is up-to-date, the last Pap was in 11/2008. Neurologic, alert andoriented x3, normal mood and affect, although the patient is slightly anxious. IMPRESSION: A 39-year-old 3, para 2 female with a history of bilateral tubal ligation who now desires to discuss fertility options. After extensive discussion with the patient it is clear that she only wishes to pursue tubal reversal. PLAN: Forty-five minutes of time was spent with the patient, more than 50% of which was done in counseling. We reviewed the association of age and infertility extensively and that the chance of conception in a 39-year-old was less than 10% over the course of a year. In her situation with the tubal ligation, following tubal reversal the tubes would still be somewhat damaged and her chances at conception would be so low as to not justify the risk of a major surgery. We reviewed other options including in vitro fertilization, possibly with the patient's eggs or also with donor eggs. We also discussed adoption. The patient is clearly not interested in pursuing in vitro fertilization and additionally at this point does not desire to pursue adoption. She strongly desires tubal reversal and asked multiple times why this could not be given to her as she does have insurance coverage. I reviewed that medically and ethically that the opinion of the [facility] department of reproductive endocrinology is that the benefits do not outweigh the risks of tubal reversal and that her chance of subsequent conception is quite low. I did offer her an opportunity to pursue a second opinion and will have Heena give the patient for [facility], or the patient may pursue any outside institution that she desires. Additionally, I offered the patient an opportunity to discuss her fertility needs and desires with our psychologist, Dr Jessica Howell. The patient declined this option and she states there is nothing she wishes to discuss. She is interested in pursuing a second opinion and will likely proceedherself to contacting [facility]. All of her questions were answered. The above plan was discussed with Dr Prince who agrees. I saw and examined the patient with the resident/fellow. I agree with the findings and plan of caredocumented in the resident's/fellow's note. Electronically Signed by Rex Prince MD 10/01/2009 15:58 Dasha Nelson MD Rex Prince MD - Dasha Nelson MD - JV Job ID: SM Doc ID: [id number] Ext Doc ID: [id number] cc: Claudia Strong MD documented in this encounter Plan of Treatment Not on file documented as of this encounter Visit Diagnoses Not on filedocumented in this encounter Care Teams Pathology Transcriptionist Relationship Specialty Start Date End Date Claudia Strong MD PCP - General 09/26/09 11/30/22 documented as of this encounter
--- OUTSIDE RECORDS SUMMARY | 2024-06-24 13:02 | XMS_ITS | Encounter Summary ---
Author Organization [facility] Address [address] [place] [address] Care Team Providers Care Bin Operator Name Role Phone Claudia Strong MD Primary Care Provider Unavailable Adriana Velazquez Primary Care Provider + Encounter Details Date Type Department Care Team (Late st Contact Info) Description 01/01/2021 Lab Requisition [facility] Pathology & Laboratory Medicine - [address] [address] Outr Resulting Lab, Provider Social History Tobacco [...] Procedure Name Priority Date/Time Associated Diagnosis Comments SPEP WITH IMMUNOTYPING PERFORMABLE Today 01/01/2021 17:00 EDT ALPHA 1 ANTITRYPSIN Routine 01/01/2021 1 7:00 EDT IGA Routine 01/01/2021 17:00 EDT SPEP WITH IMMUNOTYPING Routine 01/01/2021 17:00 EDT PROTEIN, TOTAL Today 01/01/2021 17:00 EDT documented in this encounter Results * (ABNORMAL) SPEP WITH IMMUNOTYPING PERFORMABLE (01/01/2021 17:00 EDT) Albumin % 62.5 55.8 - 66.1 % 01/03/2021 15:27 [facility] Alpha-1 % 4.4 2.9 - 4.9 % 01/03/2021 15:27 [facility] Alpha-2 % 10.8 7.1 - 11.8 % 01/03/2021 15:27 [facility] Beta % 11.9 8.4 - 13.1 % 01/03/2021 15:27 [facility] Gamma % 10.4(L) 11.1 - 18.8 % 01/03/2021 15:27 [facility] SPEP Comment No apparent monoclonal protein seen on serum electrophoresis 01/03/2021 15:27 [facility] Comment:See scanned/suppleme ntary report. Immunotyping , Serum Current Interpretation: Negative for monoclonal immunoglobulins. Reviewed by: Martin Stokes MD 01/03/2021 15:02 01/03/2021 15:27 [facility] Total Protein 7.0 6.3 - 8.2 g/dL 01/03/2021 15:27 [facility] Blood VENOUS BLOOD / Unknown 01/01/2021 17:00 EDT 01/02/2021 21:20 EDT Provider Outr Resulting Lab CHEMISTRY & BLOOD GAS ORDERABLES [facility] [address] [place] [address] * PROTEIN, TOTAL (01/01/2021 17:00 EDT) Blood VENOUS BLOOD / Unknown 01/01/2021 17:00 EDT 01/02/2021 21:20 EDT Provider Outr Resulting Lab CHEMISTRY & BLOOD GAS ORDERABLES [facility] [address] [place] [address] * ALPHA 1 ANTITRYPSIN (01/01/2021 17:00 EDT) Alpha 1 Antitrypsin 125 90 - 200 mg/dL 01/03/2021 10:03 EDT [facility] Blood VENOUS BLOOD / Unknown 01/01/2021 17:00 EDT 01/02/2021 21:20 EDT Provider Outr Resulting Lab CHEMISTRY & BLOOD GAS ORDERABLES Performing Organization Address City/[facility]/ZIP Co de Phone Number [facility] [address] [place] [address] * IGA (01/01/2021 17:00 EDT) IgA 104 85 - 499 mg/dL 01/03/2021 10:03 EDT [facility] Blood VENOUS BLOOD / Unknown 01/01/2021 17:00 EDT 01/02/2021 21:20 EDT Provider Outr Resulting Lab CHEMISTRY & BLOOD GAS ORDERABLES Performing Organization Address City/[facility] Co de Phone Number [facility] [address] [place] [address] documented in this encounter Visit Diagnoses Not on filedocumented in this encounter Care Teams Bin Operator Relationship Specialty Start Date End Date Claudia Strong MD PCP - General 09/26/09 11/30/22 Adriana Velazquez PA [address] [place] [phone] PCP - General Internal Medicine - Primary Care 12/01/22 documented as of this encounter
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
--- OUTSIDE RECORDS SUMMARY | 2024-06-24 13:02 | XMS_ITS | Encounter Summary ---
Author Organization [facility] Address [address] [place] [address] Care Team Providers Care Charge Rn Name Role Phone Claudia Strong MD Primary Care Provider Unavailable Adriana Velazquez Primary Care Provider + Encounter Details Date Type Department Care Team (Late st Contact Info) Description 12/30/2020 Lab Requisition [facility] Pathology & Laboratory Medicine - [address] [address] Outr Resulting Lab, Provider Social History Tobacco [...] Procedure Name Priority Date/Time Associated Diagnosis Comments ANTI NUCLEAR AB (BK), IFA Routine 12/30/2020 13:26 EDT documented in this encounter Results * ANTI NUCLEAR AB (BK), IFA (12/30/2020 13:26 EDT) BK Interpretation Negative Negative 2020 13:27 EDT [facility] Comment:No titer performed, BK Screen is negative. Blood VENOUS BLOOD / Unknown 12/30/2020 13:26 EDT 12/30/2020 21:20 EDT Narrative [facility] - 12/31/2020 13:27 EDT Results were obtained with the INOVA NOVA Lite HEp-2 BK Kit by indirect immunofluorescence. Provider Outr Resulting Lab IMMUNOLOGY A ND SEROLOGY ORDERABLES Performing Organization Address City/State/[facility] Co de Phone Number [facility] [address] [place] [address] documented in this encounter Visit Diagnoses Not on filedocumented in this encounter Care Teams Charge Rn Relationship Specialty Start Date End Date Claudia Strong MD PCP - General 09/26/09 11/30/22 Adriana Velazquez PA [address] [place] [phone] PCP - General Internal Medicine - Primary Care 12/01/22 documented as of this encounter
--- OUTSIDE RECORDS SUMMARY | 2024-06-24 13:02 | XMS_ITS | Encounter Summary ---
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 Name Role Phone Claudia Strong MD Primary Care Provider Unavailable Encounter Details Date Type Department Care Team (Late st Contact Info) Description 10/18/2009 Abstract [facility] OBN Services - [address] [address] Claudia Strong MD Female infertility of tubal origin Social History Tobacco Use Types Packs/Day Years Used Date Smoking Tobacco: Never Assessed Sex and Gender Information Value Date Recorded Sex Assigned at Not on file Gender Identity Female 12/01/2022 8:30 EDT Sexual Orientation Not on file documented as of this encounter Plan of Treatment Not on file documented as of this encounter Visit Diagnoses Diagnosis Female infertility of tubal origin documented in this encounter Care Teams Carton Forming Machine Tender Relationship Specialty Start Date End Date Claudia Strong MD PCP - General 09/26/09 11/30/22 documented as of this encounter
--- NOTE | 2024-06-24 13:15 | DI.CT_ITS ---
Exam(s) CT BRAIN NECK CTA EXAM: CT BRAIN NECK CTA CLINICAL HISTORY: Eval CVA, new L. leg weakness/numbness. TECHNIQUE: Imaging Protocol: Axial CT angiography was performed with multi-slice acquisition and mu lti-planar and MIP reconstructions. CONTRAST MATERIAL: Intravenous: Omnipaque 350 Contrast volume:70 ml COMPARISON: CT CT HEAD WO from 11/26/2022 FINDINGS: CT Head W/O and W contrast: Ventricles and Extra axial spaces: Normal in size and morphology for the patient's age. Hemorrhage: None. Cerebral parenchyma: No evidence of acute infarct or mass. Midline shift: None. Brainstem/Cerebellum: No acute findings.. Calvarium: Normal. Visualized Paranasal sinuses/Mastoids: Clear. Soft Tissues: Unremarkable. Enhancement: Normal. CTA Brain W: Internal Carotid Arteries: Petrous: Normal. Cavernous: Normal. Cerebral: Normal. Middle Cerebral Arteries: Right: No aneurysm, occlusion or significant stenosis. Left: No aneurysm, occlusion or significant stenosis. Anterior Cerebral Arteries: Right: No aneurysm, occlusion or significant stenosis. Left: No aneurysm, occlusion or significant stenosis. Posterior cerebral Arteries: Right: No aneurysm, occlusion or significant stenosis. Left: No aneurysm, occlusion or significant stenosis. Vertebral Arteries: Right: No aneurysm, occlusion or significant stenosis. Left: No aneurysm, occlusion or significant stenosis. Basilar Artery: No aneurysm, occlusion or significant stenosis. CTA Neck W: Common Carotid: Right: No dissection, occlusion or significant stenosis. No visible plaque. Left: No dissection, occlusion or significant stenosis. No visible plaque. External Carotid: Right: No dissection, occlusion or significant stenosis. Left: No dissection, occlusion or significant stenosis. Internal Carotid: Right: No dissection, occlusion or significant stenosis. No visible plaque. Left: No dissection, occlusion or significant stenosis. No visible plaque. Vertebral Artery: Right: No dissection, occlusion or significant stenosis. No visible plaque. Left: No dissection, occlusion or significant stenosis. No visible plaque. Lung Apices: No acute findings. Bones: No acute abnormality. Degenerative changes in the cervical spine. Soft Tissues: Normal. IMPRESSION: 1. CTA brain: Normal CTA examination of the [place]. 2. Head CT: Unremarkable CT Head. 3. CTA neck: Normal CTA examination of the neck. RADIATION DOSE DELIVERED: Total DLP DATA REPOSITORY: All CT scans at this facility are submitted to the National Radiology Data Registry (NRDR) Dose Index Registry (DIR) with the [employer] (ACR). RADIATION OPTIMIZATION: All CT scans at this facility use at least one of these dose optimization te chniques: automated exposure control; mA and/or kV adjustment per patient size (includes targeted exa ms where dose is matched to clinical indication); or iterative reconstruction.
--- NOTE | 2024-06-24 13:27 | W.ED.GENAD ---
Discharge Plan Discharge Details Chief Complaint: GenMedical Clinical Impression: Acute CVA (cerebrovascular accident) Primary Care Provider: Adriana Velazquez ED Provider: Jerri Shields Home Meds and New Rx's Prescriptions: No Action venlafaxine [Effexor XR] 37.5 mg Capsule,Extended Release 24hr 37.5 mg PO DAILY venlafaxine 75 mg Capsule,Extended Release 24hr 75 mg PO DAILY aspirin 81 mg Tablet 81 mg PO DAILY lisinopril 5 mg Tablet 5 mg PO DAILY HPI General Mode of arrival: ambulatory. Date/Time Provider Initiated Documentation: 06/24/24 12:58. Limitations to Documentation: no limitations. Information obtained by: patient, family and old records reviewed. HPI Narrative: HPI: This is a 54-year-old female patient with a past medical history significant for hypertension, presenting for evaluation of left leg numbness and weakness. At 630 last night she was sitting on the couch resting, and noted a sensation of [id number] in her left foot. She states that she was not in a position where her foot should have fallen asleep, and initially she did not think much of it. On awakening this morning she noted that the numbness had spread proximally, and she had tingling in her lau when she tried to shave her legs. She went to an [facility] care and had an examination with some weakness with knee extension and foot dorsiflexion, prompting her to be sent here for neurologic evaluation. The patient reports that she has been in her normal state of health, she has never had symptoms like this before. Last night when this happened she had some blurriness of her vision that has improved, states that she has never had any vision changes like this in the past. She has not had any recent trauma or injuries. She has had no recent illnesses, has not had fevers, and has had no recent travel. Exam: Gen: Awake and alert, in no apparent distress HEENT: Non-icteric sclera, pupils equal and reactive bilaterally, full EOMs without nystagmus or gaze palsy. Neck: Supple Lungs: No apparent respiratory distress, normal respiratory effort. CV: Appears well perfused strong distal pulses Abdomen: Non-distended, soft MSK: Moves 4 extremities without apparent limitation in ROM Skin: Visualized skin without rashes, cyanosis. Neuro: Normal Gait, cranial nerves II through XII intact and symmetrical bilaterally, 5 out of 5 strength x 2 upper extremities and right lower extremity. The patient has 4 out of 5 strength with knee extension on the left lower extremity as well as 4 out of 5 strength with left ankle dorsiflexion. The patient has subjective tingling/numbness of the left foot and left lau. Psych: Appropriate for situation. MDM: This is a 54-year-old female patient presenting for evaluation of left lower extremity numbness and weakness. My differential includes but is not limited to CVA, certainly considered multiple sclerosis and demyelinating disorders. No recent illness to suggest Guillain-Leal? though there is an ascending quality to this numbness. The patient has unilateral symptoms which would make transverse myelitis less likely, and she has no risk factors or symptoms concerning for compressive spinal cord lesion such as cauda equina, spinal epidural abscess, or spinal hematoma. Certainly nerve compression peripherally could be considered. The patient's last known well was 19 hours ago, and she is out of the tPA window but if large vessel occlusion was identified could be a candidate for thrombectomy. Her NIH score is 1. For this reason, we will proceed with rapid CTA head and neck to evaluate for abnormalities which might account for the patient's symptoms. We will obtain protocol as laboratory studies to include CBC, CMP, magnesium, troponin, PT/INR, and urinalysis. I will reach out to [facility] to discuss this patient's case and next steps in workup and management. ED Course: I independently interpreted the laboratory studies, which show no significant leukocytosis, anemia, or thrombocytopenia. The chemistry panel is without evidence of electrolyte abnormality, kidney dysfunction, or liver injury. INR 1.0, troponin negative x 2 checks, urinalysis noninfectious. CTA head and neck were without obvious intracranial hemorrhage, large vessel occlusion, or other abnormalities to account for the patient's symptoms. [facility] evaluated the patient, and are concerned that she is experienced a stroke. For this reason, the patient will require transfer to a facility that is capable of getting a rapid MRI. I reached out to the transfer center and am awaiting callback from neurology. While under my care, the patient did start to complain of new left thumb tingling, with no associated left upper extremity weakness. I signed out care of the patient to the oncoming provider prior to final acceptance by [facility]. Jerri Shields MD Related Data Home Medications ?Medication ?Instructions ?Recorded ?Confirmed aspirin 81 mg tablet 81 mg PO DAILY 06/01/22 06/24/24 lisinopril 5 mg tablet 5 mg PO DAILY 06/01/22 06/24/24 venlafaxine 37.5 mg 37.5 mg PO DAILY 06/01/22 06/24/24 capsule,extended release 24 hr (Effexor XR) venlafaxine 75 mg capsule,extended 75 mg PO DAILY 06/01/22 06/24/24 release 24 hr Allergies Allergy/AdvReac Type Severity Reaction Status Date / Time prednisone AdvReac Intermediate Agitation Verified 06/24/24 15:36 General Stated Complaint: GenMedical ROSA: 3 Course Vital Signs Vital signs: Vital Signs Temperature 36.8 C 06/24/24 12:57 Pulse 82 06/24/24 12:57 Respiratory Rate 16 06/24/24 12:57 Blood Pressure 148/88 H 06/24/24 12:57 Pulse Oximetry 98 06/24/24 12:57 Temperature 36.8 C 06/24/24 13:06 Temperature Source Oral 06/24/24 13:06 Pulse 82 06/24/24 13:06 Respiratory Rate 16 06/24/24 13:06 Respiratory Effort Normal, Non-Labored 06/24/24 13:03 Blood Pressure 148/88 H 06/24/24 13:06 Pulse Oximetry 98 06/24/24 13:06 Oxygen Delivery Method Room Air 06/24/24 13:06 Oxygen Flow Rate 0 06/24/24 13:06 Pain Level 0 06/24/24 13:06 Medical Decision Making Quality:SDOH Health Related Social Needs: No Data to Display PFSH All Active Problems (Updated 06/24/24 @ 15:14 by Jerri Shields MD) Acute CVA (cerebrovascular accident) (Acute) Smoker (Acute) Anxiety (Chronic) HTN (hypertension) (Chronic) Social History Smoking/Tobacco Use Status: Current every day Tobacco Type: cigarettes Smoking risk assessment performed?: Yes Alcohol Intake: never Drug use: Never Substance use type: does not use Do you feel safe at home: Yes Do you feel safe in your relationship?: Yes Sign Out Sign Out Data: Sign Out Comment: Last known well 183 yesterday, had numbness and tingling of her left lower extremity with weakness that he ankle and knee. No history of stroke, does have hypertension. CTA head and neck unremarkable, teleneuro concern for stroke, recommending transfer for MRI. The patient has received 75 mg Plavix, takes a baby aspirin already every day, did developed new left thumb tingling during her time in the ED. Transfer center has been notified and awaiting neuro callback Last updated by Jerri Shields MD at 06/24/24 15:40
[2024-06-24 13:40] LABS: Abs Immature Grans 0.03 10^3/uL (0.0-0.06); Absolute Basophil Count 0.08 10^3/uL (0.0-0.2); Absolute Eosinophil Count 0.11 10^3/uL (0.0-0.7); Absolute Lymphocyte Count 3.38 10^3/uL (1.2-3.4); Absolute Monocyte Count 0.56 10^3/uL (0.1-0.8); Absolute Neutrophil Count 5.44 10^3/uL (1.2-6.7); Basophils % 0.8 %; Eosinophils % 1.1 %; HCT 39.5 % (36.0-46.0); HGB 13.8 g/dL (11.2-15.7); Immature Grans % 0.3 %; Lymphocytes % 35.2 %; MCH 31.9 pg (27.0-33.0); MCHC 34.9 % (32.0-36.0); MCV 91 fL (80-95); MPV 10.3 fL (8.0-11.0); Monocytes % 5.8 %; Neutrophils % 56.8 %; Platelet Count 317 10^3/uL (130-400); RBC 4.33 10^6/uL (3.93-5.22); RDW-SD 43.8 fL
[2024-06-24] MEDS: Normal Saline - Diluent 50 ML VIAL IJ (13:41)
[2024-06-24] MEDS: Omnipaque 350 MG/ML 100 ML BTL 70 ML IJ (13:42)
--- NOTE | 2024-06-24 13:45 | RT.EKG_ITS ---
APPROVED REPORT Exam: Resting ECG Reason for Exam: Stroke Patient Location: E HR:65 bpm ECG Measurements Heart Rate 65 AXIS IN 155 P 66 QRSd 74 QRS 53 QT 404 T 49 QTc 422 Conclusion Sinus rhythm, rate 65 No interval abnormalities No STEMI
[2024-06-24 13:52] LABS: Prothrombin Time 10.2 sec (9.1-11.1)
[2024-06-24 14:04] LABS: ALT 25 U/L (14-59); AST 21 U/L (15-37); Albumin 3.8 g/dL (3.4-5.0); Alkaline Phosphatase 56 U/L (46-116); Anion Gap 11.7 mmol/L (3-11); BUN 19 mg/dL (7-18); Bilirubin, Total 0.23 mg/dL (0.2-1.0); CO2 25.3 mmol/L (21.0-32.0); CREATININE 0.8 mg/dL (0.55-1.02); Calcium 9.5 mg/dL (8.5-10.1); Chloride 105 mmol/L (98-107); Estimated GFR 86.42 (mL/min/1.73m2); Glucose 96 mg/dL (74-106); Potassium 3.7 mmol/L (3.5-5.1); Sodium 142 mmol/L (136-145); Total Protein 7.5 g/dL (6.4-8.2); Troponin I 5 ng/L (<or=51)
[2024-06-24 14:09] LABS: Bilirubin Negative (Negative); Blood Negative (Negative); Clarity Clear (Clear); Glucose Negative (Negative); Ketones Negative (Negative); Leukocyte Esterase Negative (Negative); Nitrite Negative (Negative); Urobilinogen 0.2 mg/dL (Up to 0.2)
--- NOTE | 2024-06-24 14:30 | DI.VRAD_ITS ---
PROCEDURE INFORMATION: Exam: CTA Head Without And With Contrast, Arteriography Exam date and time: 06/24/2024 1:43 PM Age: 54 years old Clinical indication: Stroke-like symptoms; Left lower extremity numbness/paresthesia; Lt lower extremity weakness TECHNIQUE: Imaging protocol: Computed tomographic angiography of the head without and with contrast. Exam focused on the arteries. 3D rendering (Not supervised by radiologist): MIP and/or 3D reconstructed images were created by the technologist. Contrast material: OMNIPAQUE 350; Contrast volume: 70 ml; Contrast route: IV; Other technique: STROKE PROTOCOL was implemented. COMPARISON: CT HEAD WO 11/26/2022 10:51 AM FINDINGS: ANTERIOR CIRCULATION: Right internal carotid artery: Intracranial segment is patent with no significant stenosis or occlusion. No aneurysm. Right middle cerebral artery: No occlusion or significant stenosis. No aneurysm. Right anterior cerebral artery: No occlusion or significant stenosis. No aneurysm. Left internal carotid artery: Intracranial segment is patent with no significant stenosis. No aneurysm. Left middle cerebral artery: No occlusion or significant stenosis. No aneurysm. Left anterior cerebral artery: No occlusion or significant stenosis. No aneurysm. POSTERIOR CIRCULATION: Right vertebral artery: No occlusion or significant stenosis. No aneurysm. Left vertebral artery: No occlusion or significant stenosis. No aneurysm. Basilar artery: No occlusion or significant stenosis. No aneurysm. Right posterior cerebral artery: No occlusion or significant stenosis. No aneurysm. Left posterior cerebral artery: No occlusion or significant stenosis. No aneurysm. HEAD: Brain: Normal. No hemorrhage. Unremarkable white matter. No mass effect. Cerebral ventricles: Normal. No ventriculomegaly. Bones: Unremarkable. No acute fracture. Paranasal sinuses: Visualized sinuses are normal. No fluid levels. Mastoid air cells: Visualized mastoids are normal. No mastoid effusion. Soft tissues: Unremarkable. IMPRESSION: 1. No large vessel occlusion. 2. Unremarkable CT head. ASSESSMENT: ASPECTS ([place] Stroke Program Early CT Score) is 10. PROCEDURE INFORMATION: Exam: CTA Neck Without And With Contrast Exam date and time: 06/24/2024 1:43 PM Age: 54 years old Clinical indication: Stroke-like symptoms; Left lower extremity numbness/paresthesia; Lt lower extremity weakness TECHNIQUE: Imaging protocol: Computed tomographic angiography of the neck without and with contrast. Exam focused on the cervical segments of the vasculature. 3D rendering (Not supervised by radiologist): MIP and/or 3D reconstructed images were created by the technologist. Contrast material: OMNIPAQUE 350; Contrast volume: 70 ml; Contrast route: IV; COMPARISON: CT THORAX ABD/PEL CTA 11/26/2022 10:56 AM FINDINGS: Right common carotid artery: No stenosis. No dissection or occlusion. Right internal carotid artery: No stenosis of the extracranial segment. No dissection or occlusion. Right external carotid artery: No occlusion or stenosis of the origin. Left common carotid artery: No stenosis. No dissection or occlusion. Left internal carotid artery: No stenosis of the extracranial segment. No dissection or occlusion. Left external carotid artery: No occlusion or stenosis of the origin. Right vertebral artery: No stenosis. No dissection or occlusion. Left vertebral artery: No stenosis. No dissection or occlusion. Soft tissues: Normal. No significant soft tissue swelling. Bones/joints: No acute fracture. IMPRESSION: No stenosis or occlusion. REFERENCES: NASCET CRITERIA. The degree of stenosis in the cervical segment of the internal carotid artery is based on NASCET criteria. Normal is no stenosis. Mild is less than 50% stenosis. Moderate is 50-69% stenosis. Severe is 70% to 99% stenosis. Total occlusion is no detectable patent lumen. Dictated and Authenticated by: Daniele Pelayo MD. Ordering:TANK Castañeda MD
[2024-06-24 14:56] LABS: Troponin I < 4 ng/L (<or=51)
[2024-06-24] MEDS: Clopidogrel 75 MG TAB PO (15:43)
--- NOTE | 2024-06-24 15:45 | ED.PROG_ITS ---
Date of service: 06/24/24 Time of Service: 15:46 Medical Decision Making This dictation utilizes [id number] dictation software and may contain unedited grammatical errors. Patient seen in signout from Dr. Jerri Shields, please see her complete note-essentially this 54-year-old female presents with concern for stroke, last known well 1830 last night, complaining of left foot numbness and vision changes, has decreased sensation to the left foot, she had telemetry neuro visit performed and they are recommending transfer for MRI for stroke, developing left thumb numbness at time of signout-no weakness on full repeat neuroexam by Dr. Shields. Patients' medical history: Hypertension. Family and social history: [ ]. Pertinent exam findings / vital signs include diminished sensation to left calf and left foot weakness with dorsiflexion, weakness with dorsiflexion and knee extension in the left lower extremity, NIH 1. Differential / pathologies of concern include stroke versus MS. Diagnostic studies of: -Reviewed labs and CTA, no actionable abnormalities. Interventions of: -Patient has received Plavix, has not received the statin. ED Course/Assessment/Plan: Spoke with [facility] transfer center at 1615, their neurologist on-call refused consult with [id number] and refused transfer-he stated that all that would be recommended would be an MRI outpatient on Wednesday which is available at our facility and that the patient just needs to be on aspirin, plavix, and statin- and Neurology follow-up. I discussed this with the patient and spouse- I offered to have them transferred to [facility] for possible admit and MRI- but they opted to pursue outpatient MRI here at [facility] with medical management. I stressed strict return criteria for any further mental status changes, started the patient on atorvastatin here in the ED, and discharged home. Findings not consistent with developing or worsening mental status changes. Disposition of Acute CVA (Cerebrovascular Accident). Patient verbalized understanding of the plan and return to ED criteria and engaged in shared decision making. Medical Records Medical records reviewed: Yes I reviewed the patient's medical records. Imaging Data Radiologic Study: Attestation: I personally reviewed and interpreted this imaging study as follows: Imaging: CT Scan Radiologist's impression: Exam: CTA Head Without And With Contrast, Arteriography Exam date and time: 06/24/2024 1:43 PM Age: 54 years old Clinical indication: Stroke-like symptoms; Left lower extremity numbness/paresthesia; Lt lower extremity weakness TECHNIQUE: Imaging protocol: Computed tomographic angiography of the head without and with contrast. Exam focused on the arteries. 3D rendering (Not supervised by radiologist): MIP and/or 3D reconstructed images were created by the technologist. Contrast material: OMNIPAQUE 350; Contrast volume: 70 ml; Contrast route: IV; Other technique: STROKE PROTOCOL was implemented. COMPARISON: CT HEAD WO 11/26/2022 10:51 AM FINDINGS: ANTERIOR CIRCULATION: Right internal carotid artery: Intracranial segment is patent with no significant stenosis or occlusion. No aneurysm. Right middle cerebral artery: No occlusion or significant stenosis. No aneurysm. Right anterior cerebral artery: No occlusion or significant stenosis. No aneurysm. Left internal carotid artery: Intracranial segment is patent with no significant stenosis. No aneurysm. Left middle cerebral artery: No occlusion or significant stenosis. No aneurysm. Left anterior cerebral artery: No occlusion or significant stenosis. No aneurysm. POSTERIOR CIRCULATION: Right vertebral artery: No occlusion or significant stenosis. No aneurysm. Left vertebral artery: No occlusion or significant stenosis. No aneurysm. Basilar artery: No occlusion or significant stenosis. No aneurysm. Right posterior cerebral artery: No occlusion or significant stenosis. No aneurysm. Left posterior cerebral artery: No occlusion or significant stenosis. No aneurysm. HEAD: Brain: Normal. No hemorrhage. Unremarkable white matter. No mass effect. Cerebral ventricles: Normal. No ventriculomegaly. Bones: Unremarkable. No acute fracture. Paranasal sinuses: Visualized sinuses are normal. No fluid levels. Mastoid air cells: Visualized mastoids are normal. No mastoid effusion. Soft tissues: Unremarkable. IMPRESSION: 1. No large vessel occlusion. 2. Unremarkable CT head. ASSESSMENT: ASPECTS ([place] Stroke Program Early CT Score) is 10. PROCEDURE INFORMATION: Exam: CTA Neck Without And With Contrast Exam date and time: 06/24/2024 1:43 PM Age: 54 years old Clinical indication: Stroke-like symptoms; Left lower extremity numbness/paresthesia; Lt lower extremity weakness TECHNIQUE: Imaging protocol: Computed tomographic angiography of the neck without and with contrast. Exam focused on the cervical segments of the vasculature. 3D rendering (Not supervised by radiologist): MIP and/or 3D reconstructed images were created by the technologist. Contrast material: OMNIPAQUE 350; Contrast volume: 70 ml; Contrast route: IV; COMPARISON: CT THORAX ABD/PEL CTA 11/26/2022 10:56 AM FINDINGS: Right common carotid artery: No stenosis. No dissection or occlusion. Right internal carotid artery: No stenosis of the extracranial segment. No dissection or occlusion. Right external carotid artery: No occlusion or stenosis of the origin. Left common carotid artery: No stenosis. No dissection or occlusion. Left internal carotid artery: No stenosis of the extracranial segment. No dissection or occlusion. Left external carotid artery: No occlusion or stenosis of the origin. Right vertebral artery: No stenosis. No dissection or occlusion. Left vertebral artery: No stenosis. No dissection or occlusion. Soft tissues: Normal. No significant soft tissue swelling. Bones/joints: No acute fracture. IMPRESSION: No stenosis or occlusion. REFERENCES: NASCET CRITERIA. The degree of stenosis in the cervical segment of the internal carotid artery is based on NASCET criteria. Normal is no stenosis. Mild is less than 50% stenosis. Moderate is 50-69% stenosis. Severe is 70% to 99% stenosis. Total occlusion is no detectable patent lumen. Dictated and Authenticated by: Daniele Pelayo MD. Lab Data Lab results reviewed: Yes I reviewed the patient's lab results. Labs: Laboratory Tests Range/Units 06/24/24 06/24/24 06/24/24 13:05 13:32 14:24 WBC (4.4-10.8) 10^3/uL 9.60 RBC (3.93-5.22) 10^6/uL 4.33 Hgb (11.2-15.7) g/dL 13.8 Hct (36.0-46.0) % 39.5 MCV (80-95) fL 91 MCH (27.0-33.0) pg 31.9 MCHC (32.0-36.0) % 34.9 RDW (11.7-14.6) % 13.0 Plt Count (130-400) 10^3/uL 317 MPV (8.0-11.0) fL 10.3 Immature Gran % % 0.3 Neutrophils % % 56.8 Lymphocytes % % 35.2 Monocytes % % 5.8 Eosinophils % % 1.1 Basophils % % 0.8 Nucleated RBC % (0.0-0.3) % 0.0 Absolute Neutrophils (1.2-6.7) 10^3/uL 5.44 Absolute Lymphocytes (1.2-3.4) 10^3/uL 3.38 Absolute Monocytes (0.1-0.8) 10^3/uL 0.56 Absolute Eosinophils (0.0-0.7) 10^3/uL 0.11 Absolute Basophils (0.0-0.2) 10^3/uL 0.08 PT (9.1-11.1) sec 10.2 INR (0.9-1.1) 1.0 Sodium (136-145) mmol/L 142 Potassium (3.5-5.1) mmol/L 3.7 Chloride (98-107) mmol/L 105 Carbon Dioxide (21.0-32.0) mmol/L 25.3 Anion Gap (3-11) mmol/L 11.7 H BUN (7-18) mg/dL 19 H Creatinine (0.55-1.02) mg/dL 0.8 Est GFR (CKD-EPI 2020) (mL/min/1.73m2) 86.42 Glucose (74-106) mg/dL 96 Calcium (8.5-10.1) mg/dL 9.5 Magnesium (1.8-2.4) mg/dL 2.0 Total Bilirubin (0.2-1.0) mg/dL 0.23 AST (15-37) U/L 21 ALT (14-59) U/L 25 Alkaline Phosphatase (46-116) U/L 56 Troponin I (<or=51) ng/L 5 < 4 Total Protein (6.4-8.2) g/dL 7.5 Albumin (3.4-5.0) g/dL 3.8 Urine Color (Yellow) Yellow Urine Clarity (Clear) Clear Urine pH (5-8) 6.0 Ur Specific [place] (1.005-1.025) 1.010 Urine Protein (Neg-Trace) mg/dL Negative Urine Ketones (Negative) mg/dL Negative Urine Blood (Negative) Negative Urine Nitrite (Negative) Negative Urine Bilirubin (Negative) Negative Urine Urobilinogen (Up to 0.2) mg/dL 0.2 Ur Leukocyte Esterase (Negative) Negative Urine Glucose (Negative) mg/dL Negative Range/Units 06/24/24 16:23 WBC (4.4-10.8) 10^3/uL RBC (3.93-5.22) 10^6/uL Hgb (11.2-15.7) g/dL Hct (36.0-46.0) % MCV (80-95) fL MCH (27.0-33.0) pg MCHC (32.0-36.0) % RDW (11.7-14.6) % Plt Count (130-400) 10^3/uL MPV (8.0-11.0) fL Immature Gran % % Neutrophils % % Lymphocytes % % Monocytes % % Eosinophils % % Basophils % % Nucleated RBC % (0.0-0.3) % Absolute Neutrophils (1.2-6.7) 10^3/uL Absolute Lymphocytes (1.2-3.4) 10^3/uL Absolute Monocytes (0.1-0.8) 10^3/uL Absolute Eosinophils (0.0-0.7) 10^3/uL Absolute Basophils (0.0-0.2) 10^3/uL PT (9.1-11.1) sec INR (0.9-1.1) Sodium (136-145) mmol/L Potassium (3.5-5.1) mmol/L Chloride (98-107) mmol/L Carbon Dioxide (21.0-32.0) mmol/L Anion Gap (3-11) mmol/L BUN (7-18) mg/dL Creatinine (0.55-1.02) mg/dL Est GFR (CKD-EPI 2020) (mL/min/1.73m2) Glucose (74-106) mg/dL Calcium (8.5-10.1) mg/dL Magnesium (1.8-2.4) mg/dL Total Bilirubin (0.2-1.0) mg/dL AST (15-37) U/L ALT (14-59) U/L Alkaline Phosphatase (46-116) U/L Troponin I (<or=51) ng/L Cancelled Total Protein (6.4-8.2) g/dL Albumin (3.4-5.0) g/dL Urine Color (Yellow) Urine Clarity (Clear) Urine pH (5-8) Ur Specific [place] (1.005-1.025) Urine Protein (Neg-Trace) mg/dL Urine Ketones (Negative) mg/dL Urine Blood (Negative) Urine Nitrite (Negative) Urine Bilirubin (Negative) Urine Urobilinogen (Up to 0.2) mg/dL Ur Leukocyte Esterase (Negative) Urine Glucose (Negative) mg/dL Quality:SDOH Health Related Social Needs: No Data to Display Sign Out Sign Out Data: Sign Out Comment: Last known well 1830 yesterday, had numbness and tingling of her left lower extremity with weakness that he ankle and knee. No history of stroke, does have hypertension. CTA head and neck unremarkable, teleneuro concern for stroke, recommending transfer for MRI. The patient has received 75 mg Plavix, takes a baby aspirin already every day, did developed new left thumb tingling during her time in the ED. Transfer center has been notified and awaiting neuro callback Last updated by Jerri Shields MD at 06/24/24 15:40 Discharge Plan Disposition Patient Disposition: Home Condition: Stable Discharge Details Clinical Impression: Acute CVA (cerebrovascular accident) Primary Care Provider: Adriana Velazquez ED Provider: Carlos A Garcia Home Meds and New Rx's Prescriptions: New clopidogrel 75 mg tablet 75 mg PO DAILY 21 Days Qty: 21 0RF atorvastatin 80 mg tablet 80 mg PO DAILY 30 Days Qty: 30 0RF Continued venlafaxine [Effexor XR] 37.5 mg Capsule,Extended Release 24hr 37.5 mg PO DAILY venlafaxine 75 mg Capsule,Extended Release 24hr 75 mg PO DAILY aspirin 81 mg Tablet 81 mg PO DAILY lisinopril 5 mg Tablet 5 mg PO DAILY Discharge Instructions Instructions: Lowering the risk of having a stroke, Medicines after an ischemic stroke, Atorvastatin, Clopidogrel Additional Instructions: You were seen in the emergency department for your possible minor left-sided stroke. He has some numbness in your left lower leg, he had a teleneurology visit that recommended MRI but [facility] refused to except you for transfer for MRI, there are neurologist on-call states that you should get an MRI on Wednesday, I have ordered this study here, please use the provided MRI outpatient order form and call on Wednesday morning first thing for time of your MRI, you will need to check back into the ER after your MRI for results. I have started you on 80 mg atorvastatin daily as well as 75 mg of Plavix for 21 days, you need to take an 81 mg aspirin as well. I am placing you on the referral list for neurology here at the hospital. You need to monitor your mental status closely and return promptly for any acute mental status changes over the weekend. Referrals: [facility] [Provider Group] Adriana Velazquez [Primary Care Provider] - Discharge Data Discharge Date/Time-TO BE ENTERED AT DEPARTURE: 06/24/24 17:27
[2024-06-24] MEDS: Atorvastatin 40 MG TAB 80 MG PO (17:26)
== END 2024-06-24 17:27 | disposition home or self-care (01) ==
PROVIDERS: Emergency Medicine; Emergency Provider Physician Assistant; PCP Internal Medicine
DX: I63.9 Cerebral infarction, unspecified (principal); R20.0 Anesthesia of skin; I10 Essential (primary) hypertension; F17.210 Nicotine dependence, cigarettes, uncomplicated; Z79.82 Long term (current) use of aspirin
CPT/HCPCS: 00123; 70496; 70498; 80053; 82962; 93005; 99285; 81003; 83735; 84484; 85025; 85610; 93010; J3490

== ENCOUNTER 2024-07-06 13:47 | Outpatient (CLI) | payer OTHER, SELFPAY ==
--- OUTSIDE RECORDS SUMMARY | 2024-07-06 13:49 | XMS_ITS | Continuity of Care Document ---
Author Organization [facility] Address [address] [place] [address] Care Team Providers Care Drawer Liner Name Role Phone Adriana Velazquez Primary Care Physician Encounter [facility] Date(s): 07/03/24 - 07/03/[address] [address] Discharge Disposition: Home Allergies, Adverse Reactions, Alerts Substance Criticality Severity Reaction Reaction Severity Status predniSONE Unable to assess criticality Unknown Active Assessment and Plan Future Appointments Future Scheduled Tests Laboratory* Comprehensive Metabolic Panel 03/08/24 * Lipid Panel 03/08/24 Radiology* MRI Spine Lumbar w/ + w/o Contrast 07/03/24 * CT Low Dose Lung Screening 03/08/24 Immunizations Given and Recorded Vaccine Date Status [...] 0 Refill(s) Start Date: 02/10/22 Status: Ordered aspirin 81 mg oral delayed release tablet 81 mg = 1 tab, Oral, Daily, # 90 tab, 0 Refill(s) Start Date: 06/29/24 Status: Ordered atorvastatin 80 mg oral tablet 80 mg = 1 tab, Oral, Daily, # 90 tab, 0 Refill(s) Start Date: 06/29/24 Status: Ordered lisinopril 5 mg oral tablet 5 mg = 1 tab, Oral, Daily, # 90 tab, 3 Refill(s), Pharmacy: [facility], 156.5, cm, 03/08/24 15:43:00 EDT, Height, 66.65, kg, 03/08/24 15:51:00 EDT, Weight Dosing Start Date: 03/08/24 Stop Date: 03/03/25 Status: Ordered LORazepam 0.5 mg oral tablet 0.5 mg = 1 tab, Oral, BID, PRN as needed for anxiety, # 56 tab, 0 Refill(s), Pharmacy: [facility], 156.5, cm, 03/08/24 15:43:00 EDT, Height, 66.65, kg, 03/08/24 15:51:00 EDT, Weight Dosing Start Date: 03/30/24 Stop Date: 04/27/24 Status: Ordered Plavix 75 mg oral tablet 75 mg = 1 tab, Oral, Daily, # 30 tab, 0 Refill(s) Start Date: 06/29/24 Status: Ordered venlafaxine 37.5 mg oral capsule, extended release 37.5 mg = 1 cap, Oral, Daily, # 90 cap, 3 Refill(s), Pharmacy: [facility], 156.5, cm, 03/08/24 15:43:00 EDT, Height, [...] Physician Member Role: Primary Care Physician Address: [facility] [address] Care Team Related Persons Name: KYE JESUS Name: SANTO VALENTINO Insurance Providers Guarantor name: SENIA VALENTINO Health Plan Information #: 1 Payer: [employer] Member Number: NA Policy Number: NA
--- OUTSIDE RECORDS SUMMARY | 2024-07-06 13:50 | XMS_ITS | Encounter Summary ---
[place] [address] Care Team Providers Care Multimedia Educational Specialist Name Role Phone Adriana Velazquez Primary Care Provider + Reason for Referral * Consultation (Routine) - Closed Specialty Diagnoses / Procedures Referred By Contac t Referred To Contact Neurosurgery Diagnoses Neck pain Black Merrill MD [facility] [address] EMERGENCY MEDICINE [address] [facility] Neurosurgery [address] [place] [phone] Referral ID Status Reason Start Date Expiration Date V isits Requested Visits Authorized [id number] Closed Consult, Test & Treat 01/09/2021 01/09/2022 1 1 Reason for Visit * Reason Comments Neck Pain Spasms Encounter Details Date Type Department Care Team (Late Contact Info) Description 01/09/2021 4:37 PM EDT - 01/09/2021 10:22 PM [place] [address] To Keita MD [facility] EMERGENCY MEDICINE [id number] Neck pain Discharge Disposition: Home Social [...] 01/09/2021 04/09/2021 fluticasone propionate (FLONASE) 50 mcg/actuation [place], Suspension SHAKE LIQUID AND USE 1 SPRAY [...] have questions please contact the health care aid that requested your imaging first. Assessment and [...] have questions please contact the health care aid that requested your imaging first. ? Electronically signed by: NICOLETTE Davis Pending Sale To [facility] ([phone]), at 01/09/2021 7:59 PM Narrative 01/09/2021 7:59 [...] who have questions please contactthe health care aid that requested your imaging first. To Keita MD IMG MRI ORDERABLES * Gold Tube HOLD (01/09/2021 6:31 PM EDT) Pathologist [facility] Gold Hold Sample in lab. [facility] Blood Venous Draw / Unknown 01/09/2021 6:31 PM EDT 01/09/2021 6:37 PM EDT Black Merrill MD CHEMISTRY ORDERABLE S [facility] [place] [address] * Differential, Automated (01/09/2021 6:31 PM EDT) Neutrophil % 50.6 % [facility] Neutrophil Absolute 4.24 1.70 - 6.10 x10(3)/mcL [facility] Lymph % 35.8 % [facility] Lymphocytes Abs 3.0 0.9 - 3.2 x10(3)/[facility] Monocyte % 10.1 % [facility] Monocyte Abs 0.8 0.3 - 0.9 x10(3)/[facility] Eos % 2.7 % [facility] Eosinophils Abs 0.2 0.0 - 0.4 x10(3)/[facility] Basophil % 0.7 % [facility] Baso Absolute 0.1 0.0 - 0.1 x10(3)/[facility] Immature Gran % 0.10 % [facility] Comment: Immature granulocytes(IG's)percentage and absolute [...] Lab Black Merrill MD HEMATOLOGY ORDERABL ES [facility] [place] [address] * (ABNORMAL) Hemogram (01/09/2021 6:31 PM EDT) White Blood Cell 8.4 4.0 - 9.5 x10(3)/[facility] Red Blood Cell 4.53 4.00 - 5.21 x10(6)/[facility] Hemoglobin 14.5 11.7 - 15.5 gm/dL [facility] Hematocrit 42.4 35.7 - 45.8 % [facility] Mean Cell Volume 93.6 82.6 - 94.4 fL [facility] Mean Cell Hemoglobin 32.0 27.1 - 32.0 pg [facility] Mean Cell Hemoglobin Concentration 34.2 31.7 - 35.0 gm/dL [facility] Platelet 398(H) 145 - 357 x10(3)/mc L [facility] RDW Standard Deviation 45.8 37.0 - 46.0 fL [facility] RDW coefficient of variation 13.4 11.5 - 14.1 % [facility] Mean Platelet Volume 10.9 7.6 - 12.9 fL [facility] NRBC% auto 0.0 % [facility] NRBC Absolute 0.000 0.000 - 0.000 x10(3)/mc L [facility] Blood 01/09/2021 6:31 PM EDT 01/09/2021 6:37 PM EDT Narrative Resulting Agency Comment Spec In Lab Black Merrill MD HEMATOLOGY ORDERABL ES [facility] [place] [address] * Hepatic Function Panel (01/09/2021 6:31 PM EDT) Protein, Total 6.8 6.1 - 8.0 gm/dL [facility] Albumin 4.2 3.2 - 5.2 gm/dL [facility] Aspartate Aminotransferase 25 0 - 30 unit/L [facility] Alanine Aminotransferase 21 0 - 30 unit/L [facility] Alkaline Phosphatase 55 35 - 105 unit/L [facility] Bilirubin, Total 0.2 0.2 - 1.3 mg/dL [facility] Bilirubin, Direct 0.1 0.0 - 0.3 mg/dL [facility] Blood 01/09/2021 6:31 PM EDT 01/09/2021 6:37 PM EDT Narrative Resulting Agency Comment Spec In Lab To Keita MD CHEMISTRY ORDERABL ES [facility] [place] [address] * Basic Metabolic Panel (non-fasting) (01/09/2021 6:31 PM EDT) Glucose 86 65 - 199 mg/dL [facility] Comment:Diabetes: >=200 mg/d L plus symptoms Blood Urea Nitrogen 17 8 - 18 mg/dL [facility] Creatinine 0.74 0.70 - 1.20 mg/dL [facility] Sodium 139 135 - 145 mmol/L [facility] Potassium 3.7 3.5 - 5.0 mmol/L [facility] Comment: Please note: ??Patients with WBC >100,000 may have falsely elevated Potassium levels. ??For accurate Potassium quantification in these patients send serum separator tube (gold top) for subsequent determinations. ??Contact the Clinical Chemistry Laboratory if there are any questions. Chloride 103 98 - 107 mmol/L [facility] Carbon Dioxide 24 22 - 31 mmol/L [facility] Anion Gap 12 5 - 15 mmol/L [facility] Calcium 9.9 8.5 - 10.5 mg/dL [facility] Est Glomerular Filtration Rate 93 >=60 mL/min/1. 73 m?? [facility] Comment: This patient? s estimated [...] Lab To Keita MD CHEMISTRY ORDERABL ES [facility] [place] [address] documented in this encounter Visit Diagnoses Diagnosis [...] Melendez) documented in this encounter Care Teams Multimedia Educational Specialist Relationship Specialty Start Date End Date Adriana Velazquez PA [address] [place] [address] [place] [address] PCP - General Internal Medicine 08/06/20 documented as of this encounter
--- OUTSIDE RECORDS SUMMARY | 2024-07-06 13:50 | XMS_ITS | Encounter Summary ---
Author Organization [facility] [place] [address] Care Team Providers Care Water Softener Installer Name Role Phone Adriana Velazquez Primary Care Provider + Reason for Visit * Reason Comments Established 6mth Encounter Details Date Type Department Care Team ([facility] Contact Info) Description 04/09/2021 3:00 PM EDT Office Visit [place]ne[place] [address] Popeye Leigh MD [facility] [place] [address] Endometrial cancer Social History Tobacco Use Types [...] 3:00 PM EDT Division [place] [address] Gynecologic Oncology-Clinic Note Reason for visit: Surveillance exam, history of low risk endometrial cancer. Patient Active Problem List Diagnosis Code ??? Endometrial cancer C54.1 ??? 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 Cigarette smoker F17.210 ??? Hypokalemia E87.6 ??? Essential hypertension I10 Prior to Admission medications Medication Sig Start Date End Date Taking? Authorizing Provider fluticasone propionate (FLONASE) 50 mcg/actuation [place], Suspension SHAKE LIQUID AND USE 1 SPRAY [...] receptors: Estrogen receptor (ER): Positive Progesterone receptor (OR): Positive - Benign cervix with Nabothian cysts. - Adenomyosis. - Multiple uterine leiomyomas. - Benign bilateral fallopian tubes and ovaries. Electronically signed by: Desi Adams DO Verified: 09/05/2020 Pathologist Performed at: [place] [place], [place], [place] [employer] Specimen Parts: A-C Specimen Procedure: [...] negative for tumor cells Number of Pelvic [place] Nodes Examined: 3 Pathologic Stage Classification (pTNM, [...] Five Things Physicians and Patients Should Question [email or web address] In the interval between visits, she has [...] 2-5, she may alternate visits between a medical care evaluation specialist and a gynecologic oncologist.) - At each [...] isthmus documented in this encounter Care Teams Water Softener Installer Relationship Specialty Start Date End Date Adriana Velazquez PA [address] [place] [address] [place] [address] PCP - General Internal Medicine 08/06/20 documented as of this encounter
--- OUTSIDE RECORDS SUMMARY | 2024-07-06 13:50 | XMS_ITS | Encounter Summary ---
Author Organization [facility] [place] [address] Care Team Providers Care Soft Hat Binder Name Role Phone Adriana Velazquez Primary Care Provider + Reason for Visit * Reason Onset Date Comments Medication Refill 08/30/2020 Encounter Details Date Type Department Care Team (Late Contact Info) Description 08/30/2020 Refill [place] [address] Popeye Leigh MD [facility] [place] [address] Endometrial cancer Social History Tobacco Use Types [...] isthmus documented in this encounter Care Teams Soft Hat Binder Relationship Specialty Start Date End Date Adriana Velazquez PA [address] [place] [address] [place] [address] PCP - General Internal Medicine 08/06/20 documented as of this encounter
--- OUTSIDE RECORDS SUMMARY | 2024-07-06 13:50 | XMS_ITS | Encounter Summary ---
[facility] [place] [address] Care Team Providers Care Cell Attendant Name Role Phone Adriaan Velazquez Primary Care Provider + Encounter Details Date Type Department Care Team (Latest Contact Info) Description 06/26/2024 Travel Social History Tobacco Use Types Packs/Day Years Used Date Smoking Tobacco: Every Day Cigarettes 0 Smokeless Tobacco: Never Alcohol Use Standard Drinks/Week Comments Not Currently 1 (1 standard drink = 0.6 oz pur e alcohol) DH IPV Inpatient Questions Answer Date Recorded Does Anyone Try to Keep You From Having Contact with Others or Doing Things Outside Your Home? no 06/26/2024 Feels Threatened by Someone no 11/2023 Feels Unsafe at Home or Work/School no 06/26/2024 Physical Signs of Abuse Present no 06/26/2024 Sex and Gender Information Value Date Recorded Sex Assigned at Not on file Gender Identity Not on file Sexual Orientation Not on file documented as of this encounter Plan of Treatment Not on file documented as of this encounter Visit Diagnoses Not on filedocumented in this encounter Care Teams Cell Attendant Relationship Specialty Start Date End Date Adriana Velazquez PA [address] [place] [address] [place] [address] PCP - General Internal Medicine 08/06/20 documented as of this encounter
--- OUTSIDE RECORDS SUMMARY | 2024-07-06 13:50 | XMS_ITS | Encounter Summary ---
[place] [address] Care Team Providers Care Fruit Peeler Name Role Phone Adriana Velazquez Primary Care [...] on filedocumented in this encounter Care Teams Fruit Peeler Relationship Specialty Start Date End Date Adriana Velazquez PA [address] [place] [address] [place] [address] PCP - General Internal Medicine 08/06/20 documented as of this encounter
--- OUTSIDE RECORDS SUMMARY | 2024-07-06 13:50 | XMS_ITS | Encounter Summary ---
Author Organization [facility] [place] [address] Care Team Providers Care Bullet Assembly Press Operator Name Role Phone Adriana Velazquez Primary Care Provider + Encounter Details Date Type Department Care Team (Late st Contact Info) Description 06/24/2024 2:15 PM EDT Telehealth notes [place] [phone] Telehealth, Neurology None Social History Tobacco Use Types Packs/Day [...] on filedocumented in this encounter Care Teams Bullet Assembly Press Operator Relationship Specialty Start Date End Date Adriana Velazquez PA [address] [place] [address] [place] [address] PCP - General Internal Medicine 08/06/20 documented as of this encounter
--- OUTSIDE RECORDS SUMMARY | 2024-07-06 13:50 | XMS_ITS | Encounter Summary ---
Author Organization [facility] [place] [address] Care Team Providers Care Sapphire Stylus Grinder Name Role Phone Adriana Velazquez Primary Care Provider + Encounter Details Date Type Department Care Team (Late Contact Info) Description 06/24/2024 External [place] [phone] Social History Tobacco Use Types Packs/Day Years Used Date Smoking Tobacco: Every Day Cigarettes 0 Smokeless Tobacco: Never Alcohol Use Standard Drinks/Week Comments Not Currently 1 (1 standard drink = 0.6 oz pur e alcohol) IPV Inpatient Questions Answer Date Recorded Does [...] Procedure Name Priority Date/Time Associated Diagnosis Comments MISC EXTERNAL CARDIOLOGY RESULT Routine 06/24/2024 4:45 PM EDT documented in this encounter Results * External Cardiology Result (06/24/2024 4:45 PM EDT) Anatomical Region Laterality Modality Other Historical Provider EXTERNAL CARDIOLO GY RESULT documented in this encounter Visit Diagnoses Not on filedocumented in this encounter Care Teams Sapphire Stylus Grinder Relationship Specialty Start Date End Date Adriana Velazquez PA [address] [place] [address] [place] [address] PCP - General Internal Medicine 08/06/20 documented as of this encounter
--- OUTSIDE RECORDS SUMMARY | 2024-07-06 13:50 | XMS_ITS | Encounter Summary ---
[place] [address] Care Team Providers Care Statistician Theoretical Name Role Phone Adriana Velazquez Primary Care Provider + Reason for Visit * Reason Onset Date Comments Letter/Form 10/14/2020 Request for Cert ification under the ADA - Forms Encounter Details Date Type Department Care Team (Late Contact Info) Description 10/14/2020 Telephone [place] [phone] Cassandra Torres V RN Letter/Form (Request for [...] Caller's name: Juana Silva Call back #: [phone] Patient's provider/team: Dr Leigh Reason for call: Regarding FMLA paperwork documented in this encounter Plan of Treatment Not on file documented as of this encounter Visit Diagnoses Not on filedocumented in this encounter Care Teams Statistician Theoretical Relationship Specialty Start Date End Date Adriana Velazquez PA [address] [place] [address] [place] [address] PCP - General Internal Medicine 08/06/20 documented as of this encounter
--- OUTSIDE RECORDS SUMMARY | 2024-07-06 13:50 | XMS_ITS | Clinical Summary ---
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 01/27/2021 Active atorvastatin (Lipitor) 80 mg tablet Take 1 tablet by mouth Daily at Noon. 06/24/2024 Active clopidogreL (Plavix) 75 mg tablet Take 1 tablet by mouth Daily at Noon. 06/24/2024 Active Active Problems Problem Noted Date Diagnosed Date Ischemic stroke 06/26/2024 Endometrial cancer 08/06/2020 Cancer Staging:Clinical stage from 08/29/2020:FIGO Stage IA(cT1a, cN0(sn), cM0) - Signed by Popeye Leigh MD on 09/24/2020 Major depressive disorder in partial remission 1 10/07/2019 Cigarette smoker 08/06/2020 Hypokalemia 08/06/2020 Essential hypertension 08/06/2020 Encounters Date Type Department Care Team Description 06/26/2024 12:37 PM EST - 06/26/2024 6:42 PM EST Emergency Neurosciences and ENT Unit Level [address] [place] [phone] Joan Dunn MD Lukovits, Timothy G, MD Ischemic stroke Discharge Disposition: Against Medical Advice 06/26/2024 Travel 06/24/2024 3:55 PM EDT Ancillary Procedure Radiology Library at [facility] [place] [phone] Johnson Hernandez MD 06/24/2024 2:15 PM EDT Telehealth [place] [phone] Telehealth, Neurology 06/24/2024 External [place] [phone] from Last 3 Months Social History Tobacco Use Types Packs/Day Years Used Date Smoking Tobacco: Every Day Cigarettes 0 Smokeless Tobacco: Never Tobacco Cessation:Ready to Q uit: Yes Alcohol Use Standard Drinks/Week Comments Not Currently 1 (1 standard drink = 0.6 oz pur e alcohol) [facility] Inpatient Questions Answer Date Recorded Does Anyone [...] Sign Reading Time Taken Comments Blood Pressure 166/105 06/26/2024 12:45 PM EST Pulse 71 06/26/2024 2:15 PM EST Temperature 36.4 ??C (97.5 ??F) 06/26/2024 12:[address] Respiratory Rate 16 06/26/2024 2:15 PM EST Oxygen Saturation 97% 06/26/2024 2:15 PM EST Inhaled Oxygen Concentration - - Weight 65.8 kg (145 lb) 06/26/2024 4:02 PM EST Height 154.9 cm (5' 1) 06/26/2024 4:02 PM EST Body Mass Index 27.4 06/26/2024 4:02 PM EST Plan of Treatment Health Maintenance Due Date Last Done Comments CT Colonography 1968 Colonoscopy 1968 Colorectal Cancer Screening 1968 FIT DNA 1968 FIT 1968 Sigmoidoscopy (10 year) with FIT yearly 1968 Sigmoidoscopy 1968 Pneumococcal Vaccine: At-Ris k 5-64yrs (1 of 2 - PCV) 1974 HIV screen 1986 Hepatitis B vaccine (0-59 yrs) (1) 1987 Tetanus/Diphtheria/Pertussis Vaccines (1 - Tdap) 1987 HPV test 1998 PAP Smear 1998 Breast Cancer Share Decision Needed 2008 Breast Cancer screening 2008 Zoster vaccine (1 of 2) 2018 Advance Directive 2023 Covid-19 Vaccine (3 - 2023-2 5 season) 2024 10/10/2020, 09/19/2020 Influenza (Flu) vaccine (1 o f 1 - Influenza standard series) 04/23/2024 Diabetes Screening (HgbA1C o r Glucose) 06/26/2027 06/26/2024, 11/20/2021, 01/09/2021, Additional history exists Hepatitis C Screening Completed 11/20/2021 Procedures Procedure Name Priority Date/Time Associated Diagnosis Comments MRI BRAIN WO CONTRAST STAT 06/26/2024 5:47 PM EST ECHO COMPLETE Routine 06/26/2024 3:53 PM EST Ischemic stroke EKG 12-LEAD STAT 06/26/2024 3:29 PM EST Ischemic stroke GOLD TUBE HOLD STAT 06/26/2024 1:16 PM EST BLUE TUBE HOLD STAT 06/26/2024 1:16 PM EST EXTRA TUBES STAT 06/26/2024 1:16 PM EST BASIC METABOLIC PANEL STAT 06/26/2024 1:16 PM EST CBC (WITH DIFF) STAT 06/26/2024 1:[address] HEAD WO CONTRAST (GENERIC) STAT 06/26/2024 1:02 PM EST POC, GLUCOSE Routine 06/26/2024 12:53 PM EST EKG 12-LEAD Routine 06/26/2024 12:45 PM EST MISC EXTERNAL CARDIOLOGY RESULT Routine 06/24/2024 4:45 PM EDT FILM LIBRARY STORAGE ONLY CT HEAD AND SPINE Routine 06/24/2024 3:52 PM EDT HC HEPATITIS C ANTIBODY Routine 11/20/2021 1:18 PM EDT Elevated liver enzymes from Last 3 Months or Most Recently Relevant to Health Maintenance Results * MRI Brain wo Contrast (06/26/2024 5:47 PM EST) Channel M Signature WORKSTATION ID [id number] RAD Anatomical Region Laterality Modality Head Magnetic Resonan ce Impressions 06/26/2024 5:59 PM EST No acute ischemia/infarction. Thank you for letting us participate in the care of this patient. ??If you are a health care provider and have any questions regarding this report, please contact the number below. ??For patients who have questions please contact the health campground caretaker that requested your imaging first. ? 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 COMPARISON: CT head 06/26/2024 FINDINGS: There are a few nonspecific punctate T2 hyperintensities in the bilateral frontoparietal subcortical white matter. There is no abnormal diffusion restriction or susceptibility. No midline shift, mass effect, hydrocephalus or extra-axial collection. Normal cerebral and cerebellar volumes. The major intracranial vascular flow voids are preserved. Cerebral aqueduct, foramen magnum and basilar cisterns are patent. Pituitary gland is normal. Orbits are normal. Paranasal sinuses are clear. Minimal right mastoid fluid. Procedure Note Pooja Keller MD - 06/26/2024 EXAMINATION: MRI BRAIN WO CONTRAST CLINICAL HISTORY: new FND after diagnosis of R internal capsule infarct on06/23 TECHNIQUE: MRI of the brain performed without intravenous contrast administration. COMPARISON: CT head 06/26/2024 FINDINGS: There are a few nonspecific punctate T2 hyperintensities in thebilateral frontoparietal subcortical white matter. There is no abnormal diffusion restriction or susceptibility. No midline shift, mass effect,hydrocephalus or extra-axial collection. Normal cerebral and cerebellar volumes. The major intracranial vascularflow voids are preserved. Cerebral aqueduct, foramen magnum and basilarcisterns are patent. Pituitary gland is normal. Orbits are normal. Paranasal sinuses are clear. Minimal right mastoidfluid. IMPRESSION No acute ischemia/infarction. Thank you for letting us participate in the care of this patient. If youare a health care provider and have any questions regarding this report,please contact the number below. For patients who have questions please contactthe health campground caretaker that requested your imaging first. Joan Dunn MD IMG MRI ORDERABLES * ECHO COMPLETE (06/26/2024 3:53 PM EST) EF 56 HEARTLAB SYSTEM Anatomical Region Laterality Modality Cardiac Other 06/26/2024 4:01 PM EST Narrative 06/26/2024 4:10 PM EST [address] [place] [address] ? Echocardiogram Report Name: JAUNA VALENTNIO ? Study Date: 06/26/2024 04:01 PMBP: 172/103 mmHg : 1970 ? Height: 155 cm ? Account: [id number] Age: 54 yrs ? Weight: 66 kg Gender: Female ?BSA: 1.6 m2 Ordering Physician: JOAN DUNN Performed By: Clau Navarro Reason For Study: Ischemic stroke Exam Location: [facility]. Interpretation Summary Left ventricular systolic function is normal. The left ventricular ejection fraction is 56% by García's biplane. There are no segmental wall motion abnormalities. The LA is normal in size. A bubble study was performed. No obvious shunting at rest. With valsalva, there are some late bubbles (estimated 25) that appear on the left side. Unclear if this is from a PFO or pulmonary AVM. Consider further evaluation with a HALEY if clinically indicated. Other details as below. Procedure Complete-[id number]. An agitated saline bubble contrast study was performed. Suboptimal quality. There is normal sinus rhythm. Left Ventricle Left ventricle is of normal size. Wall thickness is normal. There is no ventricular septal defect. Left ventricular systolic function is normal. The left ventricular ejection fraction is 56% by García's biplane. There are no segmental wall motion abnormalities. Right Ventricle The right ventricle is of normal size. Right ventricular systolic function is normal. Left Atrium The left atrium is normal. A patent foramen ovale is identified with a saline injection. Right Atrium The right atrium is normal. Aortic Valve The aortic valve is tricuspid. There is calcification of the aortic annulus. There is aortic valve sclerosis without stenosis. There is no aortic regurgitation. Mitral Valve There is anterior mitral annular calcification. The mitral valve is structurally normal. There is trace mitral regurgitation. Tricuspid Valve The tricuspid valve is structurally and functionally normal. There is trace tricuspid regurgitation. Pulmonic Valve The pulmonic valve appears to be structurally and functionally normal. Great Arteries The diameter at the level of the sinuses of Valsalva is 3.5 cm. The maximum diameter of the proximal ascending aorta is 3.3 cm. The main pulmonary artery is not well visualized. Venous Inferior vena cava is normal in size. Inferior vena cava collapse greater than 50% with respiration. Pericardium/Pleural There is no pericardial effusion. A pericardial fat pad is present. Hemodynamics Pulmonary artery hypertension could not be assessed due to inadequate tricuspid regurgitation jet. Left ventricular diastolic function is normal. Ejection Fraction ?2D Measurements ? Volumes EF(MOD-bp): 56.0 % ?IVSd: 1.0 cm ? LAV(MOD- bp) Indexed: ?LVIDd: 3.9 cm ?LVIDs: 2.7 cm ?25.7 ml/m2 ? RA A4Cs_phl: 13.2 cm2 ?LVPWd: 0.57 cm ? EDV(MOD-bp) Indexed: ?RWT: 0.29 {ratio} ?LV mass(C)d: 88.0 grams ?53.7 ml/m2 ?LV mass(C)dI: 53.4 grams/m2 ?ESV(MOD- bp) Indexed: ?Ao root diam: 3.5 cm ? 23.6 ml/m2 ?Ao root diam index: 2.1 ?SV(LVOT): 65.9 ml ?asc Aorta Diam: 3.3 cm ?LVOT diam: 2.0 cm ?SI(LVOT): 40.0 ml/m2 Doppler LV V1 VTI: 20.4 cm Ao V2 VTI: 31.6 cm Ao Max Evaristo: 148.4 cm/sec Ao valve max: 8.8 mmHg Ao valve mean: 4.1 mmHg MV E max evaristo: 88.2 cm/sec MV A max evaristo: 125.7 cm/sec MV E/A: 0.70 MV dec time: 0.24 sec Lat Peak E' Evaristo: 10.6 cm/sec E/e' (lat): 8.3 Med Peak E' Evaristo: 6.8 cm/sec E/e' (med): 13.0 E/e' Average: 10.7 VÍCTOR(I,D): 2.1 cm2 Dimensionless index Aov: 0.65 I ?WMSI = 1.00 ? % Normal = 100 ?Segments ??Size X - Cannot ?2 - ?4 - ?1-2 ? small Interpret ?1 - Normal ?? Hypokinetic 3 - Akinetic Dyskinetic ?? 3-5 ? moderate 5 - ? 6-14 ?large Aneurysmal ?15-16 ?? diffuse Procedure Note Abelino Yepez MD - 06/26/2024 [address] [place] [address] Echocardiogram Report Name: JUANA VALENTINO Study Date: 404:01 PMBP: 172/103 mmHg : 1970 Height: 155 cm Account: [id number] Age: 54 yrs Weight: 66 kg Gender: Female BSA: 1.6 m2 Ordering Physician: JOAN DUNN Performed By: Clau Navarro Reason For Study: Ischemic stroke Exam Location: [facility]. Interpretation Summary Left ventricular systolic function is normal. The left ventricularejection fraction is 56% by García's biplane. There are no segmental wall motion abnormalities. The LA is normal in size. A bubble study was performed. No obvious shunting at rest. With valsalva,there are some late bubbles (estimated 25) that appear on the left side. Unclearif this is from a PFO or pulmonary AVM. Consider further evaluation with a TEEif clinically indicated. Other details as below. Procedure Complete-[id number]. An agitated saline bubble contrast study was performed.Suboptimal quality. There is normal sinus rhythm. Left Ventricle Left ventricle is of normal size. Wall thickness is normal. There is no ventricular septal defect. Left ventricular systolic function is normal.The left ventricular ejection fraction is 56% by García's biplane. There are nosegmental wall motion abnormalities. Right Ventricle The right ventricle is of normal size. Right ventricular systolic functionis normal. Left Atrium The left atrium is normal. A patent foramen ovale is identified with asaline injection. Right Atrium The right atrium is normal. Aortic Valve The aortic valve is tricuspid. There is calcification of the aorticannulus. There is aortic valve sclerosis without stenosis. There is no aorticregurgitation. Mitral Valve There is anterior mitral annular calcification. The mitral valve isstructurally normal. There is trace mitral regurgitation. Tricuspid Valve The tricuspid valve is structurally and functionally normal. There istrace tricuspid regurgitation. Pulmonic Valve The pulmonic valve appears to be structurally and functionally normal. Great Arteries The diameter at the level of the sinuses of Valsalva is 3.5 cm. Themaximum diameter of the proximal ascending aorta is 3.3 cm. The main pulmonaryartery is not well visualized. Venous Inferior vena cava is normal in size. Inferior vena cava collapse greaterthan 50% with respiration. Pericardium/Pleural There is no pericardial effusion. A pericardial fat pad is present. Hemodynamics Pulmonary artery hypertension could not be assessed due to inadequatetricuspid regurgitation jet. Left ventricular diastolic function is normal. Ejection Fraction 2D Measurements Volumes EF(MOD-bp): 56.0 % IVSd: 1.0 cm LAV(MOD-bp)Indexed: LVIDd: 3.9 cm LVIDs: 2.7 cm 25.7 ml/m2 RA A4Cs_phl: 13.2cm2 LVPWd: 0.57 cm EDV(MOD-bp)Indexed: RWT: 0.29 {ratio} LV mass(C)d: 88.0 grams 53.7 ml/m2 LV mass(C)dI: 53.4 grams/m2 ESV(MOD-bp)Indexed: Ao root diam: 3.5 cm 23.6 ml/m2 Ao root diam index: 2.1 SV(LVOT): 65.9ml asc Aorta Diam: 3.3 cm LVOT diam: 2.0 cm SI(LVOT): 40.0ml/m2 Doppler LV V1 VTI: 20.4 cm Ao V2 VTI: 31.6 cm Ao Max Evaristo: 148.4 cm/sec Ao valve max: 8.8 mmHg Ao valve mean: 4.1 mmHg MV E max evaristo: 88.2 cm/sec MV A max evaristo: 125.7 cm/sec MV E/A: 0.70 MV dec time: 0.24 sec Lat Peak E' Evaristo: 10.6 cm/sec E/e' (lat): 8.3 Med Peak E' Evaristo: 6.8 cm/sec E/e' (med): 13.0 E/e' Average: 10.7 VÍCTOR(I,D): 2.1 cm2 Dimensionless index Aov: 0.65 I WMSI = 1.00 % Normal = 100 SegmentsSize X - Cannot 2 - 4 - 1-2small Interpret 1 - Normal Hypokinetic 3 - Akinetic Dyskinetic 3-5moderate 5 - 6-14large Aneurysmal 15-16diffuse Joan Dunn MD ECHO ORDERABLES * EKG 12 Lead (06/26/2024 3:29 PM EST) Only the most recent of2 resultswithin the time period is included. Ventricular rate 67 BPM MUSE SYSTEM Atrial Rate 67 BPM MUSE SYSTEM P-R Interval 160 ms MUSE SYSTEM QRS Duration 74 ms MUSE SYSTEM Q-T Interval 420 ms MUSE SYSTEM QTC Calculated (Bezet) 443 ms MUSE SYSTEM Calculated P [place] 69 degrees MUSE SYSTEM Calculated R [place] 72 degrees MUSE SYSTEM Calculated T [place] 64 degrees MUSE SYSTEM INTERPRETATION Normal sinus rhythm Normal ECG No previous ECGs available Confirmed by MD Jaxon, Eh ([id number]) on 06/27/2024 2:07:54 PM MUSE SYSTEM 06/26/2024 3:29 PM EST 06/27/2024 2:07 PM EST Kristy Martinez APRN ECG ORDERABLES MUSE SYSTEM * Gold Tube HOLD (06/26/2024 1:16 PM EST) Gold Hold Hold for Add-on 06/26/2024 3:01 PM EST [facility] Blood VENOUS BLOOD SPECIMEN / Unknown 06/26/2024 1:16 PM EST 06/26/2024 1:21 PM EST Joan Dunn MD CHEMISTRY ORDERABLE S [facility] [place] [address] * Blue Tube HOLD (06/26/2024 1:16 PM EST) Blue Hold Hold for Add-on 06/26/2024 3:01 PM EST [facility] Blood VENOUS BLOOD SPECIMEN / Unknown 06/26/2024 1:16 PM EST 06/26/2024 1:21 PM EST Joan Dunn MD HEMATOLOGY ORDERABL ES [facility] [place] [address] * CBC (with Diff) (06/26/2024 1:16 PM EST) White Blood Cell 8.99 4.00 - 9.50 x10(3)/mcL 06/26/2024 1:30 PM EST [facility] Red Blood Cell 4.69 4.00 - 5.21 x10(6)/mcL 06/26/2024 1:30 PM [facility] Hemoglobin 15.0 11.7 - 15.5 g/dL 06/26/2024 1:30 PM [facility] Hematocrit 42.9 35.7 - 45.8 % 06/26/2024 1:30 PM [facility] Mean Cell Volume 91.5 82.6 - 94.4 fL 06/26/2024 1:30 PM [facility] Mean Cell Hemoglobin 32.0 27.1 - 32.0 pg 06/26/2024 1:30 PM [facility] Mean Cell Hemoglobin Concentration 35.0 31.7 - 35.0 g/dL 06/26/2024 1:30 PM [facility] Platelet 343 145 - 357 x10(3)/mcL 06/26/2024 1:30 PM [facility] Mean Platelet Volume 10.7 7.6 - 12.9 fL 06/26/2024 1:30 PM [facility] RDW Standard Deviation 43.8 37.0 - 46.0 fL 06/26/2024 1:30 PM [facility] RDW coefficient of variation 13.1 11.5 - 14.1 % 06/26/2024 1:30 PM [facility] NRBC% auto 0.0 % 06/26/2024 1:30 PM [facility] NRBC Absolute <0.01 <0.01 x10(3)/mcL 06/26/2024 1:30 PM [facility] Neutrophil % 57.5 % 06/26/2024 1:30 PM [facility] Neutrophil Absolute (ANC) - Automated 5.17 1.70 - 6.10 x10(3)/mcL 06/26/2024 1:30 PM [facility] Lymph % 34.0 % 06/26/2024 1:30 PM [facility] Lymph Absolute 3.06 0.90 - 3.20 x10(3)/mcL 06/26/2024 1:30 PM [facility] Monocyte % 6.6 % 06/26/2024 1:30 PM [facility] Monocyte Absolute 0.59 0.30 - 0.90 x10(3)/mcL 06/26/2024 1:30 PM [facility] Eos % 0.9 % 06/26/2024 1:30 PM [facility] Eos Absolute 0.08 0.00 - 0.40 x10(3)/mcL 06/26/2024 1:30 PM [facility] Basophil % 0.7 % 06/26/2024 1:30 PM [facility] Baso Absolute 0.06 0.00 - 0.10 x10(3)/mcL 06/26/2024 1:30 PM [facility] Immature Gran % 0.3 % 1:30 PM [facility] Immature Gran Absolute <0.04 0.00 - 0.04 x10(3)/mcL 06/26/2024 1:30 PM [facility] Blood VENOUS BLOOD SPECIMEN / Unknown Venipuncture / Unknown 06/26/2024 1:16 PM EST 06/26/2024 1:21 PM EST Joan Dunn MD HEMATOLOGY ORDERABL ES [facility] [place] [address] * (ABNORMAL) Basic Metabolic Panel (06/26/2024 1:16 PM EST) Glucose 89 65 - 199 mg/dL 06/26/2024 2:18 PM EST [facility] Comment:Glucose Concentratio n >=200 mg/dL plus symptoms is consistent with Diabetes Mellitus. Blood Urea Nitrogen 12 8 - 18 mg/dL 06/26/2024 2:18 PM EST [facility] Creatinine 0.53(L) 0.70 - 1.20 mg/dL 06/26/2024 2:18 PM [facility] Sodium 137 135 - 145 mMol/L 06/26/2024 2:18 PM EST [facility] Potassium 4.1 3.5 - 5.0 mMol/L 06/26/2024 2:18 PM [facility] Chloride 103 98 - 107 mMol/L 06/26/2024 2:18 PM [facility] Carbon Dioxide 22 22 - 31 mMol/L 06/26/2024 2:18 PM [facility] Anion Gap 12 5 - 15 mMol/L 06/26/2024 2:18 PM [facility] Calcium 10.0 8.5 - 10.5 mg/dL 06/26/2024 2:18 PM EST [facility] Est Glomerular Filtration Rate - Female 109 mL/min/1. 73 m?? 06/26/2024 2:18 PM EST [facility] Comment: This patient's estimated GFR was calculated using the 2020 CKD-EPI equation. The estimated GFR can vary from the measured GFR by up to 30% in the absence of rapidly changing kidney function. Assessment of the estimated GFR is not appropriate when creatinine concentrations are rapidly changing. For clinical situations in which a more precise estimate of GFR is necessary, consider alternative methods of GFR estimation such as a 24-hour urine creatinine clearance. Assignment of CKD stage 1 - 5 for patients with an eGFR near the transition point between stages may be based on clinical assessment of muscle mass and symptoms in addition to eGFR. Link: eGFR Calculator [employer] Blood VENOUS BLOOD SPECIMEN / Unknown Venipuncture / Unknown 06/26/2024 1:16 PM EST 06/26/2024 1:21 PM EST Joan Dunn MD CHEMISTRY ORDERABLE S [facility] [place] [address] * CT Head wo Contrast (Generic) (06/26/2024 1:02 PM EST) [employer] WORKSTATION ID [id number] RAD Anatomical Region Laterality Modality Head Computed Tomogra phy Impressions 06/26/2024 1:17 PM EST No acute intracranial process. I have personally reviewed the image(s) and the resident's interpretation and agree with the findings, Tim Reddy at 06/26/2024 1:17 PM Thank you for letting us participate in the care of this patient. ??If you are a health care provider and have any questions regarding this report, please contact the number below. ??For patients who have questions please contact the health campground caretaker that requested your imaging first. ? Narrative 06/26/2024 1:17 PM EST EXAMINATION: CT HEAD WO CONTRAST (GENERIC) CLINICAL HISTORY: stroke alert TECHNIQUE: CT head performed without intravenous contrast administration. COMPARISON: CT head 06/24/2024 FINDINGS: No acute intracranial hemorrhage, mass effect, or extra-axial collection. The valdez-white matter differentiation is maintained. The ventricles are normal. The visualized paranasal sinuses and mastoid air cells are clear. No focal osseous lesion. Procedure Note Tim Reddy MD - 06/26/2024 EXAMINATION: CT HEAD WO CONTRAST (GENERIC) CLINICAL HISTORY: stroke alert TECHNIQUE: CT head performed without intravenous contrast administration. COMPARISON: CT head 06/24/2024 FINDINGS: No acute intracranial hemorrhage, mass effect, or extra-axial collection.The valdez-white matter differentiation is maintained. The ventricles arenormal. The visualized paranasal sinuses and mastoid air cells are clear. No focalosseous lesion. IMPRESSION No acute intracranial process. I have personally reviewed the image(s) and the resident's interpretationand agree with the findings, Tim Reddy at 06/26/2024 1:17 PM Thank you for letting us participate in the care of this patient. If youare a health care provider and have any questions regarding this report,please contact the number below. For patients who have questions please contactthe health campground caretaker that requested your imaging first. Kristy Martinez BRAZING MACHINE OPERATOR HELPER IMG CT ORDERABLES * POC, GLUCOSE (06/26/2024 12:53 PM EST) Glucometer, POC 96 65 - 199 mg/dL 06/26/2024 12:54 PM EST [facility] Comment:Supplemental ranges: <140 mg/dL before meals <180 mg/dL all other times of the day. Blood CAPILLARY BLOOD / Unknown 06/26/2024 12:53 PM EST 06/26/2024 12:54 PM EST Unknown POINT OF CARE TEST O RDERABLES [facility] [place] [address] * External Cardiology Result (06/24/2024 4:45 PM EDT) Anatomical Region Laterality Modality Other Historical Provider EXTERNAL CARDIOLO GY RESULT * Film Library- Storage Only CT Head And Spine (06/24/2024 3:52 PM EDT) Narrative [facility] - 06/24/2024 3:52 PM EDT This exam is auto-finalizing. It's purpose is for storage only. Johnson Hernandez MD IMG FILM LIBRARY O RDERABLES Performing Organization Address [facility] Co de Phone Number [place], [place] * Hepatitis C Antibody (11/20/2021 1:18 PM EDT) Hepatitis C Antibody Negative Negative [facility] Blood 11/20/2021 1:18 PM EDT 11/20/2021 1:44 PM EDT Narrative Resulting Agency Comment Spec In Lab Maria Elena Rodriguez APRN CHEMISTRY ORDERABL ES Performing Organization Address [facility] de Phone Number [facility] [place] [address] from Last 3 Months or Most Recently Relevant to Health Maintenance Advance Directives * Do NOT Attempt CPR - Inpatient (Latest Code Status on File) Date Activated Date Inactivated Comments 06/26/2024 2:12 PM 06/26/2024 9:27 PM Question Answer Comments Code Status decision made by: Patient Content of discussion: patient states i f my heart stops or I can't breath, please let me go Independent of Code Status d ecision, are there any PRE Arrest limitations (Intubation, Pressors, Cardioversion / Pacing, etc)? Yes PRE Arrest Intubation Permitted? 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
--- OUTSIDE RECORDS SUMMARY | 2024-07-06 13:50 | XMS_ITS | Encounter Summary ---
[place] [address] Care Team Providers Care Consulting Intern Name Role Phone Adriana Velazquez Primary Care Provider + Reason for Visit * Reason Onset Date Comments Other 08/30/2020 Encounter Details Date Type Department Care Team ([facility] Contact Info) Description 08/30/2020 Telephone [place] [phone] Viktoria Wong RN Other Social History Tobacco [...] on filedocumented in this encounter Care Teams Consulting Intern Relationship Specialty Start Date End Date Adriana Velazquez PA [address] [place] [address] [place] [address] PCP - General Internal Medicine 08/06/20 documented as of this encounter
--- OUTSIDE RECORDS SUMMARY | 2024-07-06 13:50 | XMS_ITS | Encounter Summary ---
[place] [address] Care Team Providers Care Assembling Inspector Name Role Phone Adriana Velazquez Primary Care Provider + Reason for Visit * Reason Onset Date Comments Follow-up 08/30/2020 Encounter Details Date Type Department Care Team ([facility] Contact Info) Description 08/30/2020 Telephone Gynecology [place] [phone] Viktoria Wong RN Follow-up Social History Tobacco [...] on filedocumented in this encounter Care Teams Assembling Inspector Relationship Specialty Start Date End Date Yawicz, Adriana C, PA [address] [place] [address] [place] [address] PCP - General Internal Medicine 08/06/20 documented as of this encounter
--- OUTSIDE RECORDS SUMMARY | 2024-07-06 13:50 | XMS_ITS | Encounter Summary ---
Author Organization [facility] [place] [address] Care Team Providers Care Sports Reporter Name Role Phone Adriana Velazquez Primary Care Provider + Encounter Details Date Type Department Care Team (Late Contact Info) Description 09/24/2020 9:20 AM EST TH Visit (TeleHealth) Gy[place] [phone] Popeye Leigh MD [facility] [place] [address] Endometrial cancer Social History Tobacco Use Types [...] of patient- TeleVisit is taking place in [place]_ [place]__[place]__ MA__ If not on [facility], working on signing up for my Confirmed has completed any pre-visit questionnaires If has not received required previsit questionnaires, send via [facility] _X__Reviewed medications, allergies, pharmacy, pain/depression, education _X__Documented height/weight/LMP Other information or concerns: * Popeye Leigh MD - 09/24/2020 9:20 AM EST Division of [place] [address] Gynecologic Oncology-Clinic Note Reason for visit: Postoperative discussion, endometrial cancer. Patient Active Problem List Diagnosis Code ??? Endometrial cancer C54.1 ??? 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 Cigarette smoker F17.210 ??? Hypokalemia E87.6 ??? Essential hypertension I10 Prior to Admission medications Medication Sig Start Date End Date Taking? Authorizing Provider fluticasone propionate (FLONASE) 50 mcg/actuation [place], Suspension SHAKE LIQUID AND USE 1 SPRAY [...] receptors: Estrogen receptor (ER): Positive Progesterone receptor (IL): Positive - Benign cervix with Nabothian cysts. - Adenomyosis. - Multiple uterine leiomyomas. - Benign bilateral fallopian tubes and ovaries. Electronically signed by: Desi Adams DO Verified: 09/05/2020 Pathologist Performed at: [place] 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) Tumor Block(s): 2 [facility] September 2019 Annual Release DISCUSSION Block Antibody [...] Five Things Physicians and Patients Should Question [email or web address] In the interval between visits, she has [...] 2-5, she may alternate visits between a yard foreman and a gynecologic oncologist.) - At each [...] isthmus documented in this encounter Care Teams Sports Reporter Relationship Specialty Start Date End Date Adriana Velazquez PA [address] [place] [address] [place] [address] PCP - General Internal Medicine 08/06/20 documented as of this encounter
--- OUTSIDE RECORDS SUMMARY | 2024-07-06 13:50 | XMS_ITS | Encounter Summary ---
Author Organization [facility] [place] [address] Care Team Providers Care Veterinarian Poultry Name Role Phone Adriana Velazquez Primary Care Provider + Encounter Details Date Type Department Care Team (Late st Contact Info) Description 06/24/2024 3:55 PM EDT Ancillary Procedure Radiology Library at [facility] [place] [phone] Johnson Hernandez MD [facility] [place] [address] Social History Tobacco Use Types Packs/Day Years [...] Diagnosis Comments FILM LIBRARY STORAGE ONLY CT HEAD AND SPINE Routine 06/24/2024 3:52 PM EDT documented in this encounter Results * Film Library- Storage Only CT Head And Spine (06/24/2024 3:52 PM EDT) Narrative [facility] - 06/24/2024 3:52 PM EDT This exam is auto-finalizing. It's purpose is for storage only. Johnson Hernandez MD IMG FILM LIBRARY O RDERABLES DH RAD [place], [place] documented in this encounter Visit Diagnoses Not on filedocumented in this encounter Care Teams Veterinarian Poultry Relationship Specialty Start Date End Date Adriana Velazquez PA [address] [place] [address] [place] [address] PCP - General Internal Medicine 08/06/20 documented as of this encounter
--- OUTSIDE RECORDS SUMMARY | 2024-07-06 13:50 | XMS_ITS | Encounter Summary ---
Author Organization [facility] [place] [address] Care Team Providers Care Seafood Fisherman Name Role Phone Adriana Velazquez Primary Care Provider + Encounter Details Date Type Department Care Team (Late Contact Info) Description 10/17/2020 Notes Only Obstetrics [place] [phone] Mariann Bruce CCMA Social History Tobacco Use [...] on filedocumented in this encounter Care Teams Seafood Fisherman Relationship Specialty Start Date End Date Adriana Velazquez PA [address] [address] [place] [address] PCP - General Internal Medicine 08/06/20 documented as of this encounter
--- OUTSIDE RECORDS SUMMARY | 2024-07-06 13:50 | XMS_ITS | Encounter Summary ---
[place] [address] Care Team Providers Care Awake Overnight Monitor Name Role Phone Adriana Velazquez Primary Care Provider + Reason for Visit * Reason Comments Neck Pain Occipital Pain Right Arm Pain Right Shoulder Pain * Consultation (Routine) - Closed Specialty Diagnoses / Procedures Referred By Jose welch Referred To Contact [facility] Diagnoses neck pain/mri [facility]/ tried home physical therapy Adriana Velazquez PA [address] [place] [address] [facility] [place] [address] Referral ID Status Reason Start Date Expiration Date Visits Re quested Visits Authorized [id number] Closed 01/06/2021 01/06/2022 1 1 Encounter Details Date Type Department Care Team ([facility] Contact Info) Description 01/28/2021 9:00 AM EDT Office Visit [place] [address] Stu Bull MD [facility] [place] [address] Chronic pain syndrome; Cervical facet [...] Bull MD - 01/28/2021 9:00 AM EDT [facility] Initial Consultation Note Date of visit: 01/28/21 : 1970 Consulting Physician: Adriana Velazquez PA [address] [place] [address] [place] [address] Reason for consultation: Neck pain Chief Complaint [...] is scheduled to start physical therapy at [place], [place]. She has done breathing exercises/relaxation techniques, [...] yes PT: no Psychology: no Acupuncture: no lawn caretaker: yes TENS Unit: no Injections: no Surgery: [...] the right L5 nerve root. Review of [place] and [place] Prescription Monitoring Program (DIRECTOR OF PATIENT SAFETY): Today I have also reviewed the patient's history of controlled substance use. Review of Pain Questionnaire: Please see the [facility] Management [place] health questionnaire, which the patient completed and reviewed with me in detail. Review of Electronic Chart: Today I have also reviewed available medical information in the patient[place] [facility] including relevant provider notes, laboratory work, and [...] 2.5) performed by Popeye Leigh MD at [facility] MAIN OR ??? PRO LAP, PELVIC LYMPHADENECTOMY/BX N/A 08/29/2020 LAPAROSCOPY,W\BILATERAL TOTAL PELVIC LYMPHADENECTOMY, PERIAORTIC LYMPH NODE SAMPLING, ROBOTIC (WRVU15.6) performed by Popeye Leigh MD at [facility] MAIN OR ? ? 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 Based on response to conventional physical [...] above. Stu Bull MD [facility] Stock Tracer of Anesthesiology [facility] [address] [phone] / [facility] Please note that this note was completed with the assistance of voice recognition software. As result unintentional subassembler errors and/or typographical mistakes are possible. If you notice errors please bring them to my attention. If any area requires explanation or clarification please do not hesitate to contact me. CC: Adriana Velazquez PA [address] [place] [address] [place] [id number] documented in this encounter Plan of Treatment Not on file documented as of this encounter Visit Diagnoses Diagnosis Chronic pain syndrome Cervical facet syndrome Other symptoms referable to back documented in this encounter Care Teams Awake Overnight Monitor Relationship Specialty Start Date End Date Adriana Velazquez PA [address] [place] [address] [place] [address] PCP - General Internal Medicine 08/06/20 documented as of this encounter
--- OUTSIDE RECORDS SUMMARY | 2024-07-06 13:50 | XMS_ITS | Encounter Summary ---
Author Organization [facility] [place] [address] Care Team Providers Care Artificial Candy Maker Name Role Phone Adriana Velazquez Primary Care Provider + Reason for Visit * Reason Comments Medication Refill Encounter Details Date Type Department Care Team (Late Contact Info) Description 02/14/2021 Refill [facility] [place] [address] Stu Bull MD [facility] [address] Social History Tobacco Use Types Packs/Day Years [...] on filedocumented in this encounter Care Teams Artificial Candy Maker Relationship Specialty Start Date End Date Adriana Velazquez PA [address] [place] [address] [place] [address] PCP - General Internal Medicine 08/06/20 documented as of this encounter
--- OUTSIDE RECORDS SUMMARY | 2024-07-06 13:50 | XMS_ITS | Encounter Summary ---
[place] [address] Care Team Providers Care Gun Numberer Name Role Phone Adriana Velazquez Primary Care Provider + Reason for Visit * Reason Onset Date Comments Abdominal Pain 08/30/2020 Encounter Details Date Type Department Care Team ([facility] Contact Info) Description 08/30/2020 Telephone Gynecology [place] [phone] Viktoria Wong, RN Abdominal Pain Social History [...] on filedocumented in this encounter Care Teams Gun Numberer Relationship Specialty Start Date End Date Adriana Velazquez PA [address] [place] [address] [place] [address] PCP - General Internal Medicine 08/06/20 documented as of this encounter
--- OUTSIDE RECORDS SUMMARY | 2024-07-06 13:50 | XMS_ITS | Encounter Summary ---
Author Organization [facility] [place] [address] Care Team Providers Care Case Advocate Name Role Phone Adriana Velazquez Primary Care Provider + Encounter Details Date Type Department Care Team (Late Contact Info) Description 02/14/2021 Telephone [place] [phone] Kathe Ghotra RN Social History Tobacco Use [...] on filedocumented in this encounter Care Teams Case Advocate Relationship Specialty Start Date End Date Adriana Velazquez PA [address] [place] [address] [place] [address] PCP - General Internal Medicine 08/06/20 documented as of this encounter
--- OUTSIDE RECORDS SUMMARY | 2024-07-06 13:50 | XMS_ITS | Encounter Summary ---
[place] [address] Care Team Providers Care Corporate Law Specialist Name Role Phone Adriana Velazquez Primary Care Provider + Reason for Visit * Reason Onset Date Comments Follow-up 09/03/2020 Encounter Details Date Type Department Care Team ([facility] Contact Info) Description 09/03/2020 Telephone [place] [phone] Viktoria Wong, RN Follow-up Social History Tobacco [...] and she chose PCP. Per PCP and quantitative equity head stated that it's Dr. Leigh'sresponsibility to prescribe [...] on filedocumented in this encounter Care Teams Corporate Law Specialist Relationship Specialty Start Date End Date Adriana Velazquez PA [address] [place] [address] [place] [address] PCP - General Internal Medicine 08/06/20 documented as of this encounter
--- OUTSIDE RECORDS SUMMARY | 2024-07-06 13:50 | XMS_ITS | Encounter Summary ---
Author Organization [facility] [place] [address] Care Team Providers Care Shipping Room Supervisor Name Role Phone Adriana Velazquez Primary Care Provider + Reason for Visit * - Closed Specialty Diagnoses / Procedures Referred By Jose welch Referred To Contact Procedures Film Library- Storage Only MR Spine Adriana Velazquez PA [address] [place] [address] Referral ID Status Reason Start Date Expiration Date Visits Re quested Visits Authorized [id number] Closed 12/27/2020 12/27/2021 1 1 Encounter Details Date Type Department Care Team ([facility] Contact Info) Description 12/23/2020 Ancillary Procedure Radiology Library at [facility] [place] [address] Adriana Velazquez PA [address] [place] [address] [place] [address] Social History Tobacco Use Types [...] IMYanni FILM LIBRARY ORDERABLES Performing Organization Address City/State/[facility] Co de Phone Number [place], [place] documented in this encounter Visit Diagnoses Not on filedocumented in this encounter Care Teams Shipping Room Supervisor Relationship Specialty Start Date End Date Adriana Velazquez PA [address] [place] [address] [place] [address] PCP - General Internal Medicine 08/06/20 documented as of this encounter
--- OUTSIDE RECORDS SUMMARY | 2024-07-06 13:50 | XMS_ITS | Encounter Summary ---
[facility] [place] [address] Care Team Providers Care Special Agent [employer] Name Role Phone Adriana Velazquez Primary Care Provider + Reason for Visit * Reason Comments Cerebrovascular Accident * Auth/Cert (Routine) Specialty Diagnoses / Procedures Referred By Contac t Referred To Contact Diagnoses Ischemic stroke Procedures EMERGENCY OBSVO Gil Cee MD [facility] [address] [facility] Referral ID Status Reason Start Date Expiration Date Visits Re quested Visits Authorized [id number] 1 1 Encounter Details Date Type Department Care Team (Late st Contact Info) Description 06/26/2024 12:37 PM EST - 06/26/2024 6:42 PM EST Emergency Neurosciences and ENT Unit Level 5 [place] [id number] Joan Dunn MD [facility] [place] [address] Gil Cee MD [facility] [address] Ischemic stroke Discharge Disposition: Against Medical Advice Social History Tobacco Use Types Packs/Day Years [...] - Weight 65.8 kg (145 lb) 06/26/2024 12:33 PM EST Height 154.9 cm (5' 1) 06/26/2024 12:33 PM EST Body Mass Index 27.4 06/26/2024 12:33 PM EST documented in this encounter Medications at Time of Discharge Medication Sig Dispensed Refills Start Date End Date atorvastatin (Lipitor) 80 mg tablet Take 1 tablet by mouth Daily at Noon. 06/24/2024 clopidogreL (Plavix) 75 mg tablet Take 1 tablet by mouth Daily at Noon. 06/24/2024 lisinopriL (Prinivil;Zestril) 5 mg Tablet 1 tablet daily. 01/27/2021 venlafaxine (EFFEXOR) 37.5 mg Tablet Take 37.5 mg by mouth daily. venlafaxine (EFFEXOR) 75 mg Tablet Take 75 mg by mouth daily. aspirin EC 81 mg Tablet, Delayed Release (E.C.) Take 81 mg by mouth daily. documented as of this encounter Progress Notes * Todd Bourgeois RN - 06/26/2024 6:42 PM EST Was informed by nurse Duval that patient is very agitated about blood on her gown and wants to leave. Walked in patient room, patient is very agitated, yelling, did not give the option to discuss things with nurse. Nurse stated that this blood could be due to blood drawns performed on patient, or could be due to the insertion of the IV. Nurse offered to get a new gown to patient. Patient did notallow any kind of discussion with the Charge nurse. MD Mercedez Cooley was notified that patient is about leave. Nurse offered Patient AMA paper to sign, and explained to her what is AMA. Patient signed the paper. Nurse simin removed the IV. Patient took her belongings and she rushed out of the door. * Lenora Newsome DO - 06/26/2024 6:41 PM EST Paged at 18:30 that patient was agitated and wanting to leave AMA. Upon arrival to floor, patient was fully dressed and leaving the unit. Attempted to ask Juana what was wrong, patient walked past me saying No. I'm leaving. I'm done. * Simin Heller RN - 06/26/2024 6:31 PM EST Page Confirmation To Pager number: [phone] From Submitter: Simin Heller Urgency Level: Call Me Callback Number: [phone] The following Message was sent: [Call Me] - Callback:[phone] Shira; pt is going to leave AMA is agitated. - Simin Heller * Simin Heller RN - 06/26/2024 6:09 PM EST Does not want to explain documented in this encounter H&P Notes * Lenora Newsome DO - 06/26/2024 1:53 PM EST Neurology Admission History and Physical Patient name: Juana Valentino Date of : 1970 PCP: ELAINE Perez Stroke Assessment: Date last well known:: 06/23/24 Time last well known:: 1999 Date of discovery of symptoms:: 06/26/24 Time of discovery of symptoms:: 1830 The time difference from patients last known well to ED arrival OR inpatient stroke alert was (choose one): Greater than 4.5 hours Date acute stroke team was at bedside:: 06/26/24 Time acute stroke team was at bedside:: 1243 CT interpretation date: 06/26/24 CT interpretation time:: 1303 Was dysphagia screen performed?: Yes Did patient pass dysphagia screen?: Yes Date of Dysphagia Screen: 06/26/24 Time of Dysphagia Screen: 1310 Fast-ED Total Score: 0 CC: left facial numbness HPI: Juana Valentino is a 54 y.o. female with PMH of HTN, tobacco use, MDD, endometrial cancer (s/p total hysterectomy 2020) who presented to [facility] ED as a stroke alert for left-sided facial and upper extremity numbness. Tru symptoms began on Wednesday evening before she went to bed with left foot numbness. She then began experiencing blurry vision making her think she was overtired and she went to sleep. After waking up on Wednesday morning, she attempted to shave her legs in the shower but was unable to feel herleft leg. She also reports feeling a left-sided foot drop at this time. She presented to urgent care who sent her to [facility] emergency department. She was seen by teleneurology as a consult and assessment at this time was that symptoms are consistent with a stroke and recommendation was made to admit for stroke workup. Patient ultimately discharged home due to lack of MRI availability. This morning approximately 1 hour after waking up she noticed a numbness in her left face and left hand. This is not accompanied by weakness. She was initially planning on returning to [facility] today for MRI brain but was unable to do so, she felt increased stress over inability to schedule MRIand decided to present to the [facility] ED for further workup. She denies saddle anesthesia or loss of bowel/bladder control. On presentation to the ED her vitals were stable but notable for hypertension (SBP 175 mmHg), she was afebrile, with a regular heart rate, 99% O2 on RA. Blood glucose 96. CBC within normal limits, platelets 343. Home Medications: Current Outpatient Medications Medication Instructions aspirin EC 81 mg, Oral, DAILY atorvastatin (Lipitor) 80 mg tablet 1 tablet, Oral, DAILY AT NOON clopidogreL (Plavix) 75 mg tablet 1 tablet, Oral, DAILY AT NOON lisinopriL (Prinivil;Zestril) 5 mg Tablet 1 tablet, DAILY venlafaxine (EFFEXOR) 37.5 mg, Oral, DAILY venlafaxine (EFFEXOR) 75 mg, Oral, DAILY Past Medical & Surgical History: Past Medical History: Diagnosis Date Cancer Ischemic stroke 06/26/2024 Mental health problem Past Surgical History: Procedure Laterality Date PRO INTRAOP SENTINEL LYMPH ID W/DYE INJECTION N/A 08/29/2020 INTRAOPERATIVE ID (MAPPING) SENTINEL LYMPH NODE,INCLUDES INJECTION (WRVU 2.5) performed by Popeye Leigh MD at [facility] MAIN OR PRO LAP, PELVIC LYMPHADENECTOMY/BX N/A 08/29/2020 LAPAROSCOPY,W\BILATERAL TOTAL PELVIC LYMPHADENECTOMY, PERIAORTIC LYMPH NODE SAMPLING, ROBOTIC (WRVU15.6) performed by Popeye Leigh MD at [facility] MAIN OR PRO LAPAROSCOPY W TOT HYSTERECTUTERUS <=250 GRAM W TUBE/OVARY N/A 08/29/2020 LAPAROSCOPY,TOTAL HYST, UTERUS<250GM, REM TUBE &/OR OVARY, ROBOTIC ASSIST (WRVU 15) performed by Popeye Leigh MD at [facility] MAIN OR Allergy: Allergies Allergen Reactions Prednisone Other (See Comments) Complete panic makes me feel crazy Family History: No family history on file. Social History: Smoking: Current 1 PPD smoker EtOH: Does not drink Illicits: Marijuana occasionally Living situation: Lives at home with Review of systems: Negative except as noted in HPI Physical Exam: Last value Range last 24 hrs Temperature Temp: 36.4 ??C (97.5 ??F) Temp: [36.4 ??C (97.5 ??F)] Heart Rate Heart Rate: 85 Heart Rate: [85] Blood Pressure BP: (!) 166/105 BP: (166-175)/(105-106) Respiratory Rate Resp: 20 Resp: [20] SpO2 SpO2: 98 % SpO2: [98 %-99 %] Art BP BP (Arterial Line): -- Gen: Patient of apparent stated age, well nourished, well developed, awake, alert, NAD Neck: Supple, no meningismus CV: RRR on telemetry Resp: Normal WOB on RA Ext: No edema. No bony deformity Neuro Exam: MS: AAOx4, clear language, no dysarthria, follows commands appropriately CN: EOMI, visual quiroga full Decreased sensation to light touch in V2/V3 distribution, no facial asymmetry Hearing intact to voice Palate elevates symmetrically, tongue protrudes midline SCM and trap strength intact Motor: BUE, RLE antigravity without drift LLE drifts to bed immediately Sensation: Decree sensation to light touch in LUE, LLE Reflexes: Deferred Coordination: Finger to nose intact Heel-lau intact No tremor Gait: Deferred NIH Stroke Scale NIH Stroke Scale Date 06/26/24 NIH Stroke Scale Time 1246 Level of Consciousness 0 LOC Questions 0 LOC Commands 0 Best Gaze 0 Vision 0 Facial Palsy 0 Motor Arm, Left 0 Motor Arm, Right 0 Motor Leg, Left 2 Motor Leg, Right 1 Limb Ataxia 1 Sensory 1 Best Language 0 Dysarthria 0 Extinction and Inattention: 0 NIH Total Score 5 Assessment and Plan: Juana Valentino is a 54 y.o. female with PMH of HTN, tobacco use, MDD, endometrial cancer (s/p total hysterectomy 2020) who presented to [facility] as a stroke alert for left-sided facial and upper extremity numbness. Juana initially presented to OSH 2 days ago where CTh showed a question of right internal capsule infarct. CT head today was negative for acute intracranial processes. Unclear at this time if there was a definite infarct and what the possible etiology would be. Plan for stroke workup including MRIbrain without contrast, telemetry to monitor for dysrhythmias, TTE. Plan to continue previously started ASA, Plavix, atorvastatin. Alteplase: IV Thrombolytics decision time: 1253 Was IV Thrombolytics given?: No Other reasons (Hospital-related or other factors) 3 - 4.5 hour treatment window. Select all that apply.: Other (specify) (stroke diagnosed 06/23) #Possible Right Internal Capsule Infarct -Admit to neurology, floor level of care -Neuro check & vitals Q4hrs / Q4hrs -Permissive HTN, treat SBP >220 with prn labetalol, enalaprilat -Aspirin 81mg daily -Continue home Plavix 75mg daily -Continue home atorvastatin 80mg daily -TTE -12 lead EKG -Telemetry -MRI brain wo contrast -PT/OT/JIG BORER #Tobacco Use -Nicotine patch 21mg -Nicotine gum q2h #Home Meds -Continue home lisinopril 5mg daily -Continue home venlafaxine 112.5mg daily #Routine -Diet: Regular diet -GI ppx: not indicated -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 Exclusion Criteria: A swallow screen is not to be performed on patients who: have a decreased level of consciousness. are not able to follow simple commands. are hypoxic, or have increasing O2 needs or may need to be intubated. have a G/J tube for nutrition. have a recent history of a swallowing disorder *These patients should remain NPO (HOLD MEDS) and the physician notified for further orders. Swallow Screen Using Water: None of the Exclusion Criteria as mentioned above is present? Patient is alert and sitting upright? Able to close lips and tongue is midline? Able to cough, manage oral secretions with dry voice? ONLY IF ABOVE ALL YES, Able to swallow 30 ml of water without coughing, displaying a wet voice or choking? Repeat Twice. If YES to all responses, proceed with water and oral medications as well as diet as medical provider deems appropriate. Consider JIG BORER consult for full evaluation and diet recommendations. If NO to any of the responses, stop immediately, keep patient NPO and notify physician. Associated attestation - Gil Cee MD - 06/26/2024 5:13 PM EST Neurology Staff Note I have reviewed the above resident's history during the visit and I agree with the details as written. My physical examination confirms the resident's findings. The assessment and plan were formulated in discussion with me at the time of the visit and I agree with them as documented. I saw her this afternoon and she was upset that other people told her she had definitely had a stroke and other people brought up the diagnosis of multiple sclerosis and that people are mis-quoting her. I tolder her. That I wanted to get an accurate picture of her current symptoms and come to the diagnosis as quickly as possible. She has ongoing numbness of the left cheek and the lower extremity below the knee and she points to the anterior and lateral lau area and the top of the foot. There is a difference in light touch sensation in the web of the great toe and the toe next to it and the anterolateral lau there is no Babinski sign. More normal sensation to light touch on the bottom of the foot. At rest while lying supine the left ankle is somewhat in a plantarflexed position compared to the right. There is what appears to be some mild weakness in plantarflexion, dorsiflexion as wellas eversion and inversion of the ankle. There is no weakness of the face or upper extremities. CT scan and CT angiogram were reviewed and are unremarkable. I told her that the symptoms and findings are unusual for something involving the brain and that I wondered if it could be a peripheral nerve problem such as a peroneal neuropathy. Not all of the findings are clearly consistent with this either. She does not recall any activities that might have caused peroneal nerve compression and denies any pain suggestive of a lumbar radiculopathy now and she is adamant that she does not have sciatica on the right side which is what someone else apparently said. We hope to get an MRI of the brain to clarify the diagnosis. If this is unremarkable she may need additional evaluation for alternative diagnoses. I have examined the patient myself and personally reviewed all studies. In addition, I certify thatI am a D-H credentialed attending provider with admitting privileges and that the patient meets or has met medical necessity to require an inpatient I level of care meeting a minimum of two midnights or is on the [facility] inpatient only procedure list (status C) due to: neurologic instability requiring neurologic checks at least every 4 hours. acute stroke requiring neurologic checks at least every 4 hours. MCCs and CCs on admission (Present if in bold): Clinically significant cerebral edema, vasogenic Hyponatremia CHF acute, systolic Brain compression Hypernatremia CHF acute on chronic, systolic Clinically significant cerebral edema, cytotoxic Cerebellar ataxia CHF acute on chronic, diastolic Coma Hypertension, malignant CHF acute diastolic Hemiplegia Hypertension accelerated CHFchronic diastolic Hemiparesis Hypertensive encephalopathy Dementia with delrium Quadraplegia Malnutrition BMI<19 Dementia with depression Encephalopathy, metabolic Cachexia Alzheimer's Dementia with behavioral disturbance Encephalopathy, toxic Morbid obesity, BMI>40 Anoxic brain damage Encephalopathy, other CKD stage 4 (eGFR 15-30ml/min/1.73m2) Acute Kidney Injury Delirium, drug induced CKD stage 5 or ESRD Paroxysmal AF Persistent AF Longstanding persistent AF Permanent AF documented in this encounter ED Notes * Juan Varela MD - 06/26/2024 1:26 PM ESTSummary: ED Note ED Resident Note HPI: Juana Valentino is a 54 y.o. female history of endometrial cancer and HTN who presents to the Emergency Department with left sided numbness. Stroke alert was called. She was seen at outside hospital on Wednesday and diagnosed with a stroke. She was planned to get an MRI this morning at [facility] but there was a clerical error in this did not occur. She endorses left-sided face numbness and tingling the started 8 a.m. this morning. She denies weakness on the left side. She she also has associated blurred vision. She also endorses pain in her tailbone without any associated trauma. No headache. No fevers no chills. She takes aspirin and Plavix. ROS as per HPI Vitals: ED Triage Vitals BP: (!) 175/106 [06/26/24 1233] Heart Rate: 85 [06/26/24 1245] Resp: 20 [06/26/24 1245] Temp: 36.4 ??C (97.5 ??F) [06/26/24 1233] Temp src: Oral [06/26/24 1233] SpO2: 99 % [06/26/24 1233] O2 Device: RA [06/26/24 1233] O2 Flow Rate (L/min): 100 L/min [06/26/24 1233] Physical Exam Constitutional: General: She is not in acute distress. Eyes: Extraocular Movements: Extraocular movements intact. Cardiovascular: Rate and Rhythm: Normal rate and regular rhythm. Pulmonary: Effort: Pulmonary effort is normal. Breath sounds: Normal breath sounds. Neurological: Mental Status: She is alert. GCS: GCS eye subscore is 4. GCS verbal subscore is 5. GCS motor subscore is 6. Comments: Decreased sensation over left face. Decreased sensation left arm and left lower extremity. Decreased strength on left upper extremity. Left upper extremity unable to be held against gravity. ED Course: I have reviewed labs and imaging, images and available reports, and they are significant for: ED Course as of 06/26/24 1817 WedJun 26, 2024 1308 Will need MRI 1324 CT Head wo Contrast (Generic) IMPRESSION No acute intracranial process 181 EKG normal sinus rhythm with rate of 66. No ST elevation or depression. No T-wave inversion. MRI Brain wo Contrast Final Result No acute ischemia/infarction. Thank you for letting us participate in the care of this patient. If you are a health care provider and have any questions regarding this report, please contact the number below. For patients who have questions please contact the health patient care representative that requested your imaging first. Head wo Contrast (Generic) Final Result No acute intracranial process. I have personally [...] who have questions please contact the health patient care representative that requested your imaging first. Procedures Assessment and Plan: 54 y.o. female presenting with a stroke. Stroke alert was called. Aqyad-ix-cxgc glucose 96. Patientwas admitted to neurology for further stroke workup. Patient received MRI while in the emergency department as well as TTE. The visit findings, diagnosis, and care plan were discussed with the patient. Juan Varela MD Resident 06/26/241817 Associated attestation - Joan Dunn MD - 06/28/2024 10:30 AM EST ED ATTENDING ATTESTATION NOTE The patient was seen in conjunction with the resident physician. I have independently performed thekey portions of the history and physical exam. I have reviewed the diagnostic studies including labs, imaging studies and EKGs. I have discussed the details of the case with the resident and agree with the assessment and plan as described in the resident note unless noted below or in my separate note. Brief Summary: 54 y.o. female with history of endometrial cancer and hypertension presenting to the emergency department with concern for numbness and weakness. Patient reportedly seen at outside hospital 3 days ago for similar symptoms. She reports being diagnosed with a stroke at that time however confirmatory MRI was not obtained. At initial triage, patient reports that symptoms had improved and then recurred/worsened this morning. She was at the stroke window, stroke alert was called. She was evaluated alongside the neurology service. Upon further clinical exam her lower extremity numbness/paresthesias are persistent however she does have some facial numbness which is new. CT scan unrevealing. Patient be admitted to the neurology service for further management and completion of her stroke evaluation. documented in this encounter Miscellaneous Notes * Plan of Care - Simin Heller RN - 06/26/2024 7:25 PM EST Juana Valentino discharged to home by private car with Patient. All belongings sent with patient. NARINDER removed, skin free from pressure ulcers. Pt up to unit from ED at 1800. Started to assess pt. Pt answered admission questions, refused physical assessment. During admission questions pt became more agitated. Offered to talk to pt and answerany questions. Pt started to become more agitated. Charge nurse came to talk to pt, did not want totalk with them also. Pt requested AMA form. paged and talked to charge nurse. Charge nurse gave AMA form for pt to sign. Pt signed form, I removed the IV and masimo. Pt left unit. * ED Triage - Gisselle Jacobo RN - 06/26/2024 12:27 PM EST Patient to ED for stroke symptoms left sided N/T in her face/arm. LKW 0800 this morning. Patient had stroke on Wednesday seen at OSH. ED stroke scale negative. NAD. PWD. documented in this encounter Plan of Treatment Not on file documented as of this encounter Procedures Procedure Name Priority Date/Time Associated Diagnosis Comments MRI BRAIN WO CONTRAST STAT 06/26/2024 5:47 PM EST ECHO COMPLETE Routine 06/26/2024 3:53 PM EST Ischemic stroke EKG 12-LEAD STAT 06/26/2024 3:29 PM EST Ischemic stroke EXTRA TUBES STAT 06/26/2024 1:16 PM EST GOLD TUBE HOLD STAT 06/26/2024 1:16 PM EST BLUE TUBE HOLD STAT 06/26/2024 1:16 PM EST CBC (WITH DIFF) STAT 06/26/2024 1:16 PM EST BASIC METABOLIC PANEL STAT 06/26/2024 1:[address] HEAD WO CONTRAST (GENERIC) STAT 06/26/2024 1:02 PM EST POC, GLUCOSE Routine 06/26/2024 12:53 PM EST EKG 12-LEAD Routine 06/26/2024 12:45 PM EST documented in this encounter Results * MRI Brain wo Contrast (06/26/2024 5:47 PM EST) WORKSTATION ID [id number] RAD Anatomical Region Laterality Modality Head Magnetic Resonan ce Impressions 06/26/2024 5:59 PM EST No acute ischemia/infarction. Thank you for letting us participate in the care of this patient. ??If you are a health care provider and have any questions regarding this report, please contact the number below. ??For patients who have questions please contact the health patient care representative that requested your imaging first. ? Narrative [...] patients who have questions please contactthe health patient care representative that requested your imaging first. Joan Dunn MD IMG MRI ORDERABLES * ECHO COMPLETE (06/26/2024 3:53 PM EST) EF 56 HEARTLAB SYSTEM Anatomical Region Laterality Modality Cardiac Other 06/26/2024 4:01 PM EST Narrative 06/26/2024 4:10 PM EST [address] [place] [address] ? Echocardiogram Report Name: JUANA VALENTINO ? Study Date: 06/26/2024 04:01 PMBP: 172/103 mmHg : 1970 ? Height: 155 cm ? Account: [id number] Age: 54 yrs ? Weight: 66 kg Gender: Female ?BSA: 1.6 m2 Ordering Physician: JOAN DUNN Performed By: Clau Navarro Reason For Study: Ischemic stroke Exam Location: [facility]. Interpretation Summary Left ventricular systolic function is [...] pulmonary AVM. Consider further evaluation with a AHLEY if clinically indicated. Other details as below. Procedure Complete-[id number]. An agitated saline bubble contrast study was [...] Note Abelino Yepez MD - 06/26/2024 [address] [place] [address] Echocardiogram Report Name: MELINDA VALENTINOA Steve Study Date: 404:01 PMBP: 172/103 mmHg : 1970 Height: 155 cm Account: [id number] Age: 54 yrs Weight: 66 kg Gender: Female BSA: 1.6 m2 Ordering Physician: JOAN DUNN Performed By: Clau Navarro Reason For Study: Ischemic stroke Exam Location: [facility]. Interpretation Summary Left ventricular systolic function is [...] clinically indicated. Other details as below. Procedure Complete-[id number]. An agitated saline bubble contrast study was [...] EKG 12 Lead (06/26/2024 3:29 PM EST) Ventricular rate 67 BPM MUSE SYSTEM Atrial Rate 67 BPM MUSE SYSTEM P-R Interval 160 ms MUSE SYSTEM QRS Duration 74 ms MUSE SYSTEM Q-T Interval 420 ms MUSE SYSTEM QTC Calculated (Bezet) 443 ms MUSE SYSTEM Calculated P [place] 69 degrees MUSE SYSTEM Calculated R [place] 72 degrees MUSE SYSTEM Calculated T [place] 64 degrees MUSE SYSTEM INTERPRETATION Normal sinus rhythm Normal ECG No previous ECGs available Confirmed by MD Jaxon, Eh ([id number]) on 06/27/2024 2:07:54 PM MUSE SYSTEM 06/26/2024 3:29 PM EST 06/27/2024 2:07 PM EST Kristy T Gorecki [employer] ECG ORDERABLES MUSE SYSTEM * Gold Tube HOLD (06/26/2024 1:16 PM EST) Gold Hold Hold for Add-on 06/26/2024 3:01 PM EST [facility] Blood VENOUS BLOOD SPECIMEN / Unknown 06/26/2024 1:16 PM EST 06/26/2024 1:21 PM EST Joan Dunn MD CHEMISTRY ORDERABLE S Performing Organization Address City/[facility]/ZIP Co de Phone Number [facility] [place] [place] [address] * Blue Tube HOLD (06/26/2024 1:16 PM EST) Blue Hold Hold for Add-on 06/26/2024 3:01 PM EST [facility] Blood VENOUS BLOOD SPECIMEN / Unknown 06/26/2024 1:16 PM EST 06/26/2024 1:21 PM EST Joan Dunn MD HEMATOLOGY ORDERABL ES Performing Organization Address City/[facility]/ZIP Co de Phone Number [facility] [place] [address] * (ABNORMAL) Basic Metabolic Panel (06/26/2024 1:16 PM EST) Pathologist [facility] Glucose 89 65 - 199 mg/dL 06/26/2024 2:18 PM EST [facility] Comment:Glucose Concentratio n >=200 mg/dL plus symptoms is consistent with Diabetes Mellitus. Blood Urea Nitrogen 12 8 - 18 mg/dL 06/26/2024 2:18 PM EST [facility] Creatinine 0.53(L) 0.70 - 1.20 mg/dL 06/26/2024 2:18 PM EST [facility] Sodium 137 135 - 145 mMol/L 06/26/2024 2:18 PM EST [facility] Potassium 4.1 3.5 - 5.0 mMol/L 06/26/2024 2:18 PM EST [facility] Chloride 103 98 - 107 mMol/L 06/26/2024 2:18 PM EST [facility] Carbon Dioxide 22 22 - 31 mMol/L 06/26/2024 2:18 PM EST [facility] Anion Gap 12 5 - 15 mMol/L 06/26/2024 2:18 PM EST [facility] Calcium 10.0 8.5 - 10.5 mg/dL 06/26/2024 2:18 PM EST [facility] Est Glomerular Filtration Rate - Female 109 mL/min/1. 73 m?? 06/26/2024 2:18 PM EST [facility] Comment: This patient's estimated GFR [...] EST Joan Dunn MD CHEMISTRY ORDERABLE S [facility] [place] [address] * CBC (with Diff) (06/26/2024 1:16 PM EST) White Blood Cell 8.99 4.00 - 9.50 x10(3)/mcL 06/26/2024 1:30 PM EST [facility] Red Blood Cell 4.69 4.00 - 5.21 x10(6)/mcL 06/26/2024 1:[address] [facility] Hemoglobin 15.0 11.7 - 15.5 g/dL 06/26/2024 1:[address] [facility] Hematocrit 42.9 35.7 - 45.8 % 06/26/2024 1:[address] [facility] Mean Cell Volume 91.5 82.6 - 94.4 fL 06/26/2024 1:[address] [facility] Mean Cell Hemoglobin 32.0 27.1 - 32.0 pg 06/26/2024 1:[address] [facility] Mean Cell Hemoglobin Concentration 35.0 31.7 - 35.0 g/dL 06/26/2024 1:[address] [facility] Platelet 343 145 - 357 x10(3)/mcL 06/26/2024 1:[address] [facility] Mean Platelet Volume 10.7 7.6 - 12.9 fL 06/26/2024 1:[address] [facility] RDW Standard Deviation 43.8 37.0 - 46.0 fL 06/26/2024 1:[address] [facility] RDW coefficient of variation 13.1 11.5 - 14.1 % 06/26/2024 1:[address] [facility] NRBC% auto 0.0 % 06/26/2024 1:[address] [facility] NRBC Absolute <0.01 <0.01 x10(3)/mcL 06/26/2024 1:[address] [facility] Neutrophil % 57.5 % 06/26/2024 1:[address] [facility] Neutrophil Absolute (ANC) - Automated 5.17 1.70 - 6.10 x10(3)/mcL 06/26/2024 1:[address] [facility] Lymph % 34.0 % 06/26/2024 1:[address] [facility] Lymph Absolute 3.06 0.90 - 3.20 x10(3)/mcL 06/26/2024 1:[address] [facility] Monocyte % 6.6 % 06/26/2024 1:30 PM EST [facility] Monocyte Absolute 0.59 0.30 - 0.90 x10(3)/mcL 06/26/2024 1:30 PM EST [facility] Eos % 0.9 % 06/26/2024 1:30 PM EST [facility] Eos Absolute 0.08 0.00 - 0.40 x10(3)/mcL 06/26/2024 1:30 PM EST [facility] Basophil % 0.7 % 06/26/2024 1:30 PM EST [facility] Baso Absolute 0.06 0.00 - 0.10 x10(3)/mcL 06/26/2024 1:30 PM EST [facility] Immature Gran % 0.3 % 1:30 PM EST [facility] Immature Gran Absolute <0.04 0.00 - 0.04 x10(3)/mcL 06/26/2024 1:30 PM EST [facility] Blood VENOUS BLOOD SPECIMEN / Unknown Venipuncture / Unknown 06/26/2024 1:16 PM EST 06/26/2024 1:21 PM EST Joan Dunn MD HEMATOLOGY ORDERABL ES [facility] [place] [address] * CT Head wo Contrast (Generic) (06/26/2024 1:02 PM EST) Pathologist [employer] WORKSTATION ID [id number] DH RAD Anatomical Region Laterality Modality Head Computed [...] who have questions please contact the health patient care representative that requested your imaging first. ? Narrative [...] patients who have questions please contactthe health patient care representative that requested your imaging first. Kristy Martinez WAREHOUSE PRODUCTION WORKER IMG CT ORDERABLES * POC, GLUCOSE (06/26/2024 12:53 PM EST) Glucometer, POC 96 65 - 199 mg/dL 06/26/2024 12:54 PM EST [facility] Comment:Supplemental ranges: <140 mg/dL before meals <180 mg/dL all other times of the day. Blood CAPILLARY BLOOD / Unknown 06/26/2024 12:53 PM EST 06/26/2024 12:54 PM EST Unknown POINT OF CARE TEST O RDERABLES Performing Organization Address City/[facility] Co de Phone Number [facility] [place] [address] * EKG 12 Lead (06/26/2024 12:45 PM EST) Ventricular rate 74 BPM MUSE SYSTEM Atrial Rate 74 BPM MUSE SYSTEM P-R Interval 154 ms MUSE SYSTEM QRS Duration 66 ms MUSE SYSTEM Q-T Interval 384 ms MUSE SYSTEM QTC Calculated (Bezet) 426 ms MUSE SYSTEM Calculated P [place] 67 degrees MUSE SYSTEM Calculated R [place] 54 degrees MUSE SYSTEM Calculated T [place] 55 degrees MUSE SYSTEM INTERPRETATION Normal sinus rhythm Possible Left atrial enlargement Borderline ECG No previous ECGs available Confirmed by MD Jaxon, Eh ([id number]) on 06/27/2024 2:07:43 PM MUSE SYSTEM 06/26/2024 12:4 5 PM EST 06/27/2024 2:07 PM EST Unknown ECG ORDERABLES MUSE SYSTEM documented in this encounter Visit Diagnoses Diagnosis Ischemic stroke- Primary Ischemic stroke documented in this encounter Admitting Diagnoses Diagnosis Ischemic stroke documented in this encounter Administered Medications Inactive Administered Medications - up to 3 most recent administrations Medication Order MAR Action Action Date Dose Rate Site acetaminophen (Tylenol) (32.02 mg/mL) oral liquid 975 mg 975 mg, Per G Tube, EVERY 6 HOURS PRN, Starting on Wed06/26/24 at 1411, Until Wed06/26/24 at 2126, Pain, Fever, pain or oral temperature greater than 100 degrees F (measured by mouth), - Maximum dose of acetaminophen is 4,000 mg from all sources in 24 hours. - Unless otherwise specified, when ordered PRN for pain, acetaminophen should be given first if other PRN pain medications are ordered., Routine acetaminophen (Tylenol) suppository 650 mg 650 mg, Rectal, EVERY 6 HOURS PRN, Starting on Wed06/26/24 at 1411, Until Wed06/26/24 at 2126, Pain, Fever, pain or oral temperature greater than 100 degrees F (measured by mouth), - Maximum dose of acetaminophen is 4,000 mg from all sources in 24 hours. - Unless otherwise specified, when ordered PRN for pain, acetaminophen should be given first if other PRN pain medications are ordered., Routine acetaminophen (Tylenol) tablet 975 mg 975 mg, Oral, EVERY 6 HOURS PRN, Starting on Wed06/26/24 at 1411, Until Wed06/26/24 at 2126, Pain, Fever, pain or oral temperature greater than 100 degrees F (measured by mouth), - Maximum dose of acetaminophen is 4,000 mg from all sources in 24 hours. - Unless otherwise specified, when ordered PRN for pain, acetaminophen should be given first if other PRN pain medications are ordered., Routine aspirin chewable tablet 324 mg 324 mg, Oral, DAILY, First dose on Wed06/26/24 at 1430, Until Discontinued, Routine Given 06/26/2024 4:06 PM EST 243 mg aspirin chewable tablet 81 mg 81 mg, Oral, DAILY, First dose on Wed06/27/24 at 0900, Until Discontinued, Routine nicotine (Nicoderm CQ) 21 mg/24 hr patch 21 mg 21 mg (1 patch), Transdermal, Administer over 24 Hours, DAILY, First dose on Wed06/26/24 at 1430, Until Discontinued, Apply new patch to clean, dry, hair-free skin on the upper body or upper outer arm; each patch should be applied to a different site., Routine nicotine (Nicoderm CQ) 21 mg/24 hr patch Patch Verification Transdermal, 2 TIMES DAILY, First dose on Wed06/27/24 at 0135, Until Discontinued, Verify nicotine 21 mg/24 hr patch nicotine polacrilex (Nicorette) gum 2 mg 2 mg, Buccal, EVERY 2 HOURS PRN, Starting on Wed06/26/24 at 1414, Until Wed06/26/24 at 2127, Smoking cessation, Chew gum slowly. Do not swallow. Maximum of 48 mg/day., Routine documented in this encounter Active and Recently Administered Medications Due to Daylight Saving Time, this section may contain times in both EDT and EST. Scheduled Medication Order 06/24/2024 06/25/2024 06/26/2024 aspirin chewable tablet 324 mg (CANCELED)(Linked Group 1) 324 mg, Oral, DAILY, First dose on Wed06/26/24 at 1430, Until Discontinued, Routine 1606 (Given - Provid er: Selena Reno, NRP - Comment: pt took 81 mg earlier) aspirin chewable tablet 81 mg 81 mg, Oral, DAILY, First dose on Wed06/27/24 at 0900, Until Discontinued, Routine atorvastatin (Lipitor) tablet 80 mg 80 mg, Oral, DAILY AT NOON, First dose on Wed06/27/24 at 1200, Until Discontinued, Routine clopidogreL (Plavix) tablet 75 mg 75 mg, Oral, DAILY, First dose on Wed06/27/24 at 0900, Until Discontinued, Routine enoxaparin (Lovenox) (40 mg/0.4 mL) subcutaneous injection 40 mg 40 mg, Subcutaneous, NIGHTLY, First dose on Wed06/26/24 at 2100, Until Discontinued, Routine lisinopriL (Zestril) tablet 5 mg 5 mg, Oral, DAILY, First dose on Wed06/27/24 at 0900, Until Discontinued, Routine nicotine (Nicoderm CQ) 21 mg/24 hr patch 21 mg(Linked Group 2) 21 mg (1 patch), Transdermal, Administer over 24 Hours, DAILY, First dose on Wed06/26/24 at 1430, Until Discontinued, Apply new patch to clean, dry, hair-free skin on the upper body or upper outer arm; each patch should be applied to a different site., Routine 1430 (Due) nicotine (Nicoderm CQ) 21 mg/24 hr patch Patch Verification(Linked Group 2) Transdermal, 2 TIMES DAILY, First dose on Wed06/27/24 at 0135, Until Discontinued, Verify nicotine 21 mg/24 hr patch polyethylene glycoL (Miralax) packet 17 g 17 g, Oral, DAILY, First dose on Wed06/26/24 at 1430, Until Discontinued, Routine 1430 (Not Given - Pr ovider: Tammy Alvarez RN - Reason: Patient/family refused) senna-docusate (Pericolace) 8.6-50 mg per tablet 2 tablet 2 tablet, Oral, 2 TIMES DAILY, First dose on Wed06/26/24 at 1430, Until Discontinued, Administer to achieve 1 soft bowel movement daily without straining , Routine 1430 (Not Given - Pr ovider: Tammy Alvarez RN - Reason: Patient/family refused) venlafaxine (Effexor) tablet 37.5 mg 37.5 mg, Oral, DAILY, First dose on Wed06/27/24 at 0900, Until Discontinued, Routine venlafaxine (Effexor) tablet 75 mg 75 mg, Oral, DAILY, First dose on Wed06/27/24 at 0900, Until Discontinued, Routine PRN Medication Order 06/24/2024 06/25/2024 06/26/2024 acetaminophen (Tylenol) (32.02 mg/mL) oral liquid 975 mg(Linked Group 3) 975 mg, Per G Tube, EVERY 6 HOURS PRN, Starting on Wed06/26/24 at 1411, Until Wed06/26/24 at 7, Pain, Fever, pain or oral temperature greater than 100 degrees F (measured by mouth), - Maximum dose of acetaminophen is 4,000 mg from all sources in 24 hours. - Unless otherwise specified, when ordered PRN for pain, acetaminophen should be given first if other PRN pain medications are ordered., Routine acetaminophen (Tylenol) suppository 650 mg(Linked Group 3) 650 mg, Rectal, EVERY 6 HOURS PRN, Starting on Wed06/26/24 at 1411, Until Wed06/26/24 at 2127, Pain, Fever, pain or oral temperature greater than 100 degrees F (measured by mouth), - Maximum dose of acetaminophen is 4,000 mg from all sources in 24 hours. - Unless otherwise specified, when ordered PRN for pain, acetaminophen should be given first if other PRN pain medications are ordered., Routine acetaminophen (Tylenol) tablet 975 mg(Linked Group 3) 975 mg, Oral, EVERY 6 HOURS PRN, Starting on Wed06/26/24 at 1411, Until Wed06/26/24 at 2126, Pain, Fever, pain or oral temperature greater than 100 degrees F (measured by mouth), - Maximum dose of acetaminophen is 4,000 mg from all sources in 24 hours. - Unless otherwise specified, when ordered PRN for pain, acetaminophen should be given first if other PRN pain medications are ordered., Routine bisacodyL (Dulcolax) suppository 10 mg 10 mg, Rectal, DAILY PRN, Starting on Wed06/26/24 at 1411, Until Wed06/26/24 at 2126, Constipation, Administer if needed per patient's routine or if no bowel movement within 48 hours to achieve: (1) One bowel movement at least every 48 hours, AND (2) Without straining. If multiple PRN bowel medications ordered, start with magnesium hydroxide, then bisacodyL. Multiple medications may be given concomitantly for constipation. , Routine enalaprilat (Vasotec) (1.25 mg/mL) injection 1.25 mg 1.25 mg, Intravenous, Administer over 5 Minutes, EVERY 6 HOURS PRN, Starting on Wed06/26/24 at 1411, Until Wed06/26/24 at 2126, hypertension , Systolic blood pressure (SBP) goal LESS THAN 220 mmHg. Administer if blood pressure control not at goal in 30 minutes despite labetaloL when SBP is greater than 220 mmHg or diastolic blood pressure (DBP) is greater than 110 mmHg. Note: enalaprilat can be given with labetaloL or niCARdipine., Routine labetaloL (Normodyne) (5 mg/mL) injection solution 10-20 mg 10-20 mg, Intravenous, Administer over 2 Minutes, EVERY 15 MIN PRN, Starting on Wed06/26/24 at 1411, Until Wed06/26/24 at 2126, High Blood Pressure, - Systolic blood pressure (SBP) goal LESS THAN 220 mmHg. Start with 10 mg/dose every 15 minutes. If not at goal with 10 mg/dose then increase to 20 mg/dose for subsequent dosing. - Do not exceed 300 mg per day. - Repeat every 15 minutes for SBP greater than 220 mmHg. - Hold if pulse is less than 50 beats per minute. If labetaloL does not satisfactorily control BP within 30 minutes, consider enalaprilat or niCARdipine., Routine magnesium hydroxide (Milk of Magnesia) (80mg/mL) oral liquid 2,400 mg 2,400 mg, Oral, DAILY PRN, Starting on Wed06/26/24 at 1411, Until Wed06/26/24 at 2126, Constipation, 30 mL regular (400 mg/5 mL) = 10 mL concentrate (2400 mg/10 mL), Routine nicotine polacrilex (Nicorette) gum 2 mg 2 mg, Buccal, EVERY 2 HOURS PRN, Starting on Wed06/26/24 at 1414, Until Wed06/26/24 at 2126, Smoking cessation, Chew gum slowly. Do not swallow. Maximum of 48 mg/day., Routine Linked Groups Order Group 1: aspirin chewable tablet 324 mg (CANCELED)Jump to med 324 mg, Oral, DAILY, First dose on Wed06/26/24 at 1430, Until Discontinued, Routine Or aspirin suppository 300 mg (CANCELED) 300 mg, Rectal, DAILY, First dose on Wed06/26/24 at 1430, Until Discontinued, Routine Group 2: nicotine (Nicoderm CQ) 21 mg/24 hr patch 21 mgJump to med 21 mg (1 patch), Transdermal, Administer over 24 Hours, DAILY, First dose on Wed06/26/24 at 1430, Until Discontinued, Apply new patch to clean, dry, hair-free skin on the upper body or upper outer arm; each patch should be applied to a different site., Routine And nicotine (Nicoderm CQ) 21 mg/24 hr patch Patch VerificationJump to med Transdermal, 2 TIMES DAILY, First dose on Wed06/27/24 at 0135, Until Discontinued, Verify nicotine 21 mg/24 hr patch Group 3: acetaminophen (Tylenol) tablet 975 mgJump to med 975 mg, Oral, EVERY 6 HOURS PRN, Starting on Wed06/26/24 at 1411, Until Wed06/26/24 at 2126, Pain, Fever, pain or oral temperature greater than 100 degrees F (measured by mouth), - Maximum dose of acetaminophen is 4,000 mg from all sources in 24 hours. - Unless otherwise specified, when ordered PRN for pain, acetaminophen should be given first if other PRN pain medications are ordered., Routine Or acetaminophen (Tylenol) (32.02 mg/mL) oral liquid 975 mgJump to med 975 mg, Per G Tube, EVERY 6 HOURS PRN, Starting on Wed06/26/24 at 1411, Until Wed06/26/24 at 2126, Pain, Fever, pain or oral temperature greater than 100 degrees F (measured by mouth), - Maximum dose of acetaminophen is 4,000 mg from all sources in 24 hours. - Unless otherwise specified, when ordered PRN for pain, acetaminophen should be given first if other PRN pain medications are ordered., Routine Or acetaminophen (Tylenol) suppository 650 mgJump to med 650 mg, Rectal, EVERY 6 HOURS PRN, Starting on Wed06/26/24 at 1411, Until Wed06/26/24 at 2126, Pain, Fever, pain or oral temperature greater than 100 degrees F (measured by mouth), - Maximum dose of acetaminophen is 4,000 mg from all sources in 24 hours. - Unless otherwise specified, when ordered PRN for pain, acetaminophen should be given first if other PRN pain medications are ordered., Routine documented in this encounter Care Teams Special Agent Fbi Relationship Specialty Start Date End Date Adriana Velazquez PA [address] [place] [address] [place] [address] PCP - General Internal Medicine 08/06/20 documented as of this encounter
--- OUTSIDE RECORDS SUMMARY | 2024-07-06 13:50 | XMS_ITS | Encounter Summary ---
[place] [address] Care Team Providers Care Ethylene Plant Helper Name Role Phone Adriana Velazquez Primary Care Provider + Reason for Visit * Reason Onset Date Comments Questions 09/03/2020 Encounter Details Date Type Department Care Team ([facility] Contact Info) Description 09/03/2020 Telephone [place] [phone] Viktoria Wong RN Questions Social History Tobacco [...] on filedocumented in this encounter Care Teams Ethylene Plant Helper Relationship Specialty Start Date End Date Adriana Velazquez PA [address] [place] [address] [place] [address] PCP - General Internal Medicine 08/06/20 documented as of this encounter
--- OUTSIDE RECORDS SUMMARY | 2024-07-06 13:50 | XMS_ITS | Continuity of Care Document ---
Author Organization [facility] Address [address] [place] [address] Care Team Providers Care Back Tender Name Role Phone Adriana Velazquez Primary Care Physician Encounter [id number] Date(s): 07/04/24 - 07/04/[address] [address] Encounter Diagnosis Paresthesias(Discharge Diagnosis) - 07/04/24 Discharge Disposition: Home or Self Care Attending [...] Daily, # 90 tab, 3 Refill(s), Pharmacy: [id number], 156.5, cm, 03/08/24 15:43:00 EDT, Height, 66.65, kg, 03/08/24 15:51:00 EDT, Weight Dosing Start Date: 03/08/24 Stop Date: 03/03/25 Status: Ordered LORazepam 0.5 mg oral tablet 0.5 mg = 1 tab, Oral, BID, PRN as needed for anxiety, # 56 tab, 0 Refill(s), Pharmacy: [id number], 156.5, cm, 03/08/24 15:43:00 EDT, Height, 66.65, kg, 03/08/24 15:51:00 EDT, Weight Dosing Start Date: 03/30/24 Stop Date: 04/27/24 Status: Ordered Plavix 75 mg oral tablet 75 mg = 1 tab, Oral, Daily, # 30 tab, 0 Refill(s) Start Date: 06/29/24 Status: Ordered venlafaxine 37.5 mg oral capsule, extended release 37.5 mg = 1 cap, Oral, Daily, # 90 cap, 3 Refill(s), Pharmacy: [id number], 156.5, cm, 03/08/24 15:43:00 EDT, Height, 66.65, kg, 03/08/24 15:51:00 EDT, Weight Dosing Start Date: 03/08/24 Status: Ordered venlafaxine 75 mg oral capsule, extended release 75 mg = 1 cap, Oral, Daily, # 90 cap, 3 Refill(s), Pharmacy: [id number], 156.5, cm, 03/08/24 15:43:00 EDT, Height, [...] Use:. Sex Female Sex Representation Female (finding) Cardiology * Samuel Hernandez GUEST RELATIONS OFFICER: PERFORM Event Display: Event Monitor Authored Date: [id number] SENIA VALENTINO [id number] Patient placed on Zio Event Monitor 14 dayson 07/04/2024 Electronically Signed on 07/04/2024 13:10 EST Samuel Hernandez GUEST RELATIONS OFFICER Patient Care team information Care Team Personnel Name: Adriana Velazquez Position: Physician Member Role: Primary Care Physician Address: [facility] [place] [address]- Care Team Related Persons Name: KYE JESUS Name: SANTO VALENTINO Insurance Providers Guarantor name: SENIA VALENTINO Health Plan Information #: 1 Payer: [facility] Member Number: [id number] Policy Number: NA Health Plan Information #: 2 Payer: [facility] Member Number: [id number] Policy Number: NA
--- OUTSIDE RECORDS SUMMARY | 2024-07-06 13:50 | XMS_ITS | Encounter Summary ---
Author Organization [facility] [place] [address] Care Team Providers Care Can Filling And Closing Machine Tender Name Role Phone Adriana Velazquez Primary Care Provider + Encounter Details Date Type Department Care Team (Late st Contact Info) Description 09/06/2020 Telephone [place]ne[place] [phone] Popeye Leigh MD [facility] [place] [address] Social History Tobacco Use Types Packs/Day Years [...] on filedocumented in this encounter Care Teams Can Filling And Closing Machine Tender Relationship Specialty Start Date End Date Adriana Velazquez PA [address] [place] [address] [place] [address] PCP - General Internal Medicine 08/06/20 documented as of this encounter
--- OUTSIDE RECORDS SUMMARY | 2024-07-06 13:50 | XMS_ITS | Encounter Summary ---
[place] [address] Care Team Providers Care Fountain Jerk Name Role Phone Adriana Velazquez Primary Care Provider + Reason for Visit * Reason Onset Date Comments Other 09/18/2020 Return to Work [place] o[place] Encounter Details Date Type Department Care Team (Late Contact Info) Description 09/18/2020 Telephone [place] [phone] Viktoria Wong RN Other (Return to Work [...] to reschedule after today. Will let our outpatient scheduler aware. documented in this encounter Plan of Treatment Not on file documented as of this encounter Visit Diagnoses Not on filedocumented in this encounter Care Teams Fountain Jerk Relationship Specialty Start Date End Date Adriana Velazquez PA [address] [place] [address] [place] [address] PCP - General Internal Medicine 08/06/20 documented as of this encounter
--- OUTSIDE RECORDS SUMMARY | 2024-07-06 13:50 | XMS_ITS | Encounter Summary ---
[place] [address] Care Team Providers Care Skilled Laborer Name Role Phone Adriana Velazquez Primary Care Provider + Reason for Visit * Reason Onset Date Comments Other 09/03/2020 Encounter Details Date Type Department Care Team ([facility] Contact Info) Description 09/03/2020 Telephone Gynecology [place] [phone] Viktoria Wong RN Other Social History Tobacco [...] on filedocumented in this encounter Care Teams Skilled Laborer Relationship Specialty Start Date End Date Adriana Velazquez PA [address] [place] [address] [place] [address] PCP - General Internal Medicine 08/06/20 documented as of this encounter
--- OUTSIDE RECORDS SUMMARY | 2024-07-06 13:50 | XMS_ITS | Encounter Summary ---
Author Organization [facility] [place] [address] Care Team Providers Care Pharmaceutical Laboratory Technician Name Role Phone Adriana Velazquez Primary Care Provider + Encounter Details Date Type Department Care Team (Late st Contact Info) Description 08/30/2020 Orders Only Obstetrics [place] [address] Anastasiia Matias MD [facility] DR OBSTETRICS & [place] [address] Social History Tobacco Use Types Packs/Day Years [...] on filedocumented in this encounter Care Teams Pharmaceutical Laboratory Technician Relationship Specialty Start Date End Date Adriana Velazquez PA [address] [place] [address] [place] [address] PCP - General Internal Medicine 08/06/20 documented as of this encounter
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
--- OUTSIDE RECORDS SUMMARY | 2024-07-06 13:50 | XMS_ITS | Encounter Summary ---
[place] [address] Care Team Providers Care Orthodontic Technician Assistant Name Role Phone Adriana Velazquez Primary Care Provider + Encounter Details Date Type Department Care Team (Late Contact Info) Description 09/03/2020 Telephone [place] [phone] Viktoria Wong, RN Social History Tobacco Use [...] on filedocumented in this encounter Care Teams Orthodontic Technician Assistant Relationship Specialty Start Date End Date Adriana Velazquez PA [address] [place] [address] [place] [address] PCP - General Internal Medicine 08/06/20 documented as of this encounter
--- OUTSIDE RECORDS SUMMARY | 2024-07-06 13:50 | XMS_ITS | Encounter Summary ---
Author Organization [facility] [place] [address] Care Team Providers Care Hide Sorter Name Role Phone Adriana Velazquez Primary Care Provider + Encounter Details Date Type Department Care Team (Late st Contact Info) Description 09/03/2020 Orders Only [place] [address] Popeye Leigh MD [facility] DR [place] [address] Vaginal itching Social History Tobacco Use Types [...] organs documented in this encounter Care Teams Hide Sorter Relationship Specialty Start Date End Date Adriana Velazquez PA [address] [place] [address] [place] [address] PCP - General Internal Medicine 08/06/20 documented as of this encounter
--- OUTSIDE RECORDS SUMMARY | 2024-07-06 13:50 | XMS_ITS | Encounter Summary ---
Author Organization [facility] Address [facility] [place] [address] Care Team Providers Care First Line Supervisor Name Role Phone Adriana Velazquez Primary Care Provider + Reason for Visit * Reason Comments Follow-up Encounter Details Date Type Department Care Team ([facility] Contact Info) Description 10/29/2023 2:40 PM EST Office Visit [place] [address] Ernesto Jackman MD [facility] [place] [address] Endometrial cancer Social History Tobacco Use Types [...] 2:40 PM EST Division [place] [address] Gynecologic Oncology Clinic Follow Up Visit Oncologic History: - Primary: Endometrial - Histology: Grade 1 endometrioid - Stage: IA - Treatment: * RATLHBSO, SLN mapping and sampling (08/29/2020) Genetic/Molecular Testing ER: Positive WA: Positive MMR: Proficient Subjective: Juana Silva returns [...] normal. Vitals reviewed. Exam conducted with a director of contracts present. Performance status: ECOG- (0) Fully active, [...] isthmus documented in this encounter Care Teams First Line Supervisor Relationship Specialty Start Date End Date Adriana Velazquez PA [address] [place] [address] [place] [address] PCP - General Internal Medicine 08/06/20 documented as of this encounter
--- OUTSIDE RECORDS SUMMARY | 2024-07-06 13:50 | XMS_ITS | Encounter Summary ---
[place] [address] Care Team Providers Care Mold Cleaner Name Role Phone Adriana Velazquez Primary Care [...] on filedocumented in this encounter Care Teams Mold Cleaner Relationship Specialty Start Date End Date Adriana Velazquez PA [address] [place] [address] [place] [address] PCP - General Internal Medicine 08/06/20 documented as of this encounter
--- OUTSIDE RECORDS SUMMARY | 2024-07-06 13:51 | XMS_ITS | Encounter Summary ---
Author Organization [facility] [place] [address] Care Team Providers Care Rn Physician Office Name Role Phone Unknown Primary Care Provider Unavailabl e Encounter Details Date Type Department Care Team (Late st Contact Info) Description 06/24/2020 Ancillary Procedure Radiology Library at [facility] [place] [address] Stu Bull MD [facility] [place] [address] Social History Tobacco Use Types Packs/Day Years [...] Bull MD IMG FILM LIBRARY ORD ERABLES [place], [place] documented in this encounter Visit Diagnoses Not on filedocumented in this encounter Care Teams Rn Physician Office Relationship Specialty Start Date End Date Unknown None PCP - General 05/23/18 08/05/20 documented as of this encounter
--- OUTSIDE RECORDS SUMMARY | 2024-07-06 13:51 | XMS_ITS | Encounter Summary ---
Author Organization [facility] Address [address] [place] [address] Care Team Providers Care Cloth Napping Supervisor Name Role Phone Claudia Strong MD Primary Care Provider Unavailable Adriana Velazquez Primary Care Provider + Encounter Details Date Type Department Care Team (Late st Contact Info) Description 09/11/2020 Lab Requisition [facility] Pathology & Laboratory Medicine - [address] [address] Pradip Fontenot MD [address] [place] [phone] Irregular menstruation, unspecified Social History Tobacco Use Types Packs/Day Years Used Date Smoking Tobacco: Never Assessed Interpersonal Safety Answer Date Record ed Physically Hurt Never 03/24/2020 Verbally Threaten Not on file 03/24/2020 Comments Unknown Sex and Gender Information Value Date Recorded Sex Assigned at Not on file Legal Sex Female 18:19 EST Gender Identity Female 12/01/2022 8:30 EDT Sexual [...] See scanned downtime report. 09/11/2020 7:59 EST [facility] Attestation Report electronically released by Guille Oconnor on 09/11/20 . 09/11/2020 7:59 EST [facility] Resident/Lionel w: Kiara Marinelli DO 09/11/2020 7:59 EST [facility] Performing Lab [facility] 09/11/2020 7:59 EST [facility] Scanned Images 09/11/2020 7:59 EST [facility] Tissue ENTIRE ENDOMETRIUM / Unknown 07/08/2020 15:00 EST 09/11/2020 7:59 EST us Pradip Fontenot MD PATHOLOGY ORDERABLES F inal Result [facility] [address] [place] [address] documented in this encounter Visit Diagnoses Diagnosis Irregular menstruation, unspecified documented in this encounter Care Teams Cloth Napping Supervisor Relationship Specialty Start Date End Date Claudia Strong MD PCP - General 09/26/09 11/30/22 Adriana Velazquez PA [address] [place] [phone] PCP - General Internal Medicine - Primary Care 12/01/22 documented as of this encounter
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
--- OUTSIDE RECORDS SUMMARY | 2024-07-06 13:51 | XMS_ITS | Encounter Summary ---
Author Organization [facility] Address [address] [place] [address] Care Team Providers Care Center Human Resources Manager Name Role Phone Adriana Velazquez Primary Care Provider + Reason for Visit * Reason Onset Date Comments Confirmation 12/09/2022 Encounter Details Date Type Department Care Team (Late st Contact Info) Description 12/09/2022 Telephone [facility] Acute Care Surgery - [address] [phone] Trauma Surgery, Ep5 Acs MD Confirmation Social [...] on filedocumented in this encounter Care Teams Center Human Resources Manager Relationship Specialty Start Date End Date Adriana Velazquez PA [address] [place] [address] [place] [address] PCP - General Internal Medicine - Primary Care 12/01/22 documented as of this encounter
--- OUTSIDE RECORDS SUMMARY | 2024-07-06 13:51 | XMS_ITS | Encounter Summary ---
Author Organization [facility] Address [address] [place] [address] Care Team Providers Care Date Pitter Name Role Phone Claudia Strong MD Primary Care Provider Unavailable Encounter Details Date Type Department Care Team (Latest Contact Info) Description 09/26/2009 10:09 EST - 09/26/2009 23:59 EST Hospital Encounter [facility] - [address] [address] Unknown, Provider, Rex Siddiqui MD PhD Brown, Dasha Nelson MD [facility] [address] [facility] [place] [address] Discharge Disposition: Auto Discharge Social History Tobacco Use Types Packs/Day Years Used Date Smoking Tobacco: Never Assessed Comments Unknown Sex and Gender Information Value [...] does not smoke. She is a born-again Druze, as is her . REVIEW OF SYSTEMS: [...] and ethically that the opinion of the [facility] department of reproductive endocrinology is that the benefits do not outweigh the risks of tubal reversal and that her chance of subsequent conception is quite low. I did offer her an opportunity to pursue a second opinion and will have Heena give the patient for [facility], or the patient may pursue any outside institution that she desires. Additionally, I offered the patient an opportunity to discuss her fertility needs and desires with our psychologist, Dr Jessica Howell. The patient declined this option and she states there is nothing she wishes to discuss. She is interested in pursuing a second opinion and will likely proceedherself to contacting [facility]. All of her questions were answered. [...] - JV Job ID: SM Doc ID: [id number] Ext Doc ID: [id number] cc: Claudia Strong MD documented in this encounter Plan of Treatment Not on file documented as of this encounter Visit Diagnoses Not on filedocumented in this encounter Care Teams Date Pitter Relationship Specialty Start Date End Date Claudia Strong MD PCP - General 09/26/09 11/30/22 documented as of this encounter
--- OUTSIDE RECORDS SUMMARY | 2024-07-06 13:51 | XMS_ITS | Clinical Summary ---
Author Organization [facility] Address [address] [place] [address] Care Team Providers Care Conference Center Coordinator Name Role Phone Adriana Velazquez Primary Care Provider + Allergies No known active allergies Medications venlafaxine (EFFEXOR-XR) 75 mg XR capsule Take [...] - 19+ 3-dose series) 05/25 COVID-19 Vaccine (2023- season) 2024 Insurance [place]ICAID [place] Care Teams Conference Center Coordinator Relationship Specialty Start Date End Date Adriana Velazquez PA [address] [place] [address] [place] [id number] PCP - General Internal Medicine - Primary Care 12/01/22
--- OUTSIDE RECORDS SUMMARY | 2024-07-06 13:51 | XMS_ITS | Encounter Summary ---
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 Her is very supportive of her wanted [...] on filedocumented in this encounter Care Teams Sterile Processing Technologist Relationship Specialty Start Date End Date Claudia Strong MD [facility] [address] [place] [address] PCP - General 07/15/10 05/19/18 documented as of this encounter
--- OUTSIDE RECORDS SUMMARY | 2024-07-06 13:51 | XMS_ITS | Encounter Summary ---
[place] [address] Care Team Providers Care Administrative Services Officer Name Role Phone Claudia Strong MD Primary Care Provider [phone] Encounter Details Date Type Department Care Team (Late st Contact Info) Description 05/14/2015 Notes [place] [address] Nahomi Valencia, RN Social History Tobacco Use [...] on filedocumented in this encounter Care Teams Administrative Services Officer Relationship Specialty Start Date End Date Claudia Strong MD [facility] [address] [place] [address] PCP - General 07/15/10 05/19/18 documented as of this encounter
--- OUTSIDE RECORDS SUMMARY | 2024-07-06 13:51 | XMS_ITS | Encounter Summary ---
Author Organization [facility] Address [address] [place] [address] Care Team Providers Care Dredge Deckhand Name Role Phone Claudia Strong MD Primary Care Provider Unavailable Adriana Velazquez Primary Care Provider + Encounter Details Date Type Department Care Team (Late st Contact Info) Description 12/30/2020 Lab Requisition [facility] Pathology & Laboratory Medicine - [address] [address] Outr Resulting Lab, Provider Social History Tobacco [...] BK Interpretation Negative Negative 2020 13:27 EDT [facility] Comment:No titer performed, BK Screen is negative. Blood VENOUS BLOOD / Unknown 12/30/2020 13:26 EDT 12/30/2020 21:20 EDT Narrative [facility] - 12/31/2020 13:27 EDT Results were obtained with the [employer] NOVA Lite HEp-2 BK Kit by indirect immunofluorescence. us Provider Outr Resulting Lab IMMUNOLOGY AND SEROL OGY ORDERABLES Final Result Performing Organization Address City/State/[facility] Co de Phone Number [facility] [address] [place] [address] documented in this encounter Visit Diagnoses Not on filedocumented in this encounter Care Teams Dredge Deckhand Relationship Specialty Start Date End Date Claudia Strong MD PCP - General 09/26/09 11/30/22 Adriana Velazquez PA [address] [place] [phone] PCP - General Internal Medicine - Primary Care 12/01/22 documented as of this encounter
--- OUTSIDE RECORDS SUMMARY | 2024-07-06 13:51 | XMS_ITS | Encounter Summary ---
Author Organization [facility] [place] [address] Care Team Providers Care Geophysical Computer Name Role Phone Unknown Primary Care Provider Unavailabl e Encounter Details Date Type Department Care Team (Late st Contact Info) Description 07/23/2020 External Results [place] [address] Provider, Scanning Social History Tobacco Use Types [...] on filedocumented in this encounter Care Teams Geophysical Computer Relationship Specialty Start Date End Date Unknown None PCP - General 05/23/18 08/05/20 documented as of this encounter
--- OUTSIDE RECORDS SUMMARY | 2024-07-06 13:51 | XMS_ITS | Encounter Summary ---
Author Organization [facility] [place] [address] Care Team Providers Care Fagoter Name Role Phone Unknown Primary Care Provider Unavailabl e Encounter Details Date Type Department Care Team (Latest Contact Info) Description 07/23/2020 2:56 PM EST - 07/23/2020 11:59 PM EST Hospital [place] [phone] Discharge Disposition: Home Social History Tobacco Use [...] Report (07/23/2020 2:57 PM EST) Final Diagnosis [id number] ? Location: OPW The signing pathologist has (i) examined the relevant preparation(s) for the specimen(s) and (ii) rendered or confirmed the diagnosis(es). . ?Surgical Pathology DIAGNOSIS CONSULTATION CASE Outside slide(s) labeled [id number], collection date 07/08/2020. Endometrial biopsy: Endometrial adenocarcinoma, endometrioid type, FIGO grade 1. Electronically signed by: ??Desi Adams DO Verified: ??07/24/2020 ?Pathologist Performed at: ??[place] [place], [place], [place] SPECIMEN(S) SUBMITTED CONSULTATION CASE A - 3 slide(s) labeled [id number], collection date 07/08/2020. [id number] Report to: [facility] Surgical Pathology Department [facility], [facility], [address] [place] [address] ??[id number] CLINICAL INFORMATION with irregular periods SPECIMEN PROCESSING [facility] ([facility]) pathology slide(s) are reviewed. ??Refer to Diagnosis and Specimen Submitted for specific case information. For the full text of the [facility] report(s) please refer to Non- Documentation Pathology in the electronic health record (eDH). 07/24/2020 8:[address] [facility] Consult Case 07/23/2020 2:57 PM EST 07/23/2020 2:57 PM EST Popeye Leigh MD PATHOLOGY/CYTOLOGY O [facility] [place] [address] documented in this encounter Visit Diagnoses Not on filedocumented in this encounter Care Teams Fagoter Relationship Specialty Start Date End Date Unknown None PCP - General 05/23/18 08/05/20 documented as of this encounter
--- OUTSIDE RECORDS SUMMARY | 2024-07-06 13:51 | XMS_ITS | Referral Summary ---
Author Organization [facility] Address [address] [place] [address] Care Team Providers Care Power Plant Operators Supervisor Name Role Phone Adriana Velazquez Primary [...] EDT Plan of Treatment Not on file Insurance MEDICAID [place] [facility] [place] [address] Care Teams Power Plant Operators Supervisor Relationship Specialty Start Date End Date Adriana Velazquez PA [address] [place] [address] [place] [phone] PCP - General Internal Medicine - Primary Care 12/01/22
--- OUTSIDE RECORDS SUMMARY | 2024-07-06 13:51 | XMS_ITS | Encounter Summary ---
Author Organization [facility] [place] [address] Care Team Providers Care Heating Unit Installer Name Role Phone Claudia Strong MD Primary Care Provider [phone] Reason for Visit * Reason Comments Depression Medication Problem Encounter Details Date Type Department Care Team (Late st Contact Info) Description 03/25/2017 7:40 PM EDT - 03/25/2017 11:41 PM EDT Emergency [place] [address] Lilian Dickerson MD [facility] [place] [address] Severe episode of recurrent major depressive disorder, [...] welcome to come back to the ED. [facility] Recovering From Depression: Care Instructions Your Care [...] movie or concert. Take part in a moravian activity or other social gathering. Go to [...] the numbers for these national suicide hotlines: 3-897-463-TALK ( ) and 1-033-MLGFRIM ( ). If you or someone you [...] more? Visit our health information library at [email or web address]. You can also view health information on [employer], your personal patient account. Log in or sign uptoday. Enter [id number] in the search box to learn more about Recovering From Depression: Care Instructions. Current as of: March 17, 2016 Content Version: 11.3 ?? [id number] [employer]. Care instructions adapted under license by [facility]. If you have questions about a medical condition or this instruction, always ask your healthcare professional. [employer] disclaims any warranty or liability for your [...] encounter Miscellaneous Notes * Consult Note - Kwkau Choe MD - 03/25/2017 9:08 PM EDT EMERGENCY DEPARTMENT PSYCHIATRIC EVALUATION CPT CODE 46222; TOM CODE 5000 The patient was seen at 9:08PM (time). Time Spent: 90 minutes Referral Source: ED Dr. Dunn Additional Attendee(s) (identify by relationship to pt.): , step-son Information source: Patient. Family. Relationship to patient: . Chief Complaint: 46 y.o. Female presents to [facility] with worsening mood History of [...] History: Lives with . 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 PSYCHIATRIC / MENTAL STATUS EXAMINATION Musculoskeletal System: [...] calling the crisis line of their local [facility] or taking the patient [...] Blue Tube HOLD (03/25/2017 9:16 PM EDT) [facility] Blue Hold Sample in lab. [facility] Blood specimen (specimen) Venous Draw / Unknown 03/25/2017 9:16 PM EDT 03/25/2017 9:21 PM EDT Shaka Lawson MD HEMATOLOGY ORDERABLE S [facility] [place] [address] * (ABNORMAL) Differential, Automated (03/25/2017 9:16 PM EDT) [facility] Neutrophil % 63.8 % [facility] Neutrophil Absolute 7.93(H) 1.70 - 6.10 x10(3)/mc L [facility] Lymph % 29.1 % [facility] Lymphocytes Abs 3.6(H) 0.9 - 3.2 x10(3)/mc L [facility] Monocyte % 4.7 % [facility] Monocyte Abs 0.6 0.3 - 0.9 x10(3)/mc L [facility] Eos % 1.0 % [facility] Eosinophils Abs 0.1 0.0 - 0.4 x10(3)/[facility] Basophil % 1.0 % [facility] Baso Absolute 0.1 0.0 - 0.1 x10(3)/[facility] Immature Gran % 0.40 % [facility] Comment: Immature granulocytes(IG's)percentage and absolute count will include metamyelocytes, myelocytes, and promyelocytes. Blood smears from CBCs yielding IG's will be scanned manually for concordance. If this scan disagrees with the automated IG or if promyelocytes are noted, a manual differential will be performed. Immature Gran Absolute 0.05(H) 0.00 - 0.04 x10(3)/[facility] Blood specimen (specimen) 03/25/2017 9:16 PM EDT 03/25/2017 9:20 PM EDT Narrative Resulting Agency Comment Spec In Lab Shaka Lawson MD HEMATOLOGY ORDERABLE S [facility] [place] [address] * (ABNORMAL) Hemogram (03/25/2017 9:16 PM EDT) White Blood Cell 12.4(H) 4.0 - 9.5 x10(3)/[facility] Red Blood Cell 4.69 4.00 - 5.21 x10(6)/[facility] Hemoglobin 14.7 11.7 - 15.5 gm/dL [facility] Hematocrit 41.4 35.7 - 45.8 % [facility] Mean Cell Volume 88.3 82.6 - 94.4 fL [facility] Mean Cell Hemoglobin 31.3 27.1 - 32.0 pg [facility] Mean Cell Hemoglobin Concentration 35.5(H) 31.7 - 35.0 gm/dL [facility] Platelet 438(H) 145 - 357 x10(3)/[facility] RDW Standard Deviation 43.1 37.0 - 46.0 [facility] RDW coefficient of variation 13.4 11.5 - 14.1 % [facility] Mean Platelet Volume 10.0 7.6 - 12.9 [facility] NRBC% auto 0.0 % [facility] NRBC Absolute 0.000 0.000 - 0.000 x10(3)/mc L [facility] Blood specimen (specimen) 03/25/2017 9:16 PM EDT 03/25/2017 9:20 PM EDT Narrative Resulting Agency Comment Spec In Lab Shaka Lawson MD HEMATOLOGY ORDERABLE S Performing Organization Address [facility] Co de Phone Number [facility] [place] [address] * Acetaminophen level (03/25/2017 9:16 PM EDT) Acetamin Lvl <5 10 - 30 mg/L [facility] Comment: Levels >150 mg/L at 4 hours post ingestion or >75 mg/L at 8 hours post ingestion are often an indication for N-Acetylcysteine. Blood specimen (specimen) 03/25/2017 9:16 PM EDT 03/25/2017 9:20 PM EDT Narrative Resulting Agency Comment Spec In Lab Shaka Lawson MD CHEMISTRY ORDERABLES Performing Organization Address [facility] Co de Phone Number [facility] [place] [address] * Salicylate (03/25/2017 9:16 PM EDT) Salicylate <20 mg/L [facility] Comment: Therapeutic Range: ??< 200 mg/L Arthritic Therapy: ??150-300 mg/L Toxic: ?> 350 mg/L ??Concentrations > 500 mg/L may be an indication for alkalinization of urine. Concentrations > 800 mg/L are often an indication for hemodialysis. Blood specimen (specimen) 03/25/2017 9:16 PM EDT 03/25/2017 9:20 PM EDT Narrative Resulting Agency Comment Spec In Lab Shaka Lawson MD CHEMISTRY ORDERABLES [facility] [place] [address] * (ABNORMAL) Basic Metabolic Panel (non-fasting) (03/25/2017 9:16 PM EDT) Glucose 89 65 - 199 mg/dL [facility] Comment:Diabetes: >=200 mg/d L plus symptoms Blood Urea Nitrogen 11 8 - 18 mg/dL [facility] Creatinine 0.69(L) 0.70 - 1.20 mg/dL [facility] Comment: Please note that the pediatric reference intervals supplied above were not validated at [facility]. Results from pediatric patients should be interpreted in conjunction to the patient's age, height and muscle mass. Sodium 140 135 - 145 mmol/L [facility] Potassium 4.0 3.5 - 5.0 mmol/L [facility] Comment: Please note: ??Patients with WBC >100,000 may have falsely elevated Potassium levels. ??For accurate Potassium quantification in these patients send serum separator tube (gold top) for subsequent determinations. ??Contact the Clinical Chemistry Laboratory if there are any questions. Chloride 101 98 - 107 mmol/L [facility] Carbon Dioxide 22 22 - 31 mmol/L [facility] Anion Gap 17(H) 5 - 15 mmol/L [facility] Calcium 9.3 8.5 - 10.5 mg/dL [facility] Est Glomerular Filtration Rate >60 >=60 [facility] Comment: This estimated GFR (eGFR) [...] the following links into your internet browser. [email or web address] Blood specimen (specimen) 03/25/2017 9:16 PM EDT 03/25/2017 9:20 PM EDT Narrative Resulting Agency Comment Spec In Lab Shaka Lawson MD CHEMISTRY ORDERABLES Performing Organization Address City/[facility]/ZIP Co de Phone Number [facility] [place] [address] * TSH (03/25/2017 9:16 PM EDT) Thyroid Stimulating Hormone 1.06 0.27 - 4.20 mlU/ML [facility] Blood specimen (specimen) 03/25/2017 9:16 PM EDT 03/25/2017 9:20 PM EDT Narrative Resulting Agency Comment Spec In Lab Shaka Lawson MD CHEMISTRY ORDERABLES Performing Organization Address [facility] Co de Phone Number [facility] [place] [address] * Ethanol Level (03/25/2017 9:16 PM EDT) Ethanol 329 mg/L [facility] Comment: Greater than 800 mg/L (0.08%) should be considered intoxicated. 3400 to 4500 mg/L (0.34 - 0.45%) is considered severe intoxication. Greater than 5500 mg/L (0.55%) is usually fatal. Blood specimen (specimen) 03/25/2017 9:16 PM EDT 03/25/2017 9:20 PM EDT Narrative Resulting Agency Comment Spec In Lab Shaka Lawson MD CHEMISTRY ORDERABLES Performing Organization Address [facility] Co de Phone Number [facility] [place] [address] * POCT urine (03/25/2017 9:02 PM EDT) POC Urine HCG Negative Negative - Negative POC Control Internal Controls Acceptable 03/25/2017 9:02 PM EDT Shaka Lawson MD POINT OF CARE TEST O RDERABLES * Urine Hold (03/25/2017 9:01 PM EDT) Hold, Urine Sample in lab. [facility] Urine specimen (specimen) Urine / Unknown 03/25/2017 9:01 PM EDT 03/25/2017 9:09 PM EDT Shaka Lawson MD URINE ORDERABLES [facility] [place] [address] * (ABNORMAL) FATIMAH Screen w/ Confirmation (03/25/2017 9:01 PM EDT) Pathologist [facility] Barbiturates Screen, Urine None Detected None Detected [facility] Comment: The barbiturate screen detects [...] Benzodiazepines Screen, Urine None Detected None Detected [facility] Comment: The benzodiazepines screen detects [...] Cocaine Screen, Urine None Detected None Detected [facility] Comment: The cocaine metabolites screen detects benzoylecgonine (Cocaine Metabolite) at concentrations >150 ng/mL. A ? Presumptive Positive? result indicates that the screening result was positive but has not yet been confirmed by a highly-specific method. As with any screen, occasional false positive results from cross-reacting substances may occur. Not for Medico-Legal Purposes. Methadone Metabolites Screen, Urine None Detected None Detected [facility] Comment: The methadone metabolite screen detects EDDP (major methadone metabolite) at concentrations >100 ng/mL. A ? Presumptive Positive? result indicates that the screening result was positive but has not yet been confirmed by a highly-specific method. As with any screen, occasional false positive results from cross-reacting substances may occur. Not for Medico-Legal Purposes. Opiate Screen, Urine None Detected None Detected [facility] Comment: The opiates screen detects [...] Cannabinoid Screen, Urine None Detected None Detected [facility] Comment: The marijuana metabolites screen detects the THC metabolite (45-pfn-7-carboxy-delta 9-THC) at concentrations >20 ng/mL. A ? Presumptive Positive? result indicates that the screening result was positive but has not yet been confirmed by a highly-specific method. As with any screen, occasional false positive results from cross-reacting substances may occur. Not for Medico-Legal Purposes. Oxycodone Screen, Urine None Detected None Detected [facility] Comment: The oxycodone screen detects oxycodone and oxymorphone at concentrations >100 ng/mL. A ? Presumptive Positive? result indicates that the screening result was positive but has not yet been confirmed by a highly-specific method. As with any screen, occasional false positive results from cross-reacting substances may occur. Not for Medico-Legal Purposes. Buprenorphine Screen, Urine None Detected None Detected [facility] Comment: The buprenorphine screen detects buprenorphine at concentrations >5 ng/mL. A ? Presumptive Positive? result indicates that the screening result was positive but has not yet been confirmed by a highly-specific method. As with any screen, occasional false positive results from cross-reacting substances may occur. Not for Medico-Legal Purposes. Fentanyl Screen, Urine None Detected None Detected [facility] Comment: The fentanyl screen detects fentanyl at concentrations >2 ng/mL. A ? Presumptive Positive? result indicates that the screening result was positive but has not yet been confirmed by a highly-specific method. As with any screen, occasional false positive results from cross-reacting substances may occur. Not for Medico-Legal Purposes. Tricyclics Screen, Urine None Detected None Detected [facility] Comment: The tricyclics screen detects [...] Purposes. Ethanol Screen, Urine Positive(A) None Detected [facility] Comment:This urine ethanol a ssay detects ethanol at concentrations >/= 100 mg/L. Amphetamines Screen, Urine None Detected None Detected [facility] Comment: The amphetamine screen detects d-amphetamine and d-methamphetamine at concentrations >300 ng/mL. A ? Presumptive Positive? result indicates that the screening result was positive but has not yet been confirmed by a highly-specific method. As with any screen, occasional false positive results from cross-reacting substances may occur. Not for Medico-Legal Purposes. Adulterants Screen, Urine None Detected None Detected [facility] Comment: No adulteration or dilution [...] Lawson MD CHEMISTRY ORDERABLES Performing Organization Address City/[facility]/ZIP Co de Phone Number [facility] [place] [address] * FATIMAH Request (03/25/2017 9:01 PM EDT) FATIMAH Conf Requested Yes [facility] FATIMAH Requested See Comment [facility] Comment:Refer to the FATIMAH Scr een w/ Confirmation order for results. Urine specimen (specimen) 03/25/2017 9:01 PM EDT 03/25/2017 9:09 PM EDT Shaka Lawson MD URINE ORDERABLES Performing Organization Address [facility] Co de Phone Number [facility] [place] [address] documented in this encounter Visit Diagnoses Diagnosis Severe episode of recurrent major depressive disorder, without psychotic features Single current episode of major depressive disorder, unspecified depression episode severity documented in this encounter Care Teams Heating Unit Installer Relationship Specialty Start Date End Date Claudia Strong MD [facility] [address] [place] [address] PCP - General 07/15/10 05/19/18 documented as of this encounter
--- OUTSIDE RECORDS SUMMARY | 2024-07-06 13:51 | XMS_ITS | Encounter Summary ---
Author Organization [facility] Address [address] [place] [address] Care Team Providers Care Cemetery Vault Installer Name Role Phone Claudia Strong MD Primary Care Provider Unavailable Adriana Velazquez Primary Care Provider + Encounter Details Date Type Department Care Team (Late st Contact Info) Description 02/13/2020 Lab Requisition [facility] Pathology & Laboratory Medicine - [address] [address] Outr Resulting Lab, Provider Social History Tobacco [...] rt-PCR Result NEGATIVE Negative 02/14/2020 23:27 EDT [facility] Comment: 2019-novel Coronavirus (2019-nCoV) not [...] in accordance with CLIA regulations, [employer] [place] (CAP) guidelines (Nov 09, 2019), and FDA guidance (Oct 21, 2019). This test is only for use under the Food and Drug Administration's Emergency Use Authorization. Swab ENTIRE NASOPHARYNX / Unknown 02/13/2020 9:06 EDT 02/13/2020 21:53 EDT us Provider Outr Resulting Lab MICROBIOLOGY - GENER AL ORDERABLES Final Result [facility] [place], ID * COVID-19 TESTING (02/13/2020 9:06 EDT) [facility] COVID-19 rt-PCR Result NEGATIVE Negative 02/15/2020 6:40 EDT [facility] Comment: 2019-novel Coronavirus (2019-nCoV) not detected [...] in accordance with CLIA regulations, [employer] [place] (CAP) guidelines (Nov 09, 2019), and FDA guidance (Oct 21, 2019). This test is only for use under the Food and Drug Administration's Emergency Use Authorization. Performing Lab [facility] 02/15/2020 6:40 EDT [facility] Swab 02/13/2020 9:06 EDT 02/13/2020 21:53 EDT us Provider Outr Resulting Lab MICROBIOLOGY - GENER AL ORDERABLES Final Result [facility] [address] [place] [address] [facility] [place], ID documented in this encounter Visit Diagnoses Not on filedocumented in this encounter Care Teams Cemetery Vault Installer Relationship Specialty Start Date End Date Claudia Strong MD PCP - General 09/26/09 11/30/22 Adriana Velazquez PA [address] [place] [phone] PCP - General Internal Medicine - Primary Care 12/01/22 documented as of this encounter
--- OUTSIDE RECORDS SUMMARY | 2024-07-06 13:51 | XMS_ITS | Encounter Summary ---
[place] [address] Care Team Providers Care Pet Walker Name Role Phone Claudia Strong MD Primary Care Provider Encounter Details Date Type Department Care Team (Late st Contact Info) Description 04/04/2015 Notes Only [place] [phone] Nahomi Valencia, RN Social History Tobacco Use [...] on filedocumented in this encounter Care Teams Pet Walker Relationship Specialty Start Date End Date Claudia Strong MD [facility] [address] [place] [address] PCP - General 07/15/10 05/19/18 documented as of this encounter
--- OUTSIDE RECORDS SUMMARY | 2024-07-06 13:51 | XMS_ITS | Encounter Summary ---
Author Organization [facility] Address [address] [place] [address] Care Team Providers Care Psych Sales Specialist Name Role Phone Claudia Strong MD Primary Care Provider Unavailable Adriana Velazquez Primary Care Provider + Encounter Details Date Type Department Care Team (Late st Contact Info) Description 07/13/2022 Lab Requisition [facility] Pathology & Laboratory Medicine - [address] [address] Outr Resulting Lab, Provider Social History Tobacco [...] 4th Generation Negative Negative 07/14/2022 9:42 EST [facility] Comment:If acute HIV-1 infec tion is suspected in a high risk patient, submit plasma specimen for HIV-1 RNA quantitation test. Blood VENOUS BLOOD / Unknown 07/13/2022 9:30 EST 07/13/2022 20:47 EST Narrative [facility] - 07/14/2022 9:42 EST Fourth Generation assay performed on the Siemens mobileoaur XPT. us Provider Outr Resulting Lab IMMUNOLOGY AND SEROL OGY ORDERABLES Final Result [facility] [address] [place] [address] documented in this encounter Visit Diagnoses Not on filedocumented in this encounter Care Teams Psych Sales Specialist Relationship Specialty Start Date End Date Claudia Strong MD PCP - General 09/26/09 11/30/22 Adriana Velazquez PA [address] [place] [phone] PCP - General Internal Medicine - Primary Care 12/01/22 documented as of this encounter
--- OUTSIDE RECORDS SUMMARY | 2024-07-06 13:51 | XMS_ITS | Encounter Summary ---
Author Organization [facility] Address [facility] [place] [address] Care Team Providers Care Yard Warehouse Worker Name Role Phone Claudia Strong MD Primary Care Provider [phone] Encounter Details Date Type Department Care Team (Late st Contact Info) Description 05/17/2015 Notes Only [place] [phone] Nahomi Valencia, RN Social History Tobacco Use [...] on filedocumented in this encounter Care Teams Yard Warehouse Worker Relationship Specialty Start Date End Date Claudia Strong MD [facility] [address] [place] [address] PCP - General 07/15/10 05/19/18 documented as of this encounter
--- OUTSIDE RECORDS SUMMARY | 2024-07-06 13:51 | XMS_ITS | Encounter Summary ---
Author Organization [facility] Address [address] [place] [address] Care Team Providers Care Locker Room Supervisor Name Role Phone Adriana Velazquez Primary Care Provider + Reason for Visit * Reason Onset Date Comments Other 12/15/2022 Encounter Details Date Type Department Care Team (Late st Contact Info) Description 12/15/2022 Telephone [facility] Acute Care Surgery - [address] [address] Ashvin Chavarria MD [address] [place] [address], [address] [place] [address] Other Social History Tobacco Use [...] Encounter - Tasia Bustillo RN - 12/15/2022 9757 EDT Phone call with patient. She called [...] on filedocumented in this encounter Care Teams Locker Room Supervisor Relationship Specialty Start Date End Date Adriana Velazquez PA [address] [place] [address] [place] [phone] PCP - General Internal Medicine - Primary Care 12/01/22 documented as of this encounter
--- OUTSIDE RECORDS SUMMARY | 2024-07-06 13:51 | XMS_ITS | Encounter Summary ---
Author Organization [facility] [place] [address] Care Team Providers Care Chemical Treatment Plant Technician Name Role Phone Unknown Primary Care Provider Unavailabl e Encounter Details Date Type Department Care Team (Late Contact Info) Description 06/27/2020 Ancillary Procedure Radiology Library at [facility] [place] [address] Pradip Fontenot MD [address] [place] [phone] Social History Tobacco Use Types Packs/Day Years [...] Ultrasound Study (06/27/2020 12:00 AM EST) Narrative [facility] - 07/22/2020 10:39 AM EST This exam is auto-finalizing. It's purpose is for storage only. Pradip Fontenot MD IMG FILM LIBRARY OR DERABLES [place], [place] documented in this encounter Visit Diagnoses Not on filedocumented in this encounter Care Teams Chemical Treatment Plant Technician Relationship Specialty Start Date End Date Unknown None PCP - General 05/23/18 08/05/20 documented as of this encounter
--- OUTSIDE RECORDS SUMMARY | 2024-07-06 13:51 | XMS_ITS | Encounter Summary ---
Author Organization [facility] Address [address] [place] [address] Care Team Providers Care Animal Nutrition Consultant Name Role Phone Claudia Strong MD Primary Care Provider Unavailable Adriana Velazquez Primary Care Provider + Encounter Details Date Type Department Care Team (Late st Contact Info) Description 07/17/[address] [facility] Pathology & Laboratory Medicine - [address] [address] Outr Resulting Lab, Provider Social History Tobacco [...] on filedocumented in this encounter Care Teams Animal Nutrition Consultant Relationship Specialty Start Date End Date Claudia Strong MD PCP - General 09/26/09 11/30/22 Adriana Velazquez PA [address] [place] [address] [place] [phone] PCP - General Internal Medicine - Primary Care 12/01/22 documented as of this encounter
--- OUTSIDE RECORDS SUMMARY | 2024-07-06 13:51 | XMS_ITS | Encounter Summary ---
Author Organization [facility] Address [address] [place] [address] Care Team Providers Care Managing Editor Name Role Phone Adriana Velazquez Primary Care Provider + Reason for Visit * Reason Onset Date Comments Other 12/23/2022 Has questions Encounter Details Date Type Department Care Team (Late st Contact Info) Description 12/23/2022 Telephone [facility] Acute Care Surgery - [address] [address] Trauma Surgery, Ep5 Acs MD Other (Has [...] with he PCP and will require a entry driver operator. She understands * Telephone Encounter - Graciela [...] on filedocumented in this encounter Care Teams Managing Editor Relationship Specialty Start Date End Date Adriana Velazquez PA [address] [place] [address] [place] [phone] PCP - General Internal Medicine - Primary Care 12/01/22 documented as of this encounter
--- OUTSIDE RECORDS SUMMARY | 2024-07-06 13:51 | XMS_ITS | Encounter Summary ---
Author Organization [facility] Address [facility] [place] [address] Care Team Providers Care Pre K Special Education Teacher Name Role Phone Adriana Velazquez Primary [...] Expiration Date Visits Re quested Visits Authorized [id number] 1 1 Encounter Details Date Type Department Care Team (Late Contact Info) Description 08/29/2020 10:27 AM EST - 08/29/2020 1:35 PM EST [place] [phone] Popeye Chávez MD [facility] GYNEC[place] [address] ROBOTIC LAPAROSCOPY,TOTAL HYST, UTERUS<250GM, REM TUBE &/OR [...] PATIENT DISCHARGE INSTRUCTIONS Gynecologic Oncology phone number: [phone]. After hours and on weekends please call hospital trimming machine set up operator at [phone] and ask for Gynecologic Oncologist vocational services specialist. Call your doctor if you develop: --A [...] 08/25/2020 09/20/2020 fluticasone propionate (FLONASE) 50 mcg/actuation [place], Suspension SHAKE LIQUID AND USE 1 SPRAY [...] void after intilling 100cc NS, so this investigative writer stopped and discontinued cespedes cath and walked patient to the bathroom. Pt nikki ambulation well documented in this encounter H&P Notes * Popeye Chávez MD - 08/29/2020 10:06 AM EST Inpatient KITCHEN FOOD SERVER - Admission Interval Note I have reviewed the pre-procedure H&P completed by Dr. Chávez on 08/06/20. Subjective: Patient seen in same day area. Consent in chart. No changes since preop visit. No new meds/allergies or hospital/ER visits. Has taken Oxycodone without issue in the past. Uses [employer] in [facility]. Objective: Last value Range last 8 hrs [...] Chávez MD - 08/29/2020 1:10 PM EST [facility] Operative Note Patient Name: Juana Silva : [id number] MR#: [id number] Case Date: 08/29/2020 Surgeon: Surgeon(s) and Role: * Popeye Chávez MD - Primary * Roosevelt Cespedes MD - Resident Registered Nurse Dish Person: Shi Post RN Anesthesia: General endotracheal. Preoperative [...] who was referred by: Pradip Fontenot MD [address] [place] [address] for a new diagnosis of grade 1 [...] 2 cm tumor involving the fundus. 3. [place] lymph node mapping: A left and right [...] uterus and dilation of the cervix, a Independent Jeweler device was inserted into the uterus for manipulation. An 8-mm transverse incision was made 5 cm above the umbilicus, through which a 8-mm da Kristie trocarwas then inserted under direct visualization, verifying atraumatic entry. Additional 8-mm robotic trocars and a 12-mm right upper quadrant family medicine physician assistant port were placed in the usual [...] 08/29/2020 11:23 AM EST ENDOMETRIAL CANCER Intraop [place] Lymph Id W/Dye Injection ([id number]) 08/29/2020 11:23 AM EST ENDOMETRIAL CANCER Lap, Pelvic Lymphadenectomy/Bx ([id number]) 08/29/2020 11:23 AM EST ENDOMETRIAL CANCER Laparoscopy W Tot Hysterectuterus <=250 Gram W Tube/Ovary ([id number]) 08/29/2020 11:23 AM EST ENDOMETRIAL CANCER POCT GLUCOSE Routine 08/29/2020 9:49 AM EST documented in this encounter Results * Specimen to Pathology (08/29/2020 1:03 PM EST) AP Specimen 08/29/2020 1:03 PM EST 08/29/2020 1:03 PM EST Narrative [facility] - 08/29/2020 1:03 PM EST Specimen requisition ordered. ??Separate Pathology report to follow Popeye Chávez MD PATHOLOGY/CYTOLOGY O MARY Performing Organization Address [facility] Co de Phone Number [facility] [place] [address] * Specimen to Pathology (08/29/2020 12:23 PM EST) AP Specimen 08/29/2020 12:2 3 PM EST 08/29/2020 12:23 PM EST Narrative [facility] - 08/29/2020 12:23 PM EST Specimen requisition ordered. ??Separate Pathology report to follow Popeye Chávez MD PATHOLOGY/CYTOLOGY O RDSTEVE Performing Organization Address [facility]/ZIP Co de Phone Number [facility] [place] [address] * Specimen to Pathology (08/29/2020 12:19 PM EST) AP Specimen 08/29/2020 12:1 9 PM EST 08/29/2020 12:19 PM EST Narrative [facility] - 08/29/2020 12:19 PM EST Specimen requisition ordered. ??Separate Pathology report to follow Popeye Chávez MD PATHOLOGY/CYTOLOGY O MARY [facility] [place] [address] * Surgical Pathology Report (08/29/2020 12:18 PM EST) Final Diagnosis [id number] ? Location: [facility]; [facility]; The signing pathologist has (i) examined the [...] receptors: ?Estrogen receptor (ER): Positive ?Progesterone receptor (CT): Positive ??- Benign cervix with Nabothian cysts. ??- Adenomyosis. ??- Multiple uterine leiomyomas. ??- Benign bilateral fallopian tubes and ovaries. Electronically signed by: ??Desi Adams DO Verified: ??09/05/2020 ?Pathologist Performed at: ??-[facility] Dept. of Pathology, [place], [place] SYNOPTIC Specimen Parts: ??A-C Specimen ? [...] for tumor cells ? Number of Pelvic [place] Nodes Examined: ??3 Pathologic Stage Classification (pTNM, [...] The assay was performed according to the wind turbine machinist's ??instructions ??using anti-MLH-1 ([id number]), anti-MSH-2 ([id number]), anti- MSH-6 (44), and anti-PMS-2 (MRQ-28) antibodies. ADDITIONAL STUDIES IHC [place] Lymph Node Protocol For Endometrial Carcinoma: Formalin-fixed, paraffin-embedded tissue sections are studied using the B-SA system technique with appropriate positive and negative controls. Block ?Antibody ?Result (Degree of immunoreactivity) A1-2 Level 1 ?CKAE1/3 ?Negative A1-2 Level 2 ?CKAE1/3 ?Negative B1-2 Level 1 ?CKAE1/3 ?Negative B1-2 Level 2 ?CKAE1/3 ?Negative The sentinel lymph node protocol as outlined in the [facility] study (referenced below) was followed for each of the lymph node tissue blocks that lacked metastatic tumor on routine H&E sections. Maya EDMOND, Chantale RA, et al. Pathologic Ultrastaging Improves Micrometastasis Detection in [place] Lymph Nodes During Endometrial Cancer Staging. ?Int [...] Sections/Processing: The lymph nodes are entirely submitted Vacuum Cleaner Assembler sections in 2 cassettes as follows: ?A1: ??Trisected lymph node ?A2: ??Serially sectioned B - Labeled/Fixative: Left pelvic node, sentinel lymph node, fresh. Quantity/Size: Single, 2.1 x 1.6 x 1.0 cm. Tissue Description: Adipose tissue with a single 1.65 x 0.9 x 0.5 cm firm talbert lymph node Sections/Processing: The lymph node is entirely submitted Vacuum Cleaner Assembler sections in 2 cassettes as follows: ?B1-B2: [...] lumen and a tubal ligation band. Sections/Processing: Vacuum Cleaner Assembler sections in 46 cassettes as follows: ?C1: ??Vacuum Cleaner Assembler right ovary with cyst ?C2-C4: ??Entirely submitted right fallopian tube; fimbria longitudinally sectioned ?C5-C6: ??Vacuum Cleaner Assembler left ovary with cysts ?C7-C8: ??Entirely submitted [...] to inferior ??levi 09/05/2020 9:05 AM EST [facility] SENTINEL LYMPH NODE / Unknown 08/29/2020 12:18 PM EST 08/29/2020 12:18 PM EST SENTINEL LYMPH NODE / Unknown 08/29/2020 12:18 PM EST 08/29/2020 12:18 PM EST Uterine Corpus 08/29/2020 12 :18 PM EST 08/29/2020 12:18 PM EST Popeye Chávez MD PATHOLOGY/CYTOLOGY O MARY [facility] [place] [address] * POCT Glucose (08/29/2020 9:49 AM EST) Glucose, POC 107 65 - 199 mg/dL [facility] Comment: Supplemental ranges: <140 mg/dL before meals <180 mg/dL all other times of the day Blood specimen (specimen) 08/29/2020 9:49 AM EST 08/29/2020 9:49 AM EST Popeye Chávez MD POINT OF CARE TEST O MARY Performing Organization Address City[facility]/ZIP Co de Phone Number [facility] [place] [address] documented in this encounter Visit Diagnoses Not [...] 08/29/20 at 1015, Administer over 30 Minutes, Admissions Director to OR Infuse over 30 minutes., Day [...] 08/29/20 at 1015, Administer over 30 Minutes, Admissions Director to OR Infuse over 30 minutes., Day [...] 08/29/20 at 1015, Administer over 30 Minutes, Admissions Director to OR Infuse over 30 minutes., Day of Surgery (Day of Procedure), Indication for (Active or Suspected): Prophylaxis And metroNIDAZOLE (Flagyl) 500 mg in sodium chloride 0.9% 100 mL infusion (COMPLETED)Jump to med 500 mg, Intravenous, ONCE, 1 dose, On Karen 08/29/20 at 1015, Administer over 30 Minutes, Admissions Director to OR Infuse over 30 minutes., Day of Surgery (Day of Procedure), Indication for (Active or Suspected): Prophylaxis documented in this encounter Care Teams Pre K Special Education Teacher Relationship Specialty Start Date End Date Adriana Velazquez PA [address] [place] [address] PCP - General Internal Medicine 08/06/20 documented as of this encounter
--- OUTSIDE RECORDS SUMMARY | 2024-07-06 13:51 | XMS_ITS | Encounter Summary ---
Author Organization [facility] [place] [address] Care Team Providers Care Digital Product Specialist Name Role Phone Unknown Primary Care Provider Unavailabl e Encounter Details Date Type Department Care Team (Late st Contact Info) Description 07/31/2020 Ancillary Procedure Radiology Library at [place] [address] Stu Bull MD [facility] [place] [address] Social History Tobacco Use Types Packs/Day Years [...] Bull MD G FILM LIBRARY ORD ERABLES [place], [place] documented in this encounter Visit Diagnoses Not on filedocumented in this encounter Care Teams Digital Product Specialist Relationship Specialty Start Date End Date Unknown None PCP - General 05/23/18 08/05/20 documented as of this encounter
--- OUTSIDE RECORDS SUMMARY | 2024-07-06 13:51 | XMS_ITS | Encounter Summary ---
Author Organization [facility] Address [address] [place] [address] Care Team Providers Care Swing Saw Operator Name Role Phone Claudia Strong MD Primary Care Provider Unavailable Adriana Velazquez Primary Care Provider + Encounter Details Date Type Department Care Team (Late st Contact Info) Description 02/16/2020 Lab Requisition [facility] Pathology & Laboratory Medicine - [address] [address] Timoteo Radford MD [address] [place], [place] [phone] Encounter for screening for malignant neoplasm of [...] BIOPSY: - Hyperplastic polyp. 02/19/2020 11:18 EDT [facility] at 1118 Attestation By the signature below, the attending physician certifies that they have 1) personally conducted a gross and/or microscopic examination of the described specimen(s), and/or personally interpreted the results of laboratory testing of the described specimen(s), and 2) personally rendered or confirmed the above diagnosis. 02/19/2020 11:18 EDT [facility] at 1118 Clinical History Preoperative DX: Screening Postoperative DX: Rectal polyp, internal hemorrhoids 02/19/2020 11:18 EDT [facility] Gross Description A. Received in formalin labelled with proper patient identification (initials R, R) and A. Rectal polyp are two firm doran tissues (0.4 x 0.3 x 0.3 cm and 0.1 x 0.1 x 0.1 cm). Entirely submitted in A1. Declan Cleaning 02/17/2020 10:31 02/19/2020 11:18 EDT [facility] Scanned Images 02/19/2020 11:18 EDT [facility] Tissue SPECIMEN FROM RECTUM / Unknown 02/16/2020 10:28 EDT 02/16/2020 22:05 EDT Timoteo Radford MD PATHOLOGY ORDERABLES F inal Result [facility] [address] [place] [address] documented in this encounter Visit Diagnoses Diagnosis Encounter for screening for malignant neoplasm of colon Special screening for malignant neoplasms, colon documented in this encounter Care Teams Swing Saw Operator Relationship Specialty Start Date End Date Claudia Strong MD PCP - General 09/26/09 11/30/22 Adriana Velazquez PA [address] [place] [address] [place] [phone] PCP - General Internal Medicine - Primary Care 12/01/22 documented as of this encounter
--- OUTSIDE RECORDS SUMMARY | 2024-07-06 13:51 | XMS_ITS | Encounter Summary ---
Author Organization [facility] Address [facility] [place] [address] Care Team Providers Care Mucker Cofferdam Name Role Phone Unknown Primary Care Provider Unavailabl e Encounter Details Date Type Department Care Team (Late Contact Info) Description 09/01/2010 Interpretation Only Radiology [address] [place] [address] [place] [phone] Unknown None Social History Tobacco Use Types [...] 2:43 PM EST APD Historical Result [employer] Consultant: ??LAVON ??B FLUOROSCOPIC ASSISTANCE: A total of 4.9 seconds of fluoroscopic assistance was provided to Dr Gonzalez during the performance of the surgical procedure. ??Two images recorded the event. ??There are no radiologists in attendance during service provision. Lavon Valverde MD, FACR [facility]/co [id number] CC: Procedure Note Unknown - 02/20/2019 APD Historical Result [employer] Consultant: LAVON Dennison FLUOROSCOPIC ASSISTANCE: A total of 4.9 seconds of fluoroscopic assistance was provided to Alessandra during the performance of the surgical procedure. Two images recorded the event.There are no radiologists in attendance during service provision. Lavon Valverde MD, FACR [facility]/co [id number] CC: Unknown IMG FLUORO ORDERABLE S documented in this encounter Visit Diagnoses Not on filedocumented in this encounter Care Teams Mucker Cofferdam Relationship Specialty Start Date End Date Unknown None PCP - General 05/23/18 08/05/20 documented as of this encounter
--- OUTSIDE RECORDS SUMMARY | 2024-07-06 13:51 | XMS_ITS | Encounter Summary ---
[facility] Organization [facility] [place] [address] Care Team Providers Care Toys And Games Hand Finisher Name Role Phone Claudia Strong MD Primary Care Provider [phone] Encounter Details Date Type Department Care Team (Late st Contact Info) Description 04/25/2015 Notes Only [place] [phone] Nahomi Valencia, RN Social History Tobacco Use [...] on filedocumented in this encounter Care Teams Toys And Games Hand Finisher Relationship Specialty Start Date End Date Claudia Strong MD [facility] [address] [place], [place] [address] PCP - General 07/15/10 05/19/18 documented as of this encounter
--- OUTSIDE RECORDS SUMMARY | 2024-07-06 13:51 | XMS_ITS | Encounter Summary ---
Author Organization [facility] [place] [address] Care Team Providers Care Dial Buffer Name Role Phone Adriana Velazquez Primary Care Provider + Reason for Visit * Reason Comments Establish Care Malignant Neoplasm o f endometrium * Consultation (Routine) - Closed Specialty Diagnoses / Procedures Referred By Jose welch Referred To Contact Gynecology Oncology Diagnoses Malignant neoplasm of endometrium ENDOMETRIAL ADENOCARCINOMA Pradip Fontenot MD [address] [place] [address] [address] [facility] [address] [place] [phone] Referral ID Status Reason Start Date Expiration Date V isits Requested Visits Authorized [id number] Closed Consult, Test & Treat Connection Center PCP Updated and/or Approved 07/22/2020 07/22/2021 6 6 Encounter Details Date Type Department Care Team ([facility] Contact Info) Description 08/06/2020 11:00 AM EST Office Visit [place] [address] Popeye Leigh MD [facility] [place] [address] Endometrial cancer; Cigarette smoker; Hypokalemia [...] 11:00 AM EST Division of [place] [address] Gynecologic Oncology Clinic New Patient Visit Reason for visit: New uterine endometrial cancer, referred by: Pradip Fontenot MD [address] [place] [address] Problem List Patient Active Problem List Diagnosis [...] carpal tunnel release. Social history: Lives in [place], [place], in a house, with her , Gatito. There are no other children or adults at home. 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 She completed 09/0312 grade education and [...] 1. The pathology was [place] here [place] [facility] Based on these findings, a decision was [...] EST) Glucose 91 65 - 199 mg/dL [facility] Comment:Diabetes: >=200 mg/d L plus symptoms Blood Urea Nitrogen 17 8 - 18 mg/dL [facility] Creatinine 0.81 0.70 - 1.20 mg/dL [facility] Sodium 137 135 - 145 mmol/L [facility] Potassium 3.8 3.5 - 5.0 mmol/L [facility] Comment: Please note: ??Patients with WBC >100,000 may have falsely elevated Potassium levels. ??For accurate Potassium quantification in these patients send serum separator tube (gold top) for subsequent determinations. ??Contact the Clinical Chemistry Laboratory if there are any questions. Chloride 101 98 - 107 mmol/L [facility] Carbon Dioxide 26 22 - 31 mmol/L [facility] Anion Gap 10 5 - 15 mmol/L [facility] Calcium 9.7 8.5 - 10.5 mg/dL [facility] Protein, Total 7.2 6.1 - 8.0 gm/dL [facility] Albumin 4.5 3.2 - 5.2 gm/dL [facility] Aspartate Aminotransferase 29 0 - 30 unit/L [facility] Alanine Aminotransferase 40(H) 0 - 30 unit/L [facility] Alkaline Phosphatase 64 35 - 105 unit/L [facility] Bilirubin, Total <0.2(L) 0.2 - 1.3 mg/dL [facility] Comment:rechecked-ds Est Glomerular Filtration Rate 84 >=60 mL/min/1. 73 m?? [facility] Comment: This patient? s estimated [...] Leigh MD CHEMISTRY ORDERABLES Performing Organization Address City/State/[facility] Co de Phone Number [facility] [place] [address] documented in this encounter Visit Diagnoses Diagnosis Endometrial cancer Malignant neoplasm of corpus uteri, except isthmus Cigarette smoker Tobacco use disorder Hypokalemia Hypopotassemia documented in this encounter Care Teams Dial Buffer Relationship Specialty Start Date End Date Adriana Velazquez PA [address] [place] [address] [place] [address] PCP - General Internal Medicine 08/06/20 documented as of this encounter
--- OUTSIDE RECORDS SUMMARY | 2024-07-06 13:51 | XMS_ITS | Encounter Summary ---
Author Organization [facility] Address [address] [place] [address] Care Team Providers Care Smoke Room Operator Name Role Phone Claudia Strong MD Primary Care Provider Unavailable Adriana Velazquez Primary Care Provider + Encounter Details Date Type Department Care Team (Late st Contact Info) Description 01/01/2021 Lab Requisition [facility] Pathology & Laboratory Medicine - [address] [address] Outr Resulting Lab, Provider Social History Tobacco [...] 62.5 55.8 - 66.1 % 01/03/2021 15:27 [facility] Alpha-1 % 4.4 2.9 - 4.9 % 01/03/2021 15:27 [facility] Alpha-2 % 10.8 7.1 - 11.8 % 01/03/2021 15:27 [facility] Beta % 11.9 8.4 - 13.1 % 01/03/2021 15:27 [facility] Gamma % 10.4(L) 11.1 - 18.8 % 01/03/2021 15:27 [facility] SPEP Comment No apparent monoclonal protein seen on serum electrophoresis 01/03/2021 15:27 [facility] Comment:See scanned/suppleme ntary report. Immunotyping , Serum Current Interpretation: Negative for monoclonal immunoglobulins. Reviewed by: Martin Stokes MD 01/03/2021 15:02 01/03/2021 15:27 [facility] Total Protein 7.0 6.3 - 8.2 g/dL 01/03/2021 15:27 [facility] Blood VENOUS BLOOD / Unknown 01/01/2021 17:00 EDT 01/02/2021 21:20 EDT us Provider Outr Resulting Lab CHEMISTRY & BLOOD GA S ORDERABLES Final Result [facility] [address] [place] [address] * PROTEIN, TOTAL (01/01/2021 17:00 EDT) Blood VENOUS BLOOD / Unknown 01/01/2021 17:00 EDT 01/02/2021 21:20 EDT us Provider Outr Resulting Lab CHEMISTRY & BLOOD GA S ORDERABLES Final Result [facility] [address] [place] [address] * ALPHA 1 ANTITRYPSIN (01/01/2021 17:00 EDT) Alpha 1 Antitrypsin 125 90 - 200 mg/dL 01/03/2021 10:03 EDT [facility] Blood VENOUS BLOOD / Unknown 01/01/2021 17:00 EDT 01/02/2021 21:20 EDT us Provider Outr Resulting Lab CHEMISTRY & BLOOD GA S ORDERABLES Final Result Performing Organization Address City/[facility]/ZIP Co de Phone Number [facility] [address] [place] [address] * IGA (01/01/2021 17:00 EDT) IgA 104 85 - 499 mg/dL 01/03/2021 10:03 EDT [facility] Blood VENOUS BLOOD / Unknown 01/01/2021 17:00 EDT 01/02/2021 21:20 EDT us Provider Outr Resulting Lab CHEMISTRY & BLOOD GA S ORDERABLES Final Result Performing Organization Address City/[facility]/ZIP Co de Phone Number [facility] [address] [place] [address] documented in this encounter Visit Diagnoses Not on filedocumented in this encounter Care Teams Smoke Room Operator Relationship Specialty Start Date End Date Claudia Strong MD PCP - General 09/26/09 11/30/22 Adriana Velazquez PA [address] [place] [phone] PCP - General Internal Medicine - Primary Care 12/01/22 documented as of this encounter
--- OUTSIDE RECORDS SUMMARY | 2024-07-06 13:51 | XMS_ITS | Encounter Summary ---
Author Organization [facility] Address [address] [place] [address] Care Team Providers Care Lead Former Name Role Phone Claudia Strong MD Primary Care Provider Unavailable Encounter Details Date Type Department Care Team (Late st Contact Info) Description 09/04/2013 Results Only [facility] Laboratory Services - [facility] ([address] [phone] Claudia Strong MD Social History Tobacco Use [...] when reading/interpreti ng unformatted reports. Name: ? CHELSY, SENIA ? Accession #: ? [id number] ? : ? 1970 (Age: 43) ??F [...] types 16,18,31,33,35, 39,45,51,52,56,58, 59,66, and 68 by fagoting machine operator mediated amplification. Comments Document reviewed and electronically signed by: ? System Interface ? Report date: 09/14/2013 By the signature above, the attending physician certifies that he/she has personally conducted a gross and/or microscopic examination of the described specimens and rendered or confirmed the above diagnosis. End of Report [facility] 09/04/2013 09/11/2013 us Claudia Strong MD PATHOLOGY ORDERABLES Fi nal Result Performing Organization Address City/State/[facility] [place] [address] documented in this encounter Visit Diagnoses Not on filedocumented in this encounter Care Teams Lead Former Relationship Specialty Start Date End Date Claudia Strong MD PCP - General 09/26/09 11/30/22 documented as of this encounter
--- OUTSIDE RECORDS SUMMARY | 2024-07-06 13:51 | XMS_ITS | Encounter Summary ---
Author Organization [facility] [place] [address] Care Team Providers Care Repairer Welding Equipment Name Role Phone Adriana Velazquez Primary Care Provider + Encounter Details Date Type Department Care Team (Late st Contact Info) Description 08/06/2020 12:00 PM EST Clinical Support Same Day at [facility] [place] [phone] Social History Tobacco Use Types Packs/Day Years [...] Patient has had general [place] [facility] without a problem. PLAN: Testing: Blood work Procedure date: 08/29 documented in this encounter Plan of Treatment Not on file documented as of this encounter Visit Diagnoses Not on filedocumented in this encounter Care Teams Repairer Welding Equipment Relationship Specialty Start Date End Date Adriana Velazquez PA [address] [place] [address] [place] [address] PCP - General Internal Medicine 08/06/20 documented as of this encounter
--- OUTSIDE RECORDS SUMMARY | 2024-07-06 13:51 | XMS_ITS | Encounter Summary ---
Author Organization [facility] Address [facility] [place] [address] Care Team Providers Care Community Manager Name Role Phone Adriana Velazquez Primary [...] Expiration Date Visits Re quested Visits Authorized [id number] 1 1 Encounter Details Date Type Department Care Team (Latest Contact Info) Description 08/29/2020 8:54 AM [facility] - 08/29/2020 6:30 PM [facility] Hospital Encounter [place] [phone] Popeye Chávez MD [facility] [place] [address] Endometrial cancer; Cigarette smoker; Hypokalemia Discharge Disposition: [...] PATIENT DISCHARGE INSTRUCTIONS Gynecologic Oncology phone number: [phone]. After hours and on weekends please call hospital seed cleaner operator at [phone] and ask for Gynecologic Oncologist professional skateboarder. Call your doctor if you develop: --A [...] 08/25/2020 09/20/2020 fluticasone propionate (FLONASE) 50 mcg/actuation [place], Suspension SHAKE LIQUID AND USE 1 SPRAY [...] void after intilling 100cc NS, so this content writer stopped and discontinued cespedes cath and walked patient to the bathroom. Pt nikki ambulation well documented in this encounter H&P Notes * Popeye Chávez MD - 08/29/2020 10:06 AM EST Inpatient WAREHOUSE HAND - Admission Interval Note I have reviewed the pre-procedure H&P completed by Dr. Chávez on 08/06/20. Subjective: Patient seen in same day area. Consent in chart. No changes since preop visit. No new meds/allergies or hospital/ER visits. Has taken Oxycodone without issue in the past. Uses [employer] in [facility]. Objective: Last value [...] Chávez MD - 08/29/2020 1:10 PM EST [facility] Operative Note Patient Name: Juana Silva : [id number] MR#: [id number] Case Date: 08/29/2020 Surgeon: Surgeon(s) and Role: * Popeye Chávez MD - Primary * Roosevelt Cespedes MD - Resident Registered Nurse Evs Manager: Shi Post RN Anesthesia: General endotracheal. Preoperative [...] who was referred by: Pradip Fontenot MD [address] [place] [address] for a new diagnosis of grade 1 [...] 2 cm tumor involving the fundus. 3. [place] lymph node mapping: A left and right [...] uterus and dilation of the cervix, a Jeep Driver device was inserted into the uterus for manipulation. An 8-mm transverse incision was made 5 cm above the umbilicus, through which a 8-mm da Kristie trocarwas then inserted under direct visualization, verifying atraumatic entry. Additional 8-mm robotic trocars and a 12-mm right upper quadrant assistant child care teacher port were placed in the usual locations [...] 08/29/2020 11:23 AM EST ENDOMETRIAL CANCER Intraop [place] Lymph Id W/Dye Injection ([id number]) 08/29/2020 11:23 AM EST ENDOMETRIAL CANCER Lap, Pelvic Lymphadenectomy/Bx ([id number]) 08/29/2020 11:23 AM EST ENDOMETRIAL CANCER Laparoscopy W Tot Hysterectuterus <=250 Gram W Tube/Ovary ([id number]) 08/29/2020 11:23 AM EST ENDOMETRIAL CANCER POCT GLUCOSE Routine 08/29/2020 9:49 AM EST documented in this encounter Results * Specimen to Pathology (08/29/2020 1:03 PM EST) AP Specimen 08/29/2020 1:03 PM EST 08/29/2020 1:03 PM EST Narrative [facility] - 08/29/2020 1:03 PM EST Specimen requisition ordered. ??Separate Pathology report to follow Popeye Chávez MD PATHOLOGY/CYTOLOGY O MARY Performing Organization Address [facility] Co de Phone Number [facility] [place] [address] * Specimen to Pathology (08/29/2020 12:23 PM EST) AP Specimen 08/29/2020 12:2 3 PM EST 08/29/2020 12:23 PM EST Narrative [facility] - 08/29/2020 12:23 PM EST Specimen requisition ordered. ??Separate Pathology report to follow Popeye Chávez MD PATHOLOGY/CYTOLOGY O RDERASHELLEY Performing Organization Address [facility]/ZIP Co de Phone Number [facility] [place] [address] * Specimen to Pathology (08/29/2020 12:19 PM EST) AP Specimen 08/29/2020 12:1 9 PM EST 08/29/2020 12:19 PM EST Narrative [facility] - 08/29/2020 12:19 PM EST Specimen requisition ordered. ??Separate Pathology report to follow Popeye Chávez MD PATHOLOGY/CYTOLOGY Geni HERNANDEZ [facility] [place] [address] * Surgical Pathology Report (08/29/2020 12:18 PM EST) Final Diagnosis [id number] ? Location: [facility]; [facility]; The signing pathologist has (i) [...] receptors: ?Estrogen receptor (ER): Positive ?Progesterone receptor (NC): Positive ??- Benign cervix with Nabothian cysts. ??- Adenomyosis. ??- Multiple uterine leiomyomas. ??- Benign bilateral fallopian tubes and ovaries. Electronically signed by: ??Desi Adams DO Verified: ??09/05/2020 ?Pathologist Performed at: ??-[facility] Dept. of Pathology, [place], [place] SYNOPTIC Specimen Parts: ??A-C Specimen ? [...] for tumor cells ? Number of Pelvic [place] Nodes Examined: ??3 Pathologic Stage Classification (pTNM, [...] The assay was performed according to the receiving dock checker's ??instructions ??using anti-MLH-1 ([id number]), anti-MSH-2 ([id number]), anti- MSH-6 (44), and anti-PMS-2 (MRQ-28) antibodies. ADDITIONAL STUDIES IHC [place] Lymph Node Protocol For Endometrial Carcinoma: Formalin-fixed, paraffin-embedded tissue sections are studied using the B-SA system technique with appropriate positive and negative controls. Block ?Antibody ?Result (Degree of immunoreactivity) A1-2 Level 1 ?CKAE1/3 ?Negative A1-2 Level 2 ?CKAE1/3 ?Negative B1-2 Level 1 ?CKAE1/3 ?Negative B1-2 Level 2 ?CKAE1/3 ?Negative The sentinel lymph node protocol as outlined in the [facility] study (referenced below) was followed for each of the lymph node tissue blocks that lacked metastatic tumor on routine H&E sections. Maya EDMOND, Chantale RA, et al. Pathologic Ultrastaging Improves Micrometastasis Detection in [place] Lymph Nodes During Endometrial Cancer Staging. ?Int [...] Sections/Processing: The lymph nodes are entirely submitted Performance Consultant sections in 2 cassettes as follows: ?A1: ??Trisected lymph node ?A2: ??Serially sectioned B - Labeled/Fixative: Left pelvic node, sentinel lymph node, fresh. Quantity/Size: Single, 2.1 x 1.6 x 1.0 cm. Tissue Description: Adipose tissue with a single 1.65 x 0.9 x 0.5 cm firm doran lymph node Sections/Processing: The lymph node is entirely submitted Performance Consultant sections in 2 cassettes as follows: ?B1-B2: [...] lumen and a tubal ligation band. Sections/Processing: Performance Consultant sections in 46 cassettes as follows: ?C1: ??Performance Consultant right ovary with cyst ?C2-C4: ??Entirely submitted right fallopian tube; fimbria longitudinally sectioned ?C5-C6: ??Performance Consultant left ovary with cysts ?C7-C8: ??Entirely submitted [...] MD PATHOLOGY/CYTOLOGY O MARY Performing Organization Address City/[facility]/ZIP Co de Phone Number [facility] [place] [address] * POCT Glucose (08/29/2020 9:49 AM EST) Glucose, POC 107 65 - 199 mg/dL [facility] Comment: Supplemental ranges: <140 mg/dL before meals <180 mg/dL all other times of the day Blood specimen (specimen) 08/29/2020 9:49 AM EST 08/29/2020 9:49 AM EST Popeye Chávez MD POINT OF CARE TEST O MARY Performing Organization Address City/[facility]/ZIP Co de Phone Number [facility] [place] [address] documented in this encounter Visit Diagnoses Diagnosis [...] 08/29/20 at 1015, Administer over 30 Minutes, Watch Manufacturing Supervisor to OR Infuse over 30 minutes., Day [...] 08/29/20 at 1015, Administer over 30 Minutes, Watch Manufacturing Supervisor to OR Infuse over 30 minutes., Day [...] 08/29/20 at 1015, Administer over 30 Minutes, Watch Manufacturing Supervisor to OR Infuse over 30 minutes., Day of Surgery (Day of Procedure), Indication for (Active or Suspected): Prophylaxis And metroNIDAZOLE (Flagyl) 500 mg in sodium chloride 0.9% 100 mL infusion (COMPLETED)Jump to med 500 mg, Intravenous, ONCE, 1 dose, On Karen 08/29/20 at 1015, Administer over 30 Minutes, Watch Manufacturing Supervisor to OR Infuse over 30 minutes., Day of Surgery (Day of Procedure), Indication for (Active or Suspected): Prophylaxis documented in this encounter Care Teams Community Manager Relationship Specialty Start Date End Date Adriana Velazquez PA [address] [place] [address] [place] [address] PCP - General Internal Medicine 08/06/20 documented as of this encounter
--- OUTSIDE RECORDS SUMMARY | 2024-07-06 13:51 | XMS_ITS | Encounter Summary ---
Author Organization [facility] Address [address] [place] [address] Care Team Providers Care Disease Management Nurse Name Role Phone Claudia Strong MD Primary Care Provider Unavailable Encounter Details Date Type Department Care Team (Late st Contact Info) Description 12/15/2016 Results Only [facility] [phone] Claudia Strong MD Social History Tobacco Use [...] ? SENIA SILVA ? Accession #: ? [id number] ? : ? 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 Comments Document reviewed and electronically signed by: ? System Interface ? Report date: 12/30/2016 By the signature above, the attending physician certifies that he/she has personally conducted a gross and/or microscopic examination of the described specimens and rendered or confirmed the above diagnosis. End of Report [facility] 12/15/2016 12/16/2016 us Claudia Strong MD PATHOLOGY ORDERABLES Fi nal Result [facility] [address] [place] [address] documented in this encounter Visit Diagnoses Not on filedocumented in this encounter Care Teams Disease Management Nurse Relationship Specialty Start Date End Date Claudia Strong MD PCP - General 09/26/09 11/30/22 documented as of this encounter
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
--- OUTSIDE RECORDS SUMMARY | 2024-07-06 13:51 | XMS_ITS | Encounter Summary ---
Author Organization [facility] Address [address] [place] [address] Care Team Providers Care Unit Assembler Name Role Phone Claudia Strong MD Primary Care Provider Unavailable Reason for Visit * Reason Onset Date Comments Appointment Related 11/30/2022 Encounter Details Date Type Department Care Team (Late st Contact Info) Description 11/30/2022 Telephone [facility] Acute Care Surgery - Main [place] [address] [place] [phone] Trauma Surgery, Ep5 Acs MD Appointment Related [...] Medical ? (Send to Nurse) Alia from [facility] regarding patient referral. Asked her to fax ED notes to me and I will enter the referral in and get the patient in for an appt. documented in this encounter Plan of Treatment Not on file documented as of this encounter Visit Diagnoses Not on filedocumented in this encounter Care Teams Unit Assembler Relationship Specialty Start Date End Date Claudia Strong MD PCP - General 09/26/09 11/30/22 documented as of this encounter
--- OUTSIDE RECORDS SUMMARY | 2024-07-06 13:51 | XMS_ITS | Encounter Summary ---
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
--- OUTSIDE RECORDS SUMMARY | 2024-07-06 13:51 | XMS_ITS | Encounter Summary ---
[place] [address] Care Team Providers Care Audio Visual Production Specialist Name Role Phone Claudia Strong MD Primary Care Provider [phone] Reason for Visit * Reason Comments Other Encounter Details Date Type Department Care Team ([facility] Contact Info) Description 04/08/2015 Telephone [place] [phone] Nahomi Valencia, RN Social History Tobacco Use [...] on filedocumented in this encounter Care Teams Audio Visual Production Specialist Relationship Specialty Start Date End Date Claudia Strong MD [facility] [address] [place] [address] PCP - General 07/15/10 05/19/18 documented as of this encounter
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
--- OUTSIDE RECORDS SUMMARY | 2024-07-06 13:51 | XMS_ITS | Encounter Summary ---
[place] [address] Care Team Providers Care Community Living Specialist Name Role Phone Claudia Strong MD Primary Care Provider [phone] Encounter Details Date Type Department Care Team (Late Contact Info) Description 04/03/2015 Telephone [place] [address] Nahomi Valencia RN Social History [...] Accepted Name: Juana Silva SSN: [id number] Email: [email or web address] Gender: F : 1970 Address: [address] Address City: [place] Address State: [place] Address Zip: [address] Phone: [phone] Donate To: Lilian Pearson Why Donate: Because [...] Kidney Infections Details: Cancer: No Cancer Details: Mandaen Beliefs: No Infectious Disease: No Blood Type: [...] on filedocumented in this encounter Care Teams Community Living Specialist Relationship Specialty Start Date End Date Claudia Strong MD [facility] [address] [place] [address] PCP - General 07/15/10 05/19/18 documented as of this encounter
--- OUTSIDE RECORDS SUMMARY | 2024-07-06 13:51 | XMS_ITS | Encounter Summary ---
Author Organization [facility] [place] [address] Care Team Providers Care Mountain Bike Guide Name Role Phone Unknown Primary Care Provider Unavailabl e Reason for Visit * - Closed Specialty Diagnoses / Procedures Referred By Jose t Referred To Contact Procedures Film Library- Storage Only DX Spine Adriana Velazquez PA [address] [place] [address] Referral ID Status Reason Start Date Expiration Date Visits Re quested Visits Authorized [id number] Closed 12/27/2020 12/27/2021 1 1 Encounter Details Date Type Department Care Team ([facility] Contact Info) Description 07/24/2020 Ancillary Procedure Radiology Library at [facility] [place] [address] Adriana Velazquez PA [address] [place] [address] [place], [place] [id number] Social History Tobacco Use Types Packs/Day Years [...] DX Spine (07/24/2020 12:00 AM EST) Narrative [facility] - 12/27/2020 12:40 PM EDT This exam is auto-finalizing. It's purpose is for storage only. Adriana HENRY IMG FILM LIBRARY ORDERABLES [place], [place] documented in this encounter Visit Diagnoses Not on filedocumented in this encounter Care Teams Mountain Bike Guide Relationship Specialty Start Date End Date Unknown None PCP - General 05/23/18 08/05/20 documented as of this encounter
--- OUTSIDE RECORDS SUMMARY | 2024-07-06 13:51 | XMS_ITS | Encounter Summary ---
Author Organization [facility] [place] [address] Care Team Providers Care Boiler Repairman Name Role Phone Adriana Velazquez Primary Care Provider + Encounter Details Date Type Department Care Team (Latest Contact Info) Description 08/06/2020 12:30 PM EST Laboratory [place] [phone] Endometrial cancer; Cigarette smoker; Hypokalemia Social History [...] 12:41 PM EST) Neutrophil % 58.7 % [facility] Neutrophil Absolute 6.84(H) 1.70 - 6.10 x10(3)/[facility] Lymph % 31.8 % [facility] Lymphocytes Abs 3.7(H) 0.9 - 3.2 x10(3)/[facility] Monocyte % 6.6 % [facility] Monocyte Abs 0.8 0.3 - 0.9 x10(3)/[facility] Eos % 1.5 % [facility] Eosinophils Abs 0.2 0.0 - 0.4 x10(3)/[facility] Basophil % 1.1 % [facility] Baso Absolute 0.1 0.0 - 0.1 x10(3)/[facility] Immature Gran % 0.30 % [facility] Comment: Immature granulocytes(IG's)percentage and absolute count will include metamyelocytes, myelocytes, and promyelocytes. Blood smears from CBCs yielding IG's will be scanned manually for concordance. If this scan disagrees with the automated IG or if promyelocytes are noted, a manual differential will be performed. Immature Gran Absolute 0.04 0.00 - 0.04 x10(3)/[facility] Blood specimen (specimen) 08/06/2020 12:41 PM EST 08/06/2020 12:53 PM EST Narrative Resulting Agency Comment Spec In Lab Popeye Leigh MD HEMATOLOGY ORDERABLE S [facility] [place] [address] * (ABNORMAL) Hemogram (08/06/2020 12:41 PM EST) White Blood Cell 11.7(H) 4.0 - 9.5 x10(3)/[facility] Red Blood Cell 4.50 4.00 - 5.21 x10(6)/[facility] Hemoglobin 13.9 11.7 - 15.5 gm/dL [facility] Hematocrit 40.7 35.7 - 45.8 % [facility] Mean Cell Volume 90.4 82.6 - 94.4 fL [facility] Mean Cell Hemoglobin 30.9 27.1 - 32.0 pg [facility] Mean Cell Hemoglobin Concentration 34.2 31.7 - 35.0 gm/dL [facility] Platelet 384(H) 145 - 357 x10(3)/mc L [facility] RDW Standard Deviation 42.3 37.0 - 46.0 fL [facility] RDW coefficient of variation 12.9 11.5 - 14.1 % [facility] Mean Platelet Volume 10.8 7.6 - 12.9 fL [facility] NRBC% auto 0.0 % [facility] NRBC Absolute 0.000 0.000 - 0.000 x10(3)/mc L [facility] Blood specimen (specimen) 08/06/2020 12:41 PM EST 08/06/2020 12:53 PM EST Narrative Resulting Agency Comment Spec In Lab Popeye Leigh MD HEMATOLOGY ORDERABLE S Performing Organization Address City/State/[facility] Co de Phone Number [facility] [place] [address] documented in this encounter Visit Diagnoses Diagnosis Endometrial cancer Malignant neoplasm of corpus uteri, except isthmus Cigarette smoker Tobacco use disorder Hypokalemia Hypopotassemia documented in this encounter Care Teams Boiler Repairman Relationship Specialty Start Date End Date Adriana Velazquez PA [address] [place] [address] [place] [address] PCP - General Internal Medicine 08/06/20 documented as of this encounter
--- OUTSIDE RECORDS SUMMARY | 2024-07-06 13:51 | XMS_ITS | Encounter Summary ---
Author Organization [facility] Address [address] [place] [address] Care Team Providers Care Clay Maker Name Role Phone Claudia Strong MD Primary Care Provider Unavailable Adriana Velazquez Primary Care Provider + Encounter Details Date Type Department Care Team (Late st Contact Info) Description 07/19/2020 Lab Requisition [facility] - [address] [address] Outr Resulting Lab, Provider Social History Tobacco [...] 125 13 <30 U/mL 07/22/2020 10:08 EST [facility] Comment: NOTE: Serum CA 125 concentration should not be interpreted as absolute evidence for the presence or absence of malignant disease. Assayed on Siemens ADVIA Centaur XPT using chemiluminescent technology. ??Values obtained by using different assay methods cannot be used interchangeably. Blood VENOUS BLOOD / Unknown 07/19/2020 12:26 EST 07/19/2020 22:00 EST us Provider Outr Resulting Lab CHEMISTRY & BLOOD GA S ORDERABLES Final Result [facility] [address] [place] [address] documented in this encounter Visit Diagnoses Not on filedocumented in this encounter Care Teams Clay Maker Relationship Specialty Start Date End Date Claudia Strong MD PCP - General 09/26/09 11/30/22 Adriana Velazquez PA [address] [place] [phone] PCP - General Internal Medicine - Primary Care 12/01/22 documented as of this encounter
--- OUTSIDE RECORDS SUMMARY | 2024-07-06 13:51 | XMS_ITS | Encounter Summary ---
Author Organization [facility] [place] [address] Care Team Providers Care Motorbike Courier Name Role Phone Adriana Velazquez Primary Care [...] Expiration Date Visits Re quested Visits Authorized [id number] 1 1 Encounter Details Date Type Department Care Team (Late Contact Info) Description 08/29/2020 11:21 AM EST Anesthesia [place] [address] Claudia Álvarez MD [facility] [place] [address] Melinda De La Rosa Anesthesia Record Procedure [...] basilic vein (medial side of arm), left; [id number]-[id number]-[id number] catheter system; 20 gauge; Theron RN; distraction, [...] 1140; metacarpal vein (top of hand), right; qrrn-thy-eokrzd catheter system; 18 gauge; no longer indicated, [...] Procedure Summary Date: 08/29/20 [facility] Anesthesia Start: 1121 Anesthesia Stop: [...] Providers: Anesthesiologist: Claudia Álvarez MD Student Nurse Patient Observer: Melinda De La Rosa Vitals Value Taken Time BP 125/72 08/29/20 1330 Temp Pulse Resp SpO2 100 % 08/29/20 1349 Pain Level Vitals shown include unvalidated device data. Patient [facility]: [facility] Level of Consciousness: Conscious but Sleepy Pain [...] blood products. Plan discussed with attending and OVERHAULER. PAT Clinic Note documented in this encounter [...] 08/29/20 at 1015, Administer over 30 Minutes, Civil Preparedness Officer to OR Infuse over 30 minutes., Day [...] 08/29/20 at 1015, Administer over 30 Minutes, Civil Preparedness Officer to OR Infuse over 30 minutes., Day [...] mg documented in this encounter Care Teams Motorbike Courier Relationship Specialty Start Date End Date Adriana Velazquez PA [address] [place] [address] [place] [address] PCP - General Internal Medicine 08/06/20 documented as of this encounter
--- OUTSIDE RECORDS SUMMARY | 2024-07-06 13:52 | XMS_ITS | Encounter Summary ---
Author Organization [facility] Address [address] [place] [address] Care Team Providers Care Italian Tutor Name Role Phone Unavailable Primary Care Provider Unavailabl e Encounter Details Date Type Department Care Team (Late st Contact Info) Description 11/29/2008 Before PRISM Converted Visit (Maple) [facility] conversion [address] [place] [address] Claudia Strong MD Social History Tobacco Use [...] ? SENIA SILVA ? Accession #: ? [id number] ? : ? 1970 (Age: 38) ??F [...] of Report ? [facility] 11/29/2008 12/03/2008 us Claudia Andreea Strong MD PATHOLOGY ORDERABLES Fi nal Result [facility] [address] [place] [address] documented in this encounter Visit Diagnoses Not on filedocumented in this encounter
--- OUTSIDE RECORDS SUMMARY | 2024-07-06 13:52 | XMS_ITS | Encounter Summary ---
Author Organization [facility] Address [address] [place] [address] Care Team Providers Care Television Actor Name Role Phone Claudia Strong MD Primary Care Provider Unavailable Unknown, Provider MD Primary Care Provider Unava ilable Encounter Details Date Type Department Care Team (Late st Contact Info) Description 12/22/1999 Results Only [facility] conversion [address] [place] [address] Claudia Strong MD Social History Tobacco Use [...] ? SENIA SILVA ? Accession #: ? [id number] : ? 1970 (Age: 29) ??F ?Collect Date: ? 12/22/1999 Location: ?Receive Date: ? 12/22/1999 Provider: ?CLAUDIA STRONG MD Copy to: ?CLAUDIA STRONG MD ? Specimen/Source: ?Air Lift Operator ThinPrep Last Menstrual Period: ? GYNECOLOGIC ??CYTOPATHOLOGY ??REPORT Name: KATYA,SENIA ? [facility] : 1970 ?? 29Y F ?Client ID: ?? SS#: [id number] ? Clinician: CLAUDIA STRONG MD ?? Location: [facility] ??Copy to: ?? Specimen: ?Air Lift Operator ThinPrep ? Source: Vagina/ Cervix/ Endocervix ?Collected: [...] Gee, CT(ASCP) ? Report Date: ?? 12/25/1999 [facility] Archived Tests - Final Diagnosis Text Field: Clinical History : ? Document reviewed and electronically signed by: ? Conversion ? Report Date: ??12/25/1999 00:00 End of Report [facility] GILLIAM 12/22/1999 9:15 EDT 12/22/1999 9:16 EDT us Claudia Andreea Strong MD PATHOLOGY ORDERABLES Fi nal Result [facility] [address] [place] [address] documented in this encounter Visit Diagnoses Not on filedocumented in this encounter Care Teams Television Actor Relationship Specialty Start Date End Date Claudia Strong MD PCP - General 09/26/09 11/30/22 Unknown, Provider, PCP - General 09/25/09 09/25/09 documented as of this encounter
--- OUTSIDE RECORDS SUMMARY | 2024-07-06 13:52 | XMS_ITS | Encounter Summary ---
Author Organization [facility] Address [address] [place] [address] Care Team Providers Care Meat And Poultry Inspector Name Role Phone Claudia Strong MD Primary Care Provider Unavailable Unknown, Provider MD Primary Care Provider Unava ilable Encounter Details Date Type Department Care Team (Late st Contact Info) Description 10/06/2007 Results Only [facility] conversion [address] [place] [address] Claudia Strong MD Social History Tobacco Use [...] ? SENIA SILVA ? Accession #: ? [id number] : ? 1970 (Age: 37) ??F ?Collect Date: ? 10/06/2007 Location: ? [facility] ? Receive Date: ? 10/10/2007 Provider: ?CLAUDIA STRONG MD Copy to: ? Specimen/Source: ?ThinPrep Pap Test, Source Not Provided, processed on [employer] Imaging System, with manual evaluation Last Menstrual Period: ? SPECIMEN ADEQUACY ? Satisfactory for Evaluation - transformation zone component present GENERAL CATEGORIZATION ? Negative for Intraepithelial Lesion or Malignancy ? Document reviewed and electronically signed by: ? Domonique Katz, SCT(ASCP) ? Report Date: ??10/12/2007 14:52 End of Report [facility] GILLIAM 10/06/2007 10/10/2007 us Claudia Strong MD PATHOLOGY ORDERABLES Fi nal Result Performing Organization Address City/State/[facility] Co de Phone Number [facility] [address] [place] [address] documented in this encounter Visit Diagnoses Not on filedocumented in this encounter Care Teams Meat And Poultry Inspector Relationship Specialty Start Date End Date Claudia Strong MD PCP - General 09/26/09 11/30/22 Unknown, MD Mirza PCP - General 09/25/09 09/25/09 documented as of this encounter
--- OUTSIDE RECORDS SUMMARY | 2024-07-06 13:52 | XMS_ITS | Encounter Summary ---
Author Organization [facility] Address [address] [place] [address] Care Team Providers Care Home Hospice Rn Name Role Phone Claudia Strong MD Primary Care Provider Unavailable Unknown, Provider MD Primary Care Provider Unava ilable Encounter Details Date Type Department Care Team (Late st Contact Info) Description 08/09/2006 Results Only [facility] conversion [address] [place] [address] Claudia Strong MD Social History Tobacco Use [...] ? SENIA SILVA ? Accession #: ? [id number] : ? 1970 (Age: 36) ??F ?Collect Date: ? 08/09/2006 Location: ? [facility] ? Receive Date: ? 08/12/2006 Provider: ?CLAUDIA STRONG MD Copy to: ? Specimen/Source: ?ThinPrep Pap Test, Cervix/Endocervix, processed on [employer] ([employer] ThinPrep Imaging System, with manual evaluation Last Menstrual Period: ? 07/17/06 ? SPECIMEN ADEQUACY ? Satisfactory for Evaluation - transformation zone component present GENERAL CATEGORIZATION ? Negative for Intraepithelial Lesion or Malignancy ? Document reviewed and electronically signed by: ? ADWOA Arzola(ASCP) ? Report Date: ??08/20/2006 09:29 End of Report BEB[facility] GILLIAM 08/09/2006 08/12/2006 us Claudia Strong MD PATHOLOGY ORDERABLES Fi nal Result Performing Organization Address City/State/[facility] Co de Phone Number [facility] [address] [place] [address] documented in this encounter Visit Diagnoses Not on filedocumented in this encounter Care Teams Home Hospice Rn Relationship Specialty Start Date End Date Claudia Strong MD PCP - General 09/26/09 11/30/22 Dhaval, MD Mirza PCP - General 09/25/09 09/25/09 documented as of this encounter
--- OUTSIDE RECORDS SUMMARY | 2024-07-06 13:52 | XMS_ITS | Encounter Summary ---
Author Organization [facility] Address [address] [place] [address] Care Team Providers Care Health Information Director Name Role Phone Claudia Strong MD Primary Care Provider Unavailable Unknown, Provider MD Primary Care Provider Unava ilable Encounter Details Date Type Department Care Team (Late st Contact Info) Description 05/18/2002 Results Only [facility] conversion [address] [place] [address] Claudia Strong MD Social History Tobacco Use [...] ? SENIA SILVA ? Accession #: ? [id number] : ? 1970 (Age: 31) ??F ?Collect [...] Document reviewed and electronically signed by: ? CLAUDINE Gomez(ASCP) ? Report Date: ??05/26/2002 11:13 End of Report BEB[facility] GILLIAM 05/18/2002 05/22/2002 us Claudia Strong MD PATHOLOGY ORDERABLES Fi nal Result Performing Organization Address City/State/[facility] Co de Phone Number [facility] [address] [place] [address] documented in this encounter Visit Diagnoses Not on filedocumented in this encounter Care Teams Health Information Director Relationship Specialty Start Date End Date Claudia Strong MD PCP - General 09/26/09 11/30/22 Unknown, MD Mirza PCP - General 09/25/09 09/25/09 documented as of this encounter
[2024-07-06 15:44] LABS: Vitamin B12 1228 pg/mL (193-986)
[2024-07-07 12:16] LABS: Lyme Ab w Rflx to Lyme Confirm Negative (Negative)
[2024-07-07 15:44] LABS: Albumin 62.1 % (55.8-66.1); Albumin g/dL 4.5 g/dL (3.6-5.2); Total Protein 7.2 g/dL (6.3-8.2)
== END 2024-07-06 13:48 | disposition home or self-care (01) ==
LOC: LBO 13:47
PROVIDERS: PCP Internal Medicine; Visit Provider Internal Medicine
DX: R20.2 Paresthesia of skin (principal)
CPT/HCPCS: 36415; 82607; 82746; 84165; 86618

== ENCOUNTER 2024-10-25 12:54 | Outpatient (CLI) | payer OTHER, SELFPAY ==
[2024-10-25 12:42] LABS: Calculated LDL 87 mg/dL (<100); Cholesterol 173 mg/dL (<200); HDL Cholesterol 78 mg/dL (>or=50); Triglyceride 43 mg/dL (<150)
[2024-10-25 12:54] LABS: Hemoglobin A1C 5.5 % (<5.7)
== END 2024-10-25 12:55 | disposition home or self-care (01) ==
LOC: LBO 12:55
PROVIDERS: PCP Internal Medicine; Visit Provider Internal Medicine
DX: E78.5 Hyperlipidemia, unspecified (principal); R20.0 Anesthesia of skin
CPT/HCPCS: 36415; 80061; 83036